=== PATIENT | male | born 1955 | race Caucasian/White ===

== ENCOUNTER 2016-09-24 17:15 | Emergency (ER) | payer BC ==
[2016-09-24] MEDS ORDERED: DIPH/PERTUSS(ACELL)/TETANUS VAC/PF 0.5 ML SYR (>=10YO) IM ONE (17:53)
[2016-09-24] MEDS ORDERED: LIDOCAINE 1% INJ-PF (10 MG/ML) 30 ML SDV INJ ONE (18:37)
--- NOTE | 2016-09-24 18:37 | ER Document Report ---
ED Hand/Wrist Injury - General Chief Complaint: Hand Injury Stated Complaint: RIGHT HAND INJURY Notes: Patient is a 61-year-old male presents emergency Department complaining of left hand pain. Patient states that he is a somnolent when he had 2 pieces of what slide and crushed his hand with an open wound. He admits to mild pain at the site but has full sensation and range of motion of his hand. States he is not up-to-date on his tetanus. Has medical problems except for high blood pressure. TRAVEL OUTSIDE OF THE [place] IN LAST 30 DAYS: No - HPI Injury to: Small finger - left - Related Data Allergies/Adverse Reactions: prednisone [Prednisone] Adverse Reaction (Intermediate, Verified 10/25/15 15:20) jitters Past Medical History - Social History Smoking Status: Former Smoker Family History: Reviewed & Not Pertinent - Past Medical History Cardiac Medical History: Reports: Hx Hypercholesterolemia - meds x 1 year, Hx Hypertension - meds x 6 years Denies: Hx Atrial Fibrillation, Hx Congestive Heart Failure, Hx Coronary Artery Disease, Hx Heart Attack, Hx Peripheral Vascular Disease, Hx Pulmonary Embolism, Hx Heart Murmur Pulmonary Medical History: Reports: Hx Bronchitis - multiple episodes (usually in the fall), Hx COPD, Hx Pneumonia - x 1 episode, denies hospitalization Denies: Hx Asthma, Hx Respiratory Failure, Hx Sleep Apnea, Hx Tuberculosis Neurological Medical History: Denies: Hx Cerebrovascular Accident, Hx Seizures Malignancy Medical History: Denies Hx Lung Cancer GI Medical History: Reports: Hx Gastroesophageal Reflux Disease - Tolentino's esophagitis, Dx'ed approx 3 years. Denies: Hx Crohn's Disease, Hx Hepatitis, Hx Hiatal Hernia, Hx Irritable Bowel, Hx Liver Failure, Hx Ulcer Musculoskeltal Medical History: Reports Hx Arthritis, Denies Hx Fibromyalgia, Denies Hx Muscular Dystrophy Psychiatric Medical History: Reports: Hx Depression - meds x 15 years Denies: Hx Bipolar Disorder, Hx Post Traumatic Stress Disorder, Hx Schizophrenia Traumatic Medical History: Denies: Hx Fractures Infectious Medical History: Denies: Hx Hepatitis Past Surgical History: Reports: Hx Appendectomy. Denies: Hx Bowel Surgery, Hx Cholecystectomy, Hx Colostomy, Hx Coronary Artery Bypass Graft, Hx Gastric Bypass Surgery, Hx Herniorrhaphy, Hx Open Heart Surgery, Hx Pacemaker, Hx Tonsillectomy - Immunizations Hx Diphtheria, Pertussis, Tetanus Vaccination: No Review of Systems - Review of Systems Musculoskeletal: See HPI Skin: See HPI -: Yes All other systems reviewed and negative Physical Exam - Vital signs Vitals: Temp Pulse Resp BP Pulse Ox 98.0 F 72 18 125/67 95 09/24/16 17:52 09/24/16 17:52 09/24/16 17:52 09/24/16 17:52 09/24/16 17:52 - General General appearance: Appears well, Alert In distress: None - Cardiovascular Pulses: Normal: Radial Normal capillary refill: Yes - Extremities Shoulder: Normal Arm: Normal Elbow: Normal Forearm: Normal Wrist: Normal Hand: Nontender, Laceration. No: Deformity, Dislocation, Ecchymosis, Instability, Nail injury, No evidence of human bite, No evidence of FB, Swelling , Tendon deficit - Skin Skin Temperature: Warm Skin Moisture: Dry Skin Color: Normal Skin Turgor: Elastic Skin irregularity: Laceration Location of irregularity: Extremities Character of irregularity: Linear Course - Re-evaluation Re-evalutation: 09/24/16 20:49 Patient is a 61-year-old male presents emergency Department with left hand laceration from crush injury. No evidence of fracture on x-ray. Patient's hand is neurovascularly intact no evidence of tendon involvement. Closed with nylon suture after copious irrigation with Betadine and saline. Patient's tetanus status updated discharged home on by mouth Keflex. - Vital Signs Vital signs: Temp Pulse Resp BP Pulse Ox 98.0 F 72 18 125/67 95 09/24/16 17:52 09/24/16 17:52 09/24/16 17:52 09/24/16 17:52 09/24/16 17:52 - Diagnostic Test Radiology reviewed: Image reviewed, Reports reviewed Procedures - Laceration/Wound Repair Left Hand 4th digit Wound length (cm): 5 Wound's Depth, Shape: Into muscle, Flap Laceration pre-procedure: Sterile PPE donned, Betadine prep applied, Sterile drapes applied Anesthetic type: 1% Lidocaine Volume Anesthetic (mLs): 2 Wound explored: Clean, No foreign body removed Irrigated w/ Saline (mLs): 500 Wound Debrided: Minimal Wound Repaired With: Sutures Suture Size/Type: 4:0, Nylon Number of Sutures: 7 Layer Closure?: No Post-procedure NV exam normal: Yes Complications: No Discharge - Discharge Clinical Impression: Laceration Condition: Good Disposition: HOME, SELF-CARE Instructions: Antibiotic Ointment Protection ([facility]), Laceration Care ([facility]), Prophylactic Antibiotic ([facility]), Tetanus Immunization Given ([facility]), Oral Narcotic Medication ([facility]), Soap Cleansing ([facility]) Additional Instructions: Please make an appointment to see Dr. Woods in 10-14 days to get your stitches removed. Prescriptions: Tramadol HCl 50 mg PO Q6HP PRN #15 tablet PRN Reason: Cephalexin Monohydrate [Keflex 500 mg Capsule] 500 mg PO BID 10 Days Forms: Return to Work Referrals: RICH MONTALVO MD [NO LOCAL MD] - Follow up as needed (in two weeks)
[2016-09-24] MEDS ORDERED: CEPHALEXIN 500 MG CAPSULE PO ONE (18:38)
[2016-09-24] MEDS ORDERED: ACETAMINOPHEN 325 MG TABLET PO ONE (18:56)
[2016-09-24 20:56] VITALS: BP 150/88
== END 2016-09-24 20:55 | disposition home or self-care (01) ==
LOC: ER 17:15
PROC: 0HQGXZZ Repair Left Hand Skin, External Approach (ICD-10-PCS; principal; 2016-09-24)
DX: S67.22XA Crushing injury of left hand, initial encounter (principal); S66.922A Laceration of unspecified muscle, fascia and tendon at wrist and hand level, left hand, initial encounter; S61.412A Laceration without foreign body of left hand, initial encounter; X58.XXXA Exposure to other specified factors, initial encounter; Y92.69 Other specified industrial and construction area as the place of occurrence of the external cause; I10 Essential (primary) hypertension; J44.9 Chronic obstructive pulmonary disease, unspecified; Z23 Encounter for immunization
CPT/HCPCS: 12002; 99283; 90471; 73140; 90715; J3490

== ENCOUNTER 2017-03-17 14:51 | Emergency (ER) | payer BC ==
[2017-03-17 14:55] VITALS: BP 136/95
[2017-03-17] MEDS ORDERED: HYDROCODONE/ACETAMINOPHEN 5-325 MG TABLET PO ONE (15:32)
[2017-03-17] MEDS ORDERED: METHYLPREDNISOLONE INJ 125 MG/2 ML SDV IM ONE (15:32)
[2017-03-17] MEDS ORDERED: CYCLOBENZAPRINE HCL 10 MG TABLET PO ONE (15:32)
--- NOTE | 2017-03-17 15:38 | ER Document Report ---
ED Extremity Problem, Lower - General Chief Complaint: Leg Pain Stated Complaint: LEG PAIN Time Seen by Provider: 03/17/17 15:05 Mode of Arrival: Ambulatory Information source: Patient Notes: Pt is a 61 year old male who presents with two days of left leg pain from his hip down to his foot, down the back of the leg only. He denies injury, numbness or tingling or low back pain. He denies any recent surgery, swelling, redness or bruising, recent travel or history of blood clots. He is not on blood thinners. He also admits to productive cough x 1 week and fever/chills last night. He has COPD. He has an inhaler at home he uses for shortness of breath that helps. TRAVEL OUTSIDE OF THE [place] IN LAST 30 DAYS: No - Related Data Allergies/Adverse Reactions: prednisone [Prednisone] Adverse Reaction (Intermediate, Verified 03/17/17 14:54) jitters Home Medications: Current Home Medications Esomeprazole Magnesium [Nexium] 1 cap PO DAILY 03/17/17 [History] Past Medical History - General Information source: Patient - Social History Smoking Status: Former Smoker Chew tobacco use (# tins/day): No Frequency of alcohol use: None Drug Abuse: None Family History: Reviewed & Not Pertinent - Past Medical History Cardiac Medical History: Reports: Hx Hypercholesterolemia - meds x 1 year, Hx Hypertension - meds x 6 years Denies: Hx Atrial Fibrillation, Hx Congestive Heart Failure, Hx Coronary Artery Disease, Hx Heart Attack, Hx Peripheral Vascular Disease, Hx Pulmonary Embolism, Hx Heart Murmur Pulmonary Medical History: Reports: Hx Bronchitis - multiple episodes (usually in the fall), Hx COPD, Hx Pneumonia - x 1 episode, denies hospitalization Denies: Hx Asthma, Hx Respiratory Failure, Hx Sleep Apnea, Hx Tuberculosis Neurological Medical History: Denies: Hx Cerebrovascular Accident, Hx Seizures Renal/ Medical History: Denies: Hx Peritoneal Dialysis Malignancy Medical History: Denies Hx Lung Cancer GI Medical History: Reports: Hx Gastroesophageal Reflux Disease - Tolentino's esophagitis, Dx'ed approx 3 years. Denies: Hx Crohn's Disease, Hx Hepatitis, Hx Hiatal Hernia, Hx Irritable Bowel, Hx Liver Failure, Hx Ulcer Musculoskeltal Medical History: Reports Hx Arthritis, Denies Hx Fibromyalgia, Denies Hx Muscular Dystrophy Psychiatric Medical History: Reports: Hx Depression - meds x 15 years Denies: Hx Bipolar Disorder, Hx Post Traumatic Stress Disorder, Hx Schizophrenia Traumatic Medical History: Denies: Hx Fractures Infectious Medical History: Denies: Hx Hepatitis Past Surgical History: Reports: Hx Appendectomy. Denies: Hx Bowel Surgery, Hx Cholecystectomy, Hx Colostomy, Hx Coronary Artery Bypass Graft, Hx Gastric Bypass Surgery, Hx Herniorrhaphy, Hx Open Heart Surgery, Hx Pacemaker, Hx Tonsillectomy - Immunizations Hx Diphtheria, Pertussis, Tetanus Vaccination: No Review of Systems - Review of Systems Constitutional: See HPI EENT: No symptoms reported Cardiovascular: No symptoms reported Respiratory: See HPI Gastrointestinal: No symptoms reported Genitourinary: No symptoms reported Male Genitourinary: No symptoms reported Musculoskeletal: See HPI Skin: No symptoms reported Hematologic/Lymphatic: No symptoms reported Neurological/Psychological: No symptoms reported Physical Exam - Vital signs Vitals: Temp Pulse Resp BP Pulse Ox 98.7 F 95 18 136/95 H 97 03/17/17 14:55 03/17/17 14:55 03/17/17 14:55 03/17/17 14:55 03/17/17 14:55 - Notes Notes: PHYSICAL EXAMINATION: GENERAL: Well-appearing and in no acute distress. HEAD: Atraumatic, normocephalic. EYES: Pupils equal round and reactive to light, extraocular movements intact, sclera anicteric, conjunctiva are normal. ENT: ear canals without erythema or foreign body, TMs pearly doty with good bony landmarks, nares patent, oropharynx clear without exudates. Moist mucous membranes. NECK: Normal range of motion, supple without lymphadenopathy LUNGS: cough, otherwise CTAB and equal. No wheezes rales or rhonchi. HEART: Regular rate and rhythm without murmurs ABDOMEN: Soft, no tenderness. No guarding, no rebound BACK: left SI joint tenderness, no vertebral tenderness, normal ROM GI/: no CVA tenderness EXTREMITIES: limited range of motion of left leg at hip due to pain, tender to left posterior thigh, no tenderness to calf, Brittany's sign negative for pain, no pitting edema. No cyanosis. NEUROLOGICAL: Cranial nerves grossly intact. Normal sensory/motor exams. PSYCH: Normal mood, normal affect. SKIN: Warm, Dry, normal turgor, no rashes or lesions noted Course - Vital Signs Vital signs: Temp Pulse Resp BP Pulse Ox 98.7 F 95 18 136/95 H 97 03/17/17 14:55 03/17/17 14:55 03/17/17 14:55 03/17/17 14:55 03/17/17 14:55 Discharge - Discharge Clinical Impression: COPD (chronic obstructive pulmonary disease) Qualifiers: COPD type: unspecified COPD Qualified Code(s): J44.9 - Chronic obstructive pulmonary disease, unspecified Sciatica Qualifiers: Laterality: left Qualified Code(s): M54.32 - Sciatica, left side Condition: Stable Disposition: HOME, SELF-CARE Instructions: Chronic Obstructive Lung Disease ([facility]), Sciatica ([facility]) Additional Instructions: Return immediately for any new or worsening symptoms. Follow up with primary care provider, call tomorrow to make followup appointment. Prescriptions: Azithromycin [Zithromax 250 mg Tablet] 250 mg PO ASDIR PRN #6 tablet PRN Reason: Cyclobenzaprine HCl [Flexeril 10 mg Tablet] 10 mg PO TIDP PRN #15 tab PRN Reason: Hydrocodone/Acetaminophen [Bucklin 5-325 mg Tablet] 1 tab PO Q4 PRN #10 tablet PRN Reason:
== END 2017-03-17 15:50 | disposition home or self-care (01) ==
LOC: ER 14:51
DX: J44.9 Chronic obstructive pulmonary disease, unspecified (principal); M54.32 Sciatica, left side; M79.605 Pain in left leg; E78.00 Pure hypercholesterolemia, unspecified; I10 Essential (primary) hypertension
CPT/HCPCS: 99283; 96372; J2930

== ENCOUNTER 2017-08-12 06:41 | Observation (INO) | payer BC ==
[2017-08-12] MEDS ORDERED: FENTANYL CITRATE INJ/PF 100 MCG/2 ML AMPUL IV ONE ×2 (07:53→09:24)
--- NOTE | 2017-08-12 07:59 | ER Document Report ---
ED GI/ - General Chief Complaint: Epigastric Pain Stated Complaint: STOMACH PAIN,NAUSEA Time Seen by Provider: 08/12/17 07:44 Mode of Arrival: Ambulatory Information source: Patient Notes: Patient is a 62-year-old male who presents to the ER today for abdominal pain in the upper abdomen that started last night. Patient states he was unable to sleep all night because of the pain. Patient has noticed no pattern with food. He states it has been constant. He admits to nausea and one episode of vomiting. He denies any diarrhea. He denies any fevers or chills. He still has his gallbladder. TRAVEL OUTSIDE OF THE [place] IN LAST 30 DAYS: No - Related Data Allergies/Adverse Reactions: prednisone [Prednisone] Adverse Reaction (Intermediate, Verified 08/12/17 07:59) jitters Past Medical History - General Information source: Patient - Social History Smoking Status: Unknown if Ever Smoked Family History: Reviewed & Not Pertinent - Past Medical History Cardiac Medical History: Reports: Hx Hypercholesterolemia - meds x 1 year, Hx Hypertension - meds x 6 years Denies: Hx Atrial Fibrillation, Hx Congestive Heart Failure, Hx Coronary Artery Disease, Hx Heart Attack, Hx Peripheral Vascular Disease, Hx Pulmonary Embolism, Hx Heart Murmur Pulmonary Medical History: Reports: Hx Bronchitis - multiple episodes (usually in the fall), Hx COPD, Hx Pneumonia - x 1 episode, denies hospitalization Denies: Hx Asthma, Hx Respiratory Failure, Hx Sleep Apnea, Hx Tuberculosis Neurological Medical History: Denies: Hx Cerebrovascular Accident, Hx Seizures Renal/ Medical History: Denies: Hx Peritoneal Dialysis Malignancy Medical History: Denies Hx Lung Cancer GI Medical History: Reports: Hx Gastroesophageal Reflux Disease - Tolentino's esophagitis, Dx'ed approx 3 years. Denies: Hx Crohn's Disease, Hx Hepatitis, Hx Hiatal Hernia, Hx Irritable Bowel, Hx Liver Failure, Hx Pancreatitis, Hx Ulcer Musculoskeltal Medical History: Reports Hx Arthritis, Denies Hx Fibromyalgia, Denies Hx Muscular Dystrophy Psychiatric Medical History: Reports: Hx Depression - meds x 15 years Denies: Hx Bipolar Disorder, Hx Post Traumatic Stress Disorder, Hx Schizophrenia Traumatic Medical History: Denies: Hx Fractures Infectious Medical History: Denies: Hx Hepatitis Past Surgical History: Reports: Hx Appendectomy. Denies: Hx Bowel Surgery, Hx Cholecystectomy, Hx Colostomy, Hx Coronary Artery Bypass Graft, Hx Gastric Bypass Surgery, Hx Herniorrhaphy, Hx Open Heart Surgery, Hx Pacemaker, Hx Tonsillectomy - Immunizations Hx Diphtheria, Pertussis, Tetanus Vaccination: No Review of Systems - Review of Systems Constitutional: No symptoms reported EENT: No symptoms reported Cardiovascular: No symptoms reported Respiratory: No symptoms reported Gastrointestinal: See HPI Genitourinary: No symptoms reported Male Genitourinary: No symptoms reported Musculoskeletal: No symptoms reported Skin: No symptoms reported Hematologic/Lymphatic: No symptoms reported Neurological/Psychological: No symptoms reported Physical Exam - Vital signs Vitals: Temp Pulse Resp BP Pulse Ox 97.5 F 68 18 150/81 H 95 08/12/17 06:57 08/12/17 06:57 08/12/17 06:57 08/12/17 06:57 08/12/17 06:57 - Notes Notes: PHYSICAL EXAMINATION: GENERAL: Mildly ill-appearing, uncomfortable appearing, but in no acute distress. HEAD: Atraumatic, normocephalic. EYES: Pupils equal round and reactive to light, extraocular movements intact, sclera anicteric, conjunctiva are normal. NECK: Normal range of motion, supple without lymphadenopathy LUNGS: CTAB and equal. No wheezes rales or rhonchi. HEART: Regular rate and rhythm without murmurs ABDOMEN: Soft, right upper quadrant, diffuse tenderness. No guarding, no rebound BACK: no vertebral tenderness, normal ROM GI/: no CVA tenderness EXTREMITIES: Normal range of motion, no pitting edema. No cyanosis. NEUROLOGICAL: Cranial nerves grossly intact. Normal sensory/motor exams. PSYCH: Normal mood, normal affect. SKIN: Warm, Dry, normal turgor, no rashes or lesions noted Course - Re-evaluation Re-evalutation: 08/12/17 15:05 Patient's white blood cell count is 11.1, normal liver enzymes and bilirubin, normal lipase, CT was performed because patient's pain was not exactly localized to only the right upper quadrant which is also why cardiac enzymes were drawn and negative, chest x-ray was performed and negative. CAT scan reports cholecystic fluid, radiologist called advising ultrasound. Right upper quadrant ultrasound reports cholecystitis with cholelithiasis. Dr. Ivey, surgeon on-call accepts patient for surgery at this time. Patient was given Unasyn, IV fluids, pain medication, nausea medication and made n.p.o. He has not eaten since 6 PM last night. - Vital Signs Vital signs: Temp Pulse Resp BP Pulse Ox 98.2 F 68 17 154/80 H 95 08/12/17 12:11 08/12/17 06:57 08/12/17 13:01 08/12/17 13:01 08/12/17 13:01 - Laboratory Result Diagrams: 08/12/17 07:54 08/12/17 07:54 Laboratory results interpreted by me: 08/12/17 08/12/17 08/12/17 07:54 07:54 09:00 WBC 11.1 H Seg Neutrophils % 81.2 H Lymphocytes % 11.9 L Absolute Neutrophils 9.0 H Glucose 150 H Calcium 10.3 H Urine Ascorbic Acid 40 H Discharge - Discharge Clinical Impression: Cholecystitis with cholelithiasis Qualifiers: Cholelithiasis location: gallbladder Cholecystitis acuity: acute Biliary obstruction: without biliary obstruction Qualified Code(s): K80.00 - Calculus of gallbladder with acute cholecystitis without obstruction Condition: Stable Disposition: ADMITTED INPATIENT Admitting Provider: Surgicalist Unit Admitted: OR
[2017-08-12 08:06] LABS: ABSOLUTE BASOPHILS # (AUTO) 0.1 10^3/uL (0.0-0.2); ABSOLUTE EOSINOPHILS # (AUTO) 0.1 10^3/uL (0.0-0.6); ABSOLUTE LYMPHOCYTES (AUTO) 1.3 10^3/uL (0.5-4.7); ABSOLUTE MONOCYTES (AUTO) 0.6 10^3/uL (0.1-1.4); BASOPHILS % (AUTO) 0.7 % (0-2); EOSINOPHILS % (AUTO) 0.6 % (0-6); HEMATOCRIT 46.3 % (37.9-51.0); HEMOGLOBIN 15.7 g/dL (13.5-17.0); LYMPHOCYTES % (AUTO) 11.9 % (13-45); MEAN CORPUSCULAR HEMOGLOBIN 30.2 pg (27.0-33.4); MEAN CORPUSCULAR VOLUME 89 fl (80-97); MONOCYTES % (AUTO) 5.6 % (3-13); PLATELET COUNT 327 10^3/uL (150-450); RED CELL DISTRIBUTION WIDTH 12.8 % (11.5-14.0); SEGMENTED NEUTROPHILS % (AUTO) 81.2 % (42-78); TOTAL CELLS COUNTED % (AUTO) 100 %; WHITE BLOOD COUNT 11.1 10^3/uL (4.0-10.5)
[2017-08-12 08:26] LABS: ALANINE AMINOTRANSFERASE 53 U/L (21-72); ALBUMIN 4.8 g/dL (3.5-5.0); ALKALINE PHOSPHATASE 69 U/L (38-126); ANION GAP 15 (5-19); ASPARTATE AMINO TRANSFERASE 25 U/L (17-59); BILIRUBIN,DIRECT 0.4 mg/dL (0.0-0.4); BILIRUBIN,TOTAL 0.4 mg/dL (0.2-1.3); BLOOD UREA NITROGEN 19 mg/dL (7-20); CALCIUM 10.3 mg/dL (8.4-10.2); CARBON DIOXIDE 25 mmol/L (22-30); CHLORIDE 101 mmol/L (98-107); CREATINE KINASE 67 U/L (55-170); GLUCOSE 150 mg/dL (75-110); LIPASE 51.2 U/L (23-300); POTASSIUM 4.8 mmol/L (3.6-5.0); SODIUM 140.7 mmol/L (137-145); TOTAL PROTEIN 7.7 g/dL (6.3-8.2)
[2017-08-12 08:38] LABS: CREATINE KINASE MB 1.09 ng/mL (<4.55)
[2017-08-12 08:40] LABS: TROPONIN I < 0.012 ng/mL
--- NOTE | 2017-08-12 09:11 | RADIOLOGY REPORT (SQ) ---
EXAM DESCRIPTION: CHEST SINGLE VIEW COMPLETED DATE/TIME: 08/12/2017 8:57 am REASON FOR STUDY: cp COMPARISON: 11/29/2015 EXAM PARAMETERS: NUMBER OF VIEWS: One view. TECHNIQUE: Single frontal radiographic view of the chest acquired. RADIATION DOSE: NA LIMITATIONS: None. FINDINGS: LUNGS AND PLEURA: Vague suprahilar opacity/ mass on the right not seen on the previous liz dy. Left lung is clear. MEDIASTINUM AND HILAR STRUCTURES: No masses. Contour normal. HEART AND VASCULAR STRUCTURES: Heart normal in size. Normal vasculature. BONES: No acute findings. HARDWARE: None in the chest. OTHER: No other significant finding. IMPRESSION: Vague suprahilar opacity on the right. Infiltrate versus mass. TECHNICAL DOCUMENTATION: JOB ID: [id number] [employer]- All Rights Reserved
[2017-08-12 09:23] LABS: APPEARANCE,URINE CLEAR; BILIRUBIN,URINE NEGATIVE (NEGATIVE); COLOR,URINE STRAW; GLUCOSE, URINE NEGATIVE (NEGATIVE); KETONES,URINE NEGATIVE (NEGATIVE); LEUKOCYTE ESTERASE,URINE NEGATIVE (NEGATIVE); NITRITE,URINE NEGATIVE (NEGATIVE); PROTEIN,URINE NEGATIVE (NEGATIVE); URINE SPECIFIC GRAVITY 1.015; UROBILINOGEN,URINE NEGATIVE mg/dL (<2.0)
[2017-08-12] MEDS ORDERED: METOCLOPRAMIDE HCL ORAL SOLN 10 MG/10 ML UDCUP PO ONE (09:35)
[2017-08-12] MEDS ORDERED: LIDOCAINE 2% VISCOUS SOLN 20 ML UDCUP PO ONE (09:35)
[2017-08-12] MEDS ORDERED: MAG HYDROX/AL HYDROX/SIMETH SUSP 30 ML UDCUP PO ONE (09:35)
[2017-08-12] MEDS ORDERED: ONDANSETRON HCL INJ/PF 4 MG/2 ML SDV IV ONE (09:43)
--- NOTE | 2017-08-12 11:17 | RADIOLOGY REPORT (SQ) ---
EXAM DESCRIPTION: CT ABD/PELVIS WITH IV ORAL COMPLETED DATE/TIME: 08/12/2017 10:41 am REASON FOR STUDY: cp/abd pain worst epigastric, nausea COMPARISON: CT abdomen pelvis 11/05/2008, 12/16/2015 TECHNIQUE: CT scan of the abdomen and pelvis performed using helical scanning technique with dynamic intravenous contrast injection. Patient drank oral contrast. Images reviewed with lung, soft tissue , and bone windows. Reconstructed coronal and sagittal MPR images reviewed. Delayed images for evalua tion of the urinary system also acquired. All images stored on PACS. All CT scanners at this facility use dose modulation, iterative reconstruction, and/or weight based d osing when appropriate to reduce radiation dose to as low as reasonably achievable (ALARA). [facility]: Dose Right [facility]: CareDose [facility]: Dose Right [facility]: Teradose 4D [facility]: Pcsso CONTRAST TYPE AND DOSE: contrast/concentration: Isovue 370.00 mg/ml; Total Contrast Delivered: 100.0 ml; Total Saline Delivered: 70.0 ml RENAL FUNCTION: Creatinine 0.99 RADIATION DOSE: CT Rad equipment meets quality standard of care and radiation dose reduction techniq ues were employed. CTDIvol: 18.3 - 20.7 mGy. DLP: 2283 mGy-cm.. LIMITATIONS: None. FINDINGS: LOWER CHEST: Small hiatal hernia. Bibasilar atelectasis. LIVER: Normal size. Diffuse fatty infiltration with focal sparing at the gallbladder fossa. [address] posterior right lobe liver unchanged since 2008 SPLEEN: Normal size. No focal lesions. PANCREAS: No masses. No significant calcifications. No adjacent inflammation or peripancreatic fluid collections. Pancreatic duct not dilated. GALLBLADDER: No identified stones by CT criteria. Trace pericholecystic fluid on coronal image 37, q uestion acute cholecystitis. ADRENAL GLANDS: No significant masses or asymmetry. RIGHT KIDNEY AND URETER: No solid masses. No significant calcifications. No hydronephrosis or hyd roureter. LEFT KIDNEY AND URETER: No solid masses. No significant calcifications. No hydronephrosis or hydr oureter. AORTA AND VESSELS: No aneurysm. No dissection. Renal arteries, SMA, celiac without stenosis. RETROPERITONEUM: No retroperitoneal adenopathy, hemorrhage or masses. BOWEL AND PERITONEAL CAVITY: No masses or inflammatory changes. No free fluid or peritoneal masses. Oral contrast in stomach and nondistended small bowel loops. APPENDIX: Surgically absent PELVIS: Enlarged prostate. No free fluid. Normal bladder. ABDOMINAL WALL: No masses. No hernias. BONES: Bilateral spondylolysis at L5 . OTHER: No other significant finding. IMPRESSION: Fatty liver Trace pericholecystic fluid, question acute cholecystitis Colonic diverticuli without CT signs of acute diverticulitis Enlarged prostate COMMENT: Report called to Licha Eubanks in the ER, 1100 hours 08/12/2017 TECHNICAL DOCUMENTATION: JOB ID: [id number] Quality ID # [id number]: Final reports with documentation of one or more dose reduction techniques (e.g., Au tomated exposure control, adjustment of the mA and/or kV according to patient size, use of iterative reconstruction technique) 2010 [employer]- All Rights Reserved
--- NOTE | 2017-08-12 12:10 | RADIOLOGY REPORT (SQ) ---
EXAM DESCRIPTION: U/S ABDOMEN LIMITED W/O DOP COMPLETED DATE/TIME: 08/12/2017 11:51 am REASON FOR STUDY: abd pain, n /v COMPARISON: CT scan same date TECHNIQUE: Dynamic and static grayscale images acquired of the abdomen and recorded on PACS. Additio nal selected color Doppler and spectral images recorded. LIMITATIONS: None. FINDINGS: PANCREAS: Not visualized LIVER: Fatty liver. No focal masses. LIVER VASCULATURE: Normal directional flow of the main portal vein and hepatic veins. GALLBLADDER: Multiple stones. Gallbladder wall thickening 3.4 mm. Pericholecystic fluid. ULTRASOUND-DETECTED FRANCO'S SIGN: Positive. INTRAHEPATIC DUCTS AND COMMON DUCT: Common duct not visualized. INFERIOR VENA CAVA: Normal flow. AORTA: Not visualized. RIGHT KIDNEY: Normal size. Normal echogenicity. No solid or suspicious masses. No hydronephrosis. No calcifications. PERITONEAL AND RIGHT PLEURAL SPACE: No ascites or effusions. OTHER: No other significant findings. IMPRESSION: Cholelithiasis and cholecystitis. TECHNICAL DOCUMENTATION: JOB ID: [id number] [email or web address]- All Rights Reserved
[2017-08-12] MEDS ORDERED: AMPICILLIN SOD/SULBACTAM 3 GM VIAL IV ONE (12:27)
[2017-08-12] MEDS ORDERED: NORMAL SALINE 1000 ML 1,000 ML IV ONE (12:27)
--- NOTE | 2017-08-12 13:32 | EKG REPORT ---
SEVERITY:- BORDERLINE ECG - SINUS RHYTHM NONSPECIFIC ST-T CHANGES ANTERIOR LEADS : Confirmed by: Stoney Obando MD 12-Aug-2017 13:31:41
[2017-08-12] MEDS ORDERED: INFLUENZA ADLT QUAD (36MOS+) 2017-18 VAC 0.5 ML SYR IM PRN (14:39)
[2017-08-12] MEDS ORDERED: BUPIVACAINE HCL 0.25 % INJ/PF (2.5 MG/1 ML) 30 ML VIAL ONE (15:06)
[2017-08-12] MEDS ORDERED: EPHEDRINE SULFATE INJ 50 MG/1 ML AMPULE ONE (15:11)
[2017-08-12] MEDS ORDERED: MIDAZOLAM 2 MG/2 ML INJ ONE (15:11)
[2017-08-12] MEDS ORDERED: PROPOFOL INJ 200 MG/20 ML VIAL IV ONE (15:11)
[2017-08-12] MEDS ORDERED: FENTANYL CITRATE INJ/PF 100 MCG/2 ML AMPUL ONE (15:11)
[2017-08-12] MEDS ORDERED: HYDROMORPHONE HCL INJ/PF 2 MG/ML AMPULE ONE (15:11)
[2017-08-12] MEDS ORDERED: ACETAMINOPHEN 100 ML IV ONE (15:11)
--- NOTE | 2017-08-12 15:28 | PDOC H&P ---
History of Present Illness Admission Date/PCP: 08/12/17 13:04 WALKER CARABALLO MD History of Present Illness: CHAD RETANA is a 62 year old male Who presents emergency department with a 24-hour history of abdominal pain, inanition, no nausea or vomiting no previous episodes, no history of trauma. Last bowel movement yesterday, normal. Last ate last p.m. at 6:00. Patient presents emergency department complaining of chest and abdominal pain. EKG and chest x-ray were unremarkable. CT scan of the abdomen and pelvis with oral and IV contrast showed findings consistent with cholecystitis with pericholecystic fluid, and ultrasonography showed gallstones. Surgery was consulted and he was advised admission. Past Medical History Cardiac Medical History: Reports: Hyperlipidema - meds x 1 year, Hypertension - meds x 6 years Denies: Atrial Fibrillation, Congestive Heart Failure, Coronary Artery Disease, Myocardial Infarction, Peripheral Vascular Disease, Pulmonary Embolism , Heart Murmur Pulmonary Medical History: Reports: Bronchitis - multiple episodes (usually in the fall), Chronic Obstructive Pulmonary Disease (COPD), Pneumonia - x 1 episode , denies hospitalization Denies: Asthma, Respiratory Failure, Sleep Apnea, Tuberculosis Neurological Medical History: Denies: Seizures Malignancy Medical History: Denies: Lung Cancer GI Medical History: Reports: Gastroesophageal Reflux Disease - Tolentino's esophagitis, Dx'ed approx 3 years Denies: Crohn's Disease, Hepatitis, Hiatal Hernia Musculoskeltal Medical History: Reports: Arthritis Denies: Fibromyalgia Psychiatric Medical History: Reports: Depression - meds x 15 years Denies: Bipolar Disorder, Post Traumatic Stress Disorder Hematology: Denies: Anemia, Sickle Cell Disease Past Surgical History Past Surgical History: Reports: Appendectomy, Orthopedic Surgery - RIGHT KNEE Denies: Cholecystectomy, Colostomy, Coronary Artery Bypass Graft, Gastric Bypass Surgery, Herniorrhaphy, Pacemaker, Tonsillectomy Social History Smoking Status: Former Smoker Cigarettes Packs Per Day: 3 Number of Years Smokin Frequency of Alcohol Use: None Hx Recreational Drug Use: No Drugs: None Hx Prescription Drug Abuse: No Family History Family History: Reviewed & Not Pertinent Parental Family History Reviewed: Yes Children Family History Reviewed: Yes Sibling(s) Family History Reviewed.: Yes Medication/Allergy Home Medications: Albuterol Sulfate [Proair HFA Inhalation Aerosol 8.5 gm MDI] 2 puff IH Q4HP PRN 08/12/17 Alprazolam [Xanax 0.5 mg Tablet] 0.5 mg PO QHS 08/12/17 Budesonide/Formoterol Fumarate [Symbicort HFA 160-4.5 mcg Inhaler 6 gm] 2 puff IH Q12 08/12/17 Citalopram Hydrobromide [Celexa 40 mg Tablet] 40 mg PO QHS 08/12/17 Fosinopril Sodium [Monopril] 10 mg PO BID 08/12/17 Ipratropium/Albuterol Sulfate [Duoneb 3 ml Ampul] 1 vial NEB Q6 08/12/17 Ropinirole HCl [Requip] 0.5 mg PO QHS 08/12/17 Tiotropium [place] [Spiriva Respimat] 2 puff IH DAILY 08/12/17 Allergies/Adverse Reactions: prednisone [Prednisone] Adverse Reaction (Intermediate, Verified 08/12/17 07:59) jitters Review of Systems Constitutional: PRESENT: as per HPI Eyes: ABSENT: visual disturbances Ears: ABSENT: hearing changes Cardiovascular: ABSENT: chest pain, dyspnea on exertion, edema, orthropnea, palpitations Gastrointestinal: PRESENT: as per HPI Musculoskeletal: ABSENT: joint swelling Integumentary: ABSENT: rash, wounds Neurological: ABSENT: abnormal gait, abnormal speech, confusion, dizziness, focal weakness, syncope Physical Exam Vital Signs: Temp Pulse Resp BP Pulse Ox 98.2 F 68 17 147/79 H 95 08/12/17 12:11 08/12/17 06:57 08/12/17 15:01 08/12/17 15:01 08/12/17 15:04 Intake & Output 08/11/17 08/12/17 08/13/17 06:59 06:59 06:59 Output Total 200 Balance -200 General appearance: PRESENT: mild distress Head exam: PRESENT: normocephalic Eye exam: PRESENT: EOMI Mouth exam: PRESENT: moist Neck exam: PRESENT: full ROM Respiratory exam: PRESENT: other - Occasional wheeze Cardiovascular exam: PRESENT: RRR Pulses: PRESENT: normal carotid pulses, normal radial pulses, normal femoral pulses GI/Abdominal exam: PRESENT: other - Tender right upper quadrant with guarding, hyperactive bowel sounds Rectal exam: PRESENT: deferred Extremities exam: PRESENT: full ROM Musculoskeletal exam: PRESENT: full ROM Neurological exam: PRESENT: alert, altered, awake Psychiatric exam: PRESENT: appropriate affect Skin exam: PRESENT: dry Results Impressions: Abdomen/Pelvis CT 08/12/17 00:00 IMPRESSION: Fatty liver Trace pericholecystic fluid, question acute cholecystitis Colonic diverticuli without CT signs of acute diverticulitis Enlarged prostate Chest X-Ray 08/12/17 07:52 IMPRESSION: Vague suprahilar opacity on the right. Infiltrate versus mass. Abdomen Ultrasound 08/12/17 11:12 IMPRESSION: Cholelithiasis and cholecystitis. Assessment & Plan - Diagnosis (1) Cholecystitis with cholelithiasis Qualifiers: Cholelithiasis location: gallbladder Cholecystitis acuity: acute Biliary obstruction: without biliary obstruction Qualified Code(s): K80.00 - Calculus of gallbladder with acute cholecystitis without obstruction Is this a current diagnosis for this admission?: Yes Plan: Patient is admitted to the surgical service for management of acute cholecystitis with cholelithiasis. The plan is to perform laparoscopic possible open cholecystectomy, general anesthesia, 1 hour, possible drain. Risks benefits and alternatives to procedure explained to the patient. These include bleeding, infection, need for a drain, bile duct injury and bile leak. He has expressed her understanding and agree to proceed. (2) Former cigarette smoker Is this a current diagnosis for this admission?: Yes (3) Arthritis Is this a current diagnosis for this admission?: Yes - Time Time Spent: 50 to 70 Minutes Medications reviewed and adjusted accordingly: Yes Anticipated discharge: Home - Inpatient Certification Based on my medical assessment, after consideration of the patient's comorbidities, presenting symptoms, or acuity I expect that the services needed warrant INPATIENT care.: Yes I certify that my determination is in accordance with my understanding of Medicare's requirements for reasonable and necessary INPATIENT services [42 CFR 412.3e].: Yes Medical Necessity: Need For IV Fluids, Need for Pain Control, Need for IV Antibiotics, Need for Surgery
[2017-08-12] MEDS ORDERED: NEOSTIGMINE METHYLSULFATE 10 MG/10 ML VIAL ONE (15:38)
[2017-08-12] MEDS ORDERED: METOCLOPRAMIDE HCL INJ/PF 10 MG/2 ML SDV ONE (15:38)
[2017-08-12] MEDS ORDERED: DEXAMETHASONE SOD PHOSPHATE INJ 4 MG/1 ML VIAL ONE (15:38)
[2017-08-12] MEDS ORDERED: ONDANSETRON HCL INJ/PF 4 MG/2 ML SDV ONE (15:38)
[2017-08-12] MEDS ORDERED: LIDOCAINE 2% INJ-PF (20 MG/ML) 2 ML AMPUL ONE (15:38)
[2017-08-12] MEDS ORDERED: GLYCOPYRROLATE INJ 0.4 MG/2 ML VIAL ONE (15:38)
[2017-08-12] MEDS ORDERED: KETOROLAC TROMETHAMINE 60 MG/2 ML SDV ONE (15:38)
[2017-08-12] MEDS ORDERED: FENTANYL CITRATE INJ/PF 100 MCG/2 ML AMPUL IV PRN ×3 (17:45)
[2017-08-12] MEDS ORDERED: PROMETHAZINE HCL INJ 25 MG/1 ML VIAL IV PRN ×2 (17:45)
[2017-08-12] MEDS ORDERED: ONDANSETRON HCL INJ/PF 4 MG/2 ML SDV IV PRN ×3 (17:45→19:01)
[2017-08-12] MEDS ORDERED: MORPHINE SULFATE 10 MG/ML INJ IV PRN (17:45)
[2017-08-12] MEDS ORDERED: DIPHENHYDRAMINE HCL 50 MG/ML VIAL IV PRN (17:45)
[2017-08-12] MEDS ORDERED: MEPERIDINE HCL/PF INJ 25 MG/1 ML DISP.SYRIN IV PRN (17:45)
[2017-08-12] MEDS ORDERED: OXYCODONE-ACETAMINOPHEN 5-325 MG TABLET PO PRN ×2 (17:45)
[2017-08-12] MEDS ORDERED: KETOROLAC TROMETHAMINE INJ/PF 30 MG/1 ML SDV IV PRN (19:01)
[2017-08-12] MEDS ORDERED: KETOROLAC TROMETHAMINE 10 MG TABLET PO PRN (19:01)
--- NOTE | 2017-08-12 19:01 | Operative Report ---
Operative Report DATE OF SURGERY: 08/12/17 PREOPERATIVE DIAGNOSIS: Acute cholecystitis with cholelithiasis POSTOPERATIVE DIAGNOSIS: Gangrenous cholecystitis with cholelithiasis OPERATION: Laparoscopic cholecystectomy SURGEON: RICK BUNDY ANESTHESIA: GA TISSUE REMOVED OR ALTERED: 1 gallbladder with contents COMPLICATIONS: None ESTIMATED BLOOD LOSS: Scant INTRAOPERATIVE FINDINGS: See below PROCEDURE: The patient was seen in the preop holding area then taken to the operating room where general anesthesia was induced. The abdomen was exposed, prepped and draped in a sterile fashion. Instrumentation set up for laparoscopic cholecystectomy Surgical plan surgical timeout were conducted. Markings were made on the skin for planned for port laparoscopic cholecystectomy. Skin was anesthetized at all 4 sites with quarter percent Marcaine. A supraumbilical vertical incision made with a knife, Veress needle inserted the peritoneal cavity, pneumoperitoneum was established. Veress needle removed, 5 mm ports inserted, and a 5 mm viewing scope was inserted. Findings were significant for acute cholecystitis, gangrenous in areas. 3 additional 5 mm ports were placed uneventfully. There was no evidence of visceral or vascular injury The gallbladder was aspirated of approximately 100 cc of bile. Graspers were placed on the fundus and infundibulum, the gastroduodenal tissues swept inferiorly, closing the minutes, thickened neck of the gallbladder. We opened up the peritoneal reflection in this area, and began dissecting in a circular fashion the knee and affixed to the infundibulum. After proceeding in this fashion for approximately 20 minutes gaining some but not optimal exposure to the critical anatomy, we decided to perform a top down approach. Graspers were repositioned, the gallbladder was taken down from the fundus down to the mid body down to its neck and infundibular region. Performed using combination of hook and electrocautery dissection under excellent visualization with excellent help. The gallbladder was necrotic and gangrenous in areas. Several entries were made into the gallbladder without significant stone spillage. Eventually we had the peel around the infundibulum stripped away, and the neck of the gallbladder was suspending the gallbladder solely from the cystic duct. A dominant cystic artery was never identified, but the node of Calot was seen, and divided so as to expose the neck of the gallbladder. The cystic artery may have been within the substance of that tissue. Nonetheless, at this point in the operation, we have the gallbladder suspended solely from the cystic duct. It was milked of any possible stones, clipped twice proximally once distally and divided with scissors. The gallbladder was placed in Endobag and brought to the patient to the supraumbilical port site with minimal stretching of the fascial defect. We returned the peritoneal cavity checked for bleeding of bile leak and there was none. Clips were felt to be in satisfactory position. The operative field was irrigated, and all ports removed direct visualization and pneumoperitoneum evacuated. Wounds closed with 0, 3-0 Vicryl benzoin and Steri-Strips. Patient tolerated the procedure well, extubated, taken to recovery room in stable condition.
[2017-08-12] MEDS ORDERED: AMPICILLIN SOD/SULBACTAM 3 GM VIAL ONE (22:22)
[2017-08-12] MEDS: AMPICILLIN SODIUM/SULBACTAM NA 3 GM in NORMAL SALINE 100 ML IV SCH (22:49)
[2017-08-13] MEDS: AMPICILLIN SODIUM/SULBACTAM NA 3 GM in NORMAL SALINE 100 ML IV SCH ×2 (06:11→13:38)
[2017-08-13 16:31] VITALS: BP 150/81
--- NOTE | 2017-08-13 18:14 | PDOC PROGRESS REPORT ---
Subjective Progress Note for:: 08/13/17 Subjective:: no c/o, patient tolerating po well Reason For Visit: ACUTE CHOLECYSTITIS Physical Exam Vital Signs: Temp Pulse Resp BP Pulse Ox 98.0 F 68 20 121/62 97 08/13/17 16:26 08/13/17 16:26 08/13/17 16:26 08/13/17 16:26 08/13/17 16:26 Intake & Output 08/12/17 08/13/17 08/14/17 06:59 06:59 06:59 Intake Total 2430 600 Output Total 210 Balance 2220 600 Weight 116 kg General appearance: PRESENT: no acute distress Respiratory exam: PRESENT: clear to auscultation khushboo Cardiovascular exam: PRESENT: RRR GI/Abdominal exam: PRESENT: soft, other - all incisions are clean, dry, and intact Results Impressions: Abdomen/Pelvis CT 08/12/17 00:00 IMPRESSION: Fatty liver Trace pericholecystic fluid, question acute cholecystitis Colonic diverticuli without CT signs of acute diverticulitis Enlarged prostate Chest X-Ray 08/12/17 07:52 IMPRESSION: Vague suprahilar opacity on the right. Infiltrate versus mass. Abdomen Ultrasound 08/12/17 11:12 IMPRESSION: Cholelithiasis and cholecystitis. Assessment & Plan - Plan Summary Plan Summary: A/ POD #1 after laparoscopic cholecystecotmy for gangrenous cholecystitis Patient has VSS, AF WBC 11 PE unremarkable Plan: d/c home today follow up with Dr. Ivey in 1 week or sooner as needed Cipro/Flagyl po x 7 days Tylenol for pain Resume diet and activities as tolerated can shower, bath in 2 weeks
--- NOTE | 2017-08-13 19:43 | DISCHARGE SUMMARY E ---
Discharge Summary NAME: CHAD RETANA : 1955 AGE: 62Y ADMITTED: 08/12/2017 DISCHARGED: 08/13/2017 FINAL DIAGNOSIS: 1. A gangrenous cholecystitis. 2. Former smoker. 3. Possible lesion right upper lung. PROCEDURE: Laparoscopic cholecystectomy on 08/12. COMPLICATIONS: None. HOSPITAL COURSE: This is a former smoker, 62-year-old male who presented to the hospital with right upper quadrant pain and found to have acute cholecystitis, gangrenous type. The patient was taken to surgery on the same day 08/12, underwent an uneventful laparoscopic cholecystectomy. The patient was kept overnight for observation. His vital signs remained stable. He is afebrile. His white blood cell count was 11.1 on admission, not checked postoperatively. His physical exam postoperative was unremarkable; abdomen soft, nondistended, nontender. His diet as tolerated. The patient was discharged to home on 08/13. DISCHARGE INSTRUCTIONS: The patient was instructed to follow up with Dr. Ivey on 08/20, or sooner if he had any problems. He was instructed to resume a regular diet, resume his home medications, use Tylenol p.r.n. by mouth for pain. He was given Ceclor 500 mg p.o. b.i.d. for 7 days and Flagyl 500 mg p.o. t.i.d. for 7 days. He was instructed to resume his medications, diet, and activities. He can shower immediately and bathe in 2 weeks. DICTATING PHYSICIAN: ALICIA THOMPSON M.D. [id number] PHY#: [id number] ID: [id number] JOB#: [id number] ACCT: [id number] cc:Yuniel PEÑA M.D. EKika Kika [facility], [facility]
== END 2017-08-13 19:03 | disposition home or self-care (01) ==
LOC: ER 06:41 → INTOOBSV 13:04 → EH 13:04 → 2N 20:17
PROVIDERS: ATTEND Surgery
PROC: 0FT44ZZ Resection of Gallbladder, Percutaneous Endoscopic Approach (ICD-10-PCS; principal; 2017-08-12 16:00)
DX: K80.00 Calculus of gallbladder with acute cholecystitis without obstruction (principal); Z87.891 Personal history of nicotine dependence; R91.8 Other nonspecific abnormal finding of lung field; E78.5 Hyperlipidemia, unspecified; K22.70 Barrett's esophagus without dysplasia; K21.0 Gastro-esophageal reflux disease with esophagitis; J44.9 Chronic obstructive pulmonary disease, unspecified; I10 Essential (primary) hypertension; M19.90 Unspecified osteoarthritis, unspecified site; Z90.49 Acquired absence of other specified parts of digestive tract
CPT/HCPCS: 93005; 96376; 99285; 96374; 96375; 36415; 87040; 82553; 82550; 83690; 85025; 80053; 81001; 84484; 88304 ×2; 71045; 76705; 74177; 93010; 47562; G0378 ×2; J2250; J1100; J1885; J3010; J0295 ×2; J3490 ×2; J2765; J1170; J2405; J7030; J2704; J0131; 790

== ENCOUNTER → 2017-08-19 | Outpatient (CLI) | payer BC ==
--- NOTE | 2017-08-19 17:03 | RADIOLOGY REPORT (SQ) ---
EXAM DESCRIPTION: CT CHEST WITHOUT COMPLETED DATE/TIME: 08/19/2017 11:57 am REASON FOR STUDY: LESION OF RIGHT LUNG (R91.1) R91.1 SOLITARY PULMONARY NODULE COMPARISON: CT chest 12/16/2015 CT abdomen pelvis 08/12/2017 TECHNIQUE: CT scan performed of the chest without intravenous contrast. Images reviewed with lung, soft tissue and bone windows. Reconstructed coronal and sagittal MPR images reviewed. All images st ored on PACS. All CT scanners at this facility use dose modulation, iterative reconstruction, and/or weight based d osing when appropriate to reduce radiation dose to as low as reasonably achievable (ALARA). [facility]: Dose Right [facility]: CareDose [facility]: Dose Right [facility]: Teradose 4D [facility]: FansUnite RADIATION DOSE: CT Rad equipment meets quality standard of care and radiation dose reduction techniq ues were employed. CTDIvol: 14.6 mGy. DLP: 573 mGy-cm. mGy. LIMITATIONS: No technical limitations. FINDINGS: LUNGS AND PLEURA: In the medial aspect right upper lobe, a 3.3 x 1.7 cm mass is present wo rrisome for malignancy. Remainder of the lungs are otherwise well inflated and grossly clear. No pleural effusion. No pneumothorax. HILAR AND MEDIASTINAL STRUCTURES: Few small subcentimeter lymph nodes are seen at the right hilum, ri ght paratracheal and precarinal regions. HEART AND VASCULAR STRUCTURES: Aberrant left subclavian artery, an anatomic variant. UPPER ABDOMEN: Post cholecystectomy. 2 cm cyst posterior right lobe liver subdiaphragmatic surface THYROID AND OTHER SOFT TISSUES: 7 mm nodule right lower pole thyroid. BONES: No significant finding. HARDWARE: None in the chest. OTHER: No other significant findings. IMPRESSION: Mass in the medial right upper lobe worrisome for malignancy. TECHNICAL DOCUMENTATION: JOB ID: [id number] Quality ID # [id number]: Final reports with documentation of one or more dose reduction techniques (e.g., Au tomated exposure control, adjustment of the mA and/or kV according to patient size, use of iterative reconstruction technique) 2010 [employer]- All Rights Reserved Reading location - IP/workstation name: [facility]
== END ==
LOC: RAD 11:02
PROVIDERS: ATTEND Internal Medicine Pulmonary Disease
DX: R91.1 Solitary pulmonary nodule (principal)
CPT/HCPCS: 71250

== ENCOUNTER → 2017-08-20 | Outpatient (CLI) | payer BC ==
--- NOTE | 2017-08-21 10:09 | RADIOLOGY REPORT (SQ) ---
EXAM DESCRIPTION: PET CT SKULL/THIGH COMPLETED DATE/TIME: 08/20/2017 8:22 pm REASON FOR STUDY: OTHER NONSPECIFIC ABNORMAL FINDING OF LUNG FIELD R91.8 OTHER NONSPECIFIC ABNORMAL FINDING OF LUNG FIELD COMPARISON: CT chest 08/19/2017, 12/16/2015 CT abdomen pelvis 08/12/2017, 11/05/2008 RADIONUCLIDE AND DOSE: 10.6 mCi F18 FDG The route of agent administration: Intravenous FASTING BLOOD SUGAR: 83 mg/dl CONTRAST TYPE AND DOSE: No CT contrast given. TECHNIQUE: Blood glucose level was verified. Above dose of FDG was injected intravenously. 2-D seg mented attenuation correction images were obtained from the base of the skull to the midthighs. Nonc ontrast CT images were obtained for attenuation correction and fusion with emission images. CT image s were performed without oral or intravenous contrast and are not sensitive for parenchymal lesions. A series of overlapping emission PET images were obtained. [facility] by the radiologist. Images stored on PACS. LIMITATIONS: None. FINDINGS: HEAD AND NECK: No areas of abnormal metabolic activity in the soft tissues of the head and neck. CHEST: In the medial aspect right upper lobe, a lung mass is present 3.3 x 1.7 cm in size on axial im age 84 with SUV 5.5. There are less than 1 cm short axis non metabolic prevascular, right paratracheal, precarinal, AP win mindi, and right hilar lymph nodes. ABDOMEN AND PELVIS: No areas of abnormal metabolic activity in the abdomen or pelvis. Expected physi ologic activity is present in the genitourinary system and bowel. PROXIMAL LOWER EXTREMITIES: No areas of abnormal metabolic activity in the soft tissues of the lower extremities. BONES: No abnormal metabolic activity in the visualized skeleton. ADDITIONAL CT FINDINGS: Aberrant right subclavian artery. Hiatal hernia. Post cholecystectomy and a ppendectomy. Small cyst posterior right lobe liver. 7 mm cyst right lower pole thyroid. Bilateral L5 spondylolysis OTHER: Liver background activity 2.6 SUV. Blood pool background activity 1.9 SUV IMPRESSION: Malignant appearing mass medial right upper lobe. No PET-CT evidence of metastatic disease TECHNICAL DOCUMENTATION: JOB ID: [id number] [employer]- All Rights Reserved Reading location - IP/workstation name: [facility]
== END ==
LOC: RAD 17:54
PROVIDERS: ATTEND Physician Assistant
DX: R91.1 Solitary pulmonary nodule (principal)
CPT/HCPCS: 78815; A9552

== ENCOUNTER 2017-09-09 09:48 | Inpatient (IN) | payer BC ==
[2017-09-09] MEDS ORDERED: NORMAL SALINE 1000 ML 1,000 ML IV ONE (10:20)
--- NOTE | 2017-09-09 10:22 | ER Document Report ---
ED Medical Screen (RME) - General Chief Complaint: Fever Stated Complaint: FEVER Time Seen by Provider: 09/09/17 10:20 Notes: pt had bronch three days ago for ? lesion on lung. now has fever, nvd. Dr. Gomez's office said to call when you see pt. TRAVEL OUTSIDE OF THE [place] IN LAST 30 DAYS: No - Related Data Allergies/Adverse Reactions: prednisone [Prednisone] Adverse Reaction (Intermediate, Verified 09/09/17 09:49) jitters Past Medical History - Past Medical History Cardiac Medical History: Reports: Hx Hypercholesterolemia - meds x 1 year, Hx Hypertension - meds x 6 years Denies: Hx Atrial Fibrillation, Hx Congestive Heart Failure, Hx Coronary Artery Disease, Hx Heart Attack, Hx Peripheral Vascular Disease, Hx Pulmonary Embolism, Hx Heart Murmur Pulmonary Medical History: Reports: Hx Bronchitis - multiple episodes (usually in the fall), Hx COPD, Hx Pneumonia - x 1 episode, denies hospitalization Denies: Hx Asthma, Hx Respiratory Failure, Hx Sleep Apnea, Hx Tuberculosis Neurological Medical History: Denies: Hx Cerebrovascular Accident, Hx Seizures Renal/ Medical History: Denies: Hx Peritoneal Dialysis Malignancy Medical History: Denies Hx Lung Cancer GI Medical History: Reports: Hx Gastroesophageal Reflux Disease - Tolentino's esophagitis, Dx'ed approx 3 years. Denies: Hx Crohn's Disease, Hx Hepatitis, Hx Hiatal Hernia, Hx Irritable Bowel, Hx Liver Failure, Hx Pancreatitis, Hx Ulcer Musculoskeltal Medical History: Reports Hx Arthritis, Denies Hx Fibromyalgia, Denies Hx Muscular Dystrophy Psychiatric Medical History: Reports: Hx Depression - meds x 15 years Denies: Hx Bipolar Disorder, Hx Post Traumatic Stress Disorder, Hx Schizophrenia Traumatic Medical History: Denies: Hx Fractures Infectious Medical History: Denies: Hx Hepatitis Past Surgical History: Reports: Hx Appendectomy, Hx Orthopedic Surgery - RIGHT KNEE. Denies: Hx Bowel Surgery, Hx Cholecystectomy, Hx Colostomy, Hx Coronary Artery Bypass Graft, Hx Gastric Bypass Surgery, Hx Herniorrhaphy, Hx Open Heart Surgery, Hx Pacemaker, Hx Tonsillectomy - Immunizations Hx Diphtheria, Pertussis, Tetanus Vaccination: No History of Influenza Vaccine for 03/2017 - 08/2017 Season: No Physical Exam - Vital signs Vitals: Temp Pulse Resp BP Pulse Ox 98.9 F 116 H 16 110/82 94 09/09/17 09:57 09/09/17 09:57 09/09/17 09:57 09/09/17 09:57 09/09/17 09:57 Course - Vital Signs Vital signs: Temp Pulse Resp BP Pulse Ox 98.9 F 116 H 16 110/82 94 09/09/17 09:57 09/09/17 09:57 09/09/17 09:57 09/09/17 09:57 09/09/17 09:57
--- NOTE | 2017-09-09 10:44 | ER Document Report ---
ED General - General Chief Complaint: Fever Stated Complaint: FEVER Time Seen by Provider: 09/09/17 10:20 Mode of Arrival: Ambulatory Information source: Patient, Relative, DrKika Oglesby, [facility] Records Notes: 62-year-old male presents with complaints of fever nausea vomiting diarrhea. Patient notes he had a gallbladder issue last month gallbladder was taken now but at that time they noted spots on his lungs, patient was evaluated and there is concerns for malignancy, patient over the past week has been on Levaquin for upper respiratory infection diagnosed by urgent care, went to [facility] where they did a bronchoscopy on Saturday and stated that there was a mass and they took some cells as well as an infection but did not start the patient on any medications since he was already on Levaquin TRAVEL OUTSIDE OF THE [place] IN LAST 30 DAYS: No - HPI Onset: Other Onset/Duration: Persistent Quality of pain: No pain Severity: Mild Pain Level: Denies Associated symptoms: Chills, Diarrhea, Fever, Nausea, Vomiting Exacerbated by: Denies Relieved by: Denies Similar symptoms previously: Yes Recently seen / treated by doctor: Yes - Related Data Allergies/Adverse Reactions: prednisone [Prednisone] Adverse Reaction (Intermediate, Verified 09/09/17 09:49) jitters Past Medical History - Social History Smoking Status: Former Smoker Cigarette use (# per day): No Chew tobacco use (# tins/day): No Smoking Education Provided: No Family History: Reviewed & Not Pertinent Patient has suicidal ideation: No Patient has homicidal ideation: No - Past Medical History Cardiac Medical History: Reports: Hx Hypercholesterolemia - meds x 1 year, Hx Hypertension - meds x 6 years Denies: Hx Atrial Fibrillation, Hx Congestive Heart Failure, Hx Coronary Artery Disease, Hx Heart Attack, Hx Peripheral Vascular Disease, Hx Pulmonary Embolism, Hx Heart Murmur Pulmonary Medical History: Reports: Hx Bronchitis - multiple episodes (usually in the fall), Hx COPD, Hx Pneumonia - x 1 episode, denies hospitalization Denies: Hx Asthma, Hx Respiratory Failure, Hx Sleep Apnea, Hx Tuberculosis Neurological Medical History: Denies: Hx Cerebrovascular Accident, Hx Seizures Renal/ Medical History: Denies: Hx Peritoneal Dialysis Malignancy Medical History: Denies Hx Lung Cancer GI Medical History: Reports: Hx Gastroesophageal Reflux Disease - Tolentino's esophagitis, Dx'ed approx 3 years. Denies: Hx Crohn's Disease, Hx Hepatitis, Hx Hiatal Hernia, Hx Irritable Bowel, Hx Liver Failure, Hx Pancreatitis, Hx Ulcer Musculoskeltal Medical History: Reports Hx Arthritis, Denies Hx Fibromyalgia, Denies Hx Muscular Dystrophy Psychiatric Medical History: Reports: Hx Depression - meds x 15 years Denies: Hx Bipolar Disorder, Hx Post Traumatic Stress Disorder, Hx Schizophrenia Traumatic Medical History: Denies: Hx Fractures Infectious Medical History: Denies: Hx Hepatitis Past Surgical History: Reports: Hx Appendectomy, Hx Orthopedic Surgery - RIGHT KNEE. Denies: Hx Bowel Surgery, Hx Cholecystectomy, Hx Colostomy, Hx Coronary Artery Bypass Graft, Hx Gastric Bypass Surgery, Hx Herniorrhaphy, Hx Open Heart Surgery, Hx Pacemaker, Hx Tonsillectomy - Immunizations Hx Diphtheria, Pertussis, Tetanus Vaccination: No Review of Systems - Review of Systems Notes: REVIEW OF SYSTEMS: CONSTITUTIONAL : Fevers chills. EENT: Denies eye, ear, throat, or mouth pain or symptoms. Denies nasal or sinus congestion or discharge. Denies throat, tongue, or mouth swelling or difficulty swallowing. CARDIOVASCULAR: Denies chest pain. Denies palpitations or racing or irregular heart beat. Denies ankle edema. RESPIRATORY: Admits to cough GASTROINTESTINAL: Admits nausea vomiting diarrhea decreased appetite GENITOURINARY: Denies difficulty urinating, painful urination, burning, frequency, blood in urine, or discharge. MUSCULOSKELETAL: Denies back or neck pain or stiffness. Denies joint pain or swelling. SKIN: Denies rash, lesions or sores. HEMATOLOGIC : Denies easy bruising or bleeding. LYMPHATIC: Denies swollen, enlarged glands. NEUROLOGICAL: Denies confusion or altered mental status. Denies passing out or loss of consciousness. Denies dizziness or lightheadedness. Denies headache. Denies weakness or paralysis or loss of use of either side. Denies problems with gait or speech. Denies sensory loss, numbness, or tingling. Denies seizures. PSYCHIATRIC: Denies anxiety or stress. Denies depression, suicidal ideation, or homicidal ideation. ALL OTHER SYSTEMS REVIEWED AND NEGATIVE. Dictation was performed using [employer] recognition software PHYSICAL EXAMINATION: GENERAL: Well-appearing, well-nourished and in no acute distress. HEAD: Atraumatic, normocephalic. EYES: Pupils equal round and reactive to light, extraocular movements intact, sclera anicteric, conjunctiva are normal. ENT: Nares patent, oropharynx clear without exudates. Moist mucous membranes. NECK: Normal range of motion, supple without lymphadenopathy LUNGS: Breath sounds clear to auscultation bilaterally and equal. No wheezes rales or rhonchi. Satting 92% on room air HEART: Tachycardic ABDOMEN: Soft, nontender, nondistended abdomen. No guarding, no rebound. No masses appreciated. Musculoskeletal: Normal range of motion, no pitting or edema. No cyanosis. NEUROLOGICAL: Cranial nerves grossly intact. Normal speech, normal gait. Normal sensory, motor exams PSYCH: Normal mood, normal affect. SKIN: Warm, Dry, normal turgor, no rashes or lesions noted. Physical Exam - Vital signs Vitals: Temp Pulse Resp BP Pulse Ox 98.9 F 116 H 16 110/82 94 09/09/17 09:57 09/09/17 09:57 09/09/17 09:57 09/09/17 09:57 09/09/17 09:57 Course - Re-evaluation Re-evalutation: 09/09/17 11:07 Patient overall looks well but states he does not feel well, he is noted to be tachycardic probably secondary to dehydration IV fluids nausea control have been ordered I will perform a CTa of the chest given the tachycardia as well - Vital Signs Vital signs: Temp Pulse Resp BP Pulse Ox 98.9 F 116 H 16 110/82 94 09/09/17 09:57 09/09/17 09:57 09/09/17 09:57 09/09/17 09:57 09/09/17 09:57 - Laboratory Result Diagrams: 09/09/17 10:55 09/09/17 10:55 Laboratory results interpreted by me: 09/09/17 09/09/17 10:55 10:55 WBC 29.3 H Plt Count 664 H Seg Neuts % (Manual) 81 H Lymphocytes % (Manual) 6 L Abs Neuts (Manual) 24.9 H Abs Monocytes (Manual) 2.3 H Sodium 132.9 L Chloride 94 L Glucose 129 H Direct Bilirubin 0.5 H AST 120 H ALT 151 H Alkaline Phosphatase 169 H Albumin 3.3 L Critical Care Note - Critical Care Note Total time excluding time spent on procedures (mins): 35 Comments: 35 minutes of critical care time spent in direct contact evaluating and reevaluating the patient, treating symptoms, reviewing labs and studies and speaking with family and consultants excluding any procedures Discharge - Discharge Clinical Impression: Pneumonia Qualifiers: Pneumonia type: due to unspecified organism Laterality: right Lung location: upper lobe of lung Qualified Code(s): J18.1 - Lobar pneumonia, unspecified organism Sepsis Qualifiers: Sepsis type: sepsis due to unspecified organism Qualified Code(s): A41.9 - Sepsis, unspecified organism Condition: Fair Disposition: ADMITTED INPATIENT Admitting Provider: Hospitalist Unit Admitted: [facility]
[2017-09-09] MEDS ORDERED: ONDANSETRON HCL INJ/PF 4 MG/2 ML SDV IV ONE (11:04)
[2017-09-09 11:11] LABS: VENOUS BLOOD BASE EXCESS 0.7 mmol/L; VENOUS BLOOD HCO3 25.7 mmol/L (20-32); VENOUS BLOOD PCO2 42.6 mmHg (35-63); VENOUS BLOOD PH 7.4 (7.30-7.42)
[2017-09-09 11:15] LABS: HEMATOCRIT 40.7 % (37.9-51.0); HEMOGLOBIN 13.8 g/dL (13.5-17.0); MEAN CORPUSCULAR HEMOGLOBIN 29.7 pg (27.0-33.4); MEAN CORPUSCULAR HGB CONC 33.9 g/dL (32.0-36.0); MEAN CORPUSCULAR VOLUME 87 fl (80-97); PLATELET COUNT 664 10^3/uL (150-450); RED BLOOD COUNT 4.66 10^6/uL (4.35-5.55); RED CELL DISTRIBUTION WIDTH 13.2 % (11.5-14.0); WHITE BLOOD COUNT 29.3 10^3/uL (4.0-10.5)
[2017-09-09 11:30] LABS: ALANINE AMINOTRANSFERASE 151 U/L (21-72); ALBUMIN 3.3 g/dL (3.5-5.0); ALKALINE PHOSPHATASE 169 U/L (38-126); ANION GAP 13 (5-19); ASPARTATE AMINO TRANSFERASE 120 U/L (17-59); BILIRUBIN,DIRECT 0.5 mg/dL (0.0-0.4); BILIRUBIN,TOTAL 0.7 mg/dL (0.2-1.3); BLOOD UREA NITROGEN 12 mg/dL (7-20); CALCIUM 9.4 mg/dL (8.4-10.2); CARBON DIOXIDE 26 mmol/L (22-30); CHLORIDE 94 mmol/L (98-107); GLUCOSE 129 mg/dL (75-110); POTASSIUM 4.6 mmol/L (3.6-5.0); SODIUM 132.9 mmol/L (137-145); TOTAL PROTEIN 6.6 g/dL (6.3-8.2)
[2017-09-09 11:36] LABS: ABSOLUTE LYMPHOCYTES# (MANUAL) 2.1 10^3/uL (0.5-4.7); ABSOLUTE MONOCYTES # (MANUAL) 2.3 10^3/uL (0.1-1.4); ABSOLUTE NEUTROPHILS# (MANUAL) 24.9 10^3/uL (1.7-8.2); BAND NEUTROPHILS % (MANUAL) 4 % (3-5); BASOPHILS % (MANUAL) 0 % (0-2); EOSINOPHILS % (MANUAL) 0 % (0-6); LYMPHOCYTES % (MANUAL) 6 % (13-45); MONOCYTES % (MANUAL) 8 % (3-13); SEGMENTED NEUTROPHILS % (MAN) 81 % (42-78); TOTAL CELLS COUNTED 100
[2017-09-09 11:37] LABS: PLATELET COMMENT INCREASED; RBC MORPHOLOGY COMMENT NORMO-CYTIC/CHROMIC; TOXIC GRANULATION 1+; TOXIC VACUOLATION PRESENT
[2017-09-09] MEDS ORDERED: CEFTRIAXONE 1 GM/D5W RTU 1 GM/50 ML RTUPB IV ONE (11:45)
[2017-09-09] MEDS ORDERED: CEFTRIAXONE SODIUM 1,000 MG in NORMAL SALINE 100 ML IV ONE (12:30)
--- NOTE | 2017-09-09 12:46 | RADIOLOGY REPORT (SQ) ---
EXAM DESCRIPTION: CTA CHEST COMPLETED DATE/TIME: 09/09/2017 12:05 pm REASON FOR STUDY: malignant mass left upper lobe, tachy COMPARISON: 08/19/2017 TECHNIQUE: CT scan of the chest performed using helical scanning technique with dynamic intravenous contrast injection. Images reviewed with lung, soft tissue and bone windows. Reconstructed coronal and sagittal MPR images reviewed. Additional 3 dimensional post-processing performed to develop Maximal Intensity Projection images (DE P). All images stored on PACS. All CT scanners at this facility use dose modulation, iterative reconstruction, and/or weight based d osing when appropriate to reduce radiation dose to as low as reasonably achievable (ALARA). [facility]: Dose Right [facility]: CareDose [facility]: Dose Right [facility]: Teradose 4D [facility]: Birdback CONTRAST TYPE AND DOSE: contrast/concentration: Isovue 370.00 mg/ml; Total Contrast Delivered: 82.0 ml; Total Saline Delivered: 110.0 ml Contrast bolus optimized for the pulmonary arteries. Not diagnostic for the aorta. RENAL FUNCTION: Creatinine -0.94 RADIATION DOSE: CT Rad equipment meets quality standard of care and radiation dose reduction techniq ues were employed. CTDIvol: 19.8 - 22.3 mGy. DLP: 893 mGy-cm. . LIMITATIONS: None. FINDINGS: LUNGS AND PLEURA: A large 12.9 cm x 6.7 cm ill-defined mass in the right upper lobe with associated small cystic areas extends into the right suprahilar region. Extensive surrounding pneumo nitis in the right upper lobe. Calcified granuloma in the right lower lobe. Small right pleural eff usion. The left lung is clear. Mild hyperinflation of the lungs and flattening of the diaphragms, findings suggest COPD. No pneumothorax. The central airways are clear. AORTA AND GREAT VESSELS: Aberrant, right subclavian artery, normal anatomic variant. No aneurysm. C ontrast bolus not optimized for the aorta. HEART: No pericardial effusion. No significant coronary artery calcifications. PULMONARY ARTERIES: No emboli visualized in the main pulmonary arteries or the segmental branches. HILAR AND MEDIASTINAL STRUCTURES: Mildly prominent mediastinal lymph nodes with some of the largest measuring 1.8 cm in short axis diameter. Mildly prominent right hilar lymph nodes with some of the l argest measuring approximately 1.9 cm in short axis diameter. No identified masses or abnormal nodes . HARDWARE: None in the chest. UPPER ABDOMEN: Prior cholecystectomy. A hypoattenuated 2.2 cm lesion in the periphery of the right hepatic lobe with CT numbers in the water range to suggest a cyst, stable finding since the prior exa mination dating back to 12/16/2015. . Mild atherosclerotic changes involving the visualized upper ab dominal aorta. No significant findings. Limited exam. THYROID AND OTHER SOFT TISSUES: The thyroid gland is heterogenous in appearance with small nodules p resent. Right cardiophrenic nonenlarged lymph nodes. BONES: The osseous structures are stable in appearance. 3D MIPS: Confirm above findings. OTHER: No other significant finding. IMPRESSION: 1 No evidence for acute pulmonary emboli. 2 A large ill-defined mass in the right upper lobe with extension into the right suprahilar region as detailed above. 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 Extensive surrounding pneumonitis in the right upper lobe. 3. Stable hypoattenuated right hepatic lobe lesion. 4 Additional stable findings as above. COMMENT: Quality ID # [id number]: Final reports with documentation of one or more dose reduction techniques (e.g., Automated exposure control, adjustment of the mA and/or kV according to patient size, use of iterative reconstruction technique) TECHNICAL DOCUMENTATION: JOB ID: [id number] [place]- All Rights Reserved Reading location - IP/workstation name: [email or web address]
[2017-09-09] MEDS ORDERED: CEFTRIAXONE INJ 1000 MG VIAL IV ONE (13:30)
[2017-09-09] MEDS ORDERED: GUAIFENESIN/CODEINE PHOS 100-10 MG/ 5 ML UDC PO PRN (13:53)
[2017-09-09] MEDS ORDERED: LORAZEPAM 0.5 MG TABLET PO PRN (13:53)
[2017-09-09] MEDS ORDERED: MAGNESIUM HYDROXIDE SUSP 30 ML UDCUP PO PRN (13:58)
[2017-09-09] MEDS ORDERED: MAG HYDROX/AL HYDROX/SIMETH SUSP 30 ML UDCUP PO PRN (13:58)
[2017-09-09] MEDS ORDERED: VANCOMYCIN HCL 0 MG in DEXTROSE 5%-WATER 250 ML IV NR (14:00)
--- NOTE | 2017-09-09 14:31 | PDOC H&P ---
History of Present Illness Admission Date/PCP: 09/09/17 13:23 Patient complains of: Fever, dyspnea History of Present Illness: CHAD REYNOSO is a 62 year old male with a past medical history of hypertension , hyperlipidemia, COPD, and a right lung mass who recently underwent bronchoscopy at [facility]. Pathology results are expected tomorrow. The patient is seen in the emergency department today with a complaint of fever, T-max 102, dyspnea on exertion, nonproductive cough, right chest pleuritic pain with deep breathing and coughing, loose stools, poor appetite, and a 20 pound weight loss over the previous month. Evaluation in the emergency department reveals tachycardia with heart rate of 116, WBCs 29.3, and a normal lactate. CTA of the Chest and abdomen demonstrated no evidence of pulmonary emboli, a large ill-defined RUL mass consistent with neoplasm with extensive surrounding pneumonitis, stable hypoattenuated right hepatic lobe lesion. He is his referred to the hospitalist service for admission and management of a healthcare associated pneumonia. Past Medical History Cardiac Medical History: Reports: Hyperlipidema - meds x 1 year, Hypertension - meds x 6 years Denies: Atrial Fibrillation, Congestive Heart Failure, Coronary Artery Disease, Myocardial Infarction, Peripheral Vascular Disease, Pulmonary Embolism , Heart Murmur Pulmonary Medical History: Reports: Bronchitis - multiple episodes (usually in the fall), Chronic Obstructive Pulmonary Disease (COPD), Pneumonia - x 1 episode , denies hospitalization Denies: Asthma, Respiratory Failure, Sleep Apnea, Tuberculosis EENT Medical History: Reports: None Neurological Medical History: Reports: None Denies: Seizures Endocrine Medical History: Reports: None Renal/ Medical History: Reports: None Malignancy Medical History: Reports: Lung Cancer - Rt lung mass suggestive of malignancy; mid work-up GI Medical History: Reports: Gastroesophageal Reflux Disease - Tolentino's esophagitis, Dx'ed approx 3 years Denies: Crohn's Disease, Hepatitis, Hiatal Hernia Musculoskeltal Medical History: Reports: Arthritis Denies: Fibromyalgia Psychiatric Medical History: Reports: Depression - meds x 15 years, General Anxiety Disorder Denies: Bipolar Disorder, Post Traumatic Stress Disorder Traumatic Medical History: Reports: None Hematology: Denies: Anemia, Sickle Cell Disease Infectious Medical History: Reports: None Past Surgical History Past Surgical History: Reports: Appendectomy, Orthopedic Surgery - RIGHT KNEE, Other - Bronchoscopy Denies: Cholecystectomy, Colostomy, Coronary Artery Bypass Graft, Gastric Bypass Surgery, Herniorrhaphy, Pacemaker, Tonsillectomy Social History Information Source: Patient, Parent Lives with: Family Smoking Status: Former Smoker Cigarettes Packs Per Day: 4 Number of Years Smokin Last Time Smoked: 2013 Frequency of Alcohol Use: None Hx Recreational Drug Use: No Drugs: None Hx Prescription Drug Abuse: No - Advance Directive Resuscitation Status: Full Code Surrogate healthcare decision maker:: The patient's , Skylar Reynoso, Family History Family History: Reviewed & Not Pertinent, Malignancy Parental Family History Reviewed: Yes Children Family History Reviewed: Yes Sibling(s) Family History Reviewed.: Yes Medication/Allergy Home Medications: Albuterol Sulfate [Proair HFA Inhalation Aerosol 8.5 gm MDI] 2 puff IH Q4HP PRN 08/12/17 Alprazolam [Xanax 0.5 mg Tablet] 0.5 mg PO QHS 08/12/17 Budesonide/Formoterol Fumarate [Symbicort HFA 160-4.5 mcg Inhaler 6 gm] 2 puff IH Q12 08/12/17 Citalopram Hydrobromide [Celexa 40 mg Tablet] 40 mg PO QHS 08/12/17 Fosinopril Sodium [Monopril] 10 mg PO BID 08/12/17 Ipratropium/Albuterol Sulfate [Duoneb 3 ml Ampul] 1 vial NEB Q6 08/12/17 Ropinirole HCl [Requip] 0.5 mg PO QHS 08/12/17 Tiotropium [place] [Spiriva Respimat] 2 puff IH DAILY 08/12/17 Ciprofloxacin HCl [Cipro 500 mg Tablet] 500 mg PO BID #14 tablet 08/13/17 Metronidazole [Flagyl 500 mg Tablet] 500 mg PO TID #21 tablet 08/13/17 Allergies/Adverse Reactions: prednisone [Prednisone] Adverse Reaction (Intermediate, Verified 09/09/17 09:49) manuela Review of Systems Constitutional: PRESENT: fatigue, weakness, weight loss - 20 pounds/1 month. ABSENT: chills, fever(s), headache(s), weight gain Eyes: ABSENT: visual disturbances Ears: ABSENT: hearing changes Cardiovascular: PRESENT: dyspnea on exertion. ABSENT: chest pain, edema, orthropnea, palpitations Respiratory: PRESENT: cough. ABSENT: hemoptysis Gastrointestinal: PRESENT: diarrhea. ABSENT: abdominal pain, constipation, hematemesis, hematochezia, nausea, vomiting Genitourinary: ABSENT: dysuria, hematuria Musculoskeletal: ABSENT: joint swelling Integumentary: ABSENT: rash, wounds Neurological: ABSENT: abnormal gait, abnormal speech, confusion, dizziness, focal weakness, syncope Psychiatric: ABSENT: anxiety, depression, homidical ideation, suicidal ideation Endocrine: ABSENT: cold intolerance, heat intolerance, polydipsia, polyuria Hematologic/Lymphatic: ABSENT: easy bleeding, easy bruising Physical Exam Vital Signs: Temp Pulse Resp BP Pulse Ox 98.9 F 116 H 16 110/82 94 09/09/17 09:57 09/09/17 09:57 09/09/17 09:57 09/09/17 09:57 09/09/17 09:57 General appearance: PRESENT: no acute distress, cooperative - Pleasant, anxious appearing, well-developed, well-nourished, other - Overweight Head exam: PRESENT: atraumatic, normocephalic Eye exam: PRESENT: conjunctiva pink, EOMI, PERRLA. ABSENT: scleral icterus Ear exam: PRESENT: normal external ear exam Mouth exam: PRESENT: moist, tongue midline Neck exam: ABSENT: carotid bruit, JVD, lymphadenopathy, thyromegaly Respiratory exam: PRESENT: clear to auscultation [place]o, symmetrical, unlabored. ABSENT: rales, rhonchi, wheezes Cardiovascular exam: PRESENT: RRR, +S1, +S2, tachycardia - 110. ABSENT: diastolic murmur, rubs, systolic murmur Pulses: PRESENT: normal dorsalis pedis pul Vascular exam: PRESENT: normal capillary refill GI/Abdominal exam: PRESENT: normal bowel sounds, soft. ABSENT: distended, guarding, mass, organolmegaly, rebound, tenderness Rectal exam: PRESENT: deferred Extremities exam: PRESENT: full ROM. ABSENT: calf tenderness, clubbing, pedal edema Neurological exam: PRESENT: alert, awake, oriented to person, oriented to place , oriented to time, oriented to situation, CN II-XII grossly intact. ABSENT: motor sensory deficit Psychiatric exam: PRESENT: appropriate affect, normal mood. ABSENT: homicidal ideation, suicidal ideation Skin exam: PRESENT: dry, intact, warm. ABSENT: cyanosis, rash Results Impressions: Chest/Abdomen CTA 09/09/17 10:43 IMPRESSION: 1 No evidence for acute pulmonary emboli. 2 A large ill-defined mass in the right upper lobe with extension into the right suprahilar region as detailed above. 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 Extensive surrounding pneumonitis in the right upper lobe. 3. Stable hypoattenuated right hepatic lobe lesion. 4 Additional stable findings as above. Assessment & Plan - Diagnosis (1) Pneumonia Qualifiers: Pneumonia type: due to unspecified organism Laterality: right Lung location: upper lobe of lung Qualified Code(s): J18.1 - Lobar pneumonia, unspecified organism Is this a current diagnosis for this admission?: Yes Plan: The patient is admitted with a postobstructive versus healthcare associated pneumonia. The patient was in the hospital approximately a month ago for a cholecystectomy. At that time he was noted to have a right lung mass and underwent bronchoscopy on Saturday. Approximately 1 week prior to the bronchoscopy, the patient developed worsening shortness of breath with fever and was placed on Levaquin for presumed pneumonia. Blood cultures are pending. Sputum culture to be collected. The patient is admitted to [facility] on continuous cardiac telemetry. He is placed on supplemental oxygen as needed to maintain oxygen saturations greater than 92% He is provided as needed DuoNeb's. He is empirically placed on vancomycin and Zosyn for coverage of aspiration and healthcare associated pneumonias. Will narrow antibiotics as blood cultures result. Robitussin with codeine for cough with pleuritic pain Dr. Gomez has been consulted; appreciate his evaluation recommendations. The patient is established as an outpatient with Dr. Gomez. (2) Sepsis Qualifiers: Sepsis type: sepsis due to unspecified organism Qualified Code(s): A41.9 - Sepsis, unspecified organism Is this a current diagnosis for this admission?: Yes Plan: Present on admission most likely due to pneumonia as evidenced by fever reportedly as high as 102 at home this morning, tachycardia at 112, and leukocytosis of 29.3. Blood cultures are pending Urine and sputum cultures to be collected. He received a NS bolus in the ED, will continue maintenance IVF. The patient was empirically placed on Zosyn and vancomycin for coverage of aspiration and care associated pneumonias. (3) Mass of right lung Is this a current diagnosis for this admission?: Yes Plan: Underwent bronchoscopy and biopsy at provided by Dr. Carmona on 09/06/17. I called the [facility] who reviewed the patient's chart; pathology results are not available yet. Will consult Oncology, Dr. Fajardo, for suspected malignancy. Of note, the patient has 160 year pack hx and strong family hx of multiple cancers. (4) Elevated transaminase level Is this a current diagnosis for this admission?: Yes Plan: PT denies known hx of elevated LFTs; may be r/t acute illness. Will monitor. (5) Hypertension Is this a current diagnosis for this admission?: Yes Plan: Will continue home medication; Monopril 10 mg daily. (6) Depression with anxiety Is this a current diagnosis for this admission?: Yes Plan: Will continue home dose Celexa. Ativan 0.5 mg every 6 hours as needed. (7) Thrombocytosis Is this a current diagnosis for this admission?: Yes Plan: May be reactionary secondary to acute illness and recent bronchoscopy w/ biopsy. Will monitor. DVT prophylaxis with Heparin. (8) COPD (chronic obstructive pulmonary disease) Qualifiers: COPD type: unspecified COPD Qualified Code(s): J44.9 - Chronic obstructive pulmonary disease, unspecified Is this a current diagnosis for this admission?: Yes Plan: COPD without exacerbation. Will continue Spiriva and Symbicort. As needed neb treatments. (9) Restless leg syndrome Is this a current diagnosis for this admission?: Yes Plan: Continue home dose Requip. - Time Time Spent: 50 to 70 Minutes Medications reviewed and adjusted accordingly: Yes Anticipated discharge: Home - Inpatient Certification Based on my medical assessment, after consideration of the patient's comorbidities, presenting symptoms, or acuity I expect that the services needed warrant INPATIENT care.: Yes I certify that my determination is in accordance with my understanding of Medicare's requirements for reasonable and necessary INPATIENT services [42 CFR 412.3e].: Yes Medical Necessity: Failure to Improve With Outpatient Therapy, Need For IV Fluids, Need for IV Antibiotics
[2017-09-09] MEDS: HEPARIN SOD (PORCINE) 5,000 UNIT/ML 1 ML SYRINGE SUBCUT SCH ×2 (15:37→22:11)
[2017-09-09] MEDS ORDERED: VANCOMYCIN HCL 1,500 MG in DEXTROSE 5%-WATER 250 ML IV ONE (16:00)
[2017-09-09 16:15] LABS: APPEARANCE,URINE CLEAR; BILIRUBIN,URINE NEGATIVE (NEGATIVE); COLOR,URINE YELLOW; GLUCOSE, URINE NEGATIVE (NEGATIVE); KETONES,URINE NEGATIVE (NEGATIVE); LEUKOCYTE ESTERASE,URINE NEGATIVE (NEGATIVE); NITRITE,URINE NEGATIVE (NEGATIVE); PROTEIN,URINE NEGATIVE (NEGATIVE); URINE SPECIFIC GRAVITY 1.042
--- NOTE | 2017-09-09 16:52 | Progress Note ---
Provider Note Provider Note: Advanced care planning I met with the patient, Mr. Jerry Reynoso, and his Skylar Reynoso to discuss advanced care planning. Reviewed the medical orders for scope of treatment (MOST) form. The patient desires to be made a DO NOT RESUSCITATE. He would prefer limited interventions including the use of medical treatments, IV fluids, cardiac monitoring, but is a DO NOT INTUBATE. He does not wish to be intubated or placed on mechanical ventilation. In addition to the above he would desire comfort measures if his prognosis was poor. He does approve short-term intubation and mechanical ventilation if required for procedures, but not as a management of acute or chronic illnesses. He does desire antibiotic therapy for a determined or limited period of time. He would like IV fluids for a defined trial period. He does not wish to have a feeding tube or artificial nutrition provided. The patient has appointed his , Skylar Reynoso, as his surrogate decision maker. Her contact number is [phone]. Additional time: 30 minutes
[2017-09-09] MEDS ORDERED: FOSINOPRIL SODIUM 10 MG PO SCH (18:00)
[2017-09-09] MEDS: PIPERACILLIN SODIUM/TAZOBACTAM 3.375 GM in NORMAL SALINE 100 ML IV SCH ×2 (18:45→23:48)
[2017-09-09] MEDS ORDERED: (PENDING PHARMACY ID) (Ropinirole Hcl [Requip] 0.5 MG) PO SCH (22:00)
[2017-09-09] MEDS ORDERED: (PENDING PHARMACY ID) (Citalopram Hydrobromide [Celexa 40 Mg Tablet] 40 MG) PO SCH (22:00)
[2017-09-09] MEDS: CITALOPRAM HYDROBROMIDE 20 MG TABLET PO SCH (22:11)
[2017-09-09] MEDS: FAMOTIDINE 20 MG TABLET PO SCH (22:11)
[2017-09-09] MEDS: VANCOMYCIN HCL 1,000 MG in DEXTROSE 5%-WATER 250 ML IV SCH (22:11)
[2017-09-09] MEDS: ROPINIROLE HCL 1 MG TABLET PO SCH (22:12)
[2017-09-09] MEDS: BUDESONIDE/FORMOTEROL 160-4.5 MCG 60 PUFF/6 GM MDI IH SCH (22:22)
--- NOTE | 2017-09-09 23:43 | EKG REPORT ---
SEVERITY:- OTHERWISE NORMAL ECG - SINUS TACHYCARDIA : Confirmed by: Irma Burnett 09-Sep-2017 23:42:19
[2017-09-10] MEDS: ONDANSETRON HCL INJ/PF 4 MG/2 ML SDV IV PRN (00:38)
[2017-09-10] MEDS: PIPERACILLIN SODIUM/TAZOBACTAM 3.375 GM in NORMAL SALINE 100 ML IV SCH ×4 (05:01→23:52)
[2017-09-10] MEDS: HEPARIN SOD (PORCINE) 5,000 UNIT/ML 1 ML SYRINGE SUBCUT SCH ×3 (05:01→21:34)
[2017-09-10 05:28] LABS: HEMATOCRIT 35.6 % (37.9-51.0); HEMOGLOBIN 11.8 g/dL (13.5-17.0); MEAN CORPUSCULAR HGB CONC 33.2 g/dL (32.0-36.0); MEAN CORPUSCULAR VOLUME 87 fl (80-97); RED BLOOD COUNT 4.08 10^6/uL (4.35-5.55); RED CELL DISTRIBUTION WIDTH 13.1 % (11.5-14.0); WHITE BLOOD COUNT 26.3 10^3/uL (4.0-10.5)
[2017-09-10 05:53] LABS: ALANINE AMINOTRANSFERASE 146 U/L (21-72); ALBUMIN 3.2 g/dL (3.5-5.0); ALKALINE PHOSPHATASE 160 U/L (38-126); ANION GAP 10 (5-19); ASPARTATE AMINO TRANSFERASE 133 U/L (17-59); BILIRUBIN,DIRECT 0.3 mg/dL (0.0-0.4); BILIRUBIN,TOTAL 0.6 mg/dL (0.2-1.3); BLOOD UREA NITROGEN 10 mg/dL (7-20); CALCIUM 8.7 mg/dL (8.4-10.2); CARBON DIOXIDE 27 mmol/L (22-30); CHLORIDE 96 mmol/L (98-107); GLUCOSE 135 mg/dL (75-110); POTASSIUM 3.7 mmol/L (3.6-5.0); SODIUM 132.5 mmol/L (137-145); TOTAL PROTEIN 6.3 g/dL (6.3-8.2)
[2017-09-10 06:03] LABS: ABSOLUTE LYMPHOCYTES# (MANUAL) 1.6 10^3/uL (0.5-4.7); ABSOLUTE MONOCYTES # (MANUAL) 1.6 10^3/uL (0.1-1.4); ABSOLUTE NEUTROPHILS# (MANUAL) 23.1 10^3/uL (1.7-8.2); BAND NEUTROPHILS % (MANUAL) 2 % (3-5); BASOPHILS % (MANUAL) 0 % (0-2); EOSINOPHILS % (MANUAL) 0 % (0-6); LYMPHOCYTES % (MANUAL) 6 % (13-45); MONOCYTES % (MANUAL) 6 % (3-13); SEGMENTED NEUTROPHILS % (MAN) 86 % (42-78); TOTAL CELLS COUNTED 100
[2017-09-10 06:05] LABS: HYPOCHROMASIA SLIGHT; PLATELET CLUMPS PRESENT; PLATELET COMMENT INCREASED
[2017-09-10 06:06] LABS: TOXIC GRANULATION 1+
[2017-09-10 06:08] LABS: PLATELET COUNT 564 10^3/uL (150-450)
[2017-09-10] MEDS: VANCOMYCIN HCL 1,000 MG in DEXTROSE 5%-WATER 250 ML IV SCH ×3 (06:53→21:34)
--- NOTE | 2017-09-10 08:36 | PDOC CONSULTATION ---
Consultation Consult Date: 09/10/17 Consult reason:: Hematology Oncology consultation was requested for patient with lung mass. History of Present Illness Admission Date/PCP: 09/09/17 13:23 History of Present Illness: CHAD RETANA is a 62 year old male with a past medical history of hypertension , hyperlipidemia, COPD, and a right lung mass who recently underwent bronchoscopy at [facility]. Pathology results are expected tomorrow. The patient was seen in the emergency department with a complaint of fever, T-max 102, dyspnea on exertion, nonproductive cough, right chest pleuritic pain with deep breathing and coughing, loose stools, poor appetite, and a 20 pound weight loss over the previous month. Evaluation in the emergency department revealed tachycardia with heart rate of 116, WBCs 29.3, and a normal lactate. CTA of the Chest and abdomen demonstrated no evidence of pulmonary emboli, a large ill-defined RUL mass consistent with neoplasm with extensive surrounding pneumonitis, stable hypoattenuated right hepatic lobe lesion. He states that this began a few weeks ago when he was admitted to [facility] for removal of his gall bladder. During that admission, an abnormality was found in his lung. He was seen by Sandra at Dr. Gomez's office and PET scan and biopsy were arranged. Biopsy was performed this past Saturday, and results are expected today or tomorrow. Today, he states that he is feeling better. He is finally hungry and able to eat a little. He still had some nausea over night and continues to have pleuritic chest pain which has improved as well as the cough. Past Medical History Cardiac Medical History: Reports: Hyperlipidema - meds x 1 year, Hypertension - meds x 6 years Denies: Atrial Fibrillation, Congestive Heart Failure, Coronary Artery Disease, Myocardial Infarction, Peripheral Vascular Disease, Pulmonary Embolism , Heart Murmur Pulmonary Medical History: Reports: Bronchitis - multiple episodes (usually in the fall), Chronic Obstructive Pulmonary Disease (COPD), Pneumonia - x 1 episode , denies hospitalization Denies: Asthma, Respiratory Failure, Sleep Apnea, Tuberculosis EENT Medical History: Reports: None Neurological Medical History: Reports: None Denies: Seizures Endocrine Medical History: Reports: None Renal/ Medical History: Reports: None GI Medical History: Reports: Gastroesophageal Reflux Disease - Tolentino's esophagitis, Dx'ed approx 3 years Denies: Crohn's Disease, Hepatitis, Hiatal Hernia Musculoskeltal Medical History: Reports: Arthritis Denies: Fibromyalgia Psychiatric Medical History: Reports: Depression - meds x 15 years, General Anxiety Disorder Denies: Bipolar Disorder, Post Traumatic Stress Disorder Traumatic Medical History: Reports: None Hematology: Denies: Anemia, Sickle Cell Disease Infectious Medical History: Reports: None Past Surgical History Past Surgical History: Reports: Appendectomy, Cholecystectomy, Orthopedic Surgery - RIGHT KNEE, Other - Bronchoscopy Denies: Colostomy, Coronary Artery Bypass Graft, Gastric Bypass Surgery, Herniorrhaphy, Pacemaker, Tonsillectomy Social History Information Source: Patient 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 Lives with: Spouse/Significant other Smoking Status: Former Smoker Cigarettes Packs Per Day: 4 - Still vaping Number of Years Smokin Last Time Smoked: 2013 Frequency of Alcohol Use: None Hx Recreational Drug Use: No Drugs: None Hx Prescription Drug Abuse: No Past Social History Note: 1 Child. - Advance Directive Resuscitation Status: Do Not Resuscitate Family History Parental Family History Reviewed: Yes - Father with Lung Cancer. Mother with brain cancer. Children Family History Reviewed: No Sibling(s) Family History Reviewed.: Yes - Brother with Colon cancer. Medication/Allergy Home Medications: Alprazolam [Xanax 0.5 mg Tablet] 0.5 mg PO QHS 08/12/17 Budesonide/Formoterol Fumarate [Symbicort HFA 160-4.5 mcg Inhaler 6 gm] 2 puff IH Q12 08/12/17 Citalopram Hydrobromide [Celexa 40 mg Tablet] 40 mg PO QHS 08/12/17 Fosinopril Sodium [Monopril] 10 mg PO BID 08/12/17 Ipratropium/Albuterol Sulfate [Duoneb 3 ml Ampul] 1 vial NEB TID 08/12/17 Ropinirole HCl [Requip] 0.5 mg PO QHS 08/12/17 Tiotropium [place] [Spiriva Respimat] 2 puff IH DAILY 08/12/17 Simvastatin [Simvastatin] 40 mg PO QPM 09/09/17 Allergies/Adverse Reactions: prednisone [Prednisone] Adverse Reaction (Intermediate, Verified 09/09/17 09:49) jitters Review of Systems Constitutional: PRESENT: fever(s), weight loss Eyes: ABSENT: visual disturbances Ears: ABSENT: hearing changes Nose, Mouth, and Throat: ABSENT: sore throat Cardiovascular: PRESENT: chest pain, dyspnea on exertion Respiratory: PRESENT: cough Gastrointestinal: PRESENT: diarrhea, nausea. ABSENT: constipation Genitourinary: ABSENT: dysuria Musculoskeletal: ABSENT: muscle weakness Integumentary: ABSENT: rash Neurological: ABSENT: frequent falls, lack of coordination, memory loss Psychiatric: ABSENT: anxiety, depression Hematologic/Lymphatic: ABSENT: lymphadenopathy Physical Exam Vital Signs: Temp Pulse Resp BP Pulse Ox 99.5 F 101 H 18 113/60 92 09/10/17 03:55 09/10/17 07:00 09/10/17 03:55 09/10/17 03:55 09/10/17 03:55 Intake & Output 09/09/17 09/10/17 09/11/17 06:59 06:59 06:59 Intake Total 1502 Output Total 1700 Balance -198 Weight 104 kg General appearance: PRESENT: no acute distress, well-nourished Exam: 62 year old male. is at bedside. Head exam: PRESENT: atraumatic, normocephalic Eye exam: PRESENT: EOMI, PERRLA Ear exam: PRESENT: normal external ear exam Mouth exam: PRESENT: moist, tongue midline Neck exam: ABSENT: lymphadenopathy, tenderness Respiratory exam: PRESENT: clear to auscultation khushboo, unlabored Cardiovascular exam: PRESENT: RRR. ABSENT: systolic murmur Pulses: PRESENT: normal dorsalis pedis pul GI/Abdominal exam: PRESENT: soft. ABSENT: organolmegaly, tenderness Extremities exam: ABSENT: pedal edema Musculoskeletal exam: PRESENT: normal inspection Neurological exam: PRESENT: alert, awake, oriented to person, oriented to place , oriented to time, oriented to situation Psychiatric exam: PRESENT: appropriate affect Focused psych exam: ABSENT: delusional, pressured speech Skin exam: PRESENT: normal color Results Laboratory Results: 09/10/17 04:29 09/10/17 04:29 09/09/17 09/09/17 09/10/17 14:48 15:55 04:29 WBC 26.3 H RBC 4.08 L Hgb 11.8 L Hct 35.6 L MCV 87 MCH 29.0 MCHC 33.2 RDW 13.1 Plt Count 564 H Seg Neutrophils % Not Reportable Lymphocytes % Not Reportable Monocytes % Not Reportable Eosinophils % Not Reportable Basophils % Not Reportable Absolute Neutrophils Not Reportable Absolute Lymphocytes Not Reportable Absolute Monocytes Not Reportable Absolute Eosinophils Not Reportable Absolute Basophils Not Reportable Sodium Potassium Chloride Carbon Dioxide Anion Gap BUN Creatinine Est GFR ( Amer) Est GFR (Non-Af Amer) Glucose Lactic Acid 1.9 Calcium Total Bilirubin AST ALT Alkaline Phosphatase Total Protein Albumin Urine Color YELLOW Urine Appearance CLEAR Urine pH 5.0 Ur Specific [place] 1.042 Urine Protein NEGATIVE Urine Glucose (UA) NEGATIVE Urine Ketones NEGATIVE Urine Blood SMALL H Urine Nitrite NEGATIVE Ur Leukocyte Esterase NEGATIVE Urine WBC (Auto) 1 Urine RBC (Auto) 2 09/10/17 04:29 WBC RBC Hgb Hct MCV MCH MCHC RDW Plt Count Seg Neutrophils % Lymphocytes % Monocytes % Eosinophils % Basophils % Absolute Neutrophils Absolute Lymphocytes Absolute Monocytes Absolute Eosinophils Absolute Basophils Sodium 132.5 L Potassium 3.7 Chloride 96 L Carbon Dioxide 27 Anion Gap 10 BUN 10 Creatinine 0.80 Est GFR ( Amer) > 60 Est GFR (Non-Af Amer) > 60 Glucose 135 H Lactic Acid Calcium 8.7 Total Bilirubin 0.6 AST 133 H ALT 146 H Alkaline Phosphatase 160 H Total Protein 6.3 Albumin 3.2 L Urine Color Urine Appearance Urine pH Ur Specific [place] Urine Protein Urine Glucose (UA) Urine Ketones Urine Blood Urine Nitrite Ur Leukocyte Esterase Urine WBC (Auto) Urine RBC (Auto) Impressions: Chest/Abdomen CTA 09/09/17 10:43 IMPRESSION: 1 No evidence for acute pulmonary emboli. 2 A large ill-defined mass in the right upper lobe with extension into the right suprahilar region as detailed above. 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 Extensive surrounding pneumonitis in the right upper lobe. 3. Stable hypoattenuated right hepatic lobe lesion. 4 Additional stable findings as above. Assessment & Plan - Diagnosis (1) Mass of right lung Is this a current diagnosis for this admission?: Yes Plan: Await Pathology report. Hopefully this will give us definitive answers and plan will be formulated based on this. (2) Pneumonia Qualifiers: Pneumonia type: due to unspecified organism Laterality: right Lung location: upper lobe of lung Qualified Code(s): J18.1 - Lobar pneumonia, unspecified organism Is this a current diagnosis for this admission?: Yes Plan: Agree with antibiotics. Symptoms appear to be resolving with current treatment. (3) Thrombocytosis Is this a current diagnosis for this admission?: Yes Plan: Leukocytosis and thrombocytosis are most likely reactive due to infection and possibly cancer. Will continue to monitor. - Plan Summary Plan Summary: Thank you for this consultation. I will be happy to follow him here and after discharge through the office. Please call with any questions or concerns.
--- NOTE | 2017-09-10 09:06 | PDOC PROGRESS REPORT ---
Subjective Progress Note for:: 09/10/17 Subjective:: Pt states that he is feeling better. Pt states that he did vomit overnight. Pt states that he is able to eat this morning. Pt states that he is not nauseated. Pt states that he did cough up a lot of phlegm overnight but none this morning. Reason For Visit: PNEUMONIA Physical Exam Vital Signs: Temp Pulse Resp BP Pulse Ox 99.5 F 101 H 18 113/60 92 09/10/17 03:55 09/10/17 07:00 09/10/17 03:55 09/10/17 03:55 09/10/17 03:55 Intake & Output 09/09/17 09/10/17 09/11/17 06:59 06:59 06:59 Intake Total 1502 Output Total 1700 Balance -198 Weight 104 kg General appearance: PRESENT: no acute distress, well-developed, well-nourished, other - Sitting on side of bed. Head exam: PRESENT: atraumatic, normocephalic Eye exam: PRESENT: conjunctiva pink, EOMI. ABSENT: scleral icterus Ear exam: PRESENT: normal external ear exam Mouth exam: PRESENT: moist, tongue midline Neck exam: ABSENT: carotid bruit, JVD, lymphadenopathy, thyromegaly Respiratory exam: PRESENT: clear to auscultation khushboo. ABSENT: rales, rhonchi, wheezes Cardiovascular exam: PRESENT: RRR. ABSENT: diastolic murmur, rubs, systolic murmur Pulses: PRESENT: normal dorsalis pedis pul Vascular exam: PRESENT: normal capillary refill GI/Abdominal exam: PRESENT: normal bowel sounds, soft. ABSENT: distended, guarding, mass, organolmegaly, rebound, tenderness Rectal exam: PRESENT: deferred Extremities exam: PRESENT: full ROM. ABSENT: calf tenderness, clubbing, pedal edema Neurological exam: PRESENT: alert, awake, oriented to person, oriented to place , oriented to time, oriented to situation, CN II-XII grossly intact. ABSENT: motor sensory deficit Psychiatric exam: PRESENT: appropriate affect, normal mood. ABSENT: homicidal ideation, suicidal ideation Skin exam: PRESENT: dry, intact, warm. ABSENT: cyanosis, rash Results Laboratory Results: 09/10/17 04:29 09/10/17 04:29 09/09/17 09/09/17 09/10/17 14:48 15:55 04:29 WBC 26.3 H RBC 4.08 L Hgb 11.8 L Hct 35.6 L MCV 87 MCH 29.0 MCHC 33.2 RDW 13.1 Plt Count 564 H Seg Neutrophils % Not Reportable Lymphocytes % Not Reportable Monocytes % Not Reportable Eosinophils % Not Reportable Basophils % Not Reportable Absolute Neutrophils Not Reportable Absolute Lymphocytes Not Reportable Absolute Monocytes Not Reportable Absolute Eosinophils Not Reportable Absolute Basophils Not Reportable Sodium Potassium Chloride Carbon Dioxide Anion Gap BUN Creatinine Est GFR ( Amer) Est GFR (Non-Af Amer) Glucose Lactic Acid 1.9 Calcium Total Bilirubin AST ALT Alkaline Phosphatase Total Protein Albumin Urine Color YELLOW Urine Appearance CLEAR Urine pH 5.0 Ur Specific [place] 1.042 Urine Protein NEGATIVE Urine Glucose (UA) NEGATIVE Urine Ketones NEGATIVE Urine Blood SMALL H Urine Nitrite NEGATIVE Ur Leukocyte Esterase NEGATIVE Urine WBC (Auto) 1 Urine RBC (Auto) 2 09/10/17 04:29 WBC RBC Hgb Hct MCV MCH MCHC RDW Plt Count Seg Neutrophils % Lymphocytes % Monocytes % Eosinophils % Basophils % Absolute Neutrophils Absolute Lymphocytes Absolute Monocytes Absolute Eosinophils Absolute Basophils Sodium 132.5 L Potassium 3.7 Chloride 96 L Carbon Dioxide 27 Anion Gap 10 BUN 10 Creatinine 0.80 Est GFR ( Amer) > 60 Est GFR (Non-Af Amer) > 60 Glucose 135 H Lactic Acid Calcium 8.7 Total Bilirubin 0.6 AST 133 H ALT 146 H Alkaline Phosphatase 160 H Total Protein 6.3 Albumin 3.2 L Urine Color Urine Appearance Urine pH Ur Specific [place] Urine Protein Urine Glucose (UA) Urine Ketones Urine Blood Urine Nitrite Ur Leukocyte Esterase Urine WBC (Auto) Urine RBC (Auto) Impressions: Chest/Abdomen CTA 09/09/17 10:43 IMPRESSION: 1 No evidence for acute pulmonary emboli. 2 A large ill-defined mass in the right upper lobe with extension into the right suprahilar region as detailed above. 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 Extensive surrounding pneumonitis in the right upper lobe. 3. Stable hypoattenuated right hepatic lobe lesion. 4 Additional stable findings as above. Assessment & Plan - Diagnosis (1) Pneumonia Qualifiers: Pneumonia type: due to unspecified organism Laterality: right Lung location: upper lobe of lung Qualified Code(s): J18.1 - Lobar pneumonia, unspecified organism Is this a current diagnosis for this admission?: Yes Plan: Nosocomial Acquired Pneumonia: Will continue current antibiotics. Pt current afebrile. Will continue to monitor. (2) Elevated transaminase level Is this a current diagnosis for this admission?: Yes Plan: Will continue to [place]. (3) Mass of right lung Is this a current diagnosis for this admission?: Yes Plan: Pt had biopsy performed at [facility]. Awaiting results for biopsy. (4) Sepsis Qualifiers: Sepsis type: sepsis due to unspecified organism Qualified Code(s): A41.9 - Sepsis, unspecified organism Is this a current diagnosis for this admission?: Yes Plan: (Secondary to Fever, WBC, Heart rate, RR, and radiological finding) Secondary to Noscomial Pneumonia: Will continue current antibiotics. (5) COPD (chronic obstructive pulmonary disease) Qualifiers: COPD type: unspecified COPD Qualified Code(s): J44.9 - Chronic obstructive pulmonary disease, unspecified Is this a current diagnosis for this admission?: Yes Plan: No acute exacerbation. Will continue to monitor. (6) Thrombocytosis Is this a current diagnosis for this admission?: Yes Plan: Will continue to monitor. (7) Hyponatremia Is this a current diagnosis for this admission?: Yes Plan: Most likely due to Lung Mass/SIADH: Will monitor. (8) DVT prophylaxis Is this a current diagnosis for this admission?: Yes Plan: Heparin 5000 units SQ Q8
[2017-09-10] MEDS: FAMOTIDINE 20 MG TABLET PO SCH ×2 (09:07→21:31)
[2017-09-10] MEDS: TIOTROPIUM BROMIDE DPI 5 CAP/KIT (18 MCG/CAP) IH SCH (09:07)
[2017-09-10] MEDS: BUDESONIDE/FORMOTEROL 160-4.5 MCG 60 PUFF/6 GM MDI IH SCH ×2 (09:08→21:33)
[2017-09-10] MEDS: ENALAPRIL MALEATE 5 MG TABLET PO SCH (09:08)
[2017-09-10] MEDS: NORMAL SALINE 1000 ML 1,000 ML IV PRN (12:30)
[2017-09-10] MEDS: ACETAMINOPHEN 325 MG TABLET PO PRN (19:52)
[2017-09-10] MEDS: ROPINIROLE HCL 1 MG TABLET PO SCH (21:31)
[2017-09-10] MEDS: CITALOPRAM HYDROBROMIDE 20 MG TABLET PO SCH (21:32)
[2017-09-11] MEDS: OXYCODONE HCL IR 5 MG TABLET PO PRN (05:12)
[2017-09-11] MEDS: HEPARIN SOD (PORCINE) 5,000 UNIT/ML 1 ML SYRINGE SUBCUT SCH ×3 (05:13→21:36)
[2017-09-11] MEDS: PIPERACILLIN SODIUM/TAZOBACTAM 3.375 GM in NORMAL SALINE 100 ML IV SCH ×4 (05:13→23:40)
[2017-09-11] MEDS: VANCOMYCIN HCL 1,000 MG in DEXTROSE 5%-WATER 250 ML IV SCH (05:49)
[2017-09-11 06:08] LABS: HEMATOCRIT 35.4 % (37.9-51.0); MEAN CORPUSCULAR HEMOGLOBIN 29.4 pg (27.0-33.4); MEAN CORPUSCULAR HGB CONC 33.8 g/dL (32.0-36.0); MEAN CORPUSCULAR VOLUME 87 fl (80-97); PLATELET COUNT 506 10^3/uL (150-450); RED BLOOD COUNT 4.06 10^6/uL (4.35-5.55); RED CELL DISTRIBUTION WIDTH 13.2 % (11.5-14.0); WHITE BLOOD COUNT 22.7 10^3/uL (4.0-10.5)
[2017-09-11 06:18] LABS: ALANINE AMINOTRANSFERASE 178 U/L (21-72); ALBUMIN 2.6 g/dL (3.5-5.0); ALKALINE PHOSPHATASE 165 U/L (38-126); ANION GAP 9 (5-19); ASPARTATE AMINO TRANSFERASE 117 U/L (17-59); BILIRUBIN,DIRECT 0.4 mg/dL (0.0-0.4); BILIRUBIN,TOTAL 0.4 mg/dL (0.2-1.3); BLOOD UREA NITROGEN 10 mg/dL (7-20); CALCIUM 8.4 mg/dL (8.4-10.2); CARBON DIOXIDE 26 mmol/L (22-30); CHLORIDE 100 mmol/L (98-107); GLUCOSE 119 mg/dL (75-110); POTASSIUM 3.8 mmol/L (3.6-5.0); SODIUM 134.8 mmol/L (137-145); TOTAL PROTEIN 5.5 g/dL (6.3-8.2)
[2017-09-11 06:20] LABS: VANCOMYCIN,TROUGH 7.3 ug/mL (5.0-20.0)
[2017-09-11 06:45] LABS: ABSOLUTE LYMPHOCYTES# (MANUAL) 1.4 10^3/uL (0.5-4.7); ABSOLUTE MONOCYTES # (MANUAL) 3.2 10^3/uL (0.1-1.4); ABSOLUTE NEUTROPHILS# (MANUAL) 18.2 10^3/uL (1.7-8.2); BAND NEUTROPHILS % (MANUAL) 3 % (3-5); BASOPHILS % (MANUAL) 0 % (0-2); EOSINOPHILS % (MANUAL) 0 % (0-6); LYMPHOCYTES % (MANUAL) 6 % (13-45); MONOCYTES % (MANUAL) 14 % (3-13); SEGMENTED NEUTROPHILS % (MAN) 77 % (42-78); TOTAL CELLS COUNTED 100
[2017-09-11 06:54] LABS: PLATELET CLUMPS PRESENT; PLATELET COMMENT ADEQUATE; POLYCHROMASIA SLIGHT; TOXIC GRANULATION 1+; TOXIC VACUOLATION PRESENT
[2017-09-11] MEDS ORDERED: VANCOMYCIN HCL 500 MG in DEXTROSE 5%-WATER 100 ML IV ONE (08:00)
--- NOTE | 2017-09-11 08:19 | PDOC PROGRESS REPORT ---
Subjective Progress Note for:: 09/11/17 Subjective:: Patient states that he continues to have RLL anterior chest pain, worse with breathing. Dyspnea and cough not quite as bad. No new complaints over night. Reason For Visit: PNEUMONIA Physical Exam Vital Signs: Temp Pulse Resp BP Pulse Ox 99.5 F 83 18 108/57 L 95 09/11/17 07:29 09/11/17 07:29 09/11/17 07:29 09/11/17 07:29 09/11/17 07:29 Intake & Output 09/10/17 09/11/17 09/12/17 06:59 06:59 06:59 Intake Total 1502 2265 Output Total 1700 2025 Balance -198 240 Weight 104 kg 109.1 kg General appearance: PRESENT: no acute distress, well-nourished Head exam: PRESENT: normocephalic Respiratory exam: PRESENT: clear to auscultation khushboo, unlabored Cardiovascular exam: PRESENT: RRR GI/Abdominal exam: PRESENT: soft. ABSENT: tenderness Extremities exam: ABSENT: pedal edema Neurological exam: PRESENT: alert, awake, oriented to person, oriented to place , oriented to time, oriented to situation Psychiatric exam: PRESENT: appropriate affect Skin exam: PRESENT: normal color Results Laboratory Results: 09/11/17 05:44 09/11/17 05:44 09/11/17 09/11/17 05:44 05:44 WBC 22.7 H RBC 4.06 L Hgb 12.0 L Hct 35.4 L MCV 87 MCH 29.4 MCHC 33.8 RDW 13.2 Plt Count 506 H Seg Neutrophils % Not Reportable Lymphocytes % Not Reportable Monocytes % Not Reportable Eosinophils % Not Reportable Basophils % Not Reportable Absolute Neutrophils Not Reportable Absolute Lymphocytes Not Reportable Absolute Monocytes Not Reportable Absolute Eosinophils Not Reportable Absolute Basophils Not Reportable Sodium 134.8 L Potassium 3.8 Chloride 100 Carbon Dioxide 26 Anion Gap 9 BUN 10 Creatinine 0.77 Est GFR ( Amer) > 60 Est GFR (Non-Af Amer) > 60 Glucose 119 H Calcium 8.4 Total Bilirubin 0.4 AST 117 H ALT 178 H Alkaline Phosphatase 165 H Total Protein 5.5 L Albumin 2.6 L Impressions: Chest/Abdomen CTA 09/09/17 10:43 IMPRESSION: 1 No evidence for acute pulmonary emboli. 2 A large ill-defined mass in the right upper lobe with extension into the right suprahilar region as detailed above. 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 Extensive surrounding pneumonitis in the right upper lobe. 3. Stable hypoattenuated right hepatic lobe lesion. 4 Additional stable findings as above. Assessment & Plan - Diagnosis (1) Mass of right lung Is this a current diagnosis for this admission?: Yes Plan: Bronchoscopy results showed [place] cytology negative for malignant cells. Still awaiting core biopsy results. Most recent CT shows that the mass grew almost 10 cm in 1 month. This is quite unusual for purely neoplastic process. There is also much inflammatory process. Agree with continuing antibiotics. (2) Pneumonia Qualifiers: Pneumonia type: due to unspecified organism Laterality: right Lung location: upper lobe of lung Qualified Code(s): J18.1 - Lobar pneumonia, unspecified organism Is this a current diagnosis for this admission?: Yes (3) Thrombocytosis Is this a current diagnosis for this admission?: Yes Plan: Reactive and improving. (4) Elevated transaminase level Is this a current diagnosis for this admission?: Yes Plan: Unsure what is causing this. PET and CT confirm no evidence of malignant process in Liver. This could also be results of an infectious process. Consider testing for fungal infection. - Plan Summary Plan Summary: Await further pathology results today. I will continue to follow.
[2017-09-11] MEDS: FAMOTIDINE 20 MG TABLET PO SCH ×2 (09:06→21:24)
[2017-09-11] MEDS: ENALAPRIL MALEATE 5 MG TABLET PO SCH (09:06)
[2017-09-11] MEDS: TIOTROPIUM BROMIDE DPI 5 CAP/KIT (18 MCG/CAP) IH SCH (09:09)
[2017-09-11] MEDS: BUDESONIDE/FORMOTEROL 160-4.5 MCG 60 PUFF/6 GM MDI IH SCH ×2 (09:09→21:25)
--- NOTE | 2017-09-11 10:17 | PDOC PROGRESS REPORT ---
Subjective Progress Note for:: 09/11/17 Subjective:: Pt states that he wants everything fixed including his cancer prior to being discharged. Pt states that he can not use CPAP due to it making it hard for him to sleep. Reason For Visit: PNEUMONIA Physical Exam Vital Signs: Temp Pulse Resp BP Pulse Ox 99.5 F 83 18 108/57 L 95 09/11/17 07:29 09/11/17 07:29 09/11/17 07:29 09/11/17 07:29 09/11/17 07:29 Intake & Output 09/10/17 09/11/17 09/12/17 06:59 06:59 06:59 Intake Total 1502 2265 Output Total 1700 2025 Balance -198 240 Weight 104 kg 109.1 kg General appearance: PRESENT: no acute distress, well-developed, well-nourished Head exam: PRESENT: atraumatic, normocephalic Eye exam: PRESENT: conjunctiva pink, EOMI. ABSENT: scleral icterus Ear exam: PRESENT: normal external ear exam Mouth exam: PRESENT: moist, tongue midline Neck exam: ABSENT: carotid bruit, JVD, lymphadenopathy, thyromegaly Respiratory exam: PRESENT: decreased breath sounds, prolonged expiratory phas, wheezes Cardiovascular exam: PRESENT: RRR. ABSENT: diastolic murmur, rubs, systolic murmur Pulses: PRESENT: normal dorsalis pedis pul Vascular exam: PRESENT: normal capillary refill GI/Abdominal exam: PRESENT: normal bowel sounds, soft. ABSENT: distended, guarding, mass, organolmegaly, rebound, tenderness Rectal exam: PRESENT: deferred Extremities exam: PRESENT: full ROM. ABSENT: calf tenderness, clubbing, pedal edema Musculoskeletal exam: PRESENT: full ROM Neurological exam: PRESENT: alert, awake, oriented to person, oriented to place , oriented to time, oriented to situation, CN II-XII grossly intact. ABSENT: motor sensory deficit Psychiatric exam: PRESENT: appropriate affect, normal mood. ABSENT: homicidal ideation, suicidal ideation Skin exam: PRESENT: dry, intact, warm. ABSENT: cyanosis, rash Results Laboratory Results: 09/11/17 05:44 09/11/17 05:44 09/11/17 09/11/17 05:44 05:44 WBC 22.7 H RBC 4.06 L Hgb 12.0 L Hct 35.4 L MCV 87 MCH 29.4 MCHC 33.8 RDW 13.2 Plt Count 506 H Seg Neutrophils % Not Reportable Lymphocytes % Not Reportable Monocytes % Not Reportable Eosinophils % Not Reportable Basophils % Not Reportable Absolute Neutrophils Not Reportable Absolute Lymphocytes Not Reportable Absolute Monocytes Not Reportable Absolute Eosinophils Not Reportable Absolute Basophils Not Reportable Sodium 134.8 L Potassium 3.8 Chloride 100 Carbon Dioxide 26 Anion Gap 9 BUN 10 Creatinine 0.77 Est GFR ( Amer) > 60 Est GFR (Non-Af Amer) > 60 Glucose 119 H Calcium 8.4 Total Bilirubin 0.4 AST 117 H ALT 178 H Alkaline Phosphatase 165 H Total Protein 5.5 L Albumin 2.6 L Impressions: Chest/Abdomen CTA 09/09/17 10:43 IMPRESSION: 1 No evidence for acute pulmonary emboli. 2 A large ill-defined mass in the right upper lobe with extension into the right suprahilar region as detailed above. 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 Extensive surrounding pneumonitis in the right upper lobe. 3. Stable hypoattenuated right hepatic lobe lesion. 4 Additional stable findings as above. Assessment & Plan - Diagnosis (1) Pneumonia Qualifiers: Pneumonia type: due to unspecified organism Laterality: right Lung location: upper lobe of lung Qualified Code(s): J18.1 - Lobar pneumonia, unspecified organism Is this a current diagnosis for this admission?: Yes Plan: Nosocomial Acquired Pneumonia: Will continue current antibiotics. Pt current afebrile. Will continue to monitor. (2) Elevated transaminase level Is this a current diagnosis for this admission?: Yes Plan: Will continue to [facility]. (3) Mass of right lung Is this a current diagnosis for this admission?: Yes Plan: Pt had biopsy performed at [facility]. Awaiting results for biopsy. Appreciate Pulmonary's assistance. (4) Sepsis Qualifiers: Sepsis type: sepsis due to unspecified organism Qualified Code(s): A41.9 - Sepsis, unspecified organism Is this a current diagnosis for this admission?: Yes Plan: (Secondary to Fever, WBC, Heart rate, RR, and radiological finding) Secondary to Noscomial Pneumonia: Will continue current antibiotics. (5) COPD (chronic obstructive pulmonary disease) Qualifiers: COPD type: unspecified COPD Qualified Code(s): J44.9 - Chronic obstructive pulmonary disease, unspecified Is this a current diagnosis for this admission?: Yes Plan: No acute exacerbation. Will continue to monitor. (6) Thrombocytosis Is this a current diagnosis for this admission?: Yes Plan: Will continue to monitor. (7) Hyponatremia Is this a current diagnosis for this admission?: Yes Plan: Most likely due to Lung Mass/SIADH: Will monitor. (8) DVT prophylaxis Is this a current diagnosis for this admission?: Yes Plan: Heparin 5000 units SQ Q8 - Time Time Spent with patient: 15-24 minutes
[2017-09-11] MEDS ORDERED: BENZONATATE 100 MG CAPSULE PO PRN (12:05)
[2017-09-11] MEDS: VANCOMYCIN HCL 1,500 MG in DEXTROSE 5%-WATER 250 ML IV SCH ×2 (13:14→21:25)
[2017-09-11] MEDS: NORMAL SALINE 1000 ML 1,000 ML IV PRN (17:21)
[2017-09-11] MEDS: ACETAMINOPHEN 325 MG TABLET PO PRN (17:58)
[2017-09-11] MEDS: ONDANSETRON HCL INJ/PF 4 MG/2 ML SDV IV PRN (18:17)
[2017-09-11] MEDS: IPRATROPIUM/ALBUTEROL 0.5-2.5 MG/3 ML AMPUL NEB PRN (19:51)
[2017-09-11] MEDS: ROPINIROLE HCL 1 MG TABLET PO SCH (21:24)
[2017-09-11] MEDS: CITALOPRAM HYDROBROMIDE 20 MG TABLET PO SCH (21:24)
[2017-09-11] MEDS: ALPRAZOLAM 0.5 MG TABLET PO SCH (21:25)
[2017-09-12] MEDS: PIPERACILLIN SODIUM/TAZOBACTAM 3.375 GM in NORMAL SALINE 100 ML IV SCH ×4 (05:45→23:11)
[2017-09-12] MEDS: HEPARIN SOD (PORCINE) 5,000 UNIT/ML 1 ML SYRINGE SUBCUT SCH ×3 (05:46→21:55)
[2017-09-12 06:38] LABS: HEMATOCRIT 35.1 % (37.9-51.0); HEMOGLOBIN 11.5 g/dL (13.5-17.0); MEAN CORPUSCULAR HEMOGLOBIN 28.7 pg (27.0-33.4); MEAN CORPUSCULAR HGB CONC 32.7 g/dL (32.0-36.0); MEAN CORPUSCULAR VOLUME 88 fl (80-97); PLATELET COUNT 607 10^3/uL (150-450); RED BLOOD COUNT 4.01 10^6/uL (4.35-5.55); RED CELL DISTRIBUTION WIDTH 13.7 % (11.5-14.0); WHITE BLOOD COUNT 21.6 10^3/uL (4.0-10.5)
[2017-09-12] MEDS: VANCOMYCIN HCL 1,500 MG in DEXTROSE 5%-WATER 250 ML IV SCH ×3 (06:42→21:54)
[2017-09-12 06:49] LABS: ALANINE AMINOTRANSFERASE 185 U/L (21-72); ALBUMIN 2.7 g/dL (3.5-5.0); ALKALINE PHOSPHATASE 197 U/L (38-126); ANION GAP 11 (5-19); ASPARTATE AMINO TRANSFERASE 98 U/L (17-59); BILIRUBIN,DIRECT 0.2 mg/dL (0.0-0.4); BILIRUBIN,TOTAL 0.3 mg/dL (0.2-1.3); BLOOD UREA NITROGEN 9 mg/dL (7-20); CALCIUM 8.7 mg/dL (8.4-10.2); CARBON DIOXIDE 27 mmol/L (22-30); CHLORIDE 99 mmol/L (98-107); GLUCOSE 105 mg/dL (75-110); POTASSIUM 4.2 mmol/L (3.6-5.0); SODIUM 136.9 mmol/L (137-145); TOTAL PROTEIN 5.5 g/dL (6.3-8.2)
[2017-09-12 06:51] LABS: VANCOMYCIN,TROUGH 11.2 ug/mL (5.0-20.0)
[2017-09-12 07:27] LABS: ABSOLUTE LYMPHOCYTES# (MANUAL) 1.5 10^3/uL (0.5-4.7); ABSOLUTE MONOCYTES # (MANUAL) 1.3 10^3/uL (0.1-1.4); ABSOLUTE NEUTROPHILS# (MANUAL) 17.7 10^3/uL (1.7-8.2); BAND NEUTROPHILS % (MANUAL) 1 % (3-5); BASOPHILS % (MANUAL) 0 % (0-2); EOSINOPHILS % (MANUAL) 5 % (0-6); LYMPHOCYTES % (MANUAL) 7 % (13-45); MONOCYTES % (MANUAL) 6 % (3-13); SEGMENTED NEUTROPHILS % (MAN) 74 % (42-78); TOTAL CELLS COUNTED 100
[2017-09-12 07:28] LABS: METAMYELOCYTES % (MANUAL) 4 % (0); MYELOCYTES % (MANUAL) 3 % (0)
[2017-09-12 07:29] LABS: PLATELET COMMENT ADEQUATE; POLYCHROMASIA SLIGHT; TOXIC GRANULATION 1+; TOXIC VACUOLATION PRESENT
--- NOTE | 2017-09-12 07:35 | PDOC PROGRESS REPORT ---
Subjective Progress Note for:: 09/12/17 Subjective:: Patient unchanged today. Frustrated with lack of progress, but remains in good spirits. Cough and pleuritic chest pain remain. Pain is over his liver. ROS: No appetite, but trying to eat. No Const/diarrhea. Reason For Visit: PNEUMONIA Physical Exam Vital Signs: Temp Pulse Resp BP Pulse Ox 98.6 F 77 20 102/52 L 92 09/12/17 03:24 09/12/17 03:24 09/12/17 03:24 09/12/17 03:24 09/12/17 03:24 Intake & Output 09/11/17 09/12/17 09/13/17 06:59 06:59 06:59 Intake Total 2265 4322 Output Total 2025 1250 Balance 240 3072 Weight 109.1 kg 106 kg General appearance: PRESENT: no acute distress, well-nourished Head exam: PRESENT: normocephalic Respiratory exam: PRESENT: unlabored Neurological exam: PRESENT: alert, awake, oriented to person, oriented to place , oriented to time, oriented to situation Psychiatric exam: PRESENT: appropriate affect Skin exam: PRESENT: normal color Results Laboratory Results: 09/12/17 05:46 09/12/17 05:46 09/12/17 09/12/17 05:46 05:46 WBC 21.6 H RBC 4.01 L Hgb 11.5 L Hct 35.1 L MCV 88 MCH 28.7 MCHC 32.7 RDW 13.7 Plt Count 607 H Seg Neutrophils % Not Reportable Lymphocytes % Not Reportable Monocytes % Not Reportable Eosinophils % Not Reportable Basophils % Not Reportable Absolute Neutrophils Not Reportable Absolute Lymphocytes Not Reportable Absolute Monocytes Not Reportable Absolute Eosinophils Not Reportable Absolute Basophils Not Reportable Sodium 136.9 L Potassium 4.2 Chloride 99 Carbon Dioxide 27 Anion Gap 11 BUN 9 Creatinine 0.73 Est GFR ( Amer) > 60 Est GFR (Non-Af Amer) > 60 Glucose 105 Calcium 8.7 Total Bilirubin 0.3 AST 98 H ALT 185 H Alkaline Phosphatase 197 H Total Protein 5.5 L Albumin 2.7 L 09/09/17 15:55 Clean Catch Midstream Urine Culture - Final NO GROWTH 2 DAYS Impressions: Chest/Abdomen CTA 09/09/17 10:43 IMPRESSION: 1 No evidence for acute pulmonary emboli. 2 A large ill-defined mass in the right upper lobe with extension into the right suprahilar region as detailed above. 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 Extensive surrounding pneumonitis in the right upper lobe. 3. Stable hypoattenuated right hepatic lobe lesion. 4 Additional stable findings as above. Assessment & Plan - Diagnosis (1) Mass of right lung Is this a current diagnosis for this admission?: Yes Plan: Final pathology report from recent biopsy shows 6 large core biopsy specimens with 1 FNA and bronchial washings all negative for malignancy. Only inflammation and necrosis. No cultures were obtained at the time of biopsy. Again, this appears to be more of an infectious process. Consider fungal coverage. May need further surgical intervention. I have discussed this with Dr. Siegel and primary team. I will sign off for now. Please reconsult if needed. (2) Pneumonia Qualifiers: Pneumonia type: due to unspecified organism Laterality: right Lung location: upper lobe of lung Qualified Code(s): J18.1 - Lobar pneumonia, unspecified organism Is this a current diagnosis for this admission?: Yes (3) Thrombocytosis Is this a current diagnosis for this admission?: Yes Plan: Leukocytosis and thrombocytosis both appear reactive to infectious process. Stable for now. (4) Elevated transaminase level Is this a current diagnosis for this admission?: Yes Plan: Again, point to a systemic fungal infection or severe bacterial infection. Blood cultures have been negative for bacterial infection. - Plan Summary Plan Summary: Please call me with any questions or concerns.
[2017-09-12] MEDS: IPRATROPIUM/ALBUTEROL 0.5-2.5 MG/3 ML AMPUL NEB PRN (07:47)
[2017-09-12] MEDS: BUDESONIDE/FORMOTEROL 160-4.5 MCG 60 PUFF/6 GM MDI IH SCH ×2 (09:06→21:54)
[2017-09-12] MEDS: TIOTROPIUM BROMIDE DPI 5 CAP/KIT (18 MCG/CAP) IH SCH (09:07)
[2017-09-12] MEDS: ENALAPRIL MALEATE 5 MG TABLET PO SCH (09:07)
[2017-09-12] MEDS: FAMOTIDINE 20 MG TABLET PO SCH ×2 (09:08→21:53)
[2017-09-12 09:32] LABS: PATH REVIEW PATHOLOGIST REVIEWED
[2017-09-12] MEDS: ACETAMINOPHEN 325 MG TABLET PO PRN ×2 (12:30→21:56)
--- NOTE | 2017-09-12 14:06 | PDOC PROGRESS REPORT ---
Subjective Progress Note for:: 09/12/17 Subjective:: Pt states that he is doing ok. Received call from Dr. Shrestha who stated that results demonstrate inflammatory process that would be more concerning for pneumonia. Spoke with Dr. Gomez this morning who states that we need to treat patient for pneumonia and then once pneumonia has resolved send patient back for [facility] with biopsy. Reason For Visit: PNEUMONIA Physical Exam Vital Signs: Temp Pulse Resp BP Pulse Ox 99.7 F 82 16 117/62 94 09/12/17 11:50 09/12/17 11:50 09/12/17 11:50 09/12/17 11:50 09/12/17 11:50 Intake & Output 09/11/17 09/12/17 09/13/17 06:59 06:59 06:59 Intake Total 2265 4322 100 Output Total 2025 1250 Balance 240 3072 100 Weight 109.1 kg 106 kg General appearance: PRESENT: no acute distress, well-developed, well-nourished Head exam: PRESENT: atraumatic, normocephalic Eye exam: PRESENT: conjunctiva pink, EOMI. ABSENT: scleral icterus Ear exam: PRESENT: normal external ear exam Mouth exam: PRESENT: moist, tongue midline Neck exam: ABSENT: carotid bruit, JVD, lymphadenopathy, thyromegaly Respiratory exam: PRESENT: decreased breath sounds. ABSENT: rales, rhonchi, wheezes Cardiovascular exam: PRESENT: RRR. ABSENT: diastolic murmur, rubs, systolic murmur Pulses: PRESENT: normal dorsalis pedis pul Vascular exam: PRESENT: normal capillary refill GI/Abdominal exam: PRESENT: normal bowel sounds, soft. ABSENT: distended, guarding, mass, organolmegaly, rebound, tenderness Rectal exam: PRESENT: deferred Extremities exam: PRESENT: full ROM. ABSENT: calf tenderness, clubbing, pedal edema Neurological exam: PRESENT: alert, awake, oriented to person, oriented to place , oriented to time, oriented to situation, CN II-XII grossly intact. ABSENT: motor sensory deficit Psychiatric exam: PRESENT: agitated Skin exam: PRESENT: dry, intact, warm. ABSENT: cyanosis, rash Results Laboratory Results: 09/12/17 05:46 09/12/17 05:46 09/12/17 09/12/17 05:46 05:46 WBC 21.6 H RBC 4.01 L Hgb 11.5 L Hct 35.1 L MCV 88 MCH 28.7 MCHC 32.7 RDW 13.7 Plt Count 607 H Seg Neutrophils % Not Reportable Lymphocytes % Not Reportable Monocytes % Not Reportable Eosinophils % Not Reportable Basophils % Not Reportable Absolute Neutrophils Not Reportable Absolute Lymphocytes Not Reportable Absolute Monocytes Not Reportable Absolute Eosinophils Not Reportable Absolute Basophils Not Reportable Sodium 136.9 L Potassium 4.2 Chloride 99 Carbon Dioxide 27 Anion Gap 11 BUN 9 Creatinine 0.73 Est GFR ( Amer) > 60 Est GFR (Non-Af Amer) > 60 Glucose 105 Calcium 8.7 Total Bilirubin 0.3 AST 98 H ALT 185 H Alkaline Phosphatase 197 H Total Protein 5.5 L Albumin 2.7 L 09/09/17 15:55 Clean Catch Midstream Urine Culture - Final NO GROWTH 2 DAYS Impressions: Chest/Abdomen CTA 09/09/17 10:43 IMPRESSION: 1 No evidence for acute pulmonary emboli. 2 A large ill-defined mass in the right upper lobe with extension into the right suprahilar region as detailed above. 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 Extensive surrounding pneumonitis in the right upper lobe. 3. Stable hypoattenuated right hepatic lobe lesion. 4 Additional stable findings as above. Assessment & Plan - Diagnosis (1) Pneumonia Qualifiers: Pneumonia type: due to unspecified organism Laterality: right Lung location: upper lobe of lung Qualified Code(s): J18.1 - Lobar pneumonia, unspecified organism Is this a current diagnosis for this admission?: Yes Plan: Nosocomial Acquired Pneumonia: Will continue current antibiotics. Pt current afebrile. Will continue to monitor. (2) Elevated transaminase level Is this a current diagnosis for this admission?: Yes Plan: Will continue to montior. (3) Mass of right lung Is this a current diagnosis for this admission?: Yes Plan: Biopsy did not demonstrate cells consistent with malignancy. Pulmonary has recommended treating patient for pneumonia once pneumonia has resolved patient will need to follow up with vitamin for repeat [facility] with biopsy. Continue current antibiotics. Pharmacy contacted hospitalist department with request for ID consult. Will place ID consult. (4) Sepsis Qualifiers: Sepsis type: sepsis due to unspecified organism Qualified Code(s): A41.9 - Sepsis, unspecified organism Is this a current diagnosis for this admission?: Yes Plan: (Secondary to Fever, WBC, Heart rate, RR, and radiological finding) Secondary to Noscomial Pneumonia: Will continue current antibiotics. (5) COPD (chronic obstructive pulmonary disease) Qualifiers: COPD type: unspecified COPD Qualified Code(s): J44.9 - Chronic obstructive pulmonary disease, unspecified Is this a current diagnosis for this admission?: Yes Plan: No acute exacerbation. Will continue to monitor. (6) Thrombocytosis Is this a current diagnosis for this admission?: Yes Plan: Will continue to monitor. (7) Hyponatremia Is this a current diagnosis for this admission?: Yes Plan: Most likely due to Lung Mass/SIADH: Will monitor. (8) DVT prophylaxis Is this a current diagnosis for this admission?: Yes Plan: Heparin 5000 units SQ Q8 - Time Time Spent with patient: 15-24 minutes
[2017-09-12] MEDS: NORMAL SALINE 1000 ML 1,000 ML IV PRN (17:23)
[2017-09-12] MEDS: ROPINIROLE HCL 1 MG TABLET PO SCH (21:53)
[2017-09-12] MEDS: CITALOPRAM HYDROBROMIDE 20 MG TABLET PO SCH (21:54)
[2017-09-12] MEDS: ALPRAZOLAM 0.5 MG TABLET PO SCH (21:54)
[2017-09-13 04:56] LABS: HEMATOCRIT 34.9 % (37.9-51.0); HEMOGLOBIN 11.5 g/dL (13.5-17.0); MEAN CORPUSCULAR HEMOGLOBIN 28.8 pg (27.0-33.4); MEAN CORPUSCULAR HGB CONC 33.1 g/dL (32.0-36.0); MEAN CORPUSCULAR VOLUME 87 fl (80-97); PLATELET COUNT 692 10^3/uL (150-450); RED BLOOD COUNT 4.01 10^6/uL (4.35-5.55); RED CELL DISTRIBUTION WIDTH 13.5 % (11.5-14.0); WHITE BLOOD COUNT 18.2 10^3/uL (4.0-10.5)
[2017-09-13 05:05] LABS: ALANINE AMINOTRANSFERASE 138 U/L (21-72); ALBUMIN 2.9 g/dL (3.5-5.0); ALKALINE PHOSPHATASE 172 U/L (38-126); ANION GAP 6 (5-19); ASPARTATE AMINO TRANSFERASE 57 U/L (17-59); BILIRUBIN,DIRECT 0.1 mg/dL (0.0-0.4); BILIRUBIN,TOTAL 0.1 mg/dL (0.2-1.3); BLOOD UREA NITROGEN 10 mg/dL (7-20); CALCIUM 8.8 mg/dL (8.4-10.2); CARBON DIOXIDE 32 mmol/L (22-30); CHLORIDE 102 mmol/L (98-107); GLUCOSE 115 mg/dL (75-110); POTASSIUM 3.7 mmol/L (3.6-5.0); TOTAL PROTEIN 6.2 g/dL (6.3-8.2)
[2017-09-13 05:25] LABS: ABSOLUTE LYMPHOCYTES# (MANUAL) 2.7 10^3/uL (0.5-4.7); ABSOLUTE MONOCYTES # (MANUAL) 1.5 10^3/uL (0.1-1.4); ABSOLUTE NEUTROPHILS# (MANUAL) 13.7 10^3/uL (1.7-8.2); BAND NEUTROPHILS % (MANUAL) 3 % (3-5); BASOPHILS % (MANUAL) 0 % (0-2); EOSINOPHILS % (MANUAL) 2 % (0-6); LYMPHOCYTES % (MANUAL) 15 % (13-45); MONOCYTES % (MANUAL) 8 % (3-13); MYELOCYTES % (MANUAL) 2 % (0); PROMYELOCYTES % (MANUAL) 1 % (0); SEGMENTED NEUTROPHILS % (MAN) 69 % (42-78); TOTAL CELLS COUNTED 100
[2017-09-13 05:28] LABS: HYPOCHROMASIA SLIGHT; PLATELET COMMENT INCREASED; TOXIC GRANULATION 1+
[2017-09-13] MEDS: HEPARIN SOD (PORCINE) 5,000 UNIT/ML 1 ML SYRINGE SUBCUT SCH ×3 (06:37→22:21)
[2017-09-13] MEDS: PIPERACILLIN SODIUM/TAZOBACTAM 3.375 GM in NORMAL SALINE 100 ML IV SCH ×3 (06:37→18:04)
[2017-09-13] MEDS: VANCOMYCIN HCL 1,500 MG in DEXTROSE 5%-WATER 250 ML IV SCH ×3 (06:37→22:22)
[2017-09-13] MEDS: TIOTROPIUM BROMIDE DPI 5 CAP/KIT (18 MCG/CAP) IH SCH (09:57)
[2017-09-13] MEDS: FAMOTIDINE 20 MG TABLET PO SCH ×2 (09:57→22:21)
[2017-09-13] MEDS: BUDESONIDE/FORMOTEROL 160-4.5 MCG 60 PUFF/6 GM MDI IH SCH ×2 (09:58→22:21)
[2017-09-13] MEDS: ENALAPRIL MALEATE 5 MG TABLET PO SCH (09:58)
[2017-09-13] MEDS: OXYCODONE HCL IR 5 MG TABLET PO PRN (10:06)
--- NOTE | 2017-09-13 10:28 | PDOC PROGRESS REPORT ---
Subjective Progress Note for:: 09/13/17 Subjective:: Patient reports that he is feeling better today. Patient denies productive cough. Nurse states that patient has had an uneventful night. Reason For Visit: PNEUMONIA Physical Exam Vital Signs: Temp Pulse Resp BP Pulse Ox 99.6 F 72 16 105/58 L 96 09/13/17 07:59 09/13/17 09:30 09/13/17 09:30 09/13/17 07:59 09/13/17 09:30 Intake & Output 09/12/17 09/13/17 09/14/17 06:59 06:59 06:59 Intake Total 4322 3500 Output Total 1250 1950 Balance 3072 1550 Weight 106 kg 108.3 kg General appearance: PRESENT: no acute distress, well-developed, well-nourished Head exam: PRESENT: atraumatic, normocephalic Eye exam: PRESENT: conjunctiva pink, EOMI. ABSENT: scleral icterus Ear exam: PRESENT: normal external ear exam Mouth exam: PRESENT: moist, tongue midline Neck exam: ABSENT: carotid bruit, JVD, lymphadenopathy, thyromegaly Respiratory exam: PRESENT: clear to auscultation [place]. ABSENT: rales, rhonchi, wheezes Cardiovascular exam: PRESENT: RRR. ABSENT: diastolic murmur, rubs, systolic murmur Pulses: PRESENT: normal dorsalis pedis pul Vascular exam: PRESENT: normal capillary refill GI/Abdominal exam: PRESENT: normal bowel sounds, soft. ABSENT: distended, guarding, mass, organolmegaly, rebound, tenderness Rectal exam: PRESENT: deferred Extremities exam: PRESENT: full ROM. ABSENT: calf tenderness, clubbing, pedal edema Neurological exam: PRESENT: alert, awake, oriented to person, oriented to place , oriented to time, oriented to situation, CN II-XII grossly intact. ABSENT: motor sensory deficit Psychiatric exam: PRESENT: appropriate affect, normal mood. ABSENT: homicidal ideation, suicidal ideation Skin exam: PRESENT: dry, intact, warm. ABSENT: cyanosis, rash Results Laboratory Results: 09/13/17 04:13 09/13/17 04:13 09/13/17 09/13/17 04:13 04:13 WBC 18.2 H RBC 4.01 L Hgb 11.5 L Hct 34.9 L MCV 87 MCH 28.8 MCHC 33.1 RDW 13.5 Plt Count 692 H Seg Neutrophils % Not Reportable Lymphocytes % Not Reportable Monocytes % Not Reportable Eosinophils % Not Reportable Basophils % Not Reportable Absolute Neutrophils Not Reportable Absolute Lymphocytes Not Reportable Absolute Monocytes Not Reportable Absolute Eosinophils Not Reportable Absolute Basophils Not Reportable Sodium 140.0 Potassium 3.7 Chloride 102 Carbon Dioxide 32 H Anion Gap 6 BUN 10 Creatinine 0.94 Est GFR ( Amer) > 60 Est GFR (Non-Af Amer) > 60 Glucose 115 H Calcium 8.8 Total Bilirubin 0.1 L AST 57 ALT 138 H Alkaline Phosphatase 172 H Total Protein 6.2 L Albumin 2.9 L Impressions: Chest/Abdomen CTA 09/09/17 10:43 IMPRESSION: 1 No evidence for acute pulmonary emboli. 2 A large ill-defined mass in the right upper lobe with extension into the right suprahilar region as detailed above. 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 Extensive surrounding pneumonitis in the right upper lobe. 3. Stable hypoattenuated right hepatic lobe lesion. 4 Additional stable findings as above. Assessment & Plan - Diagnosis (1) Pneumonia Qualifiers: Pneumonia type: due to unspecified organism Laterality: right Lung location: upper lobe of lung Qualified Code(s): J18.1 - Lobar pneumonia, unspecified organism Is this a current diagnosis for this admission?: Yes Plan: Nosocomial Acquired Pneumonia: Will continue current antibiotics. Pt current afebrile. Will continue to monitor. (2) Elevated transaminase level Is this a current diagnosis for this admission?: Yes Plan: Will continue to montior. (3) Mass of right lung Is this a current diagnosis for this admission?: Yes Plan: Biopsy did not demonstrate cells consistent with malignancy. Pulmonary has recommended treating patient for pneumonia once pneumonia has resolved patient will need to follow up with vitamin for repeat [facility] with biopsy. Continue current antibiotics. Awaiting ID consult recommendations. (4) Sepsis Qualifiers: Sepsis type: sepsis due to unspecified organism Qualified Code(s): A41.9 - Sepsis, unspecified organism Is this a current diagnosis for this admission?: Yes Plan: (Secondary to Fever, WBC, Heart rate, RR, and radiological finding) Secondary to Noscomial Pneumonia: Will continue current antibiotics. (5) COPD (chronic obstructive pulmonary disease) Qualifiers: COPD type: unspecified COPD Qualified Code(s): J44.9 - Chronic obstructive pulmonary disease, unspecified Is this a current diagnosis for this admission?: Yes Plan: No acute exacerbation. Will continue to monitor. (6) Thrombocytosis Is this a current diagnosis for this admission?: Yes Plan: Will continue to monitor. (7) Hyponatremia Is this a current diagnosis for this admission?: Yes Plan: Most likely due to Lung Mass/SIADH: Resolved. (8) DVT prophylaxis Is this a current diagnosis for this admission?: Yes Plan: Heparin 5000 units SQ Q8 - Time Time Spent with patient: 15-24 minutes
--- NOTE | 2017-09-13 14:19 | Progress Note ---
Provider Note Provider Note: ID Consult Note Contacted by Dr Siegel about this patient. Mr. Reynoso is a 62 yo man with PMH including COPD from smoking. He was found to have a RUL lesion in mid-July, incidentally, on a CXR performed as pre-op evaluation prior to gallbladder surgery. He had a CT scan that showed 3.3 x 1.7 RUL lesion and was referred to [facility] for bronchoscopy. Endobronchial biopsy and FNA of the lesion showed acute and chronic inflammation; no malignant cells were identified. He returned to [place] on 09/09/17 with c/o fever, nonproductive cough , SOB, and one month duration of weight loss of [address] scan showed marked progression of the parenchymal lesion with now a dense consolidation, air, and surrounding ground glass opacities. He has been treated empirically with vancomycin and Zosyn for heatlhcare associated pneumonia since admission. Impression/Recommendations Acute/subacute pneumonia of unknown etiology. Recommend inducing sputum and sending bacterial, AFB, and fungal stain and culture. Also recommend PPD or Quantiferon and sending urine Histoplasma antigen. If the patient is not able to produce sputum and fails to improve on broad spectrum antibiotic therapy (vancomycin and Zosyn), he will need a bronchoscopy to establish a microbiological diagnosis. Do not recommend starting empiric antifungal therapy. Elie Nelson, pager [phone]
[2017-09-13] MEDS: NORMAL SALINE 1000 ML 1,000 ML IV PRN (16:28)
[2017-09-13] MEDS ORDERED: SODIUM CHLORIDE 3% FOR INHALATION 15 ML AMPUL NEB PRN (17:10)
[2017-09-13] MEDS ORDERED: TUBERCULIN,PURIF.PROT.DERIV. 5 TU/0.1 ML TEST 1 ML VIAL ID ONE (17:14)
[2017-09-13] MEDS: IBUPROFEN 800 MG in DEXTROSE 5%-WATER 250 ML IV SCH (17:22)
[2017-09-13] MEDS ORDERED: IBUPROFEN 800 MG in NORMAL SALINE 250 ML IV SCH (18:00)
[2017-09-13] MEDS ORDERED: TUBERCULIN,PURIF.PROT.DERIV. 5 TU/0.1 ML TEST 1 ML VIAL ID PRN (19:00)
[2017-09-13] MEDS: ALPRAZOLAM 0.5 MG TABLET PO SCH (22:18)
[2017-09-13] MEDS: ROPINIROLE HCL 1 MG TABLET PO SCH (22:18)
[2017-09-13] MEDS: CITALOPRAM HYDROBROMIDE 20 MG TABLET PO SCH (22:20)
[2017-09-14] MEDS: IBUPROFEN 800 MG in DEXTROSE 5%-WATER 250 ML IV SCH ×2 (00:17→06:01)
[2017-09-14] MEDS: PIPERACILLIN SODIUM/TAZOBACTAM 3.375 GM in NORMAL SALINE 100 ML IV SCH ×5 (00:20→23:46)
[2017-09-14] MEDS: HEPARIN SOD (PORCINE) 5,000 UNIT/ML 1 ML SYRINGE SUBCUT SCH ×3 (05:17→21:15)
[2017-09-14] MEDS: VANCOMYCIN HCL 1,500 MG in DEXTROSE 5%-WATER 250 ML IV SCH ×3 (05:17→21:08)
[2017-09-14 05:50] LABS: HEMATOCRIT 36.1 % (37.9-51.0); HEMOGLOBIN 11.9 g/dL (13.5-17.0); MEAN CORPUSCULAR HEMOGLOBIN 28.9 pg (27.0-33.4); MEAN CORPUSCULAR HGB CONC 32.8 g/dL (32.0-36.0); MEAN CORPUSCULAR VOLUME 88 fl (80-97); PLATELET COUNT 527 10^3/uL (150-450); RED BLOOD COUNT 4.09 10^6/uL (4.35-5.55); RED CELL DISTRIBUTION WIDTH 13.5 % (11.5-14.0); WHITE BLOOD COUNT 13.9 10^3/uL (4.0-10.5)
[2017-09-14 05:51] LABS: ALANINE AMINOTRANSFERASE 105 U/L (21-72); ALBUMIN 2.7 g/dL (3.5-5.0); ALKALINE PHOSPHATASE 154 U/L (38-126); ANION GAP 9 (5-19); ASPARTATE AMINO TRANSFERASE 42 U/L (17-59); BILIRUBIN,DIRECT 0.3 mg/dL (0.0-0.4); BILIRUBIN,TOTAL 0.3 mg/dL (0.2-1.3); BLOOD UREA NITROGEN 9 mg/dL (7-20); CALCIUM 8.7 mg/dL (8.4-10.2); CARBON DIOXIDE 27 mmol/L (22-30); CHLORIDE 105 mmol/L (98-107); GLUCOSE 90 mg/dL (75-110); POTASSIUM 4.3 mmol/L (3.6-5.0); SODIUM 141.1 mmol/L (137-145); TOTAL PROTEIN 5.8 g/dL (6.3-8.2)
[2017-09-14 07:16] LABS: BASOPHILS % (MANUAL) 0 % (0-2)
[2017-09-14 07:18] LABS: ABSOLUTE LYMPHOCYTES# (MANUAL) 2.4 10^3/uL (0.5-4.7); ABSOLUTE NEUTROPHILS# (MANUAL) 10.3 10^3/uL (1.7-8.2); BAND NEUTROPHILS % (MANUAL) 1 % (3-5); EOSINOPHILS % (MANUAL) 2 % (0-6); LYMPHOCYTES % (MANUAL) 17 % (13-45); MONOCYTES % (MANUAL) 7 % (3-13); MYELOCYTES % (MANUAL) 3 % (0); SEGMENTED NEUTROPHILS % (MAN) 70 % (42-78); TOTAL CELLS COUNTED 100
[2017-09-14 07:19] LABS: TOXIC GRANULATION 1+
[2017-09-14 07:21] LABS: PLATELET COMMENT ADEQUATE; POLYCHROMASIA SLIGHT
[2017-09-14] MEDS: ENALAPRIL MALEATE 5 MG TABLET PO SCH (09:34)
[2017-09-14] MEDS: FAMOTIDINE 20 MG TABLET PO SCH ×2 (09:34→21:16)
[2017-09-14] MEDS: TIOTROPIUM BROMIDE DPI 5 CAP/KIT (18 MCG/CAP) IH SCH (09:35)
[2017-09-14] MEDS: BUDESONIDE/FORMOTEROL 160-4.5 MCG 60 PUFF/6 GM MDI IH SCH ×2 (09:35→21:07)
[2017-09-14] MEDS ORDERED: IBUPROFEN 800 MG TABLET PO PRN (10:12)
--- NOTE | 2017-09-14 14:39 | PDOC PROGRESS REPORT ---
Subjective Progress Note for:: 09/14/17 Subjective:: Pt states that he is doing about the same. Pt states that he would like to go home soon. Pt's is sitting at bedside. Reason For Visit: PNEUMONIA Physical Exam Vital Signs: Temp Pulse Resp BP Pulse Ox 97.9 F 65 16 119/64 94 09/14/17 11:18 09/14/17 11:18 09/14/17 11:18 09/14/17 11:18 09/14/17 11:18 Intake & Output 09/13/17 09/14/17 09/15/17 06:59 06:59 06:59 Intake Total 3500 5085 200 Output Total 1950 3300 600 Balance 1550 1785 -400 Weight 108.3 kg 108.4 kg General appearance: PRESENT: no acute distress, well-developed, well-nourished Head exam: PRESENT: atraumatic, normocephalic Eye exam: PRESENT: conjunctiva pink, EOMI. ABSENT: scleral icterus Ear exam: PRESENT: normal external ear exam Mouth exam: PRESENT: moist, tongue midline Neck exam: ABSENT: carotid bruit, JVD, lymphadenopathy, thyromegaly Respiratory exam: PRESENT: decreased breath sounds, other - fair air movement, No wheezing Cardiovascular exam: PRESENT: RRR. ABSENT: diastolic murmur, rubs, systolic murmur Pulses: PRESENT: normal dorsalis pedis pul Vascular exam: PRESENT: normal capillary refill GI/Abdominal exam: PRESENT: normal bowel sounds, soft. ABSENT: distended, guarding, mass, organolmegaly, rebound, tenderness Rectal exam: PRESENT: deferred Extremities exam: PRESENT: full ROM. ABSENT: calf tenderness, clubbing, pedal edema Musculoskeletal exam: PRESENT: full ROM Neurological exam: PRESENT: alert, awake, oriented to person, oriented to place , oriented to time, oriented to situation, CN II-XII grossly intact. ABSENT: motor sensory deficit Psychiatric exam: PRESENT: appropriate affect, normal mood. ABSENT: homicidal ideation, suicidal ideation Skin exam: PRESENT: dry, intact, warm. ABSENT: cyanosis, rash Results Laboratory Results: 09/14/17 04:29 09/14/17 04:29 09/14/17 09/14/17 09/14/17 04:29 04:29 07:50 WBC 13.9 H RBC 4.09 L Hgb 11.9 L Hct 36.1 L MCV 88 MCH 28.9 MCHC 32.8 RDW 13.5 Plt Count 527 H Seg Neutrophils % Not Reportable Lymphocytes % Not Reportable Monocytes % Not Reportable Eosinophils % Not Reportable Basophils % Not Reportable Absolute Neutrophils Not Reportable Absolute Lymphocytes Not Reportable Absolute Monocytes Not Reportable Absolute Eosinophils Not Reportable Absolute Basophils Not Reportable Sodium 141.1 Potassium 4.3 Chloride 105 Carbon Dioxide 27 Anion Gap 9 BUN 9 Creatinine 0.72 Est GFR ( Amer) > 60 Est GFR (Non-Af Amer) > 60 Glucose 90 Calcium 8.7 Magnesium 2.5 H Total Bilirubin 0.3 AST 42 ALT 105 H Alkaline Phosphatase 154 H Total Protein 5.8 L Albumin 2.7 L Stool for White Cells NO WBCs SEEN Impressions: Chest/Abdomen CTA 09/09/17 10:43 IMPRESSION: 1 No evidence for acute pulmonary emboli. 2 A large ill-defined mass in the right upper lobe with extension into the right suprahilar region as detailed above. 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 Extensive surrounding pneumonitis in the right upper lobe. 3. Stable hypoattenuated right hepatic lobe lesion. 4 Additional stable findings as above. Assessment & Plan - Diagnosis (1) Pneumonia Qualifiers: Pneumonia type: due to unspecified organism Laterality: right Lung location: upper lobe of lung Qualified Code(s): J18.1 - Lobar pneumonia, unspecified organism Is this a current diagnosis for this admission?: Yes Plan: Nosocomial Acquired Pneumonia: Will continue current antibiotics. Pt current afebrile. Will continue to monitor. (2) Elevated transaminase level Is this a current diagnosis for this admission?: Yes Plan: Will continue to montior. Liver enzymes trending downward. (3) Mass of right lung Is this a current diagnosis for this admission?: Yes Plan: Biopsy did not demonstrate cells consistent with malignancy. Pulmonary has recommended treating patient for pneumonia once pneumonia has resolved patient will need to follow up with [facility] for repeat [facility] with biopsy. Continue current antibiotics. PPD placed and trying to obtain sputum cultures for bacterial and fungal. (4) Sepsis Qualifiers: Sepsis type: sepsis due to unspecified organism Qualified Code(s): A41.9 - Sepsis, unspecified organism Is this a current diagnosis for this admission?: Yes Plan: (Secondary to Fever, WBC, Heart rate, RR, and radiological finding) Secondary to Noscomial Pneumonia: Will continue current antibiotics. (5) COPD (chronic obstructive pulmonary disease) Qualifiers: COPD type: unspecified COPD Qualified Code(s): J44.9 - Chronic obstructive pulmonary disease, unspecified Is this a current diagnosis for this admission?: Yes Plan: No acute exacerbation. Will continue to monitor. (6) Thrombocytosis Is this a current diagnosis for this admission?: Yes Plan: Will continue to monitor. (7) Hyponatremia Is this a current diagnosis for this admission?: Yes Plan: Most likely due to Lung Mass/SIADH: Resolved. (8) DVT prophylaxis Is this a current diagnosis for this admission?: Yes Plan: Heparin 5000 units SQ Q8 - Time Time Spent with patient: 15-24 minutes
--- NOTE | 2017-09-14 15:17 | EKG REPORT ---
SEVERITY:- NORMAL ECG - SINUS RHYTHM : Confirmed by: Irma Burnett 14-Sep-2017 15:16:30
[2017-09-14] MEDS: CITALOPRAM HYDROBROMIDE 20 MG TABLET PO SCH (21:16)
[2017-09-14] MEDS: ALPRAZOLAM 0.5 MG TABLET PO SCH (21:16)
[2017-09-14] MEDS: ROPINIROLE HCL 1 MG TABLET PO SCH (21:16)
[2017-09-15 03:18] LABS: HEMATOCRIT 35.9 % (37.9-51.0); HEMOGLOBIN 11.9 g/dL (13.5-17.0); MEAN CORPUSCULAR HGB CONC 33.2 g/dL (32.0-36.0); RED CELL DISTRIBUTION WIDTH 13.6 % (11.5-14.0)
[2017-09-15 03:25] LABS: MEAN CORPUSCULAR VOLUME 87 fl (80-97); PLATELET COUNT 776 10^3/uL (150-450); RED BLOOD COUNT 4.11 10^6/uL (4.35-5.55); WHITE BLOOD COUNT 19.1 10^3/uL (4.0-10.5)
[2017-09-15 03:35] LABS: ALANINE AMINOTRANSFERASE 90 U/L (21-72); ALBUMIN 2.8 g/dL (3.5-5.0); ALKALINE PHOSPHATASE 151 U/L (38-126); ANION GAP 8 (5-19); ASPARTATE AMINO TRANSFERASE 32 U/L (17-59); BILIRUBIN,DIRECT 0.2 mg/dL (0.0-0.4); BILIRUBIN,TOTAL 0.2 mg/dL (0.2-1.3); BLOOD UREA NITROGEN 8 mg/dL (7-20); CALCIUM 8.7 mg/dL (8.4-10.2); CARBON DIOXIDE 28 mmol/L (22-30); CHLORIDE 106 mmol/L (98-107); GLUCOSE 100 mg/dL (75-110); POTASSIUM 4.4 mmol/L (3.6-5.0); SODIUM 142.2 mmol/L (137-145); TOTAL PROTEIN 5.9 g/dL (6.3-8.2)
[2017-09-15 03:39] LABS: ABSOLUTE LYMPHOCYTES# (MANUAL) 1.7 10^3/uL (0.5-4.7); ABSOLUTE MONOCYTES # (MANUAL) 1.5 10^3/uL (0.1-1.4); ABSOLUTE NEUTROPHILS# (MANUAL) 15.3 10^3/uL (1.7-8.2); BAND NEUTROPHILS % (MANUAL) 1 % (3-5); BASOPHILS % (MANUAL) 0 % (0-2); EOSINOPHILS % (MANUAL) 3 % (0-6); LYMPHOCYTES % (MANUAL) 9 % (13-45); MONOCYTES % (MANUAL) 8 % (3-13); SEGMENTED NEUTROPHILS % (MAN) 79 % (42-78); TOTAL CELLS COUNTED 100
[2017-09-15 03:41] LABS: PLATELET COMMENT INCREASED; PLATELET LARGE PRESENT; POLYCHROMASIA SLIGHT
[2017-09-15] MEDS: PIPERACILLIN SODIUM/TAZOBACTAM 3.375 GM in NORMAL SALINE 100 ML IV SCH ×3 (05:28→17:41)
[2017-09-15] MEDS: HEPARIN SOD (PORCINE) 5,000 UNIT/ML 1 ML SYRINGE SUBCUT SCH ×3 (05:28→23:54)
[2017-09-15] MEDS: VANCOMYCIN HCL 1,500 MG in DEXTROSE 5%-WATER 250 ML IV SCH ×2 (06:47→14:04)
[2017-09-15] MEDS: ENALAPRIL MALEATE 5 MG TABLET PO SCH (10:25)
[2017-09-15] MEDS: BUDESONIDE/FORMOTEROL 160-4.5 MCG 60 PUFF/6 GM MDI IH SCH (10:25)
[2017-09-15] MEDS: FAMOTIDINE 20 MG TABLET PO SCH ×2 (10:25→23:52)
[2017-09-15] MEDS: TIOTROPIUM BROMIDE DPI 5 CAP/KIT (18 MCG/CAP) IH SCH (10:26)
--- NOTE | 2017-09-15 12:06 | PDOC PROGRESS REPORT ---
Subjective Progress Note for:: 09/15/17 Subjective:: He states eh is doing well. No significant change from previous day. He is ready to go home. He is aware of the current plan to finish 7 days of IV abx and then 10-14 days of outpatient oral abx. He will follow with pulmonology and have a referral to [facility] for further f/u and biopsies. Overall he is progressing well. Shortness of breath and chest pain are improving Reason For Visit: PNEUMONIA Physical Exam Vital Signs: Temp Pulse Resp BP Pulse Ox 98.4 F 69 16 125/72 96 09/15/17 07:32 09/15/17 08:00 09/15/17 08:00 09/15/17 07:32 09/15/17 08:00 Intake & Output 09/14/17 09/15/17 09/16/17 06:59 06:59 06:59 Intake Total 5085 1955 Output Total 3300 2325 Balance 1785 -370 Weight 108.4 kg 107.7 kg General appearance: PRESENT: no acute distress, cooperative Head exam: PRESENT: atraumatic, normocephalic Mouth exam: PRESENT: moist, tongue midline Neck exam: ABSENT: carotid bruit, JVD, lymphadenopathy, thyromegaly Respiratory exam: PRESENT: clear to auscultation [place]. ABSENT: rales, rhonchi, wheezes Cardiovascular exam: PRESENT: RRR. ABSENT: diastolic murmur, rubs, systolic murmur Pulses: PRESENT: normal dorsalis pedis pul Vascular exam: PRESENT: normal capillary refill GI/Abdominal exam: PRESENT: normal bowel sounds, soft. ABSENT: distended, guarding, mass, organolmegaly, rebound, tenderness Extremities exam: PRESENT: full ROM. ABSENT: calf tenderness, clubbing, pedal edema Neurological exam: PRESENT: alert, awake, oriented to person, oriented to place , oriented to time, oriented to situation. ABSENT: motor sensory deficit Skin exam: PRESENT: dry, intact, warm. ABSENT: cyanosis, rash Results Laboratory Results: 09/15/17 03:03 09/15/17 03:03 09/15/17 09/15/17 03:03 03:03 WBC 19.1 H RBC 4.11 L Hgb 11.9 L Hct 35.9 L MCV 87 MCH 29.0 MCHC 33.2 RDW 13.6 Plt Count 776 H Seg Neutrophils % Not Reportable Lymphocytes % Not Reportable Monocytes % Not Reportable Eosinophils % Not Reportable Basophils % Not Reportable Absolute Neutrophils Not Reportable Absolute Lymphocytes Not Reportable Absolute Monocytes Not Reportable Absolute Eosinophils Not Reportable Absolute Basophils Not Reportable Sodium 142.2 Potassium 4.4 Chloride 106 Carbon Dioxide 28 Anion Gap 8 BUN 8 Creatinine 0.79 Est GFR ( Amer) > 60 Est GFR (Non-Af Amer) > 60 Glucose 100 Calcium 8.7 Total Bilirubin 0.2 AST 32 ALT 90 H Alkaline Phosphatase 151 H Total Protein 5.9 L Albumin 2.8 L 09/14/17 09/14/17 09/15/17 15:15 20:50 03:03 Troponin I < 0.012 < 0.012 < 0.012 Impressions: Chest/Abdomen CTA 09/09/17 10:43 IMPRESSION: 1 No evidence for acute pulmonary emboli. 2 A large ill-defined mass in the right upper lobe with extension into the right suprahilar region as detailed above. 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 Extensive surrounding pneumonitis in the right upper lobe. 3. Stable hypoattenuated right hepatic lobe lesion. 4 Additional stable findings as above. Assessment & Plan - Diagnosis (1) COPD (chronic obstructive pulmonary disease) Qualifiers: COPD type: unspecified COPD Qualified Code(s): J44.9 - Chronic obstructive pulmonary disease, unspecified Is this a current diagnosis for this admission?: Yes Plan: continue medications and close monitoring as current episode fo pneumonia will exacerbate COPD (2) Hypertension Is this a current diagnosis for this admission?: Yes Plan: stable on current medications (3) Mass of right lung Is this a current diagnosis for this admission?: Yes Plan: will require further evaluation by pulmonology. Last biopsy inconclusive for malignancy but sill possibility of fungal or bacterial remains (4) Pneumonia Qualifiers: Pneumonia type: due to unspecified organism Laterality: right Lung location: upper lobe of lung Qualified Code(s): J18.1 - Lobar pneumonia, unspecified organism Is this a current diagnosis for this admission?: Yes Plan: day 6 of 7 of IV abx, will need Augmentin for 10-14 days outpatient. will be followed by pulmonology outpatient (5) Sepsis Qualifiers: Sepsis type: sepsis due to unspecified organism Qualified Code(s): A41.9 - Sepsis, unspecified organism Is this a current diagnosis for this admission?: Yes Plan: secondary to pneumonia and lung mass, resolved. Continue abx treatment for pneumonia (6) Thrombocytosis Is this a current diagnosis for this admission?: Yes Plan: being followed closely, had been improving with slight increase overnight. will repeat CBC in the morning. patient has been afebrile and continues to improve - Time Time Spent with patient: 15-24 minutes Medications reviewed and adjusted accordingly: Yes Anticipated discharge: Home Within: within 24 hours - Inpatient Certification Based on my medical assessment, after consideration of the patient's comorbidities, presenting symptoms, or acuity I expect that the services needed warrant INPATIENT care.: Yes I certify that my determination is in accordance with my understanding of Medicare's requirements for reasonable and necessary INPATIENT services [42 CFR 412.3e].: Yes Medical Necessity: Need for IV Antibiotics
--- NOTE | 2017-09-15 19:29 | PDOC CONSULTATION ---
Consultation Consult Date: 09/09/17 Attending physician:: MIRLANDE BULL Consult reason:: lung mass post obstructive pna History of Present Illness Admission Date/PCP: 09/09/17 13:23 History of Present Illness: CHAD RETANA is a 62 year old male with a past medical history of hypertension , hyperlipidemia, COPD, and a right lung mass who recently underwent bronchoscopy at [facility]. Pathology results are expected tomorrow. The patient was seen in the emergency department with a complaint of fever, T-max 102, dyspnea on exertion, nonproductive cough, right chest pleuritic pain with deep breathing and coughing, loose stools, poor appetite, and a 20 pound weight loss over the previous month. Evaluation in the emergency department revealed tachycardia with heart rate of 116, WBCs 29.3, and a normal lactate. CTA of the Chest and abdomen demonstrated no evidence of pulmonary emboli, a large ill-defined RUL mass consistent with neoplasm with extensive surrounding pneumonitis, stable hypoattenuated right hepatic lobe lesion. He states that this began a few weeks ago when he was admitted to [facility] for removal of his gall bladder. During that admission, an abnormality was found in his lung.. Today, he states that he is feeling better. He is finally hungry and able to eat a little. He still had some nausea over night and continues to have pleuritic chest pain which has improved as well as the cough. Past Medical History Cardiac Medical History: Reports: Hyperlipidema - meds x 1 year, Hypertension - meds x 6 years Denies: Atrial Fibrillation, Congestive Heart Failure, Coronary Artery Disease, Myocardial Infarction, Peripheral Vascular Disease, Pulmonary Embolism , Heart Murmur Pulmonary Medical History: Reports: Bronchitis - multiple episodes (usually in the fall), Chronic Obstructive Pulmonary Disease (COPD), Pneumonia - x 1 episode , denies hospitalization Denies: Asthma, Respiratory Failure, Sleep Apnea, Tuberculosis EENT Medical History: Reports: None Neurological Medical History: Reports: None Denies: Seizures Endocrine Medical History: Reports: None Renal/ Medical History: Reports: None Malignancy Medical History: Reports: Lung Cancer - Rt lung mass suggestive of malignancy; mid work-up GI Medical History: Reports: Gastroesophageal Reflux Disease - Tolentino's esophagitis, Dx'ed approx 3 years Denies: Crohn's Disease, Hepatitis, Hiatal Hernia Musculoskeltal Medical History: Reports: Arthritis Denies: Fibromyalgia Psychiatric Medical History: Reports: Depression - meds x 15 years, General Anxiety Disorder Denies: Bipolar Disorder, Post Traumatic Stress Disorder Traumatic Medical History: Reports: None Hematology: Denies: Anemia, Sickle Cell Disease Infectious Medical History: Reports: None Past Surgical History Past Surgical History: Reports: Appendectomy, Orthopedic Surgery - RIGHT KNEE, Other - Bronchoscopy Denies: Cholecystectomy, Colostomy, Coronary Artery Bypass Graft, Gastric Bypass Surgery, Herniorrhaphy, Pacemaker, Tonsillectomy Social History Information Source: Dr. Oglesby, [facility] Records Lives with: Family Smoking Status: Former Smoker Cigarettes Packs Per Day: 4 Number of Years Smokin Last Time Smoked: 2013 Frequency of Alcohol Use: None Hx Recreational Drug Use: No Drugs: None Hx Prescription Drug Abuse: No - Advance Directive Resuscitation Status: Do Not Resuscitate Family History Family History: Malignancy Parental Family History Reviewed: Yes Children Family History Reviewed: Yes Sibling(s) Family History Reviewed.: Yes Medication/Allergy Home Medications: Albuterol Sulfate [Proair HFA] 2 puff IH Q4 09/10/17 Alprazolam [Xanax 0.5 mg Tablet] 0.5 mg PO QHS 09/10/17 Budesonide/Formoterol Fumarate [Symbicort 160-4.5 Mcg Inhaler] 2 puff IH Q12 Citalopram Hydrobromide [Celexa 40 mg Tablet] 40 mg PO QHS 09/10/17 Fosinopril Sodium [Monopril] 10 mg PO BID 09/10/17 Ipratropium/Albuterol Sulfate [Duoneb 3 ml Ampul] 1 vial NEB Q6 09/10/17 Ropinirole HCl [Requip] 0.5 mg PO QHS 09/10/17 Simvastatin [Zocor 40 mg Tablet] 40 mg PO QPM 09/10/17 Tiotropium [place] [Spiriva Respimat] 2 puff IH DAILY 09/10/17 Allergies/Adverse Reactions: prednisone [Prednisone] Adverse Reaction (Intermediate, Verified 09/09/17 09:49) jitters Physical Exam Vital Signs: Temp Pulse Resp BP Pulse Ox 100.7 F H 95 22 H 130/62 H 96 09/09/17 20:10 09/09/17 20:10 09/09/17 20:10 09/09/17 20:10 09/09/17 20:10 Intake & Output 09/08/17 09/09/17 09/10/17 06:59 06:59 06:59 Intake Total 400 Balance 400 Weight 104.7 kg General appearance: PRESENT: no acute distress, cooperative, disheveled, obese Head exam: PRESENT: atraumatic, normocephalic Eye exam: PRESENT: conjunctiva pale, EOMI Mouth exam: PRESENT: dry mucosa, neck supple, tongue midline Neck exam: ABSENT: carotid bruit, JVD, lymphadenopathy, thyromegaly, tracheal deviation, tracheostomy Respiratory exam: PRESENT: decreased breath sounds, prolonged expiratory phas, rales, rhonchi, symmetrical, unlabored, wheezes. ABSENT: retraction, stridor, tachypnea Cardiovascular exam: PRESENT: RRR, +S1, +S2 Pulses: PRESENT: normal radial pulses GI/Abdominal exam: PRESENT: diminished bowel sounds, soft Extremities exam: ABSENT: clubbing, joint swelling Musculoskeletal exam: ABSENT: deformity, dislocation Neurological exam: PRESENT: awake Psychiatric exam: PRESENT: normal mood Skin exam: PRESENT: dry, warm Results Laboratory Results: 09/09/17 09/09/17 14:48 15:55 Lactic Acid 1.9 Urine Color YELLOW Urine Appearance CLEAR Urine pH 5.0 Ur Specific [place] 1.042 Urine Protein NEGATIVE Urine Glucose (UA) NEGATIVE Urine Ketones NEGATIVE Urine Blood SMALL H Urine Nitrite NEGATIVE Ur Leukocyte Esterase NEGATIVE Urine WBC (Auto) 1 Urine RBC (Auto) 2 Impressions: Chest/Abdomen CTA 09/09/17 10:43 IMPRESSION: 1 No evidence for acute pulmonary emboli. 2 A large ill-defined mass in the right upper lobe with extension into the right suprahilar region as detailed above. 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 Extensive surrounding pneumonitis in the right upper lobe. 3. Stable hypoattenuated right hepatic lobe lesion. 4 Additional stable findings as above. Assessment & Plan - Diagnosis (1) COPD (chronic obstructive pulmonary disease) Qualifiers: COPD type: unspecified COPD Qualified Code(s): J44.9 - Chronic obstructive pulmonary disease, unspecified Is this a current diagnosis for this admission?: Yes Plan: laba/lama/iccs (2) Mass of right lung Is this a current diagnosis for this admission?: Yes Plan: tissue for dx (3) Pneumonia Qualifiers: Pneumonia type: due to unspecified organism Laterality: right Lung location: upper lobe of lung Qualified Code(s): J18.1 - Lobar pneumonia, unspecified organism Is this a current diagnosis for this admission?: Yes Plan: post obstructive
--- NOTE | 2017-09-15 19:30 | PDOC PROGRESS REPORT ---
Subjective Progress Note for:: 09/10/17 Subjective:: i'm sick Reason For Visit: PNEUMONIA Physical Exam Vital Signs: Temp Pulse Resp BP Pulse Ox 99.7 F 77 18 102/46 L 92 09/10/17 08:00 09/10/17 08:00 09/10/17 08:00 09/10/17 08:00 09/10/17 08:00 Intake & Output 09/09/17 09/10/17 09/11/17 06:59 06:59 06:59 Intake Total 1502 Output Total 1700 Balance -198 Weight 104 kg General appearance: PRESENT: no acute distress, cooperative, disheveled, obese Head exam: PRESENT: atraumatic, normocephalic Eye exam: PRESENT: conjunctiva pale, EOMI. ABSENT: nystagmus, periorbital swelling, scleral icterus Mouth exam: PRESENT: moist, neck supple, tongue midline Neck exam: ABSENT: carotid bruit, JVD, lymphadenopathy, thyromegaly, tracheal deviation, tracheostomy Respiratory exam: PRESENT: decreased breath sounds, prolonged expiratory phas, rhonchi, unlabored, wheezes. ABSENT: rales, retraction, tachypnea Cardiovascular exam: PRESENT: RRR, +S1, +S2 Pulses: PRESENT: normal radial pulses GI/Abdominal exam: PRESENT: diminished bowel sounds, soft Extremities exam: ABSENT: clubbing, joint swelling Musculoskeletal exam: ABSENT: ambulatory, deformity, dislocation Neurological exam: PRESENT: alert, awake Psychiatric exam: PRESENT: normal mood Skin exam: PRESENT: dry, warm Results Laboratory Results: 09/10/17 04:29 09/10/17 04:29 09/09/17 09/09/17 09/10/17 14:48 15:55 04:29 WBC 26.3 H RBC 4.08 L Hgb 11.8 L Hct 35.6 L MCV 87 MCH 29.0 MCHC 33.2 RDW 13.1 Plt Count 564 H Seg Neutrophils % Not Reportable Lymphocytes % Not Reportable Monocytes % Not Reportable Eosinophils % Not Reportable Basophils % Not Reportable Absolute Neutrophils Not Reportable Absolute Lymphocytes Not Reportable Absolute Monocytes Not Reportable Absolute Eosinophils Not Reportable Absolute Basophils Not Reportable Sodium Potassium Chloride Carbon Dioxide Anion Gap BUN Creatinine Est GFR ( Amer) Est GFR (Non-Af Amer) Glucose Lactic Acid 1.9 Calcium Total Bilirubin AST ALT Alkaline Phosphatase Total Protein Albumin Urine Color YELLOW Urine Appearance CLEAR Urine pH 5.0 Ur Specific [place] 1.042 Urine Protein NEGATIVE Urine Glucose (UA) NEGATIVE Urine Ketones NEGATIVE Urine Blood SMALL H Urine Nitrite NEGATIVE Ur Leukocyte Esterase NEGATIVE Urine WBC (Auto) 1 Urine RBC (Auto) 2 09/10/17 04:29 WBC RBC Hgb Hct MCV MCH MCHC RDW Plt Count Seg Neutrophils % Lymphocytes % Monocytes % Eosinophils % Basophils % Absolute Neutrophils Absolute Lymphocytes Absolute Monocytes Absolute Eosinophils Absolute Basophils Sodium 132.5 L Potassium 3.7 Chloride 96 L Carbon Dioxide 27 Anion Gap 10 BUN 10 Creatinine 0.80 Est GFR ( Amer) > 60 Est GFR (Non-Af Amer) > 60 Glucose 135 H Lactic Acid Calcium 8.7 Total Bilirubin 0.6 AST 133 H ALT 146 H Alkaline Phosphatase 160 H Total Protein 6.3 Albumin 3.2 L Urine Color Urine Appearance Urine pH Ur Specific [place] Urine Protein Urine Glucose (UA) Urine Ketones Urine Blood Urine Nitrite Ur Leukocyte Esterase Urine WBC (Auto) Urine RBC (Auto) Impressions: Chest/Abdomen CTA 09/09/17 10:43 IMPRESSION: 1 No evidence for acute pulmonary emboli. 2 A large ill-defined mass in the right upper lobe with extension into the right suprahilar region as detailed above. 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 Extensive surrounding pneumonitis in the right upper lobe. 3. Stable hypoattenuated right hepatic lobe lesion. 4 Additional stable findings as above. Assessment & Plan - Diagnosis (1) COPD (chronic obstructive pulmonary disease) Qualifiers: COPD type: unspecified COPD Qualified Code(s): J44.9 - Chronic obstructive pulmonary disease, unspecified Is this a current diagnosis for this admission?: Yes Plan: laba/lama/iccs (2) Hypertension Is this a current diagnosis for this admission?: Yes (3) Mass of right lung Is this a current diagnosis for this admission?: Yes Plan: tissue for dx (4) Pneumonia Qualifiers: Pneumonia type: due to unspecified organism Laterality: right Lung location: upper lobe of lung Qualified Code(s): J18.1 - Lobar pneumonia, unspecified organism Is this a current diagnosis for this admission?: Yes Plan: post obstructive
--- NOTE | 2017-09-15 19:33 | PDOC PROGRESS REPORT ---
Subjective Progress Note for:: 09/12/17 Subjective:: i'm sick Reason For Visit: PNEUMONIA Physical Exam Vital Signs: Temp Pulse Resp BP Pulse Ox 98.0 F 87 16 121/77 95 09/12/17 08:00 09/12/17 08:00 09/12/17 08:00 09/12/17 08:00 09/12/17 08:00 Intake & Output 09/11/17 09/12/17 09/13/17 06:59 06:59 06:59 Intake Total 2265 4322 Output Total 2025 1250 Balance 240 3072 Weight 109.1 kg 106 kg General appearance: PRESENT: no acute distress, cooperative, disheveled Head exam: PRESENT: atraumatic, normocephalic Eye exam: PRESENT: conjunctiva pale, EOMI Mouth exam: PRESENT: dry mucosa, neck supple, tongue midline Neck exam: ABSENT: carotid bruit, JVD, lymphadenopathy, thyromegaly, tracheal deviation, tracheostomy Respiratory exam: PRESENT: decreased breath sounds, prolonged expiratory phas, rhonchi, symmetrical, unlabored. ABSENT: retraction, stridor, tachypnea Cardiovascular exam: PRESENT: RRR, +S1, +S2 Pulses: PRESENT: normal radial pulses GI/Abdominal exam: PRESENT: diminished bowel sounds, soft Extremities exam: ABSENT: clubbing, joint swelling Musculoskeletal exam: ABSENT: deformity, dislocation Neurological exam: PRESENT: awake Skin exam: PRESENT: dry, warm Results Laboratory Results: 09/12/17 05:46 09/12/17 05:46 09/12/17 09/12/17 05:46 05:46 WBC 21.6 H RBC 4.01 L Hgb 11.5 L Hct 35.1 L MCV 88 MCH 28.7 MCHC 32.7 RDW 13.7 Plt Count 607 H Seg Neutrophils % Not Reportable Lymphocytes % Not Reportable Monocytes % Not Reportable Eosinophils % Not Reportable Basophils % Not Reportable Absolute Neutrophils Not Reportable Absolute Lymphocytes Not Reportable Absolute Monocytes Not Reportable Absolute Eosinophils Not Reportable Absolute Basophils Not Reportable Sodium 136.9 L Potassium 4.2 Chloride 99 Carbon Dioxide 27 Anion Gap 11 BUN 9 Creatinine 0.73 Est GFR ( Amer) > 60 Est GFR (Non-Af Amer) > 60 Glucose 105 Calcium 8.7 Total Bilirubin 0.3 AST 98 H ALT 185 H Alkaline Phosphatase 197 H Total Protein 5.5 L Albumin 2.7 L 09/09/17 15:55 Clean Catch Midstream Urine Culture - Final NO GROWTH 2 DAYS Impressions: Chest/Abdomen CTA 09/09/17 10:43 IMPRESSION: 1 No evidence for acute pulmonary emboli. 2 A large ill-defined mass in the right upper lobe with extension into the right suprahilar region as detailed above. 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 Extensive surrounding pneumonitis in the right upper lobe. 3. Stable hypoattenuated right hepatic lobe lesion. 4 Additional stable findings as above. Assessment & Plan - Diagnosis (1) COPD (chronic obstructive pulmonary disease) Qualifiers: COPD type: unspecified COPD Qualified Code(s): J44.9 - Chronic obstructive pulmonary disease, unspecified Is this a current diagnosis for this admission?: Yes Plan: laba/lama/iccs (2) Hypertension Is this a current diagnosis for this admission?: Yes (3) Mass of right lung Is this a current diagnosis for this admission?: Yes Plan: tissue for dx (4) Pneumonia Qualifiers: Pneumonia type: due to unspecified organism Laterality: right Lung location: upper lobe of lung Qualified Code(s): J18.1 - Lobar pneumonia, unspecified organism Is this a current diagnosis for this admission?: Yes Plan: post obstructive
[2017-09-15] MEDS: ROPINIROLE HCL 1 MG TABLET PO SCH (23:51)
[2017-09-15] MEDS: ALPRAZOLAM 0.5 MG TABLET PO SCH (23:53)
[2017-09-16] MEDS: BUDESONIDE/FORMOTEROL 160-4.5 MCG 60 PUFF/6 GM MDI IH SCH ×2 (00:01→10:34)
[2017-09-16] MEDS: CITALOPRAM HYDROBROMIDE 20 MG TABLET PO SCH (00:02)
[2017-09-16] MEDS: PIPERACILLIN SODIUM/TAZOBACTAM 3.375 GM in NORMAL SALINE 100 ML IV SCH ×3 (07:49)
[2017-09-16] MEDS: VANCOMYCIN HCL 1,500 MG in DEXTROSE 5%-WATER 250 ML IV SCH ×3 (08:46)
[2017-09-16] MEDS: HEPARIN SOD (PORCINE) 5,000 UNIT/ML 1 ML SYRINGE SUBCUT SCH (08:50)
--- NOTE | 2017-09-16 10:27 | PDOC DISCHARGE SUMMARY ---
General - Admit/Disc Date/PCP Admission Date/Primary Care Provider: 09/09/17 13:23 Discharge Date: 09/16/17 - Discharge Diagnosis (1) Pneumonia Is this a current diagnosis for this admission?: Yes Summary: Post obstructive pneumonia secondary to lung mass: Patient was placed on vancomycin and Zosyn for 7 days and then transitioned over to Augmentin. Patient was noted to have leukocytosis which did not improve with antibiotic treatment. Patient was febrile on the first day of admission but was not febrile through the rest of hospital stay. ID was consulted for second opinion and they recommended screening patient for fungal infection and also requested for PPD to be placed. Patient had PPD that was negative. Patient did not produce any sputum therefore sputum cultures were not able to be obtained. The patient is bronched again recommend sending bacterial and fungal culture along with pathology. Pt is being discharged on Augmentin for [address] Gomez who recommended that patient follow-up with him and then he would refer him back to [facility] (2) Elevated transaminase level Is this a current diagnosis for this admission?: Yes Summary: Patient on CT of abdomen had evidence of a right hepatic lobe lesion. This will need further evaluation by oncology as outpatient. (3) Mass of right lung Is this a current diagnosis for this admission?: Yes Summary: Patient currently being treated for postobstructive pneumonia. Patient will need to have repeat biopsy done to evaluate right lung mass. (4) Sepsis Is this a current diagnosis for this admission?: Yes Summary: Ruled out (5) COPD (chronic obstructive pulmonary disease) Is this a current diagnosis for this admission?: Yes Summary: No evidence of Acute Exacerbation. (6) Thrombocytosis Is this a current diagnosis for this admission?: Yes Summary: Will continue to monitor. (7) Hyponatremia Is this a current diagnosis for this admission?: Yes Summary: Resolved. - Additional Information Resuscitation Status: Do Not Resuscitate Discharge Diet: Cardiac Discharge Activity: Activity As Tolerated Prescriptions: Amox Tr/Potassium Clavulanate [Augmentin 875-125 mg Tablet] 1 tab PO BID #20 tablet Benzonatate [Tessalon Perles 100 mg Capsule] 100 mg PO TIDP PRN #30 capsule PRN Reason: Hydrocodone/Acetaminophen [Hydrocodon-Acetaminophen 5-325] 1 each PO Q8H #9 tablet Metronidazole [Flagyl 500 mg Tablet] 500 mg PO TID #21 tablet Home Medications: Albuterol Sulfate [Proair HFA] 2 puff IH Q4 09/10/17 Alprazolam [Xanax 0.5 mg Tablet] 0.5 mg PO QHS 09/10/17 Budesonide/Formoterol Fumarate [Symbicort 160-4.5 Mcg Inhaler] 2 puff IH Q12 Citalopram Hydrobromide [Celexa 40 mg Tablet] 40 mg PO QHS 09/10/17 Fosinopril Sodium [Monopril] 10 mg PO BID 09/10/17 Ipratropium/Albuterol Sulfate [Duoneb 3 ml Ampul] 1 vial NEB Q6 09/10/17 Ropinirole HCl [Requip] 0.5 mg PO QHS 09/10/17 Simvastatin [Zocor 40 mg Tablet] 40 mg PO QPM 09/10/17 Tiotropium Mora [Spiriva Respimat] 2 puff IH DAILY 09/10/17 Amox Tr/Potassium Clavulanate [Augmentin 875-125 mg Tablet] 1 tab PO BID #20 tablet 09/16/17 Benzonatate [Tessalon Perles 100 mg Capsule] 100 mg PO TIDP PRN #30 capsule Hydrocodone/Acetaminophen [Hydrocodon-Acetaminophen 5-325] 1 each PO Q8H #9 tablet 09/16/17 Metronidazole [Flagyl 500 mg Tablet] 500 mg PO TID #21 tablet 09/16/17 History of Present Illness Patient complains of: Fever, dyspnea History of Present Illness: CHAD RETANA is a 62 year old male presented to the hospital with complaint of shortness of breath and fever. Patient had underwent bronc at [facility] for right lung mass biopsy. Hospital Course Hospital Course: Patient is 62-year-old gentleman with known right lung mass who underwent biopsy at [facility] presented to our facility with complaint of fever and shortness of breath. Patient was noted to have a temperature of 101.1. Patient was admitted to our hospital and placed on IV antibiotics vancomycin and Zosyn and completed 7 days of treatment. Patient then was discharged home on Augmentin for another 10 days. Spoke with pulmonary who recommended that patient have follow-up with him so that he can refer him back to [facility] for repeat biopsy. Patient's biopsy results demonstrated necrotic tissue with infection. No malignant cells were identified. Patient was also noted to have elevated liver enzymes with CT demonstrated a right hepatic lesion. This will need further evaluation by oncology. Patient was seen by oncology who stated that she was signing off the case due to biopsy demonstrating necrotic tissue and infection. Explained to family that this does not rule out that he does not have cancer and will need to have repeat biopsy once infection has cleared. Pt was noted to have thrombocytosis which was most likely reactive per Oncology. Physical Exam Vital Signs: Temp Pulse Resp BP Pulse Ox 99.4 F 63 16 117/73 97 09/15/17 15:04 09/16/17 07:00 09/15/17 15:04 09/15/17 15:04 09/15/17 15:04 Intake & Output 09/15/17 09/16/17 09/17/17 06:59 06:59 06:59 Intake Total 1954 1999 Output Total 5 2019 Balance -370 -20 Weight 107.7 kg 107 kg General appearance: PRESENT: no acute distress, well-developed, well-nourished Head exam: PRESENT: atraumatic, normocephalic Eye exam: PRESENT: conjunctiva pink, EOMI. ABSENT: scleral icterus Ear exam: PRESENT: normal external ear exam Mouth exam: PRESENT: moist, tongue midline Neck exam: ABSENT: carotid bruit, JVD, lymphadenopathy, thyromegaly Respiratory exam: PRESENT: clear to auscultation khushboo. ABSENT: rales, rhonchi, wheezes Cardiovascular exam: PRESENT: RRR. ABSENT: diastolic murmur, rubs, systolic murmur Pulses: PRESENT: normal dorsalis pedis pul Vascular exam: PRESENT: normal capillary refill GI/Abdominal exam: PRESENT: normal bowel sounds, soft. ABSENT: distended, guarding, mass, organolmegaly, rebound, tenderness Rectal exam: PRESENT: deferred Extremities exam: PRESENT: full ROM. ABSENT: calf tenderness, clubbing, pedal edema Musculoskeletal exam: PRESENT: full ROM Neurological exam: PRESENT: alert, awake, oriented to person, oriented to place , oriented to time, oriented to situation, CN II-XII grossly intact. ABSENT: motor sensory deficit Psychiatric exam: PRESENT: appropriate affect, normal mood. ABSENT: homicidal ideation, suicidal ideation Skin exam: PRESENT: dry, intact, warm. ABSENT: cyanosis, rash Results Laboratory Results: 09/15/17 03:03 09/15/17 03:03 09/14/17 09/14/17 09/15/17 15:15 20:50 03:03 Troponin I < 0.012 < 0.012 < 0.012 Impressions: Chest/Abdomen CTA 09/09/17 10:43 IMPRESSION: 1 No evidence for acute pulmonary emboli. 2 A large ill-defined mass in the right upper lobe with extension into the right suprahilar region as detailed above. 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 Extensive surrounding pneumonitis in the right upper lobe. 3. Stable hypoattenuated right hepatic lobe lesion. 4 Additional stable findings as above. Qualifiers - * PATEINT BEING DISCHARGED WITH ANY OF THE FOLLOWING DIAGNOSIS?: No Plan Time Spent: Greater than 30 Minutes
[2017-09-16] MEDS: FAMOTIDINE 20 MG TABLET PO SCH (10:34)
[2017-09-16] MEDS: ENALAPRIL MALEATE 5 MG TABLET PO SCH (10:34)
[2017-09-16] MEDS: TIOTROPIUM BROMIDE DPI 5 CAP/KIT (18 MCG/CAP) IH SCH (10:38)
[2017-09-16 12:07] VITALS: BP 115/89
[2017-09-16] MEDS ORDERED: PIPERACILLIN SODIUM/TAZOBACTAM 3.375 GM in NORMAL SALINE 100 ML IV SCH (18:00)
--- NOTE | 2017-09-21 21:22 | PDOC PROGRESS REPORT ---
Subjective Progress Note for:: 09/13/17 Subjective:: i'm sick Reason For Visit: PNEUMONIA Physical Exam Vital Signs: Temp Pulse Resp BP Pulse Ox 98.0 F 65 16 115/89 H 94 09/16/17 11:44 09/16/17 11:44 09/16/17 11:44 09/16/17 11:44 09/16/17 11:44 General appearance: PRESENT: no acute distress, disheveled, obese Head exam: PRESENT: atraumatic, normocephalic Eye exam: PRESENT: conjunctiva pale, EOMI. ABSENT: nystagmus, periorbital swelling, scleral icterus Mouth exam: PRESENT: dry mucosa, neck supple Neck exam: ABSENT: carotid bruit, JVD, lymphadenopathy, thyromegaly, tracheal deviation, tracheostomy Respiratory exam: PRESENT: decreased breath sounds, prolonged expiratory phas, rhonchi, symmetrical, unlabored. ABSENT: stridor, tachypnea Cardiovascular exam: PRESENT: RRR, +S1 Pulses: PRESENT: normal radial pulses GI/Abdominal exam: PRESENT: diminished bowel sounds, soft Extremities exam: ABSENT: calf tenderness, clubbing, joint swelling Musculoskeletal exam: ABSENT: deformity, dislocation Neurological exam: PRESENT: awake Skin exam: PRESENT: dry, vesicles Results Laboratory Results: 09/15/17 03:03 09/15/17 03:03 09/14/17 09/14/17 09/15/17 15:15 20:50 03:03 Troponin I < 0.012 < 0.012 < 0.012 Impressions: Chest/Abdomen CTA 09/09/17 10:43 IMPRESSION: 1 No evidence for acute pulmonary emboli. 2 A large ill-defined mass in the right upper lobe with extension into the right suprahilar region as detailed above. 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 Extensive surrounding pneumonitis in the right upper lobe. 3. Stable hypoattenuated right hepatic lobe lesion. 4 Additional stable findings as above. Assessment & Plan - Diagnosis (1) COPD (chronic obstructive pulmonary disease) Qualifiers: COPD type: unspecified COPD Qualified Code(s): J44.9 - Chronic obstructive pulmonary disease, unspecified Is this a current diagnosis for this admission?: Yes Plan: at/near baseline (2) Hypertension Is this a current diagnosis for this admission?: Yes (3) Mass of right lung Is this a current diagnosis for this admission?: Yes Plan: tissue for dx (4) Pneumonia Qualifiers: Pneumonia type: due to unspecified organism Laterality: right Lung location: upper lobe of lung Qualified Code(s): J18.1 - Lobar pneumonia, unspecified organism Is this a current diagnosis for this admission?: Yes Plan: post obstructive sustained abx 10-14d
== END 2017-09-16 12:35 | disposition home or self-care (01) | DRG 194 ==
LOC: ER 09:48 → EH 13:23 → 3N 17:12
PROVIDERS: ADMIT Family Medicine; ATTEND Family Medicine
DX: J18.1 Lobar pneumonia, unspecified organism (principal); J44.0 Chronic obstructive pulmonary disease with (acute) lower respiratory infection; E87.1 Hypo-osmolality and hyponatremia; J98.4 Other disorders of lung; E87.5 Hyperkalemia; J44.9 Chronic obstructive pulmonary disease, unspecified; D47.3 Essential (hemorrhagic) thrombocythemia; R91.8 Other nonspecific abnormal finding of lung field; Z66 Do not resuscitate; F41.1 Generalized anxiety disorder; R74.0 Nonspecific elevation of levels of transaminase and lactic acid dehydrogenase [LDH]; G25.81 Restless legs syndrome; F32.9 Major depressive disorder, single episode, unspecified; Z88.8 Allergy status to other drugs, medicaments and biological substances; Z79.899 Other long term (current) drug therapy
CPT/HCPCS: 36415; 71275; 80053; 80202; 81001; 82803; 83605; 83735; 84484; 85025; 87040; 87045; 87086; 87205; 87493; 89055; 93005; 93010; 94640; 94660; 94799; 96361; 96365; 96375; 99291; J0696; J1644; J1741; J2405; J2543; J3370; J3490; J7030; J7060; J7620

== ENCOUNTER → 2017-10-02 | Outpatient (CLI) | payer BC ==
--- NOTE | 2017-10-02 10:27 | RADIOLOGY REPORT (SQ) ---
EXAM DESCRIPTION: CHEST PA/LATERAL COMPLETED DATE/TIME: 10/02/2017 10:15 am REASON FOR STUDY: LOBAR PNEUMONIA, UNSPECIFIED ORGANISM COMPARISON: CT chest dated 09/09/2017, chest x-ray dated 08/12/2017 EXAM PARAMETERS: NUMBER OF VIEWS: two views TECHNIQUE: Digital Frontal and Lateral radiographic views of the chest acquired. RADIATION DOSE: NA LIMITATIONS: none FINDINGS: LUNGS AND PLEURA: Wedge-shaped opacity in the right upper lobe is noted. Findings are con sistent with postobstructive atelectasis or pneumonia. Compared to prior CT this is improved. This is a new finding when compared to prior chest x-ray. MEDIASTINUM AND HILAR STRUCTURES: No masses or contour abnormalities. HEART AND VASCULAR STRUCTURES: Heart normal size. No evidence for failure. BONES: No acute findings. HARDWARE: None in the chest. OTHER: No other significant finding. IMPRESSION: Right upper lobe opacity most likely representing postobstructive atelectasis or pneumon ia. TECHNICAL DOCUMENTATION: JOB ID: [id number] [employer]- All Rights Reserved Reading location - IP/workstation name: [email or web address]
== END ==
LOC: OD 09:42
PROVIDERS: ATTEND Internal Medicine Pulmonary Disease
DX: J18.1 Lobar pneumonia, unspecified organism (principal)
CPT/HCPCS: 71046

== ENCOUNTER → 2018-03-21 | Outpatient (CLI) | payer BC ==
--- NOTE | 2018-03-21 09:47 | RADIOLOGY REPORT (SQ) ---
EXAM DESCRIPTION: CT CHEST WITH COMPLETED DATE/TIME: 03/21/2018 9:15 am REASON FOR STUDY: MALIGNANT NEOPLASM OF UPPER LOBE, RIGHT BRONCHUS OR LUNG C34.11 MALIGNANT NEOPLAS M OF UPPER LOBE, RIGHT BRONCHUS OR L COMPARISON: CT chest dated 09/09/2017 TECHNIQUE: CT scan of the chest performed using helical scanning technique with dynamic intravenous contrast injection. Images reviewed with lung, soft tissue and bone windows. Reconstructed coronal and sagittal MPR and MIP images reviewed. All images stored on PACS. All CT scanners at this facility use dose modulation, iterative reconstruction, and/or weight based d osing when appropriate to reduce radiation dose to as low as reasonably achievable (ALARA). [facility]: Dose Right [facility]: CareDose [facility]: Dose Right [facility]: Teradose 4D [facility]: [employer] CONTRAST TYPE AND DOSE: 100 mL Isovue 370- low osmolar. RENAL FUNCTION: BUN 21, creatinine 1.2 RADIATION DOSE: . LIMITATIONS: None. FINDINGS: LUNGS AND PLEURA: There are now postsurgical changes on the right with clips in the right hilum. There is volume loss. There is scarring in the right apex. Minimal atelectasis or scarring along the left major fissure. No suspicious pulmonary nodules. HILAR AND MEDIASTINAL STRUCTURES: There is scarring in the right hilum. No obvious residual mass or adenopathy. HEART AND VASCULAR STRUCTURES: No aneurysm or dissection. No central pulmonary emboli. No pericardi al effusion. HARDWARE: None in the chest. UPPER ABDOMEN: No significant findings. Limited exam. THYROID AND OTHER SOFT TISSUES: No masses. No adenopathy. BONES: No significant finding. OTHER: No other significant finding. IMPRESSION: Postsurgical changes on the right. Scattered areas of scar and/or atelectasis. No evid ence of recurrent or residual disease. TECHNICAL DOCUMENTATION: JOB ID: [id number] Quality ID # [id number]: Final reports with documentation of one or more dose reduction techniques (e.g., Au tomated exposure control, adjustment of the mA and/or kV according to patient size, use of iterative reconstruction technique) 2010 [id number]- All Rights Reserved Reading location - IP/workstation name: [email or web address]
--- NOTE | 2018-03-21 09:51 | RADIOLOGY REPORT (SQ) ---
EXAM DESCRIPTION: CT ABD/PELVIS WITH IV ONLY COMPLETED DATE/TIME: 03/21/2018 9:15 am REASON FOR STUDY: MALIGNANT NEOPLASM OF UPPER LOBE, RIGHT BRONCHUS OR LUNG C34.11 MALIGNANT NEOPLAS M OF UPPER LOBE, RIGHT BRONCHUS OR L COMPARISON: 08/12/2017 TECHNIQUE: CT scan of the abdomen and pelvis performed using helical scanning technique with dynamic intravenous contrast injection. No oral contrast. Images reviewed with lung, soft tissue, and bone windows. Reconstructed coronal and sagittal MPR images reviewed. Delayed images for evaluation of the urinary system also acquired. All images stored on PACS. All CT scanners at this facility use dose modulation, iterative reconstruction, and/or weight based d osing when appropriate to reduce radiation dose to as low as reasonably achievable (ALARA). [facility]: Dose Right [facility]: CareDose [facility]: Dose Right [facility]: Teradose 4D [facility]: [employer] CONTRAST TYPE AND DOSE: contrast/concentration: Isovue 370.00 mg/ml; Total Contrast Delivered: 100.0 ml; Total Saline Delivered: 72.0 ml RENAL FUNCTION: BUN 21, creatinine 1.2 RADIATION DOSE: CT Rad equipment meets quality standard of care and radiation dose reduction techniq ues were employed. CTDIvol: 11.8 - 14.0 mGy. DLP: 2315 mGy-cm.. LIMITATIONS: None. FINDINGS: LOWER CHEST: No significant findings. No nodules or infiltrates. LIVER: There is fatty infiltration of the liver. There is a small stable cyst in the right lobe of l iver posteriorly. SPLEEN: Normal size. No focal lesions. PANCREAS: No masses. No significant calcifications. No adjacent inflammation or peripancreatic fluid collections. Pancreatic duct not dilated. GALLBLADDER: Surgically absent. ADRENAL GLANDS: No significant masses or asymmetry. RIGHT KIDNEY AND URETER: No solid masses. No significant calcifications. No hydronephrosis or hyd roureter. LEFT KIDNEY AND URETER: No solid masses. No significant calcifications. No hydronephrosis or hydr oureter. AORTA AND VESSELS: No aneurysm. No dissection. Renal arteries, SMA, celiac without stenosis. RETROPERITONEUM: No retroperitoneal adenopathy, hemorrhage or masses. BOWEL AND PERITONEAL CAVITY: No masses or inflammatory changes. No free fluid or peritoneal masses. Scattered diverticuli. No acute diverticulitis. APPENDIX: Not visualized. PELVIS: The prostate is enlarged. ABDOMINAL WALL: No masses. No hernias. BONES: No significant or acute findings. OTHER: No other significant finding. IMPRESSION: Fatty infiltration of the liver. No evidence of metastatic disease. TECHNICAL DOCUMENTATION: JOB ID: [id number] Quality ID # [id number]: Final reports with documentation of one or more dose reduction techniques (e.g., Au tomated exposure control, adjustment of the mA and/or kV according to patient size, use of iterative reconstruction technique) 2010 [employer]- All Rights Reserved Reading location - IP/workstation name: [email or web address]
== END ==
LOC: RAD 08:22
PROVIDERS: ATTEND Internal Medicine
DX: C34.11 Malignant neoplasm of upper lobe, right bronchus or lung (principal)
CPT/HCPCS: 71260; 74177

== ENCOUNTER → 2018-05-20 | Outpatient (CLI) | payer BC ==
[2018-05-20 17:37] LABS: HEMATOCRIT 40.2 % (37.9-51.0); HEMOGLOBIN 14.2 g/dL (13.5-17.0); MEAN CORPUSCULAR HEMOGLOBIN 33.5 pg (27.0-33.4); MEAN CORPUSCULAR HGB CONC 35.4 g/dL (32.0-36.0); MEAN CORPUSCULAR VOLUME 95 fl (80-97); PLATELET COUNT 282 10^3/uL (150-450); RED BLOOD COUNT 4.25 10^6/uL (4.35-5.55); RED CELL DISTRIBUTION WIDTH 13.6 % (11.5-14.0); WHITE BLOOD COUNT 7.8 10^3/uL (4.0-10.5)
[2018-05-20 17:48] LABS: APPEARANCE,URINE CLEAR; BILIRUBIN,URINE NEGATIVE (NEGATIVE); COLOR,URINE YELLOW; GLUCOSE, URINE NEGATIVE (NEGATIVE); KETONES,URINE NEGATIVE (NEGATIVE); LEUKOCYTE ESTERASE,URINE NEGATIVE (NEGATIVE); NITRITE,URINE NEGATIVE (NEGATIVE); PROTEIN,URINE NEGATIVE (NEGATIVE); URINE SPECIFIC GRAVITY 1.018; UROBILINOGEN,URINE NEGATIVE mg/dL (<2.0)
[2018-05-20 18:01] LABS: ANION GAP 14 (5-19); BLOOD UREA NITROGEN 23 mg/dL (7-20); CALCIUM 9.4 mg/dL (8.4-10.2); CARBON DIOXIDE 25 mmol/L (22-30); CHLORIDE 100 mmol/L (98-107); GLUCOSE 110 mg/dL (75-110); POTASSIUM 4.1 mmol/L (3.6-5.0); SODIUM 139.4 mmol/L (137-145)
== END ==
LOC: OD 16:41
PROVIDERS: ATTEND Internal Medicine Nephrology
DX: N18.3 Chronic kidney disease, stage 3 (moderate) (principal); C34.90 Malignant neoplasm of unspecified part of unspecified bronchus or lung
CPT/HCPCS: 36415; 80048; 81001; 83735; 85027

== ENCOUNTER → 2018-07-10 | Outpatient (CLI) | payer BC ==
[2018-07-10 12:36] LABS: ABSOLUTE EOSINOPHILS # (AUTO) 0.2 10^3/uL (0.0-0.6); ABSOLUTE LYMPHOCYTES (AUTO) 0.8 10^3/uL (0.5-4.7); ABSOLUTE NEUT (AUTO) 9.6 10^3/uL (1.7-8.2); BASOPHILS % (AUTO) 0.3 % (0-2); EOSINOPHILS % (AUTO) 1.4 % (0-6); HEMATOCRIT 46.4 % (37.9-51.0); HEMOGLOBIN 16.1 g/dL (13.5-17.0); MEAN CORPUSCULAR HEMOGLOBIN 31.6 pg (27.0-33.4); MEAN CORPUSCULAR HGB CONC 34.6 g/dL (32.0-36.0); MEAN CORPUSCULAR VOLUME 91 fl (80-97); MONOCYTES % (AUTO) 8.3 % (3-13); PLATELET COUNT 321 10^3/uL (150-450); RED BLOOD COUNT 5.09 10^6/uL (4.35-5.55); RED CELL DISTRIBUTION WIDTH 13.1 % (11.5-14.0); TOTAL CELLS COUNTED % (AUTO) 100 %; WHITE BLOOD COUNT 11.6 10^3/uL (4.0-10.5)
== END ==
LOC: OD 11:41
PROVIDERS: ATTEND Radiology Radiation Oncology
DX: C34.11 Malignant neoplasm of upper lobe, right bronchus or lung (principal); C77.1 Secondary and unspecified malignant neoplasm of intrathoracic lymph nodes
CPT/HCPCS: 36415; 85025

== ENCOUNTER → 2018-09-15 | Outpatient (CLI) | payer BC ==
--- NOTE | 2018-09-15 12:47 | RADIOLOGY REPORT (SQ) ---
EXAM DESCRIPTION: CT CHEST WITHOUT COMPLETED DATE/TIME: 09/15/2018 8:41 am REASON FOR STUDY: MALIGNANT NEOPLASM OF UPPER LOBE, RIGHT BRONCHUS OR LUNG C34.11 MALIGNANT NEOPLAS M OF UPPER LOBE, RIGHT BRONCHUS OR L COMPARISON: 03/13/2018 TECHNIQUE: CT scan performed of the chest without intravenous contrast. Images reviewed with lung, soft tissue and bone windows. Reconstructed coronal and sagittal MPR images reviewed. All images st ored on PACS. All CT scanners at this facility use dose modulation, iterative reconstruction, and/or weight based d osing when appropriate to reduce radiation dose to as low as reasonably achievable (ALARA). [facility]: Dose Right [facility]: CareDose [facility]: Dose Right [facility]: Teradose 4D [facility]: [employer] RADIATION DOSE: CT Rad equipment meets quality standard of care and radiation dose reduction techniq ues were employed. CTDIvol: 17.4 mGy. DLP: 667 mGy-cm. mGy. LIMITATIONS: No technical limitations. FINDINGS: LUNGS AND PLEURA: Decreased volume on the right. Scarring in the right upper lobe. There is extensive opacification along the mediastinum on the right extending from the right hilum. There is linear opacification in the right lower lobe. There is an 18 mm nodule in the left upper lobe th at was not present previously. HILAR AND MEDIASTINAL STRUCTURES: There is a pretracheal node that measures 15 mm in short axis. Thi s has increased in size. HEART AND VASCULAR STRUCTURES: No aneurysm. No pericardial effusion. UPPER ABDOMEN: No significant findings. Limited exam. THYROID AND OTHER SOFT TISSUES: No masses. No adenopathy. BONES: No significant finding. HARDWARE: None in the chest. OTHER: No other significant findings. IMPRESSION: There is increased opacification along the mediastinum extending from the right hilum in there is linear opacification in the right upper lobe. These findings represent a change from the p rior study. There is also an 18 mm left upper lobe nodule the was not present previously. There is pretracheal adenopathy that represents a new finding. TECHNICAL DOCUMENTATION: JOB ID: [id number] Quality ID # 436: Final reports with documentation of one or more dose reduction techniques (e.g., Au tomated exposure control, adjustment of the mA and/or kV according to patient size, use of iterative reconstruction technique) 2010 [employer]- All Rights Reserved Reading location - IP/workstation name: [email or web address]
== END ==
LOC: RAD 08:13
PROVIDERS: ATTEND Internal Medicine
DX: C34.11 Malignant neoplasm of upper lobe, right bronchus or lung (principal)
CPT/HCPCS: 71250

== ENCOUNTER → 2018-09-28 | Outpatient (CLI) | payer BC ==
--- NOTE | 2018-09-29 09:44 | RADIOLOGY REPORT (SQ) ---
EXAM DESCRIPTION: PET CT SKULL/THIGH COMPLETED DATE/TIME: 09/28/2018 9:55 pm REASON FOR STUDY: C34.11 MALIGNANT NEOPLASM OF UPPER LOBE, RIGHT BRONCHUS OR LUNG C34.11 MALIGNANT NEOPLASM OF UPPER LOBE, RIGHT BRONCHUS OR L COMPARISON: 08/20/2017 RADIONUCLIDE AND DOSE: 10 mCi F18 FDG The route of agent administration: Intravenous FASTING BLOOD SUGAR: 108 mg/dl CONTRAST TYPE AND DOSE: No CT contrast given. TECHNIQUE: Blood glucose level was verified. Above dose of FDG was injected intravenously. 2-D seg mented attenuation correction images were obtained from the base of the skull to the midthighs. Nonc ontrast CT images were obtained for attenuation correction and fusion with emission images. CT image s were performed without oral or intravenous contrast and are not sensitive for parenchymal lesions. A series of overlapping emission PET images were obtained. Images reviewed and manipulated at [facility] work station by the radiologist. Images stored on PACS. LIMITATIONS: None. FINDINGS: HEAD AND NECK: Uptake within the oropharynx and vallecula, mildly asymmetric on the left w ithout CT correlate. Findings likely physiologic. No additional areas of abnormal uptake within the head or neck. CHEST: Postsurgical changes within the right hemithorax with no significant change compared to prior recent CT. There is a ground-glass nodule within the posterior right lower lobe measuring up to 1.6 cm with mild FDG uptake (max SUV 3.1). The previously described 18 mm left upper lobe nodule demonst rates increased FDG uptake (max SUV 5.9). Previous described pretracheal lymph node measuring 15 mm in short axis demonstrate mild FDG uptake (max SUV 3.0). There is diffuse mild asymmetric uptake thr oughout the right hemithorax. ABDOMEN AND PELVIS: No areas of abnormal metabolic activity in the abdomen or pelvis. Expected physi ologic activity is present in the genitourinary system and bowel. PROXIMAL LOWER EXTREMITIES: No areas of abnormal metabolic activity in the soft tissues of the lower extremities. BONES: No abnormal metabolic activity in the visualized skeleton. ADDITIONAL CT FINDINGS: Posttreatment changes within the right thorax. 15 mm area of ground-glass no dular opacity within the right lower lobe as above. 17 mm left upper lobe nodule. Small pericardial effusion. Prior cholecystectomy. Aortoiliac atherosclerosis. Scattered colonic diverticula. No e vidence of acute intra-abdominal/pelvic process. Prostatomegaly. Stable 4 sclerotic lesions within the ileum and proximal left femur. OTHER: No other significant findings. IMPRESSION: 1. Hypermetabolic 18 mm left upper lobe pulmonary nodule suspicious for neoplasm (max S UV 5.9). 2. Posttreatment changes within the right hemithorax with with a 15 mm right lower lobe ground-glass nodule demonstrating mild FDG uptake (max SUV 3.0). Findings possibly infectious/ inflammatory alth ough underlying lesion is not excluded. 3. Pretracheal node measuring 15 mm with mild FDG uptake (max SUV 3.0) also moderately suspicious fo r metastatic disease although reactive node is another consideration. 4. No additional evidence of distant metastatic disease. TECHNICAL DOCUMENTATION: JOB ID: [id number] [employer]- All Rights Reserved Reading location - IP/workstation name: [email or web address]
== END ==
LOC: RAD 20:17
PROVIDERS: ATTEND Internal Medicine
DX: C34.11 Malignant neoplasm of upper lobe, right bronchus or lung (principal)
CPT/HCPCS: 78815; A9552

== ENCOUNTER 2018-11-05 10:58 | Day surgery (SDC) | payer BC ==
[~2018-11-05 10:58] MED LIST: ACETAMINOPHEN 325 MG TABLET PO PRN; CEFAZOLIN 1 GM/D5W RTU 1 GM/50 ML RTUPB IV PRN; RINGERS SOLUTION,LACTATED 1,000 ML IV PRN
[2018-11-05] MEDS ORDERED: CEFAZOLIN 1 GM/D5W RTU 1 GM/50 ML RTUPB IV ONE (11:01)
[2018-11-05] MEDS ORDERED: MIDAZOLAM 2 MG/2 ML INJ ONE (11:24)
[2018-11-05] MEDS ORDERED: LIDOCAINE 1%/EPINEPHRINE INJ 20 ML VIAL ONE (11:24)
[2018-11-05] MEDS ORDERED: PROPOFOL INJ 200 MG/20 ML VIAL IV ONE (11:24)
[2018-11-05] MEDS ORDERED: FENTANYL CITRATE INJ/PF 100 MCG/2 ML AMPUL ONE (11:24)
[2018-11-05 12:04] LABS: HEMATOCRIT 40.7 % (37.9-51.0); HEMOGLOBIN 13.8 g/dL (13.5-17.0); MEAN CORPUSCULAR HEMOGLOBIN 29.9 pg (27.0-33.4); MEAN CORPUSCULAR HGB CONC 33.8 g/dL (32.0-36.0); MEAN CORPUSCULAR VOLUME 89 fl (80-97); PLATELET COUNT 455 10^3/uL (150-450); RED CELL DISTRIBUTION WIDTH 13.5 % (11.5-14.0); WHITE BLOOD COUNT 13.2 10^3/uL (4.0-10.5)
[2018-11-05] MEDS ORDERED: ONDANSETRON HCL INJ/PF 4 MG/2 ML SDV ONE (12:11)
[2018-11-05] MEDS ORDERED: DEXAMETHASONE SOD PHOSPHATE INJ 4 MG/1 ML VIAL ONE (12:11)
[2018-11-05] MEDS ORDERED: MORPHINE SULFATE 10 MG/ML INJ IV PRN (12:52)
[2018-11-05] MEDS ORDERED: FENTANYL CITRATE INJ/PF 100 MCG/2 ML AMPUL IV PRN ×3 (12:52)
[2018-11-05] MEDS ORDERED: DIPHENHYDRAMINE HCL 50 MG/ML VIAL IV PRN (12:52)
[2018-11-05] MEDS ORDERED: OXYCODONE-ACETAMINOPHEN 5-325 MG TABLET PO PRN ×2 (12:52→13:27)
[2018-11-05] MEDS ORDERED: MEPERIDINE HCL/PF INJ 25 MG/1 ML DISP.SYRIN IV PRN (12:52)
--- NOTE | 2018-11-05 13:12 | RADIOLOGY REPORT (SQ) ---
EXAM DESCRIPTION: CHEST SINGLE VIEW COMPLETED DATE/TIME: 11/05/2018 12:15 pm REASON FOR STUDY: PREOP COMPARISON: 09/15/2018 CT chest. PET-CT 09/28/2018. NUMBER OF VIEWS: One view. TECHNIQUE: Single frontal radiographic view of the chest acquired. LIMITATIONS: None. FINDINGS: LUNGS AND PLEURA: Elevated right hemidiaphragm. Distortion and fullness in the right hilu m. Right subsegmental atelectasis and peripheral pleural thickening likely. Known mass in the left upper lobe with regional surgical clips. MEDIASTINUM AND HILAR STRUCTURES: No masses. Contour normal. HEART AND VASCULAR STRUCTURES: Heart normal in size. Normal vasculature. BONES: No acute findings. HARDWARE: None in the chest. OTHER: No other significant finding. IMPRESSION: Known findings worrisome for malignancy as above. No acute superimposed infiltrates. TECHNICAL DOCUMENTATION: JOB ID: [id number] [employer]- All Rights Reserved Reading location - IP/workstation name: [email or web address]
--- NOTE | 2018-11-05 13:26 | Operative Report ---
Operative Report DATE OF SURGERY: 11/05/18 PREOPERATIVE DIAGNOSIS: Squamous cell carcinoma of the lung POSTOPERATIVE DIAGNOSIS: Same OPERATION: 1. Ultrasound directed insertion of right internal jugular vein single-lumen letter with port tucked into the right subclavian position. 2. Interpretation of intraoperative fluoroscopy. 3. Real-time fluoroscopic assistance SURGEON: RICK BUNDY ANESTHESIA: LMAC TISSUE REMOVED OR ALTERED: none COMPLICATIONS: none ESTIMATED BLOOD LOSS: 15 cc INTRAOPERATIVE FINDINGS: see below PROCEDURE: Patient was seen in the preop holding her with a right neck was marked, and the patient was taken to the main operating room where LMAC anesthesia was induced. The right neck, chest wall were prepped and draped in sterile fashion with the arms tucked. Surgical plan and surgical timeout were conducted. Using ultrasonography real-time as a guide, neck was anesthetized 1% plain lidocaine. A 1.5 cm incision was made in the right lateral neck, and using the 16-gauge needle, a 0.030 guidewire was threaded into the right internal jugular vein, and deep central venous system. A suitable site for port placement was chosen in the right subclavian position. The skin was anesthetized 1% plain lidocaine, 3 and half centimeter incision was made with a knife, subcutaneous pocket developed large enough to accommodate a single-chamber port. The catheter was then trimmed the appropriate length, tunneled between the 2 incisions, attached to the port with a plastic ring. Under fluoroscopic guidance, real-time, dilator introducer sheath were threaded over the guidewire, guidewire and dilator removed, and catheter free and was threaded into the strip away sheath. The sheath was removed leaving the catheter in good position with the tip in the right atrium. There is no kinking of the catheter at the level of the neck. The catheter was aspirated flushed with heparinized saline, and wounds closed with 3-0 Vicryl benzoin and Steri- Strips. Patient tolerated the procedure well, taken to recovery room in stable condition.
--- NOTE | 2018-11-05 13:27 | Discharge Summary ---
Discharge Summary (SDC) - Discharge Final Diagnosis: Port placement for lung cancer Date of Surgery: 11/05/18 Discharge Date: 11/05/18 Condition: Good Treatment or Instructions: PLAN: 1) You may shower in 48 hours. Do not scrub area. Allow warm water and soap to wash over. Pat dry. Leave steri strips intact until they fall off on their own. Some people find it more comfortable to cover the area with gauze and tape. PAIN MANAGEMENT: 1) You may take Toradol 10mg one pill by mouth every six hours as needed for pain. FOLLOW UP: 1) Follow up at [facility] in 7-10 days for evaluation. Call clinic sooner with questions/concerns or if area is red, swollen, warm, foul-drainage, or fever. Prescriptions: Ketorolac Tromethamine [Toradol 10 mg Tablet] 10 mg PO Q6HP PRN #20 tablet PRN Reason: Referrals: FACUNDO MORALES, PARKING SUPERVISOR [Primary Care Provider] - Discharge Activity: Balance Activity w/Rest, No Lifting/Push/Pulling, Walk Frequently Report the Following to Your Physician Immediately: Shortness of Breath, Increase in Pain, Fever over 101 Degrees, Unusual Bleeding, Redness, Swelling, Warmth, Drainage-Foul Smelling
--- NOTE | 2018-11-05 13:57 | RADIOLOGY REPORT (SQ) ---
EXAM DESCRIPTION: FLUORO/CV PLACEMENT COMPLETED DATE/TIME: 11/05/2018 1:43 pm REASON FOR STUDY: PORTACATH RIGHT SIDE ASST W/ FLUORO IN OR C34.11 MALIGNANT NEOPLASM OF UPPER LOBE , RIGHT BRONCHUS OR L COMPARISON: None. FLUOROSCOPY TIME: 0.1 seconds 3 images saved to PACS. TECHNIQUE: Intra-operative images acquired during surgical procedure to evaluate progress. NUMBER OF IMAGES: 3 LIMITATIONS: None. FINDINGS: Limited fluoroscopic intraoperative images to evaluate progress demonstrate evidence of ri ght internal jugular port placement with catheter tip at SVC. Please see operative report for detail ed description. IMPRESSION: IMAGE(S) OBTAINED DURING PROCEDURE. COMMENT: Quality ID [id number]: Final reports for procedures using fluoroscopy that document radiation exp osure indices, or exposure time and number of fluorographic images (if radiation exposure indices are not available) Please consult full operative report of the attending physician for description of the procedure. TECHNICAL DOCUMENTATION: JOB ID: [id number] [employer]- All Rights Reserved Reading location - IP/workstation name: [email or web address]
[2018-11-05 15:09] VITALS: BP 142/81
== END 2018-11-05 15:00 | disposition home or self-care (01) ==
LOC: OROUT 10:58
PROVIDERS: ATTEND Surgery
DX: C34.11 Malignant neoplasm of upper lobe, right bronchus or lung (principal); I10 Essential (primary) hypertension; J44.9 Chronic obstructive pulmonary disease, unspecified; I47.1 Supraventricular tachycardia
CPT/HCPCS: 36415; 85027; 71045; 77001; 36561; C1752; C1788; J2250; J0690; J3010; J3490; J2405; J2704; J1642; 532; J1100

== ENCOUNTER 2018-12-04 10:00 | Inpatient (IN) | payer BC ==
[2018-12-04] MEDS ORDERED: LIDOCAINE 2% URO-JET 5 ML KIT MM ONE (10:29)
[2018-12-04] MEDS ORDERED: NORMAL SALINE 1000 ML 1,000 ML IV ONE ×3 (10:31→15:11)
[2018-12-04] MEDS ORDERED: ACETAMINOPHEN 325 MG TABLET PO ONE ×2 (10:31→17:58)
--- NOTE | 2018-12-04 10:58 | ER Document Report ---
Entered by OPAL SANTOS SCRIBE 12/04/18 1036 Acting as scribe for:TOSHIA RICHARDS MD ED General - General Mode of Arrival: Ambulatory Information source: Patient TRAVEL OUTSIDE OF THE [place] IN LAST 30 DAYS: No <TOSHIA RICHARDS - Last Filed: 12/04/18 15:30> <RIKILILLIAN Bolton - Last Filed: 12/04/18 18:07> - General Chief Complaint: Breathing Difficulty Stated Complaint: SHORTNESS OF BREATH Time Seen by Provider: 12/04/18 10:21 Primary Care Provider: FACUNDO MORALES, REGISTERED NURSING PROFESSOR [Primary Care Provider] - Follow up as needed Notes: Patient is a 63 year old male with HTN, HLD, COPD (2L of oxygen at night), BPH, lung cancer presents to the emergency department complaining of shortness of breath onset last night. Patient states he presented to Dr. Clement's office this morning to receive chemo but was instead sent to the ED. Patient also complains of urinary retention and the inability to move his bowels. Patient states he has received an enema, 2 doses of Colace and has yet to have a bowel movement. Patient states "my guts hurt". He also complains of chills. Patient last received chemotherapy yesterday. (OPAL SANTOS) Patient is a 63 year old male with HTN, HLD, COPD (2L of oxygen at night), BPH, lung cancer presents to the emergency department complaining of shortness of breath onset last night. Patient states he presented to Dr. Clement's office this morning to receive chemo but was instead sent to the ED. Patient also complains of urinary retention and the inability to move his bowels. Patient states he has received an enema, 2 doses of Colace and has yet to have a bowel movement. Patient states "my guts hurt". He also complains of chills. Patient last received chemotherapy yesterday. The patient had a PET scan 2 months ago that was suspicious for metastasis to the left upper chest and a pretracheal node. He is currently on chemotherapy. (TOSHIA RICHARDS) - Related Data Allergies/Adverse Reactions: prednisone [Prednisone] Adverse Reaction (Intermediate, Verified 12/04/18 10:02) jitters Past Medical History - General Information source: Patient - Social History Smoking Status: Former Smoker Cigarette use (# per day): No Chew tobacco use (# tins/day): No Frequency of alcohol use: None Drug Abuse: None Lives with: Family Family History: Malignancy - Past Medical History Cardiac Medical History: Reports: Hx Hypercholesterolemia - meds x 1 year, Hx Hy pertension - meds x 6 years Pulmonary Medical History: Reports: Hx Bronchitis - multiple episodes (usually in the fall), Hx COPD, Hx Pneumonia - x 1 episode, denies hospitalization Malignancy Medical History: Reports Hx Lung Cancer - Rt lung mass GI Medical History: Reports: Hx Gastroesophageal Reflux Disease - Tolentino's e sophagitis, Dx'ed approx 3 years Musculoskeletal Medical History: Reports Hx Arthritis Psychiatric Medical History: Reports: Hx Depression - meds x 15 years Past Surgical History: Reports: Hx Appendectomy, Hx Orthopedic Surgery - RIGHT KNEE, Other - Bronchoscopy - Immunizations Hx Diphtheria, Pertussis, Tetanus Vaccination: No <TOSHIA RICHARDS - Last Filed: 12/04/18 15:30> Review of Systems - Review of Systems Constitutional: See HPI, Chills EENT: No symptoms reported Cardiovascular: No symptoms reported Respiratory: See HPI, Short of breath Gastrointestinal: See HPI, Constipation, Last bowel movement Genitourinary: See HPI, Retention Male Genitourinary: No symptoms reported Musculoskeletal: No symptoms reported Skin: No symptoms reported Hematologic/Lymphatic: No symptoms reported Neurological/Psychological: No symptoms reported -: Yes All other systems reviewed and negative <TOSHIA RICHARDS - Last Filed: 12/04/18 15:30> Physical Exam <TOSHIA RICHARDS - Last Filed: 12/04/18 15:30> - Vital signs Vitals: Temp Pulse Resp BP Pulse Ox 97.5 F 141 H 20 132/72 H 93 12/04/18 10:06 12/04/18 10:06 12/04/18 10:06 12/04/18 10:06 12/04/18 10:06 - Notes Notes: GENERAL: Alert. Shivering. Interacts well. No acute distress. HEAD: Normocephalic, atraumatic. EYES: Pupils equal, round, and reactive to light. Extraocular movements intact. ENT: Oral mucosa moist, tongue midline. NECK: Full range of motion. Supple. Trachea midline. LUNGS: Clear to auscultation bilaterally, no wheezes, rales, or rhonchi. No respiratory distress. HEART: Tachycardic. No murmurs, gallops, or rubs. ABDOMEN: Soft, non-tender. Non-distended. Bowel sounds present in all 4 quadrants. No guarding, rigidity, or rebound. EXTREMITIES: Moves all 4 extremities spontaneously. No edema. NEUROLOGICAL: Alert and oriented x3. Normal speech. PSYCH: Normal affect, normal mood. SKIN: Warm, dry, normal turgor. No rashes or lesions noted. (OPAL SANTOS) GENERAL: Alert. Shivering. Interacts well. No acute distress. HEAD: Normocephalic, atraumatic. EYES: Pupils equal, round, and reactive to light. Extraocular movements intact. ENT: Oral mucosa moist, tongue midline. NECK: Full range of motion. Supple. Trachea midline. LUNGS: Clear to auscultation bilaterally, no wheezes, rales, or rhonchi. No respiratory distress. HEART: Tachycardic. No murmurs, gallops, or rubs. ABDOMEN: Soft, non-tender. Non-distended. Bowel sounds present in all 4 quadrants. No guarding, rigidity, or rebound. EXTREMITIES: Moves all 4 extremities spontaneously. No edema. NEUROLOGICAL: Alert and oriented x3. Normal speech. PSYCH: Normal affect, normal mood. SKIN: Warm, dry, normal turgor. No rashes or lesions noted. (TOSHIA RICHARDS) Course - Laboratory Result Diagrams: 12/04/18 10:38 12/04/18 10:38 - Diagnostic Test Radiology reviewed: Image reviewed, Reports reviewed - Chest x-ray shows chronically elevated right hemidiaphragm without acute changes. - EKG Interpretation by Oh EKG shows normal: Sinus rhythm, [place], Intervals, QRS Complexes. abnormal: ST-T Waves - Diffuse borderline T abnormalities Rate: Tachycardia - 136 [place]/QRS: Right axis deviation - Transfer of Care Care transferred to following provider: Dr. Lewis Lyn <TOSHIA RICHARDS - Last Filed: 12/04/18 15:30> - Laboratory Result Diagrams: 12/04/18 10:38 12/04/18 10:38 <LILLIAN LYN - Last Filed: 12/04/18 18:07> - Re-evaluation Re-evalutation: 12/04/18 11:03 The nurse reports that the patient is too short of breath to be able to lay down to have a Fairchild placed. His pulse ox is 100% on nasal cannula. His lungs did sound clear on auscultation. He does have a history of anxiety, and does appear to be breathing fast. I suspect his constipation is due to the narcotics he has been on, and that is because the inability to empty the bladder. All of these things are contributing to his tachypnea and feeling like he cannot lay down. We will give him a small dose of Ativan to see if that will help facilitate getting the Fairchild catheter placed. 12/04/18 12:25 Fairchild catheter was placed, patient had over 1600mls of urine out put. His temperature was 102.6. 12/04/18 13:35 The later reported that the patient ran out of his Flomax earlier in the week, so when he was not having much urine output, she gave him 40mg Lasix and that seemed to help. He is not on Lasix. I suspect it was overflow incontinence that she was witnessing at that point. 12/04/18 14:13 Family is requesting that I give the patient something to help him lay down. The spouse states that he "cannot lay down" at home either. They do agree that this inability to lay down may be anxiety related. I have told the patient family, that constipation could cause his abdominal pain, but it should not cause a tachycardia, shortness of breath, or fever. He does have a chest x-ray that was unremarkable that also does not explain his shortness of breath, tachycardia or fever. He does have lung cancer with metastases, so he is at risk of pulmonary embolus. We will do a CTA chest and CT of the abdomen pelvis with IV contrast to try to clarify what is really going on today. (TOSHIA RICHARDS) - Vital Signs Vital signs: Temp Pulse Resp BP Pulse Ox 103.0 F H 141 H 22 H 143/81 H 100 12/04/18 17:47 12/04/18 10:06 12/04/18 17:47 12/04/18 17:47 12/04/18 17:47 - Laboratory Laboratory results interpreted by me: 12/04/18 12/04/18 12/04/18 10:38 10:38 10:38 WBC 14.6 H RBC 3.98 L Hgb 11.8 L Hct 34.7 L Plt Count 552 H Seg Neuts % (Manual) 88 H Band Neutrophils % 7 H Lymphocytes % (Manual) 3 L Monocytes % (Manual) 1 L Metamyelocytes % 1 H Abs Neuts (Manual) 14.0 H Abs Lymphs (Manual) 0.4 L VBG pH Glucose 120 H Lactic Acid 4.2 H Magnesium 2.4 H Creatine Kinase 51 L Urine Ketones Urine Ascorbic Acid 12/04/18 12/04/18 10:38 11:52 WBC RBC Hgb Hct Plt Count Seg Neuts % (Manual) Band Neutrophils % Lymphocytes % (Manual) Monocytes % (Manual) Metamyelocytes % Abs Neuts (Manual) Abs Lymphs (Manual) VBG pH 7.44 H Glucose Lactic Acid Magnesium Creatine Kinase Urine Ketones TRACE H Urine Ascorbic Acid 40 H - Transfer of Care Notes: 12/04/18 14:38 Patient has lung cancer with metastases in the chest, he is receiving chemotherapy. He is tachycardic, febrile, hypotensive. He is complaining of severe lower abdominal pain which he attributes to constipation. He did have acute urine retention with greater than 1600 mL's of urine when the Fairchild catheter was placed. He does complain of being short of breath and his O2 sat dropped from 100% to 88% with minimal exertion while on nasal O2. He has received IV fluids and IV antibiotics. He is presently pending CTA chest and CT abdomen pelvis with IV contrast to try to sort out what may be causing his various symptoms and findings. (TOSHIA RICHARDS) Critical Care Note - Critical Care Note Total time excluding time spent on procedures (mins): 45 <TOSHIA RICHARDS - Last Filed: 12/04/18 15:30> Discharge <TOSHIA RICHARDS - Last Filed: 12/04/18 15:30> - Discharge Admitting Provider: Bryan (Hospitalist) Unit Admitted: ICU <LILLIAN LYN - Last Filed: 12/04/18 18:07> - Discharge Clinical Impression: Acute urinary retention, Septic shock Fever Qualifiers: Fever type: unspecified Qualified Code(s): R50.9 - Fever, unspecified Hypotension Qualifiers: Hypotension type: unspecified hypotension type Qualified Code(s): I95.9 - Hypotension, unspecified Lung cancer Qualifiers: Laterality: right Lung location: upper lobe of lung Qualified Code(s): C34.11 - Malignant neoplasm of upper lobe, right bronchus or lung Condition: Critical Disposition: ADMITTED INPATIENT Referrals: FACUNDO MORALES, REGISTERED NURSING PROFESSOR [Primary Care Provider] - Follow up as needed Scribe Attestation: 12/04/18 11:46 I personally performed the services described in the documentation, reviewed and edited the documentation which was dictated to the scribe in my presence, and it accurately records my words and actions. (TOSHIA RICHARDS) I personally performed the services described in the documentation, reviewed and edited the documentation which was dictated to the scribe in my presence, and it accurately records my words and actions.
[2018-12-04] MEDS ORDERED: LORAZEPAM INJ 2 MG/1 ML VIAL IV ONE ×2 (11:00→16:34)
[2018-12-04 11:01] LABS: HEMATOCRIT 34.7 % (37.9-51.0); HEMOGLOBIN 11.8 g/dL (13.5-17.0); MEAN CORPUSCULAR HEMOGLOBIN 29.5 pg (27.0-33.4); MEAN CORPUSCULAR HGB CONC 33.9 g/dL (32.0-36.0); MEAN CORPUSCULAR VOLUME 87 fl (80-97); PLATELET COUNT 552 10^3/uL (150-450); RED BLOOD COUNT 3.98 10^6/uL (4.35-5.55); RED CELL DISTRIBUTION WIDTH 13.9 % (11.5-14.0); WHITE BLOOD COUNT 14.6 10^3/uL (4.0-10.5)
[2018-12-04 11:02] LABS: VENOUS BLOOD BASE EXCESS 4.5 mmol/L; VENOUS BLOOD HCO3 29.3 mmol/L (20-32); VENOUS BLOOD PCO2 44.4 mmHg (35-63); VENOUS BLOOD PH 7.44 (7.30-7.42)
[2018-12-04 11:25] LABS: ABSOLUTE LYMPHOCYTES# (MANUAL) 0.4 10^3/uL (0.5-4.7); ABSOLUTE MONOCYTES # (MANUAL) 0.1 10^3/uL (0.1-1.4); BAND NEUTROPHILS % (MANUAL) 7 % (3-5); BASOPHILS % (MANUAL) 0 % (0-2); EOSINOPHILS % (MANUAL) 0 % (0-6); LYMPHOCYTES % (MANUAL) 3 % (13-45); METAMYELOCYTES % (MANUAL) 1 % (0); MONOCYTES % (MANUAL) 1 % (3-13); SEGMENTED NEUTROPHILS % (MAN) 88 % (42-78); TOTAL CELLS COUNTED 100
[2018-12-04 11:28] LABS: PLATELET COMMENT INCREASED; POLYCHROMASIA SLIGHT; TOXIC GRANULATION 1+
[2018-12-04 11:31] LABS: ALANINE AMINOTRANSFERASE 31 U/L (21-72); ALKALINE PHOSPHATASE 101 U/L (38-126); ANION GAP 15 (5-19); ASPARTATE AMINO TRANSFERASE 23 U/L (17-59); BILIRUBIN,DIRECT 0.3 mg/dL (0.0-0.4); BILIRUBIN,TOTAL 0.5 mg/dL (0.2-1.3); BLOOD UREA NITROGEN 19 mg/dL (7-20); CALCIUM 9.7 mg/dL (8.4-10.2); CARBON DIOXIDE 29 mmol/L (22-30); CHLORIDE 98 mmol/L (98-107); CREATINE KINASE 51 U/L (55-170); GLUCOSE 120 mg/dL (75-110); POTASSIUM 4.2 mmol/L (3.6-5.0); TOTAL PROTEIN 7.2 g/dL (6.3-8.2)
[2018-12-04] MEDS ORDERED: LEVOFLOXACIN 750 MG/D5W RTU 750 MG/150 ML RTUPB IV ONE (11:45)
[2018-12-04 12:20] LABS: APPEARANCE,URINE CLEAR; BILIRUBIN,URINE NEGATIVE (NEGATIVE); COLOR,URINE YELLOW; GLUCOSE, URINE NEGATIVE (NEGATIVE); KETONES,URINE TRACE mg/dL (NEGATIVE); LEUKOCYTE ESTERASE,URINE NEGATIVE (NEGATIVE); NITRITE,URINE NEGATIVE (NEGATIVE); PROTEIN,URINE NEGATIVE (NEGATIVE); URINE SPECIFIC GRAVITY 1.013; UROBILINOGEN,URINE NEGATIVE mg/dL (<2.0)
--- NOTE | 2018-12-04 12:50 | EKG REPORT ---
SEVERITY:- BORDERLINE ECG - SINUS TACHYCARDIA RIGHT AXIS DEVIATION BORDERLINE T ABNORMALITIES, DIFFUSE LEADS : Confirmed by: Stoney Obando MD 04-Dec-2018 12:48:51
--- NOTE | 2018-12-04 14:08 | RADIOLOGY REPORT (SQ) ---
EXAM DESCRIPTION: ACUTE ABDOMEN SERIES COMPLETED DATE/TIME: 12/04/2018 1:38 pm REASON FOR STUDY: Lung cancer, fever, constipation COMPARISON: None. NUMBER OF VIEWS: Three views. TECHNIQUE: Frontal chest, supine abdomen and upright/decubitus abdomen radiographic images acquired. LIMITATIONS: None. FINDINGS: CHEST: Elevated right hemidiaphragm versus subpulmonic effusion. Right hilar mass. FREE AIR: None. No abnormal gas collections. BOWEL GAS PATTERN: Nonobstructive pattern. No dilated loops or air fluid levels. CALCIFICATIONS: No suspicious calcifications. HARDWARE: Injection port on the right chest. SOFT TISSUES: No gross mass or suggestion of organomegaly. BONES: No acute fracture. No worrisome bone lesions. OTHER: No other significant finding. IMPRESSION: Nonspecific abdomen. Possible subpulmonic effusion. TECHNICAL DOCUMENTATION: JOB ID: [id number] [employer]- All Rights Reserved Reading location - IP/workstation name: [email or web address]
--- NOTE | 2018-12-04 17:39 | RADIOLOGY REPORT (SQ) ---
EXAM DESCRIPTION: CTA CHEST COMPLETED DATE/TIME: 12/04/2018 5:07 pm REASON FOR STUDY: Short of breath, tachycardia, fever, abdominal shanice COMPARISON: 09/15/2018 TECHNIQUE: CT scan of the chest performed using helical scanning technique with dynamic intravenous contrast injection. Images reviewed with lung, soft tissue and bone windows. Reconstructed coronal and sagittal MPR images reviewed. Additional 3 dimensional post-processing performed to develop Maximal Intensity Projection images (MA P). All images stored on PACS. All CT scanners at this facility use dose modulation, iterative reconstruction, and/or weight based d osing when appropriate to reduce radiation dose to as low as reasonably achievable (ALARA). [facility]: Dose Right [facility]: CareDose [facility]: Dose Right [facility]: Teradose 4D [facility]: Thinkglue CONTRAST TYPE AND DOSE: contrast/concentration: Isovue 350.00 mg/ml; Total Contrast Delivered: 86.0 ml; Total Saline Delivered: 80.0 ml Contrast bolus optimized for the pulmonary arteries. Not diagnostic for the aorta. RENAL FUNCTION: BUN 19 creatinine 1.2 RADIATION DOSE: CT Rad equipment meets quality standard of care and radiation dose reduction techniq ues were employed. CTDIvol: 25.8 - 52.9 mGy. DLP: 4288 mGy-cm. . LIMITATIONS: None. FINDINGS: LUNGS AND PLEURA: Pleural/parenchymal scarring in the right upper lobe opacification in th e medial right lung adjacent to the mediastinum. Elevation of the right hemidiaphragm. Scarring in the left upper lobe with surgical clips. AORTA AND GREAT VESSELS: No aneurysm. No dissection. HEART: Small pericardial effusion. No significant coronary artery calcifications. PULMONARY ARTERIES: No emboli visualized in the main pulmonary arteries or the segmental branches. HILAR AND MEDIASTINAL STRUCTURES: There is a large pretracheal node. HARDWARE: Surgical clips in association with scarring in the left upper lobe. This relates to a prev ious nodule. UPPER ABDOMEN: See separate report of the CT of the abdomen. THYROID AND OTHER SOFT TISSUES: No masses. No adenopathy. BONES: No acute or significant finding. 3D MIPS: Confirm above findings. OTHER: No other significant finding. IMPRESSION: There is no evidence of pulmonary embolus. Paramediastinal opacification on the right s uggesting prior radiation. Surgical clips are seen in the left upper lobe suggesting resection of th e nodule that was present previously. There is a 4 cm somewhat low-density pretracheal lymph node. Small pericardial effusion. COMMENT: Quality ID # [id number]: Final reports with documentation of one or more dose reduction techniques (e.g., Automated exposure control, adjustment of the mA and/or kV according to patient size, use of iterative reconstruction technique) TECHNICAL DOCUMENTATION: JOB ID: [id number] [employer]- All Rights Reserved Reading location - IP/workstation name: [email or web address]
--- NOTE | 2018-12-04 17:51 | RADIOLOGY REPORT (SQ) ---
EXAM DESCRIPTION: CT ABD/PELVIS WITH IV ONLY COMPLETED DATE/TIME: 12/04/2018 5:07 pm REASON FOR STUDY: Fever, abdominal pain COMPARISON: 03/21/2018 TECHNIQUE: CT scan of the abdomen and pelvis performed using helical scanning technique with dynamic intravenous contrast injection. No oral contrast. Images reviewed with lung, soft tissue, and bone windows. Delayed images for evaluation of the urinary system also acquired. All images stored on PAC S. All CT scanners at this facility use dose modulation, iterative reconstruction, and/or weight based d osing when appropriate to reduce radiation dose to as low as reasonably achievable (ALARA). [facility]: Dose Right [facility]: CareDose [facility]: Dose Right [facility]: Teradose 4D [facility]: Aspen Evian CONTRAST TYPE AND DOSE: 86 mL Omnipaque 350- low osmolar. RENAL FUNCTION: BUN 19 creatinine 1.2 RADIATION DOSE: . LIMITATIONS: None. FINDINGS: LOWER CHEST: See separate report of the CT of the chest. LIVER: There is a 2 cm cyst in the right lobe. No masses. SPLEEN: Normal size. No focal lesions. PANCREAS: No masses. No significant calcifications. No adjacent inflammation or peripancreatic fluid collections. Pancreatic duct not dilated. GALLBLADDER: Surgically absent. ADRENAL GLANDS: No significant masses or asymmetry. RIGHT KIDNEY AND URETER: No solid masses. No significant calcifications. No hydronephrosis or hyd roureter. LEFT KIDNEY AND URETER: No solid masses. No significant calcifications. No hydronephrosis or hydr oureter. AORTA AND VESSELS: No aneurysm. No dissection. Renal arteries, SMA, celiac without stenosis. RETROPERITONEUM: No retroperitoneal adenopathy, hemorrhage or masses. BOWEL AND PERITONEAL CAVITY: There is some fluid in the colon. Sigmoid diverticula are present with no associated inflammation. APPENDIX: Normal. PELVIS: Prostate gland is prominent. There is a Fairchild catheter. The position of the catheter balloo n suggests prior TURP. ABDOMINAL WALL: No masses. No hernias. BONES: No significant or acute findings. OTHER: No other significant finding. IMPRESSION: There is some fluid in the colon. Correlate for enteritis. Diverticulosis coli with no acute inflammation. Small right hepatic cyst. TECHNICAL DOCUMENTATION: JOB ID: [id number] 02/10/2018 Quality ID # [id number]: Final reports with documentation of one or more dose reduction techniques (e.g., Au tomated exposure control, adjustment of the mA and/or kV according to patient size, use of iterative reconstruction technique) 2010 [employer]- All Rights Reserved Reading location - IP/workstation name: [email or web address]
[2018-12-04] MEDS ORDERED: CEFTRIAXONE INJ 1000 MG VIAL IV ONE (18:02)
--- NOTE | 2018-12-04 18:09 | ER Document Report ---
Doctor's Note Notes: 12/04/18 18:07 Patient seen and evaluated. His fever has returned and it has been about 6 hours since his previous dose of Tylenol. Patient given Tylenol for fever. He was ordered a second liter of fluids as well as Rocephin for more broad-spectrum coverage. Patient has an elevated lactate at 4.2. He has a elevated W BC count 14. At this point patient's blood pressure has improved however he is in sepsis from unknown origin. Patient CT scans of the chest, abdomen and pelvis showed no acute source of infection. Patient is not having any headache, neurologic deficit or meningismus to suggest meningitis. I did discuss patient's care with Dr. Adams who will see him in the emergency room and admit the patient for further care. Patient's family is present and patient is in agreement with this plan. There is no longer there, Critical Care Note - Critical Care Note Total time excluding time spent on procedures (mins): 35 Comments: Critical care time 35 exclusive from separate billable procedures for a patient requiring complex medical decision making, and high potential for clinical deterioration. Time spent obtaining history from patient or surrogate, discussions with consultants, development of treatment plan with patient or surrogate, evaluation of patient's response to treatment, examination of patient, ordering and performing treatments and interventions, ordering and review of laboratory studies, re-evaluation of patient's condition, ordering and review of radiographic studies and review of old charts
[2018-12-04] MEDS ORDERED: LEVALBUTEROL HCL NEB 0.63 MG/3 ML AMPUL NEB PRN (18:33)
[2018-12-04] MEDS ORDERED: ACETAMINOPHEN 325 MG TABLET PO PRN (18:33)
[2018-12-04] MEDS ORDERED: ONDANSETRON HCL INJ/PF 4 MG/2 ML SDV IV PRN (18:33)
[2018-12-04] MEDS ORDERED: PIPERACILLIN/TAZOBACTAM 3.375 GM VIAL IV SCH (18:45)
--- NOTE | 2018-12-04 18:54 | PDOC H&P ---
History of Present Illness Admission Date/PCP: 12/04/18 18:11 FACUNDOYASMIN MORALES NP Patient complains of: Shortness of breath and fever of 1 day duration History of Present Illness: CHAD RETANA is a 63 year old male with history of lung cancer on chemotherapy status post right upper lobe lobectomy, BPH, hypertension, COPD on 2 L oxygen at night received chemotherapy yesterday from this morning is having the fevers and chills increasing shortness of breath he went to Dr. Clement's office he was sent over here for further management. The work-up was done in the ER and CT of the chest negative for acute abnormality CT abdomen pelvis was negative for abno rmalities no source of infection was found patient denies any neck pains denies any headaches denies any visual problems on my examination no neck stiffness noticed but the patient has difficulty getting into the bed unable to lay flat unable to do further examination to look for meningeal signs and symptoms. Patient is already telling me he does not want any needle in the back. Wants to be a full code. Per the family patient was [facility] at the end of last month on 3 different antibiotics and antibiotics are continued by Dr. Clement as an outpatient last dose was taken 2 days ago. Family is unable to tell the antibiotics patient is on. Past Medical History Cardiac Medical History: Reports: Hyperlipidema - meds x 1 year, Hypertension - meds x 6 years Denies: Atrial Fibrillation, Congestive Heart Failure, Coronary Artery Disease, Myocardial Infarction, Peripheral Vascular Disease, Pulmonary Embolism, Heart Murmur Pulmonary Medical History: Reports: Bronchitis - multiple episodes (usually in the fall), Chronic Obstructive Pulmonary Disease (COPD), Pneumonia - x 1 episode, denies hospitalization Denies: Asthma, Respiratory Failure, Sleep Apnea, Tuberculosis Neurological Medical History: Denies: Seizures Malignancy Medical History: Reports: Lung Cancer - Rt lung mass GI Medical History: Reports: Gastroesophageal Reflux Disease - Tolentino's esophagitis, Dx'ed approx 3 years Denies: Crohn's Disease, Hepatitis, Hiatal Hernia Musculoskeltal Medical History: Reports: Arthritis Denies: Fibromyalgia Psychiatric Medical History: Reports: Depression - meds x 15 years Denies: Bipolar Disorder, Post Traumatic Stress Disorder Hematology: Denies: Anemia, Sickle Cell Disease Past Surgical History Past Surgical History: Reports: Appendectomy, Cholecystectomy, Orthopedic Surgery - RIGHT KNEE, Other - Bronchoscopy Denies: Colostomy, Coronary Artery Bypass Graft, Gastric Bypass Surgery, Herniorrhaphy, Pacemaker, Tonsillectomy Social History Lives with: Family Smoking Status: Former Smoker Frequency of Alcohol Use: None Hx Recreational Drug Use: No Drugs: None Hx Prescription Drug Abuse: No - Advance Directive Resuscitation Status: Full Code Surrogate healthcare decision maker:: Family History Family History: Malignancy Parental Family History Reviewed: Yes - Hypert[facility] and [facility] Family History Reviewed: Yes Sibling(s) Family History Reviewed.: Yes Medication/Allergy Allergies/Adverse Reactions: prednisone [Prednisone] Adverse Reaction (Intermediate, Verified 12/04/18 10:02) [email or web address] Review of Systems Constitutional: PRESENT: chills, fever(s). ABSENT: headache(s), weight gain, weight loss Eyes: ABSENT: visual disturbances Ears: ABSENT: hearing changes Nose, Mouth, and Throat: ABSENT: sore throat Cardiovascular: PRESENT: dyspnea on exertion, palpitations Respiratory: PRESENT: cough, dyspnea Gastrointestinal: PRESENT: abdominal pain, nausea Genitourinary: PRESENT: difficulty urinating Musculoskeletal: PRESENT: muscle weakness Neurological: ABSENT: abnormal gait, abnormal speech, confusion, dizziness, focal weakness, syncope Psychiatric: PRESENT: anxiety Physical Exam Vital Signs: Temp Pulse Resp BP Pulse Ox 103.5 F H 141 H 32 H 135/78 H 99 12/04/18 18:34 12/04/18 10:06 12/04/18 18:34 12/04/18 18:34 12/04/18 18:34 Intake & Output 12/03/18 12/04/18 12/05/18 06:59 06:59 06:59 Intake Total 3150 Balance 3150 Weight 111.13 kg General appearance: PRESENT: obese, severe distress Head exam: PRESENT: atraumatic Eye exam: PRESENT: PERRLA Mouth exam: PRESENT: moist, tongue midline Teeth exam: PRESENT: poor dentation Neck exam: ABSENT: carotid bruit, JVD, lymphadenopathy, thyromegaly Respiratory exam: PRESENT: decreased breath sounds, wheezes Cardiovascular exam: PRESENT: tachycardia GI/Abdominal exam: PRESENT: normal bowel sounds, soft. ABSENT: distended, guarding, mass, organolmegaly, rebound, tenderness Rectal exam: PRESENT: deferred Gentrourinary exam: PRESENT: indwelling catheter Neurological exam: PRESENT: alert, CN II-XII grossly intact Psychiatric exam: PRESENT: agitated, anxious Results Laboratory Results: 12/04/18 10:38 12/04/18 10:38 12/04/18 12/04/18 12/04/18 10:38 10:38 10:38 WBC 14.6 H RBC 3.98 L Hgb 11.8 L Hct 34.7 L MCV 87 MCH 29.5 MCHC 33.9 RDW 13.9 Plt Count 552 H Seg Neutrophils % Not Reportable Lymphocytes % Not Reportable Monocytes % Not Reportable Eosinophils % Not Reportable Basophils % Not Reportable Absolute Neutrophils Not Reportable Absolute Lymphocytes Not Reportable Absolute Monocytes Not Reportable Absolute Eosinophils Not Reportable Absolute Basophils Not Reportable VBG pH VBG pCO2 VBG HCO3 VBG Base Excess Sodium 142.0 Potassium 4.2 Chloride 98 Carbon Dioxide 29 Anion Gap 15 BUN 19 Creatinine 1.20 Est GFR ( Amer) > 60 Est GFR (Non-Af Amer) > 60 Glucose 120 H Lactic Acid 4.2 H Calcium 9.7 Magnesium 2.4 H Total Bilirubin 0.5 AST 23 ALT 31 Alkaline Phosphatase 101 Total Protein 7.2 Albumin 4.0 Urine Color Urine Appearance Urine pH Ur Specific Carlin Urine Protein Urine Glucose (UA) Urine Ketones Urine Blood Urine Nitrite Ur Leukocyte Esterase Urine WBC (Auto) Urine RBC (Auto) 12/04/18 12/04/18 10:38 11:52 WBC RBC Hgb Hct MCV MCH MCHC RDW Plt Count Seg Neutrophils % Lymphocytes % Monocytes % Eosinophils % Basophils % Absolute Neutrophils Absolute Lymphocytes Absolute Monocytes Absolute Eosinophils Absolute Basophils VBG pH 7.44 H VBG pCO2 44.4 VBG HCO3 29.3 VBG Base Excess 4.5 Sodium Potassium Chloride Carbon Dioxide Anion Gap BUN Creatinine Est GFR ( Amer) Est GFR (Non-Af Amer) Glucose Lactic Acid Calcium Magnesium Total Bilirubin AST ALT Alkaline Phosphatase Total Protein Albumin Urine Color YELLOW Urine Appearance CLEAR Urine pH 5.0 Ur Specific Carlin 1.013 Urine Protein NEGATIVE Urine Glucose (UA) NEGATIVE Urine Ketones TRACE H Urine Blood NEGATIVE Urine Nitrite NEGATIVE Ur Leukocyte Esterase NEGATIVE Urine WBC (Auto) 1 Urine RBC (Auto) 2 12/04/18 12/04/18 05:05 10:38 Creatine Kinase 51 L Troponin I < 0.012 Impressions: Acute Abdomen Series 12/04/18 12:25 IMPRESSION: Nonspecific abdomen. Possible subpulmonic effusion. Chest/Abdomen CTA 12/04/18 14:12 IMPRESSION: There is no evidence of pulmonary embolus. Paramediastinal opacification on the right suggesting prior radiation. Surgical clips are seen in the left upper lobe suggesting resection of the nodule that was present previously. There is a 4 cm somewhat low-density pretracheal lymph node. Small pericardial effusion. Abdomen/Pelvis CT 12/04/18 15:10 IMPRESSION: There is some fluid in the colon. Correlate for enteritis. Diverticulosis coli with no acute inflammation. Small right hepatic cyst. Assessment and Plan - Diagnosis (1) Sepsis Qualifiers: Sepsis type: sepsis due to unspecified organism Qualified Code(s): A41.9 - Sepsis, unspecified organism Is this a current diagnosis for this admission?: Yes Plan: 12/[id number]-g[age]-old male with multiple medical problems including lung cancer on chemotherapy received chemotherapy yesterday came in with high fevers chills associated with shortness of breath and cough. All the investigations unable to locate the source of infection. To put the patient in IMCU to place him on BiPAP. Blood cultures urine cultures are requested started on IV Zosyn and vancomycin in the emergency room patient received levo floxacillin and IV Rocephin. GI prophylaxis DVT prophylaxis are initiated. Consultation with Dr. Clement was requested. BiPAP was requested. ABG and EKGs are requested. Overall prognosis poor condition is critical. Patient refused LP in the ER. (2) Lung cancer Qualifiers: Laterality: right Lung location: upper lobe of lung Qualified Code(s): C34.11 - Malignant neoplasm of upper lobe, right bronchus or lung Is this a current diagnosis for this admission?: Yes Plan: 12/04/2018-patient has history of lung cancer with right upper lobe lobectomy and chemotherapy is following with Dr. Clement further management as per Dr. Ortiz. (3) COPD (chronic obstructive pulmonary disease) Qualifiers: COPD type: unspecified COPD Qualified Code(s): J44.9 - Chronic obstructive pulmonary disease, unspecified Is this a current diagnosis for this admission?: No Plan: 12/10/2018-patient has history of COPD on 2 L oxygen at home. Here in the emergency room is extremely short of breath tachypneic tachycardic plan to put him on BiPAP. ABG was done in the emergency room pH is 7.44 PCO2 44.4 bicarb is 29. To start on IV Solu-Medrol 40 mg every 8 hours, scheduled and as needed nebulizations are initiated. (4) Hypertension Is this a current diagnosis for this admission?: No Plan: 12/04/2018-patient and family given the history of hypertension blood pressure is 132/72. Stable. Plan is to resume the home medications once list is available. (5) Obesity (BMI 30.0-34.9) Is this a current diagnosis for this admission?: No Plan: 12/04/2018-patient's BMI is more than 30. He has history of lung cancer receiving chemotherapy. Dietary consult is going to be requested. (6) Enteritis Is this a current diagnosis for this admission?: Yes Plan: 12/04/2018-CT scan of the abdomen and pelvis was done the radiologist recommendation is consider enteritis blood cultures are pending started on IV Zosyn and vancomycin. May be it is the source of sepsis. We are going to continue to closely monitor the enteritis. - Time Time Spent with patient: 35 or more minutes Smoking Cessation Education: over 10 minutes Medications reviewed and adjusted accordingly: Yes Anticipated discharge: SNF
[2018-12-04 19:37] LABS: ARTERIAL BLOOD BASE EXCESS 1.7 mmol/L; ARTERIAL BLOOD H2CO3 0.99 mmol/L (1.05-1.35); ARTERIAL BLOOD HCO3 24.7 mmol/L (20-24); ARTERIAL BLOOD O2 SATURATION 98.4 % (94-98); ARTERIAL BLOOD PCO2 32.9 mmHg (35-45); ARTERIAL BLOOD PH 7.49 (7.35-7.45); ARTERIAL BLOOD PO2 109.9 mmHg (80-100); ARTERIAL BLOOD TOTAL CO2 25.7 mmol/L (23-27)
[2018-12-04 19:41] LABS: ARTERIAL BLOOD FIO2 30%
[2018-12-04] MEDS ORDERED: IBUPROFEN 800 MG TABLET PO PRN (20:26)
[2018-12-04 21:14] LABS: CREATINE KINASE MB 0.53 ng/mL (<4.55)
[2018-12-04 21:23] LABS: TROPONIN I < 0.012 ng/mL
[2018-12-04] MEDS: PIPERACILLIN SODIUM/TAZOBACTAM 3.375 GM in NORMAL SALINE 100 ML IV SCH (21:52)
[2018-12-04] MEDS: NORMAL SALINE 1000 ML 1,000 ML IV PRN (21:52)
[2018-12-04] MEDS: ENOXAPARIN SODIUM INJ 40 MG/0.4 ML DISP.SYRIN SUBCUT SCH (21:54)
[2018-12-04] MEDS: FAMOTIDINE 20 MG TABLET PO SCH (22:00)
[2018-12-04] MEDS: VANCOMYCIN HCL 1,500 MG in DEXTROSE 5%-WATER 250 ML IV SCH (22:22)
[2018-12-05] MEDS: PIPERACILLIN SODIUM/TAZOBACTAM 3.375 GM in NORMAL SALINE 100 ML IV SCH (02:26)
[2018-12-05 02:27] LABS: HEMATOCRIT 30.8 % (37.9-51.0); HEMOGLOBIN 10.4 g/dL (13.5-17.0); MEAN CORPUSCULAR HEMOGLOBIN 29.6 pg (27.0-33.4); MEAN CORPUSCULAR HGB CONC 33.7 g/dL (32.0-36.0); MEAN CORPUSCULAR VOLUME 88 fl (80-97); PLATELET COUNT 292 10^3/uL (150-450); RED BLOOD COUNT 3.51 10^6/uL (4.35-5.55); RED CELL DISTRIBUTION WIDTH 14.6 % (11.5-14.0); WHITE BLOOD COUNT 15.6 10^3/uL (4.0-10.5)
[2018-12-05 02:45] LABS: BAND NEUTROPHILS % (MANUAL) 8 % (3-5); BASOPHILS % (MANUAL) 0 % (0-2); EOSINOPHILS % (MANUAL) 0 % (0-6); LYMPHOCYTES % (MANUAL) 0 % (13-45); MONOCYTES % (MANUAL) 0 % (3-13); SEGMENTED NEUTROPHILS % (MAN) 92 % (42-78); TOTAL CELLS COUNTED 100
[2018-12-05 02:46] LABS: HYPOCHROMASIA 1+
[2018-12-05 02:47] LABS: PLATELET COMMENT ADEQUATE
[2018-12-05 03:06] LABS: CREATINE KINASE MB 0.58 ng/mL (<4.55)
[2018-12-05 03:08] LABS: TROPONIN I < 0.012 ng/mL
[2018-12-05 06:47] LABS: ALANINE AMINOTRANSFERASE 37 U/L (21-72); ALKALINE PHOSPHATASE 93 U/L (38-126); ANION GAP 14 (5-19); ASPARTATE AMINO TRANSFERASE 32 U/L (17-59); BILIRUBIN,DIRECT 0.5 mg/dL (0.0-0.4); BILIRUBIN,TOTAL 0.7 mg/dL (0.2-1.3); BLOOD UREA NITROGEN 22 mg/dL (7-20); CALCIUM 8.1 mg/dL (8.4-10.2); CARBON DIOXIDE 23 mmol/L (22-30); CHLORIDE 100 mmol/L (98-107); CHOLESTEROL 132.34 mg/dL (0-200); CREATINE KINASE 190 U/L (55-170); GLUCOSE 160 mg/dL (75-110); POTASSIUM 3.7 mmol/L (3.6-5.0); SODIUM 136.8 mmol/L (137-145); TOTAL PROTEIN 5.3 g/dL (6.3-8.2); TRIGLYCERIDES 181 mg/dL (<150)
[2018-12-05 06:54] LABS: CREATINE KINASE MB 0.71 ng/mL (<4.55); NT PRO BNP 883 pg/mL (5-900)
[2018-12-05 06:58] LABS: DIRECT LDL 78 mg/dL (<100)
[2018-12-05 07:00] LABS: VLDL CHOLESTEROL 36.2 mg/dL (10-31)
[2018-12-05 07:01] LABS: TROPONIN I < 0.012 ng/mL
[2018-12-05] MEDS ORDERED: ALBUTEROL SULFATE HFA (90 MCG/PUFF) 200 PUFF/8.5 GM MDI IH PRN (07:36)
--- NOTE | 2018-12-05 07:38 | EKG REPORT ---
SEVERITY:- BORDERLINE ECG - SINUS TACHYCARDIA RIGHT AXIS DEVIATION BORDERLINE T ABNORMALITIES, DIFFUSE LEADS : Confirmed by: Sotney Obando MD 05-Dec-2018 07:37:35
--- NOTE | 2018-12-05 09:03 | PDOC CONSULTATION ---
Consultation Consult Date: 12/05/18 Attending physician:: CORRINE WEISS Provider Consulted: PAULA DOMINGO Consult reason:: Patient with stage IV lung cancer here with cough, shortness of breath, weakness, abdominal pain History of Present Illness Admission Date/PCP: 12/04/18 18:51 FACUNDO MORALES NP Patient complains of: Weakness, shortness of breath, abdominal pain History of Present Illness: CHAD RETANA is a 63 year old male with known history of now stage IV non- small cell lung cancer, he originally was diagnosed last year when he was found to have right upper lobe mass and ultimately underwent surgery which indicated a stage II non-small cell lung cancer, thereafter he underwent 4 cycles of cisplatin/Gemzar, it was difficult for him to get through the therapy. After therapy he underwent radiation therapy. Thereafter his lung status worsened considerably, and he had to go through cardiopulmonary rehab and ultimately required home O2. He was getting a little bit better but on his first restaging CT of the chest done about 3 months ago, he had a new left upper lobe mass that was 3 cm, ultimately he went for bronc and biopsy of the left upper lobe mass as well as mediastinal adenopathy. Unfortunately, pathology indicated both squamous cell carcinoma as well as small cell lung cancer, indicating a mixed lung cancer. Therefore we initiated him on chemo immunotherapy and he received cycle #1, came in for cycle #2 on Saturday and received day 1 of cycle #2 on Saturday. Came in for day 2 of treatment yesterday, was feeling short of breath, coughing, abdominal pain. Diaphoretic and hypotensive. Tachycardic. He was admitted, upon admission he was having shaking chills and Reiger, tachycardia and hypotension, and ultimately his blood cultures have indicated gram-positive cocci in clusters. He is on broad-spectrum antibiotics with Zosyn and vancomycin and I have discussed with primary team to change from Zosyn to cefepime to minimize myelosuppression. But, clinically is much better today. He had both CTA of the chest as well as CT of the abdomen pelvis. CT of the chest indicated that the primary recurrence site of the left upper lobe has decreased in size, midsternal adenopathy is stable in size. CT of the abdomen pelvis does not show any new disease but does show some element of colitis. However, patient was severely constipated so I think that is what 1 of the issues was. Past Medical History Cardiac Medical History: Reports: Hyperlipidema - meds x 1 year, Hypertension - meds x 6 years Denies: Atrial Fibrillation, Congestive Heart Failure, Coronary Artery Disease, Myocardial Infarction, Peripheral Vascular Disease, Pulmonary Embolism, Heart Murmur Pulmonary Medical History: Reports: Bronchitis - multiple episodes (usually in the fall), Chronic Obstructive Pulmonary Disease (COPD), Pneumonia - x 1 episode, denies hospitalization Denies: Asthma, Respiratory Failure, Sleep Apnea, Tuberculosis Neurological Medical History: Denies: Seizures Malignancy Medical History: Reports: Lung Cancer - Rt lung mass GI Medical History: Reports: Gastroesophageal Reflux Disease - Tolentino's esophagitis, Dx'ed approx 3 years Denies: Crohn's Disease, Hepatitis, Hiatal Hernia Musculoskeltal Medical History: Reports: Arthritis Denies: Fibromyalgia Psychiatric Medical History: Reports: Depression - meds x 15 years Denies: Bipolar Disorder, Post Traumatic Stress Disorder Hematology: Denies: Anemia, Sickle Cell Disease Past Surgical History Past Surgical History: Reports: Appendectomy, Cholecystectomy, Orthopedic Surgery - RIGHT KNEE, Other - Bronchoscopy Denies: Colostomy, Coronary Artery Bypass Graft, Gastric Bypass Surgery, Herniorrhaphy, Pacemaker, Tonsillectomy Social History Lives with: Family Smoking Status: Former Smoker Number of Years Smokin Last Time Smoked: 2013 Frequency of Alcohol Use: None Hx Recreational Drug Use: No Drugs: None Hx Prescription Drug Abuse: No - Advance Directive Resuscitation Status: Full Code Family History Family History: Malignancy Parental Family History Reviewed: Yes Children Family History Reviewed: Yes Sibling(s) Family History Reviewed.: Yes Medication/Allergy Home Medications: Albuterol Sulfate [Proair Hfa Inhalation Aerosol 8.5 gm Mdi] 2 puff IH Q6HP PRN 12/04/18 Budesonide/Formoterol Fumarate [Symbicort Hfa 160-4.5 Mcg Inhaler 6 gm] 2 puff IH Q12 12/04/18 Citalopram Hydrobromide [Celexa 40 mg Tablet] 40 mg PO DAILY 12/04/18 Clonazepam [Klonopin 1 mg Tablet] 1 mg PO QHS 12/04/18 Diltiazem HCl [Cardizem] 120 mg PO DAILY 12/04/18 Hydrocodone/Acetaminophen [[place] 5-325 mg Tablet] 1 tab PO Q8 12/04/18 Levalbuterol HCl [Xopenex Neb 0.63 mg/3 ml Ampul] 0.63 mg NEB RTQ8HP PRN 12/04/18 Ropinirole HCl [Requip] 0.5 mg PO DAILY 12/04/18 Tamsulosin HCl [Flomax 0.4 mg Cap.sr] 0.4 mg PO DAILY 12/04/18 Tiotropium [place] [Spiriva Respimat] 2 puff IH DAILY 12/04/18 Allergies/Adverse Reactions: prednisone [Prednisone] Adverse Reaction (Intermediate, Verified 12/04/18 10:02) manuela Review of Systems Constitutional: ABSENT: chills, fever(s), headache(s), weight gain, weight loss Eyes: ABSENT: visual disturbances Ears: ABSENT: hearing changes Cardiovascular: ABSENT: chest pain, dyspnea on exertion, edema, orthropnea, palpitations Respiratory: ABSENT: cough, hemoptysis Gastrointestinal: ABSENT: abdominal pain, constipation, diarrhea, hematemesis, hematochezia, nausea, vomiting Genitourinary: ABSENT: dysuria, hematuria Musculoskeletal: ABSENT: joint swelling Integumentary: ABSENT: rash, wounds Neurological: ABSENT: abnormal gait, abnormal speech, confusion, dizziness, focal weakness, syncope Psychiatric: ABSENT: anxiety, depression, homidical ideation, suicidal ideation Endocrine: ABSENT: cold intolerance, heat intolerance, polydipsia, polyuria Hematologic/Lymphatic: ABSENT: easy bleeding, easy bruising Physical Exam Vital Signs: Temp Pulse Resp BP Pulse Ox 97.5 F 96 28 H 129/87 H 100 12/05/18 03:27 12/05/18 07:46 12/05/18 07:46 12/05/18 07:46 12/05/18 07:46 Intake & Output 12/04/18 12/05/18 12/06/18 06:59 06:59 06:59 Intake Total 3789 Output Total 500 Balance 3289 Weight 111.13 kg General appearance: PRESENT: no acute distress, well-developed, well-nourished Head exam: PRESENT: atraumatic, normocephalic Eye exam: PRESENT: conjunctiva pink, EOMI, PERRLA. ABSENT: scleral icterus Ear exam: PRESENT: normal external ear exam Mouth exam: PRESENT: moist, tongue midline Neck exam: ABSENT: carotid bruit, JVD, lymphadenopathy, thyromegaly Respiratory exam: PRESENT: clear to auscultation khushboo. ABSENT: rales, rhonchi, wheezes Cardiovascular exam: PRESENT: RRR. ABSENT: diastolic murmur, rubs, systolic murmur Pulses: PRESENT: normal dorsalis pedis pul Vascular exam: PRESENT: normal capillary refill GI/Abdominal exam: PRESENT: normal bowel sounds, soft. ABSENT: distended, guarding, mass, organolmegaly, rebound, tenderness Rectal exam: PRESENT: deferred Extremities exam: PRESENT: full ROM. ABSENT: calf tenderness, clubbing, pedal edema Neurological exam: PRESENT: alert, awake, oriented to person, oriented to place, oriented to time, oriented to situation, CN II-XII grossly intact. ABSENT: motor sensory deficit Psychiatric exam: PRESENT: appropriate affect, normal mood. ABSENT: homicidal ideation, suicidal ideation Skin exam: PRESENT: dry, intact, warm. ABSENT: cyanosis, rash Results Laboratory Results: 12/05/18 02:07 12/05/18 06:03 12/04/18 12/04/18 12/04/18 10:38 10:38 10:38 WBC 14.6 H RBC 3.98 L Hgb 11.8 L Hct 34.7 L MCV 87 MCH 29.5 MCHC 33.9 RDW 13.9 Plt Count 552 H Seg Neutrophils % Not Reportable Lymphocytes % Not Reportable Monocytes % Not Reportable Eosinophils % Not Reportable Basophils % Not Reportable Absolute Neutrophils Not Reportable Absolute Lymphocytes Not Reportable Absolute Monocytes Not Reportable Absolute Eosinophils Not Reportable Absolute Basophils Not Reportable Carbonic Acid HCO3/H2CO3 Ratio ABG pH ABG pCO2 ABG pO2 ABG HCO3 ABG O2 Saturation ABG Base Excess VBG pH VBG pCO2 VBG HCO3 VBG Base Excess FiO2 Sodium 142.0 Potassium 4.2 Chloride 98 Carbon Dioxide 29 Anion Gap 15 BUN 19 Creatinine 1.20 Est GFR ( Amer) > 60 Est GFR (Non-Af Amer) > 60 Glucose 120 H Lactic Acid 4.2 H Calcium 9.7 Magnesium 2.4 H Total Bilirubin 0.5 AST 23 ALT 31 Alkaline Phosphatase 101 Total Protein 7.2 Albumin 4.0 Triglycerides Cholesterol LDL Cholesterol Direct VLDL Cholesterol HDL Cholesterol TSH Urine Color Urine Appearance Urine pH Ur Specific [place] Urine Protein Urine Glucose (UA) Urine Ketones Urine Blood Urine Nitrite Ur Leukocyte Esterase Urine WBC (Auto) Urine RBC (Auto) 12/04/18 12/04/18 12/04/18 10:38 11:52 18:15 WBC RBC Hgb Hct MCV MCH MCHC RDW Plt Count Seg Neutrophils % Lymphocytes % Monocytes % Eosinophils % Basophils % Absolute Neutrophils Absolute Lymphocytes Absolute Monocytes Absolute Eosinophils Absolute Basophils Carbonic Acid 0.99 L HCO3/H2CO3 Ratio 24:1 ABG pH 7.49 H ABG pCO2 32.9 L ABG pO2 109.9 H ABG HCO3 24.7 H ABG O2 Saturation 98.4 H ABG Base Excess 1.7 VBG pH 7.44 H VBG pCO2 44.4 VBG HCO3 29.3 VBG Base Excess 4.5 FiO2 30% Sodium Potassium Chloride Carbon Dioxide Anion Gap BUN Creatinine Est GFR ( Amer) Est GFR (Non-Af Amer) Glucose Lactic Acid Calcium Magnesium Total Bilirubin AST ALT Alkaline Phosphatase Total Protein Albumin Triglycerides Cholesterol LDL Cholesterol Direct VLDL Cholesterol HDL Cholesterol TSH Urine Color YELLOW Urine Appearance CLEAR Urine pH 5.0 Ur Specific [place] 1.013 Urine Protein NEGATIVE Urine Glucose (UA) NEGATIVE Urine Ketones TRACE H Urine Blood NEGATIVE Urine Nitrite NEGATIVE Ur Leukocyte Esterase NEGATIVE Urine WBC (Auto) 1 Urine RBC (Auto) 2 12/04/18 12/05/18 12/05/18 20:16 02:07 02:07 WBC 15.6 H RBC 3.51 L Hgb 10.4 L Hct 30.8 L MCV 88 MCH 29.6 MCHC 33.7 RDW 14.6 H Plt Count 292 Seg Neutrophils % Not Reportable Lymphocytes % Not Reportable Monocytes % Not Reportable Eosinophils % Not Reportable Basophils % Not Reportable Absolute Neutrophils Not Reportable Absolute Lymphocytes Not Reportable Absolute Monocytes Not Reportable Absolute Eosinophils Not Reportable Absolute Basophils Not Reportable Carbonic Acid HCO3/H2CO3 Ratio ABG pH ABG pCO2 ABG pO2 ABG HCO3 ABG O2 Saturation ABG Base Excess VBG pH VBG pCO2 VBG HCO3 VBG Base Excess FiO2 Sodium Potassium Chloride Carbon Dioxide Anion Gap BUN Creatinine Est GFR ( Amer) Est GFR (Non-Af Amer) Glucose Lactic Acid 3.8 H Calcium Magnesium Total Bilirubin AST ALT Alkaline Phosphatase Total Protein Albumin Triglycerides Cholesterol LDL Cholesterol Direct VLDL Cholesterol HDL Cholesterol TSH 0.90 Urine Color Urine Appearance Urine pH Ur Specific [place] Urine Protein Urine Glucose (UA) Urine Ketones Urine Blood Urine Nitrite Ur Leukocyte Esterase Urine WBC (Auto) Urine RBC (Auto) 12/05/18 06:03 WBC RBC Hgb Hct MCV MCH MCHC RDW Plt Count Seg Neutrophils % Lymphocytes % Monocytes % Eosinophils % Basophils % Absolute Neutrophils Absolute Lymphocytes Absolute Monocytes Absolute Eosinophils Absolute Basophils Carbonic Acid HCO3/H2CO3 Ratio ABG pH ABG pCO2 ABG pO2 ABG HCO3 ABG O2 Saturation ABG Base Excess VBG pH VBG pCO2 VBG HCO3 VBG Base Excess FiO2 Sodium 136.8 L Potassium 3.7 Chloride 100 Carbon Dioxide 23 Anion Gap 14 BUN 22 H Creatinine 1.24 Est GFR ( Amer) > 60 Est GFR (Non-Af Amer) 59 L Glucose 160 H Lactic Acid Calcium 8.1 L Magnesium 2.5 H Total Bilirubin 0.7 AST 32 ALT 37 Alkaline Phosphatase 93 Total Protein 5.3 L Albumin 3.0 L Triglycerides 181 H Cholesterol 132.34 LDL Cholesterol Direct 78 VLDL Cholesterol 36.2 H HDL Cholesterol 17 L TSH Urine Color Urine Appearance Urine pH Ur Specific [place] Urine Protein Urine Glucose (UA) Urine Ketones Urine Blood Urine Nitrite Ur Leukocyte Esterase Urine WBC (Auto) Urine RBC (Auto) 12/04/18 12/04/18 12/04/18 05:05 10:38 20:16 Creatine Kinase 51 L 123 CK-MB (CK-2) Troponin I < 0.012 NT-Pro-B Natriuret Pep 12/04/18 12/05/18 12/05/18 20:16 02:07 02:07 Creatine Kinase 201 H CK-MB (CK-2) 0.53 0.58 Troponin I < 0.012 < 0.012 NT-Pro-B Natriuret Pep 12/05/18 12/05/18 06:03 06:03 Creatine Kinase 190 H CK-MB (CK-2) 0.71 Troponin I < 0.012 NT-Pro-B Natriuret Pep 883 Impressions: Acute Abdomen Series 12/04/18 12:25 IMPRESSION: Nonspecific abdomen. Possible subpulmonic effusion. Chest/Abdomen CTA 12/04/18 14:12 IMPRESSION: There is no evidence of pulmonary embolus. Paramediastinal opacification on the right suggesting prior radiation. Surgical clips are seen in the left upper lobe suggesting resection of the nodule that was present previously. There is a 4 cm somewhat low-density pretracheal lymph node. Small pericardial effusion. Abdomen/Pelvis CT 12/04/18 15:10 IMPRESSION: There is some fluid in the colon. Correlate for enteritis. Diverticulosis coli with no acute inflammation. Small right hepatic cyst. Status: Image reviewed by me - I also went over the images with the patient Assessment & Plan - Diagnosis (1) Lung cancer Qualifiers: Laterality: right Lung location: upper lobe of lung Qualified Code(s): C34.11 - Malignant neoplasm of upper lobe, right bronchus or lung Is this a current diagnosis for this admission?: Yes Plan: I believe he is actually responding to treatment, we would ultimately like to complete cycle #2 once he is discharged. (2) Septic shock Is this a current diagnosis for this admission?: Yes Plan: Continue with broad-spectrum antibiotics were changed from Zosyn to cefepime, await culture results. (3) Acute urinary retention Is this a current diagnosis for this admission?: Yes Plan: Probably multifactorial, patient was on Flomax for many years as an outpatient but ran out of it for about 2 to 3 days prior to chemotherapy on Saturday, also he was having severe constipation. This was probably the reason for the urinary retention. (4) Constipation Qualifiers: Constipation type: drug induced constipation Qualified Code(s): K59.03 - Drug induced constipation Is this a current diagnosis for this admission?: Yes Plan: Probably drug-induced from the chemotherapy, patient a large BM this morning and feels much better. - Time Time Spent: Greater than 70 Minutes - Inpatient Certification Based on my medical assessment, after consideration of the patient's comorbidities, presenting symptoms, or acuity I expect that the services needed warrant INPATIENT care.: Yes I certify that my determination is in accordance with my understanding of Medicare's requirements for reasonable and necessary INPATIENT services [42 CFR 412.3e].: Yes Medical Necessity: Need For Continuous Telemetry Monitoring, Need for IV Antibiotics, Risk of Complication if Not Cared For in Hospital
[2018-12-05] MEDS: DILTIAZEM HCL 120 MG CAP.SR.24H PO SCH (09:28)
[2018-12-05] MEDS: CITALOPRAM HYDROBROMIDE 20 MG TABLET PO SCH (09:29)
[2018-12-05] MEDS: FAMOTIDINE 20 MG TABLET PO SCH ×2 (09:29→21:02)
[2018-12-05] MEDS: ENOXAPARIN SODIUM INJ 40 MG/0.4 ML DISP.SYRIN SUBCUT SCH (09:29)
[2018-12-05] MEDS: TAMSULOSIN HCL 0.4 MG CAP.SR.24H PO SCH (09:29)
[2018-12-05] MEDS: VANCOMYCIN HCL 1,500 MG in DEXTROSE 5%-WATER 250 ML IV SCH ×2 (09:30→21:45)
[2018-12-05] MEDS: LEVALBUTEROL HCL NEB 0.63 MG/3 ML AMPUL NEB PRN (09:42)
[2018-12-05] MEDS ORDERED: (PENDING PHARMACY ID) (Tiotropium Bromide [Spiriva Respimat] 2 PUFF) IH SCH (10:00)
[2018-12-05] MEDS ORDERED: CEFEPIME 2 GM/D5W RTU 2 GM/50 ML RTUPB IV SCH (10:00)
[2018-12-05] MEDS ORDERED: VANCOMYCIN HCL INJ 1000 MG VIAL IV SCH (10:00)
[2018-12-05] MEDS ORDERED: (PENDING PHARMACY ID) (Ropinirole Hcl [Requip] 0.5 MG) PO SCH (10:00)
[2018-12-05] MEDS ORDERED: (PENDING PHARMACY ID) (Diltiazem Hcl [Cardizem] 120 MG) PO SCH (10:00)
[2018-12-05] MEDS ORDERED: (PENDING PHARMACY ID) (Citalopram Hydrobromide [Celexa 40 Mg Tablet] 40 MG) PO SCH (10:00)
[2018-12-05] MEDS ORDERED: DILTIAZEM HCL INJ 25 MG/5 ML VIAL ONE (10:01)
[2018-12-05] MEDS ORDERED: DILTIAZEM HCL INJ 25 MG/5 ML VIAL IV ONE (10:15)
--- NOTE | 2018-12-05 10:24 | PDOC PROGRESS REPORT ---
Subjective Progress Note for:: 12/05/18 Subjective:: 63 year old male with history of lung cancer on chemotherapy status post right upper lobe lobectomy, BPH, hypertension, COPD on 2 L oxygen at night received chemotherapy yesterday from this morning is having the fevers and chills increasing shortness of breath he went to Dr. Clement's office he was sent over here for further management. The work-up was done in the ER and CT of the chest negative for acute abnormality CT abdomen pelvis was negative for abnormalities no source of infection was found patient denies any neck pains denies any headaches denies any visual problems on my examination no neck stiffness noticed but the patient has difficulty getting into the bed unable to lay flat unable to do further examination to look for meningeal signs and symptoms. Patient is already telling me he does not want any needle in the back. Wants to be a full code. Per the family patient was [facility] at the end of last month on 3 different antibiotics and antibiotics are continued by Dr. Clement as an outpatient last dose was taken 2 days ago. Family is unable to tell the antibiotics patient is on. 12/[id number]-pjbp-old male with the lung cancer On chemotherapy admitted with high fevers and severe shortness of breath. Temperature came down to 97.5 this morning blood cultures are positive at this moment. He had another episode of respiratory distress this morning tachypneic tachycardic heart rate went up to 140s he received his p.o. Cardizem still heart rate is around 140 and I requested the nurse to give Cardizem 10 mg IV 1 dose. These things happen after patient will be requested physical therapy at that time he is off the BiPAP. As per Dr. Clement's request IV dosing will change it to IV cefepime. Reason For Visit: SEPSIS Physical Exam Vital Signs: Temp Pulse Resp BP Pulse Ox 97.5 F 136 H 32 H 129/87 H 99 12/05/18 03:27 12/05/18 09:40 12/05/18 09:40 12/05/18 07:46 12/05/18 09:40 Intake & Output 12/04/18 12/05/18 12/06/18 06:59 06:59 06:59 Intake Total 3789 Output Total 500 Balance 3289 Weight 111.13 kg General appearance: PRESENT: obese, other - Patient is in moderate distress. Head exam: PRESENT: atraumatic Eye exam: PRESENT: PERRLA Mouth exam: PRESENT: moist, tongue midline Teeth exam: PRESENT: poor dentation Neck exam: ABSENT: carotid bruit, JVD, lymphadenopathy, thyromegaly Respiratory exam: PRESENT: decreased breath sounds, wheezes Cardiovascular exam: PRESENT: tachycardia GI/Abdominal exam: PRESENT: normal bowel sounds, soft. ABSENT: distended, guarding, mass, organolmegaly, rebound, tenderness Rectal exam: PRESENT: deferred Extremities exam: PRESENT: full ROM. ABSENT: calf tenderness, clubbing, pedal edema Neurological exam: PRESENT: alert, awake, oriented to person, oriented to place, oriented to time, oriented to situation, CN II-XII grossly intact. ABSENT: motor sensory deficit Psychiatric exam: PRESENT: appropriate affect, normal mood. ABSENT: homicidal ideation, suicidal ideation Results Laboratory Results: 12/05/18 02:07 12/05/18 06:03 12/04/18 12/04/18 12/04/18 10:38 10:38 10:38 WBC 14.6 H RBC 3.98 L Hgb 11.8 L Hct 34.7 L MCV 87 MCH 29.5 MCHC 33.9 RDW 13.9 Plt Count 552 H Seg Neutrophils % Not Reportable Lymphocytes % Not Reportable Monocytes % Not Reportable Eosinophils % Not Reportable Basophils % Not Reportable Absolute Neutrophils Not Reportable Absolute Lymphocytes Not Reportable Absolute Monocytes Not Reportable Absolute Eosinophils Not Reportable Absolute Basophils Not Reportable Carbonic Acid HCO3/H2CO3 Ratio ABG pH ABG pCO2 ABG pO2 ABG HCO3 ABG O2 Saturation ABG Base Excess VBG pH VBG pCO2 VBG HCO3 VBG Base Excess FiO2 Sodium 142.0 Potassium 4.2 Chloride 98 Carbon Dioxide 29 Anion Gap 15 BUN 19 Creatinine 1.20 Est GFR ( Amer) > 60 Est GFR (Non-Af Amer) > 60 Glucose 120 H Lactic Acid 4.2 H Calcium 9.7 Magnesium 2.4 H Total Bilirubin 0.5 AST 23 ALT 31 Alkaline Phosphatase 101 Total Protein 7.2 Albumin 4.0 Triglycerides Cholesterol LDL Cholesterol Direct VLDL Cholesterol HDL Cholesterol TSH Urine Color Urine Appearance Urine pH Ur Specific Shiner Urine Protein Urine Glucose (UA) Urine Ketones Urine Blood Urine Nitrite Ur Leukocyte Esterase Urine WBC (Auto) Urine RBC (Auto) 12/04/18 12/04/18 12/04/18 10:38 11:52 18:15 WBC RBC Hgb Hct MCV MCH MCHC RDW Plt Count Seg Neutrophils % Lymphocytes % Monocytes % Eosinophils % Basophils % Absolute Neutrophils Absolute Lymphocytes Absolute Monocytes Absolute Eosinophils Absolute Basophils Carbonic Acid 0.99 L HCO3/H2CO3 Ratio 24:1 ABG pH 7.49 H ABG pCO2 32.9 L ABG pO2 109.9 H ABG HCO3 24.7 H ABG O2 Saturation 98.4 H ABG Base Excess 1.7 VBG pH 7.44 H VBG pCO2 44.4 VBG HCO3 29.3 VBG Base Excess 4.5 FiO2 30% Sodium Potassium Chloride Carbon Dioxide Anion Gap BUN Creatinine Est GFR ( Amer) Est GFR (Non-Af Amer) Glucose Lactic Acid Calcium Magnesium Total Bilirubin AST ALT Alkaline Phosphatase Total Protein Albumin Triglycerides Cholesterol LDL Cholesterol Direct VLDL Cholesterol HDL Cholesterol TSH Urine Color YELLOW Urine Appearance CLEAR Urine pH 5.0 Ur Specific [place]iner 1.013 Urine Protein NEGATIVE Urine Glucose (UA) NEGATIVE Urine Ketones TRACE H Urine Blood NEGATIVE Urine Nitrite NEGATIVE Ur Leukocyte Esterase NEGATIVE Urine WBC (Auto) 1 Urine RBC (Auto) 2 12/04/18 12/05/18 12/05/18 20:16 02:07 02:07 WBC 15.6 H RBC 3.51 L Hgb 10.4 L Hct 30.8 L MCV 88 MCH 29.6 MCHC 33.7 RDW 14.6 H Plt Count 292 Seg Neutrophils % Not Reportable Lymphocytes % Not Reportable Monocytes % Not Reportable Eosinophils % Not Reportable Basophils % Not Reportable Absolute Neutrophils Not Reportable Absolute Lymphocytes Not Reportable Absolute Monocytes Not Reportable Absolute Eosinophils Not Reportable Absolute Basophils Not Reportable Carbonic Acid HCO3/H2CO3 Ratio ABG pH ABG pCO2 ABG pO2 ABG HCO3 ABG O2 Saturation ABG Base Excess VBG pH VBG pCO2 VBG HCO3 VBG Base Excess FiO2 Sodium Potassium Chloride Carbon Dioxide Anion Gap BUN Creatinine Est GFR ( Amer) Est GFR (Non-Af Amer) Glucose Lactic Acid 3.8 H Calcium Magnesium Total Bilirubin AST ALT Alkaline Phosphatase Total Protein Albumin Triglycerides Cholesterol LDL Cholesterol Direct VLDL Cholesterol HDL Cholesterol TSH 0.90 Urine Color Urine Appearance Urine pH Ur Specific Shiner Urine Protein Urine Glucose (UA) Urine Ketones Urine Blood Urine Nitrite Ur Leukocyte Esterase Urine WBC (Auto) Urine RBC (Auto) 12/05/18 06:03 WBC RBC Hgb Hct MCV MCH MCHC RDW Plt Count Seg Neutrophils % Lymphocytes % Monocytes % Eosinophils % Basophils % Absolute Neutrophils Absolute Lymphocytes Absolute Monocytes Absolute Eosinophils Absolute Basophils Carbonic Acid HCO3/H2CO3 Ratio ABG pH ABG pCO2 ABG pO2 ABG HCO3 ABG O2 Saturation ABG Base Excess VBG pH VBG pCO2 VBG HCO3 VBG Base Excess FiO2 Sodium 136.8 L Potassium 3.7 Chloride 100 Carbon Dioxide 23 Anion Gap 14 BUN 22 H Creatinine 1.24 Est GFR ( Amer) > 60 Est GFR (Non-Af Amer) 59 L Glucose 160 H Lactic Acid Calcium 8.1 L Magnesium 2.5 H Total Bilirubin 0.7 AST 32 ALT 37 Alkaline Phosphatase 93 Total Protein 5.3 L Albumin 3.0 L Triglycerides 181 H Cholesterol 132.34 LDL Cholesterol Direct 78 VLDL Cholesterol 36.2 H HDL Cholesterol 17 L TSH Urine Color Urine Appearance Urine pH Ur Specific Shiner Urine Protein Urine Glucose (UA) Urine Ketones Urine Blood Urine Nitrite Ur Leukocyte Esterase Urine WBC (Auto) Urine RBC (Auto) 12/04/18 12/04/18 12/04/18 05:05 10:38 20:16 Creatine Kinase 51 L 123 CK-MB (CK-2) Troponin I < 0.012 NT-Pro-B Natriuret Pep 12/04/18 12/05/18 12/05/18 20:16 02:07 02:07 Creatine Kinase 201 H CK-MB (CK-2) 0.53 0.58 Troponin I < 0.012 < 0.012 NT-Pro-B Natriuret Pep 12/05/18 12/05/18 06:03 06:03 Creatine Kinase 190 H CK-MB (CK-2) 0.71 Troponin I < 0.012 NT-Pro-B Natriuret Pep 883 Impressions: Acute Abdomen Series 12/04/18 12:25 IMPRESSION: Nonspecific abdomen. Possible subpulmonic effusion. Chest/Abdomen CTA 12/04/18 14:12 IMPRESSION: There is no evidence of pulmonary embolus. Paramediastinal opacification on the right suggesting prior radiation. Surgical clips are seen in the left upper lobe suggesting resection of the nodule that was present previously. There is a 4 cm somewhat low-density pretracheal lymph node. Small pericardial effusion. Abdomen/Pelvis CT 12/04/18 15:10 IMPRESSION: There is some fluid in the colon. Correlate for enteritis. Diverticulosis coli with no acute inflammation. Small right hepatic cyst. Assessment and Plan - Diagnosis (1) Sepsis Qualifiers: Sepsis type: sepsis due to unspecified organism Qualified Code(s): A41.9 - Sepsis, unspecified organism Is this a current diagnosis for this admission?: Yes Plan: 12/04/[id number]-kdns-old male with multiple medical problems including lung cancer on chemotherapy received chemotherapy yesterday came in with high fevers chills associated with shortness of breath and cough. All the investigations unable to locate the source of infection. To put the patient in IMCU to place him on BiPAP. Blood cultures urine cultures are requested started on IV Zosyn and vancomycin in the emergency room patient received levo floxacillin and IV Rocephin. GI prophylaxis DVT prophylaxis are initiated. Consultation with Dr. Clement was requested. BiPAP was requested. ABG and EKGs are requested. Overall prognosis poor condition is critical. Patient refused LP in the ER. 12/05/[id number]-zgww-old male admitted with severe shortness of breath and high fever tachycardia tachypnea and blood cultures came back positive CT abdomen indicates possible enteritis he is receiving chemotherapy. WBC count went up to 15,900 today after noted he is on IV Solu-Medrol during this admission. As per Dr. Clement's recommendations IV Zosyn which is switched to IV cefapime. Presently on IV prime and vancomycin. Plan is to continue the present management. (2) Lung cancer Qualifiers: Laterality: right Lung location: upper lobe of lung Qualified Code(s): C34.11 - Malignant neoplasm of upper lobe, right bronchus or lung Is this a current diagnosis for this admission?: Yes Plan: 12/04/2018-patient has history of lung cancer with right upper lobe lobectomy and chemotherapy is following with Dr. Clement further management as per Dr. Ortiz. 12/05/2018-patient has history of lung cancer with right upper lobe lobectomy and presently getting chemotherapy for left lung mass with chemotherapy tumor size is shrinking. (3) COPD (chronic obstructive pulmonary disease) Qualifiers: COPD type: unspecified COPD Qualified Code(s): J44.9 - Chronic obstructive pulmonary disease, unspecified Is this a current diagnosis for this admission?: No Plan: 12/04/2018-patient has history of COPD on 2 L oxygen at home. Here in the emergency room is extremely short of breath tachypneic tachycardic plan to put him on BiPAP. ABG was done in the emergency room pH is 7.44 PCO2 44.4 bicarb is 29. To start on IV Solu-Medrol 40 mg every 8 hours, scheduled and as needed nebulizations are initiated. 12/05/2018-patient has history of COPD on 2 L of oxygen at home. With BiPAP he is a shortness of breath is much improving. He is also receiving IV Solu-Medrol 40 mg every 8 hours and scheduled and as needed nebulizations. Plan is to continue the present management. (4) Hypertension Is this a current diagnosis for this admission?: No Plan: 12/04/2018-patient and family given the history of hypertension blood pressure is 132/72. Stable. Plan is to resume the home medications once list is available. 12/05/2018-patient has history of hypertension his blood pressure today is 136/96. Stable. Home medications are resumed. (5) Obesity (BMI 30.0-34.9) Is this a current diagnosis for this admission?: No (6) Enteritis Is this a current diagnosis for this admission?: Yes - Time Time Spent with patient: 35 or more minutes Medications reviewed and adjusted accordingly: Yes Anticipated discharge: SNF
[2018-12-05] MEDS: LORAZEPAM INJ 2 MG/1 ML VIAL IV PRN (11:18)
[2018-12-05] MEDS: FLUTICASONE/VILANTEROL 200-25 MCG/DOSE IH SCH (11:23)
[2018-12-05] MEDS: TIOTROPIUM BROMIDE DPI 5 CAP/KIT (18 MCG/CAP) IH SCH (11:23)
[2018-12-05] MEDS: ROPINIROLE HCL 1 MG TABLET PO SCH (11:24)
[2018-12-05] MEDS: CEFEPIME HCL 2 GM in DEXTROSE 5%-WATER 50 ML IV SCH ×2 (11:24→21:02)
[2018-12-05] MEDS: HYDROCODONE/ACETAMINOPHEN 5-325 MG TABLET PO SCH ×2 (17:30→21:02)
[2018-12-05] MEDS: NORMAL SALINE 1000 ML 1,000 ML IV PRN (17:30)
[2018-12-05] MEDS ORDERED: CLONAZEPAM 1 MG TABLET PO SCH (22:00)
[2018-12-05] MEDS ORDERED: MORPHINE SULFATE 10 MG/ML INJ IV ONE (23:00)
--- NOTE | 2018-12-06 00:04 | Progress Note ---
Provider Note Provider Note: Critical care note: 12/05/2018 Critical care initiated: 10:08 PM Critical care issue: Acutely increased abdominal pain. The patient was noted by his nurse to have acutely increased abdominal pain beginning sometime around 8 PM. He continued to complain of severe pain and he was noted to no longer be having any diarrhea or stool output nor was he expelling any gas. He complained of severe pressure pain in the upper abdomen bilaterally. The pain was not improved with oral [place]. Pain was subsequently treated with IV morphine 4 mg x 1 and again did not improve. Patient was seen with [id number] contact from 23:23 until 23:39 during which time a history and examination were performed. Patient was found to have marked gaseous distention of his abdomen with hypoactive to absent bowel sounds and moderate to severe tenderness on palpation in the upper abdomen. The decision to consult Dr. Ferris for surgical input was made and a noncontrast CT of the abdomen and pelvis was ordered to facilitate Dr. Ferris's consultation. Critical care discontinued: 23:58 Total [id number] time: 16 minutes
[2018-12-06] MEDS ORDERED: HALOPERIDOL LACTATE INJ 5 MG/1 ML VIAL ONE (00:36)
--- NOTE | 2018-12-06 00:44 | RADIOLOGY REPORT (SQ) ---
EXAM DESCRIPTION: RadLex: CT ABDOMEN PELVIS WITHOUT IV CONTRAST CLINICAL HISTORY: 63 years Male; acute increase in abdominal pain with distention TECHNIQUE: CT of the abdomen and pelvis without contrast. All CT scans at this facility use dose modulation, iterative reconstruction, and/or weight based dosing when appropriate to reduce radiation dose to as low as reasonably achievable. COMPLETED: 12/05/2018 00:00 COMPARISON: CT 12/04/2018 FINDINGS: Abdomen: Liver: 1.6 cm hypodense lesion at the posterior margin of segment 7, likely cyst, unchanged. Gallbladder: Surgically absent Pancreas:Within normal limits Spleen:Within normal limits Right kidney: Mild hydronephrosis. Moderate hydroureter. No calculi. Left kidney: Mild hydronephrosis. Hydroureter. No calculi. Adrenal glands:Within normal limits Vascular structures:Within normal limits (although limited evaluation on noncontrast exam). Pelvis: Small bowel:No significant distention. Appendix:Within normal limits Colon:No distention or acute pericolonic edema. No free intraperitoneal fluid or air. Bones: Chronic degenerative changes of the lumbar spine are again noted. Bladder: Markedly distended, 13 x 22 x 12 cm. Fairchild catheter balloon is in the prostatic urethra. The catheter does not extend into the bladder. No pelvic mass or adenopathy. Note that evaluation of the bowel and solid organs is somewhat limited due to lack of intravenous and oral contrast. IMPRESSION: 1. Fairchild catheter balloon is inflated in the prostatic urethra. The catheter does not extend into the bladder. 2. Bladder is markedly distended, with bilateral hydronephrosis.
[2018-12-06] MEDS ORDERED: HALOPERIDOL LACTATE INJ 5 MG/1 ML VIAL IV ONE (00:45)
[2018-12-06] MEDS: LEVALBUTEROL HCL NEB 0.63 MG/3 ML AMPUL NEB PRN ×2 (00:53→08:14)
[2018-12-06] MEDS ORDERED: ENOXAPARIN SODIUM INJ 120 MG/0.8 ML DISP.SYRIN SUBCUT SCH (01:09)
[2018-12-06 01:11] LABS: ARTERIAL BLOOD H2CO3 1.15 mmol/L (1.05-1.35); ARTERIAL BLOOD HCO3 22.6 mmol/L (20-24); ARTERIAL BLOOD O2 SATURATION 99.3 % (94-98); ARTERIAL BLOOD PCO2 38.3 mmHg (35-45); ARTERIAL BLOOD PH 7.39 (7.35-7.45); ARTERIAL BLOOD PO2 192.8 mmHg (80-100); ARTERIAL BLOOD TOTAL CO2 23.8 mmol/L (23-27)
[2018-12-06 01:15] LABS: ARTERIAL BLOOD FIO2 30%
[2018-12-06] MEDS ORDERED: MEROPENEM 1 GM in NORMAL SALINE 50 ML IV SCH (02:00)
[2018-12-06] MEDS ORDERED: MEROPENEM 1 GM VIAL IV SCH ×2 (02:15→02:30)
[2018-12-06] MEDS: LORAZEPAM INJ 2 MG/1 ML VIAL IV PRN ×3 (02:19→21:23)
[2018-12-06] MEDS ORDERED: MEROPENEM 1 GM VIAL IV PRN (02:19)
[2018-12-06] MEDS: ACETAMINOPHEN 650 MG SUPP.RECT PR PRN (02:21)
[2018-12-06] MEDS ORDERED: MEROPENEM 1 GM VIAL ONE (02:25)
[2018-12-06] MEDS ORDERED: ENOXAPARIN SODIUM INJ 30 MG/0.3 ML DISP.SYRIN ONE (02:26)
[2018-12-06] MEDS ORDERED: ENOXAPARIN SODIUM INJ 80 MG/0.8 ML DISP.SYRIN SUBCUT ONE (02:26)
--- NOTE | 2018-12-06 02:51 | Progress Note ---
Provider Note Provider Note: Critical Care Note: 12/06/2018 Onset of critical care: 00:40 Critical care problem: Restlessness with tachycardia and dyspnea of sudden onset. Patient was seen in his room with a rapid response being called due to the sudden onset of severe restlessness with tachycardia and dyspnea. The patient's changes had occurred when he moved from the chair to the examination table in radiology to have his noncontrast CT scan of the abdomen and pelvis performed. His symptoms have persisted since the onset and have not responded to treatment with anxiolytics. On evaluation at bedside he continued to have severe abdominal pain with persistent gaseous distention and tenderness to palpation in the upper abdomen. Additionally his chest exam showed mildly decreased breath sounds throughout all small and a mildly prolonged expiratory phase but no rales rhonchi or wheezes were noted. Air motion was judged to be good. The CT scan of the abdomen and pelvis revealed a markedly distended urinary bladder with bilateral hydronephrosis and a malpositioned Fairchild catheter. The patient's Fairchild catheter was immediately adjusted and the urine output improved immediately although the patient's symptoms remained unchanged even after several hundred mL of urine were collected in the bag. Patient's temperature was rechecked and found to be 104.4 F. Patient was subsequently transferred to the ICU due to worsening sepsis. Evaluation the patient continued in the ICU where a CTA of the chest was going to be done however the patient was unable to tolerate getting back in the CT scanner. It was elected at that point to treat the patient with therapeutic doses of Lovenox to treat for any possible pulmonary emboli and sepsis doses of meropenem with added metronidazole for anaerobic coverage and discontinuation of cefepime. Vancomycin will be continued as currently ordered and the patient's fever was treated with Tylenol suppositories. End critical care time: 0250 Total face to face critical care time: 28 minutes
--- NOTE | 2018-12-06 03:06 | ADVANCED CARE ---
- Diagnosis (1) Sepsis Diagnosis Current: Yes (2) Lung cancer Diagnosis Current: Yes (3) Fever Diagnosis Current: Yes (4) COPD (chronic obstructive pulmonary disease) Diagnosis Current: Yes (5) Obesity (BMI 30.0-34.9) Diagnosis Current: Yes Attendance: Patient and myself Resuscitation Status: Full Code Discussion: The patient's resuscitation status was discussed with him prior to his move to the ICU. He wishes to remain a full code for a cardiac or pulmonary arrest during this hospitalization. He has designated BG Reynoso as his medical decision surrogate. He does understand the concept of a living well and has evidently considered this in the past but at this point in time he is not ready to commit to establishing a living will. Care Planning Goals: #1. Patient will remain a full code #2. Patient's medical surrogate decision-maker will be BG Reynoso Document(s) Completed: 1. Full CODE STATUS is maintained in the EMR and medical orders. 2 BG Reynoso is entered as the patient's surrogate medical decision maker. Time Spent: 16 minutes
[2018-12-06] MEDS: MEROPENEM 1 GM in NORMAL SALINE 50 ML IV SCH ×4 (03:19→17:31)
[2018-12-06] MEDS ORDERED: NORMAL SALINE 1000 ML 1,000 ML IV ONE ×2 (03:30→04:30)
--- NOTE | 2018-12-06 04:01 | PDOC CONSULTATION ---
Consultation Consult Date: 12/06/18 Provider Consulted: JEANETTE HOWE History of Present Illness Admission Date/PCP: 12/04/18 18:51 FACUNDO MORALES NP History of Present Illness: CHAD RETANA is a 63 year old male pt with known lung cancer copd, on home oxygen. recent infusion of chemo rx. Pt was admitted yesterday for rx of sepsis, constipation and urinary retention. pt was on the nursing floor and doing reasonably well , rx with iv abx surgery was called by the hospitalist on duty for acute abd pain. pt was c/o of severe lower abd pain. pt has hx of urinary retention and has a merritt in place draining small amts of urine. Past Medical History Cardiac Medical History: Reports: Hyperlipidema - meds x 1 year, Hypertension - meds x 6 years Denies: Atrial Fibrillation, Congestive Heart Failure, Coronary Artery Disease, Myocardial Infarction, Peripheral Vascular Disease, Pulmonary Embolism, Heart Murmur Pulmonary Medical History: Reports: Bronchitis - multiple episodes (usually in the fall), Chronic Obstructive Pulmonary Disease (COPD), Pneumonia - x 1 episode, denies hospitalization Denies: Asthma, Respiratory Failure, Sleep Apnea, Tuberculosis Neurological Medical History: Denies: Seizures Malignancy Medical History: Reports: Lung Cancer - Rt lung mass GI Medical History: Reports: Gastroesophageal Reflux Disease - Tolentino's esophagitis, Dx'ed approx 3 years Denies: Crohn's Disease, Hepatitis, Hiatal Hernia Musculoskeltal Medical History: Reports: Arthritis Denies: Fibromyalgia Psychiatric Medical History: Reports: Depression - meds x 15 years Denies: Bipolar Disorder, Post Traumatic Stress Disorder Hematology: Denies: Anemia, Sickle Cell Disease Past Surgical History Past Surgical History: Reports: Appendectomy, Cholecystectomy, Orthopedic Surgery - RIGHT KNEE, Other - Bronchoscopy Denies: Colostomy, Coronary Artery Bypass Graft, Gastric Bypass Surgery, Herniorrhaphy, Pacemaker, Tonsillectomy Social History Lives with: Family Smoking Status: Former Smoker Number of Years Smokin Last Time Smoked: 2013 Frequency of Alcohol Use: None Hx Recreational Drug Use: No Drugs: None Hx Prescription Drug Abuse: No - Advance Directive Resuscitation Status: Full Code Family History Family History: Malignancy Parental Family History Reviewed: No Children Family History Reviewed: NA Sibling(s) Family History Reviewed.: NA Medication/Allergy Home Medications: Albuterol Sulfate [Proair Hfa Inhalation Aerosol 8.5 gm Mdi] 2 puff IH Q6HP PRN 12/04/18 Budesonide/Formoterol Fumarate [Symbicort Hfa 160-4.5 Mcg Inhaler 6 gm] 2 puff IH Q12 12/04/18 Citalopram Hydrobromide [Celexa 40 mg Tablet] 40 mg PO DAILY 12/04/18 Clonazepam [Klonopin 1 mg Tablet] 1 mg PO QHS 12/04/18 Diltiazem HCl [Cardizem] 120 mg PO DAILY 12/04/18 Hydrocodone/Acetaminophen [Carpio 5-325 mg Tablet] 1 tab PO Q8 12/04/18 Levalbuterol HCl [Xopenex Neb 0.63 mg/3 ml Ampul] 0.63 mg NEB RTQ8HP PRN 12/04/18 Ropinirole HCl [Requip] 0.5 mg PO DAILY 12/04/18 Tamsulosin HCl [Flomax 0.4 mg Cap.sr] 0.4 mg PO DAILY 12/04/18 Tiotropium Hyampom [Spiriva Respimat] 2 puff IH DAILY 12/04/18 Allergies/Adverse Reactions: prednisone [Prednisone] Adverse Reaction (Intermediate, Verified 12/04/18 10:02) manuela Review of Systems Constitutional: PRESENT: anorexia, chills, fever(s) Eyes: ABSENT: visual disturbances Ears: ABSENT: hearing changes Nose, Mouth, and Throat: ABSENT: as per HPI, headache(s), mouth pain, sore throat, vertigo, other Respiratory: PRESENT: cough, dyspnea Gastrointestinal: PRESENT: abdominal pain, bloating, constipation Genitourinary: PRESENT: difficulty urinating Musculoskeletal: ABSENT: joint swelling Integumentary: ABSENT: rash, wounds Neurological: PRESENT: tremor(s) Psychiatric: PRESENT: anxiety Endocrine: PRESENT: as per HPI Hematologic/Lymphatic: ABSENT: easy bleeding, easy bruising Physical Exam Vital Signs: Temp Pulse Resp BP Pulse Ox 97.9 F 155 H 33 H 132/88 H 100 12/05/18 19:27 12/06/18 00:54 12/06/18 01:15 12/05/18 19:27 12/06/18 01:15 Intake & Output 12/04/18 12/05/18 12/06/18 06:59 06:59 06:59 Intake Total 3789 2005 Output Total 500 1225 Balance 3289 781 Weight 111.13 kg General appearance: PRESENT: morbidly obese, obese Head exam: PRESENT: normocephalic Eye exam: PRESENT: PERRLA Ear exam: PRESENT: normal external ear exam Mouth exam: PRESENT: dry mucosa Throat exam: ABSENT: post pharyngeal erythema, tonsillar erythema, tonsillar exudate, tonsillogmegaly, other Neck exam: PRESENT: full ROM Respiratory exam: PRESENT: decreased breath sounds, prolonged expiratory phas, retraction, tachypnea Cardiovascular exam: PRESENT: tachycardia Pulses: PRESENT: +2 pedal pulses bilateral Vascular exam: PRESENT: normal capillary refill GI/Abdominal exam: PRESENT: distended, guarding, other - firm, to palpation Rectal exam: PRESENT: deferred Gentrourinary exam: PRESENT: indwelling catheter Extremities exam: PRESENT: full ROM Musculoskeletal exam: PRESENT: full ROM Neurological exam: PRESENT: alert, awake, oriented to person Psychiatric exam: PRESENT: anxious Skin exam: PRESENT: dry Results Laboratory Results: 12/05/18 02:07 12/05/18 06:03 12/05/18 12/05/18 12/06/18 02:07 06:03 00:59 Carbonic Acid 1.15 HCO3/H2CO3 Ratio 19:1 ABG pH 7.39 ABG pCO2 38.3 ABG pO2 192.8 H ABG HCO3 22.6 ABG O2 Saturation 99.3 H ABG Base Excess -2.0 FiO2 30% Sodium 136.8 L Potassium 3.7 Chloride 100 Carbon Dioxide 23 Anion Gap 14 BUN 22 H Creatinine 1.24 Est GFR ( Amer) > 60 Est GFR (Non-Af Amer) 59 L Glucose 160 H Calcium 8.1 L Magnesium 2.5 H Total Bilirubin 0.7 AST 32 ALT 37 Alkaline Phosphatase 93 Total Protein 5.3 L Albumin 3.0 L Triglycerides 181 H Cholesterol 132.34 LDL Cholesterol Direct 78 VLDL Cholesterol 36.2 H HDL Cholesterol 17 L TSH 0.90 12/04/18 12/04/18 12/04/18 05:05 10:38 20:16 Creatine Kinase 51 L 123 CK-MB (CK-2) Troponin I < 0.012 NT-Pro-B Natriuret Pep 12/04/18 12/05/18 12/05/18 20:16 02:07 02:07 Creatine Kinase 201 H CK-MB (CK-2) 0.53 0.58 Troponin I < 0.012 < 0.012 NT-Pro-B Natriuret Pep 12/05/18 12/05/18 06:03 06:03 Creatine Kinase 190 H CK-MB (CK-2) 0.71 Troponin I < 0.012 NT-Pro-B Natriuret Pep 883 Impressions: Acute Abdomen Series 12/04/18 12:25 IMPRESSION: Nonspecific abdomen. Possible subpulmonic effusion. Chest/Abdomen CTA 12/04/18 14:12 IMPRESSION: There is no evidence of pulmonary embolus. Paramediastinal opacification on the right suggesting prior radiation. Surgical clips are seen in the left upper lobe suggesting resection of the nodule that was present previously. There is a 4 cm somewhat low-density pretracheal lymph node. Small pericardial effusion. Abdomen/Pelvis CT 12/05/18 00:00 IMPRESSION: 1. Merritt catheter balloon is inflated in the prostatic urethra. The catheter does not extend into the bladder. 2. Bladder is markedly distended, with bilateral hydronephrosis. Assessment & Plan - Diagnosis (1) Acute urinary retention Is this a current diagnosis for this admission?: Yes (2) Lung cancer Qualifiers: Laterality: right Lung location: upper lobe of lung Qualified Code(s): C34.11 - Malignant neoplasm of upper lobe, right bronchus or lung Is this a current diagnosis for this admission?: Yes (3) Obesity (BMI 30.0-34.9) Is this a current diagnosis for this admission?: No (4) Pneumonia Qualifiers: Pneumonia type: due to unspecified organism Laterality: right Lung location: upper lobe of lung Qualified Code(s): J18.1 - Lobar pneumonia, unspecified organism - Plan Summary Plan Summary: pt initially admitted sepsis after chemo rx of lung cancer initial presentation in er 2 days ago with abd pain that improved after merritt insertion and relieve of urinary retention pt then developed more abd pain eariler this pm and a repeat ct was done which was essentially normal except for a massively distended urinary bladder. pt was transferred to icu for higher level of care and for temp to 104. after return from ct scan the merritt cath replaced and approx 2 liters of urine drained with resolution of abd pain impression: 1. acute abd pain secondary to acute urinary retention I have reviewed both ct scans of his abd, and do not see any evidence for abdominal cause of sepsis. the massively distended urinary bladder can explain the abd pain, it has since resolved merritt replacemnt surgery will follow for now.
[2018-12-06] MEDS: NORMAL SALINE 1000 ML 1,000 ML IV PRN (06:39)
[2018-12-06] MEDS: HYDROCODONE/ACETAMINOPHEN 5-325 MG TABLET PO SCH ×2 (06:39→13:20)
[2018-12-06 06:43] LABS: HEMATOCRIT 28.5 % (37.9-51.0); HEMOGLOBIN 9.7 g/dL (13.5-17.0); MEAN CORPUSCULAR HEMOGLOBIN 29.7 pg (27.0-33.4); MEAN CORPUSCULAR HGB CONC 33.9 g/dL (32.0-36.0); MEAN CORPUSCULAR VOLUME 88 fl (80-97); PLATELET COUNT 167 10^3/uL (150-450); RED BLOOD COUNT 3.25 10^6/uL (4.35-5.55); RED CELL DISTRIBUTION WIDTH 14.6 % (11.5-14.0); WHITE BLOOD COUNT 17.3 10^3/uL (4.0-10.5)
[2018-12-06] MEDS: METRONIDAZOLE 500 MG/NS RTU 500 MG/100 ML RTUPB IV SCH ×3 (06:44→17:30)
[2018-12-06 07:00] LABS: BASOPHILS % (MANUAL) 0 % (0-2); EOSINOPHILS % (MANUAL) 0 % (0-6); HELMET CELLS SLIGHT; LYMPHOCYTES % (MANUAL) 0 % (13-45); MONOCYTES % (MANUAL) 0 % (3-13); POIKILOCYTOSIS SLIGHT; SEGMENTED NEUTROPHILS % (MAN) 100 % (42-78); TEAR DROP CELLS SLIGHT; TOTAL CELLS COUNTED 100; TOXIC GRANULATION 1+; TOXIC VACUOLATION PRESENT
[2018-12-06 07:01] LABS: PLATELET COMMENT ADEQUATE
[2018-12-06 07:16] LABS: ALANINE AMINOTRANSFERASE 42 U/L (21-72); ALBUMIN 2.7 g/dL (3.5-5.0); ALKALINE PHOSPHATASE 90 U/L (38-126); ANION GAP 8 (5-19); ASPARTATE AMINO TRANSFERASE 40 U/L (17-59); BILIRUBIN,DIRECT 0.4 mg/dL (0.0-0.4); BILIRUBIN,TOTAL 0.4 mg/dL (0.2-1.3); BLOOD UREA NITROGEN 29 mg/dL (7-20); CALCIUM 7.8 mg/dL (8.4-10.2); CARBON DIOXIDE 26 mmol/L (22-30); CHLORIDE 102 mmol/L (98-107); GLUCOSE 144 mg/dL (75-110); POTASSIUM 3.5 mmol/L (3.6-5.0); SODIUM 136.1 mmol/L (137-145); TOTAL PROTEIN 5.1 g/dL (6.3-8.2)
[2018-12-06] MEDS ORDERED: LEVALBUTEROL HCL NEB 0.63 MG/3 ML AMPUL NEB PRN ×2 (08:44→09:04)
--- NOTE | 2018-12-06 09:01 | PDOC PROGRESS REPORT ---
Subjective Progress Note for:: 12/06/18 Subjective:: 63 year old male with history of lung cancer on chemotherapy status post right upper lobe lobectomy, BPH, hypertension, COPD on 2 L oxygen at night received chemotherapy yesterday from this morning is having the fevers and chills increasing shortness of breath he went to Dr. Clement's office he was sent over here for further management. The work-up was done in the ER and CT of the chest negative for acute abnormality CT abdomen pelvis was negative for abnormalities no source of infection was found patient denies any neck pains denies any headaches denies any visual problems on my examination no neck stiffness noticed but the patient has difficulty getting into the bed unable to lay flat unable to do further examination to look for meningeal signs and symptoms. Patient is already telling me he does not want any needle in the back. Wants to be a full code. Per the family patient was [facility] at the end of last month on 3 different antibiotics and antibiotics are continued by Dr. Clement as an outpatient last dose was taken 2 days ago. Family is unable to tell the antibiotics patient is on. 12/05/[id number]-aowz-old male with the lung cancer On chemotherapy admitted with high fevers and severe shortness of breath. Temperature came down to 97.5 this morning blood cultures are positive at this moment. He had another episode of respiratory distress this morning tachypneic tachycardic heart rate went up to 140s he received his p.o. Cardizem still heart rate is around 140 and I requested the nurse to give Cardizem 10 mg IV 1 dose. These things happen after patient will be requested physical therapy at that time he is off the BiPAP. As per Dr. Clement's request IV dosing will change it to IV cefepime. 12/06/[id number]-gltc-old male transferred to ICU last night for respiratory distress CT chest was done which was negative PE for PE CT abdomen was done shows a distended bladder with Fairchild's catheter was placed more than 1300 cc of urine came out he was tachycardic tachypneic last night. Now he is calm comfortable breathing better denies any abdominal pains heart rate is around 110. Blood pressure is around 110/70. ABG this morning shows pH of 7.39/PCO2 36 PO2 192 bicarb is 23. Reason For Visit: SEPSIS Physical Exam Vital Signs: Temp Pulse Resp BP Pulse Ox 97.9 F 107 H 26 H 132/88 H 94 12/05/18 19:27 12/06/18 08:14 12/06/18 08:14 12/05/18 19:27 12/06/18 08:14 Intake & Output 12/05/18 12/06/18 12/07/18 06:59 06:59 06:59 Intake Total 3789 5042 Output Total 500 3225 150 Balance 3289 1817 -150 Weight 111.13 kg 115.7 kg General appearance: PRESENT: no acute distress, obese Head exam: PRESENT: atraumatic Eye exam: PRESENT: PERRLA Teeth exam: PRESENT: poor dentation Neck exam: ABSENT: carotid bruit, JVD, lymphadenopathy, thyromegaly Respiratory exam: PRESENT: decreased breath sounds, wheezes, other - Reviewed surgical scar on the rt upper back. Cardiovascular exam: PRESENT: tachycardia GI/Abdominal exam: PRESENT: normal bowel sounds, soft. ABSENT: distended, guarding, mass, organolmegaly, rebound, tenderness Rectal exam: PRESENT: deferred Gentrourinary exam: PRESENT: indwelling catheter Neurological exam: PRESENT: alert, awake, oriented to person, oriented to place, oriented to time, oriented to situation, CN II-XII grossly intact. ABSENT: motor sensory deficit Psychiatric exam: PRESENT: appropriate affect, normal mood. ABSENT: homicidal ideation, suicidal ideation Results Laboratory Results: 12/06/18 06:30 12/06/18 06:30 12/06/18 12/06/18 12/06/18 00:59 03:15 06:30 WBC 17.3 H RBC 3.25 L Hgb 9.7 L Hct 28.5 L MCV 88 MCH 29.7 MCHC 33.9 RDW 14.6 H Plt Count 167 Seg Neutrophils % Not Reportable Lymphocytes % Not Reportable Monocytes % Not Reportable Eosinophils % Not Reportable Basophils % Not Reportable Absolute Neutrophils Not Reportable Absolute Lymphocytes Not Reportable Absolute Monocytes Not Reportable Absolute Eosinophils Not Reportable Absolute Basophils Not Reportable Carbonic Acid 1.15 HCO3/H2CO3 Ratio 19:1 ABG pH 7.39 ABG pCO2 38.3 ABG pO2 192.8 H ABG HCO3 22.6 ABG O2 Saturation 99.3 H ABG Base Excess -2.0 FiO2 30% Sodium Potassium Chloride Carbon Dioxide Anion Gap BUN Creatinine Est GFR ( Amer) Est GFR (Non-Af Amer) Glucose Lactic Acid 1.9 Calcium Magnesium Total Bilirubin AST ALT Alkaline Phosphatase Total Protein Albumin 12/06/18 06:30 WBC RBC Hgb Hct MCV MCH MCHC RDW Plt Count Seg Neutrophils % Lymphocytes % Monocytes % Eosinophils % Basophils % Absolute Neutrophils Absolute Lymphocytes Absolute Monocytes Absolute Eosinophils Absolute Basophils Carbonic Acid HCO3/H2CO3 Ratio ABG pH ABG pCO2 ABG pO2 ABG HCO3 ABG O2 Saturation ABG Base Excess FiO2 Sodium 136.1 L Potassium 3.5 L Chloride 102 Carbon Dioxide 26 Anion Gap 8 BUN 29 H Creatinine 1.50 H Est GFR ( Amer) 57 L Est GFR (Non-Af Amer) 47 L Glucose 144 H Lactic Acid Calcium 7.8 L Magnesium 2.6 H Total Bilirubin 0.4 AST 40 ALT 42 Alkaline Phosphatase 90 Total Protein 5.1 L Albumin 2.7 L 12/04/18 12/04/18 12/04/18 05:05 10:38 20:16 Creatine Kinase 51 L 123 CK-MB (CK-2) Troponin I < 0.012 NT-Pro-B Natriuret Pep 12/04/18 12/05/18 12/05/18 20:16 02:07 02:07 Creatine Kinase 201 H CK-MB (CK-2) 0.53 0.58 Troponin I < 0.012 < 0.012 NT-Pro-B Natriuret Pep 12/05/18 12/05/18 06:03 06:03 Creatine Kinase 190 H CK-MB (CK-2) 0.71 Troponin I < 0.012 NT-Pro-B Natriuret Pep 883 Impressions: Acute Abdomen Series 12/04/18 12:25 IMPRESSION: Nonspecific abdomen. Possible subpulmonic effusion. Chest/Abdomen CTA 12/04/18 14:12 IMPRESSION: There is no evidence of pulmonary embolus. Paramediastinal opacification on the right suggesting prior radiation. Surgical clips are seen in the left upper lobe suggesting resection of the nodule that was present previously. There is a 4 cm somewhat low-density pretracheal lymph node. Small pericardial effusion. Abdomen/Pelvis CT 12/05/18 00:00 IMPRESSION: 1. Fairchild catheter balloon is inflated in the prostatic urethra. The catheter does not extend into the bladder. 2. Bladder is markedly distended, with bilateral hydronephrosis. Assessment and Plan - Diagnosis (1) Sepsis Qualifiers: Sepsis type: sepsis due to unspecified organism Qualified Code(s): A41.9 - Sepsis, unspecified organism Is this a current diagnosis for this admission?: Yes Plan: 12/04/[id number]-wopq-old male with multiple medical problems including lung cancer on chemotherapy received chemotherapy yesterday came in with high fevers chills associated with shortness of breath and cough. All the investigations unable to locate the source of infection. To put the patient in IMCU to place him on BiPAP. Blood cultures urine cultures are requested started on IV Zosyn and vancomycin in the emergency room patient received levo floxacillin and IV Rocephin. GI prophylaxis DVT prophylaxis are initiated. Consultation with Dr. Clement was requested. BiPAP was requested. ABG and EKGs are requested. Overall prognosis poor condition is critical. Patient refused LP in the ER. 12/05/[id number]-ewaf-old male admitted with severe shortness of breath and high fever tachycardia tachypnea and blood cultures came back positive CT abdomen indicates possible enteritis he is receiving chemotherapy. WBC count went up to 15,900 today after noted he is on IV Solu-Medrol during this admission. As per Dr. Clement's recommendations IV Zosyn which is switched to IV cefapime. Presently on IV prime and vancomycin. Plan is to continue the present manage ment. 12/06/[id number]-qhyy-old male came in with respiratory distress tachycardic and the blood cultures were positive for gram-positive cocci in chains. He is on cefepime and vancomycin and antibiotics were switched to meropenem, IV Flagyl and IV vancomycin. CT chest was done last night did not suggestive of any pneumonia or PE. (2) Lung cancer Qualifiers: Laterality: right Lung location: upper lobe of lung Qualified Code(s): C34.11 - Malignant neoplasm of upper lobe, right bronchus or lung Is this a current diagnosis for this admission?: Yes Plan: 12/04/2018-patient has history of lung cancer with right upper lobe lobectomy and chemotherapy is following with Dr. Clement further management as per Dr. Ortiz. 12/05/2018-patient has history of lung cancer with right upper lobe lobectomy and presently getting chemotherapy for left lung mass with chemotherapy tumor size is shrinking. 12/06/2018-patient has history of lung cancer has a right upper lobe lobectomy and presently receiving chemotherapy for left upper lung mass. (3) COPD (chronic obstructive pulmonary disease) Qualifiers: COPD type: unspecified COPD Qualified Code(s): J44.9 - Chronic obstructive pulmonary disease, unspecified Is this a current diagnosis for this admission?: No Plan: 12/04/2018-patient has history of COPD on 2 L oxygen at home. Here in the emergency room is extremely short of breath tachypneic tachycardic plan to put him on BiPAP. ABG was done in the emergency room pH is 7.44 PCO2 44.4 bicarb is 29. To start on IV Solu-Medrol 40 mg every 8 hours, scheduled and as needed nebulizations are initiated. 12/05/2018-patient has history of COPD on 2 L of oxygen at home. With BiPAP he is a shortness of breath is much improving. He is also receiving IV Solu-Medrol 40 mg every 8 hours and scheduled and as needed nebulizations. Plan is to continue the present management. 12/06/2018-patient has history of COPD on 2 L oxygen at home. He is requiring as needed BiPAP during the hospital stay. He is also on IV Solu-Medrol 40 mg every 8 hours. Presently on Xopenex scheduled and as needed nebulizations. He may need a BiPAP as an outpatient. (4) Hypertension Is this a current diagnosis for this admission?: No Plan: 12/04/2018-patient and family given the history of hypertension blood pressure is 132/72. Stable. Plan is to resume the home medications once list is available. 12/05/2018-patient has history of hypertension his blood pressure today is 136/96. Stable. Home medications are resumed. 12/06/2018-patient is presently receiving IV fluids normal saline 75 cc/h blood pressure is 110/78. Stable. Plan is to continue the present management. (5) Obesity (BMI 30.0-34.9) Is this a current diagnosis for this admission?: No (6) Enteritis Is this a current diagnosis for this admission?: Yes (7) Acute urinary retention Is this a current diagnosis for this admission?: Yes Plan: 12/06/2018-patient has acute urinary retention after placing Fairchild's catheter more than 1300 mL of urine came out. His abdominal pain resolved. Plan is to keep the Fairchild catheter during this hospital stay he may have to see a urologist as an outpatient CT scan suggestive of bilateral hydronephrosis. Serum creatinine is 1.5 today. (8) SUNIL (acute kidney injury) Is this a current diagnosis for this admission?: Yes Plan: 12/06/2018-patient's baseline creatinine is around 0.8 on admission it was 1.2 was not 1.5 today. Acute kidney injury may be secondary to bilateral hydronephrosis caused by acute urinary retention. Patient has a Fairchild's catheter. Plan is to continue to follow the labs and regular basis. - Time Time Spent with patient: 35 or more minutes Medications reviewed and adjusted accordingly: Yes Anticipated discharge: Home
--- NOTE | 2018-12-06 09:26 | PDOC PROGRESS REPORT ---
Subjective Progress Note for:: 12/06/18 Subjective:: Patient sitting upright in bed, chronic shortness of breath with low tidal volumes. He ate his entire breakfast. Reason For Visit: SEPSIS Physical Exam Vital Signs: Temp Pulse Resp BP Pulse Ox 97.9 F 107 H 14 132/88 H 98 12/05/18 19:27 12/06/18 08:14 12/06/18 09:12 12/05/18 19:27 12/06/18 09:12 Intake & Output 12/05/18 12/06/18 12/07/18 06:59 06:59 06:59 Intake Total 3789 5042 Output Total 500 3225 150 Balance 3289 1817 -150 Weight 111.13 kg 115.7 kg General appearance: PRESENT: other - Moderate respiratory distress GI/Abdominal exam: PRESENT: other - Abdomen rotund, edematous. No peritoneal signs. Results Laboratory Results: 12/06/18 06:30 12/06/18 06:30 12/06/18 12/06/18 12/06/18 00:59 03:15 06:30 WBC 17.3 H RBC 3.25 L Hgb 9.7 L Hct 28.5 L MCV 88 MCH 29.7 MCHC 33.9 RDW 14.6 H Plt Count 167 Seg Neutrophils % Not Reportable Lymphocytes % Not Reportable Monocytes % Not Reportable Eosinophils % Not Reportable Basophils % Not Reportable Absolute Neutrophils Not Reportable Absolute Lymphocytes Not Reportable Absolute Monocytes Not Reportable Absolute Eosinophils Not Reportable Absolute Basophils Not Reportable Carbonic Acid 1.15 HCO3/H2CO3 Ratio 19:1 ABG pH 7.39 ABG pCO2 38.3 ABG pO2 192.8 H ABG HCO3 22.6 ABG O2 Saturation 99.3 H ABG Base Excess -2.0 FiO2 30% Sodium Potassium Chloride Carbon Dioxide Anion Gap BUN Creatinine Est GFR ( Amer) Est GFR (Non-Af Amer) Glucose Lactic Acid 1.9 Calcium Magnesium Total Bilirubin AST ALT Alkaline Phosphatase Total Protein Albumin 12/06/18 06:30 WBC RBC Hgb Hct MCV MCH MCHC RDW Plt Count Seg Neutrophils % Lymphocytes % Monocytes % Eosinophils % Basophils % Absolute Neutrophils Absolute Lymphocytes Absolute Monocytes Absolute Eosinophils Absolute Basophils Carbonic Acid HCO3/H2CO3 Ratio ABG pH ABG pCO2 ABG pO2 ABG HCO3 ABG O2 Saturation ABG Base Excess FiO2 Sodium 136.1 L Potassium 3.5 L Chloride 102 Carbon Dioxide 26 Anion Gap 8 BUN 29 H Creatinine 1.50 H Est GFR ( Amer) 57 L Est GFR (Non-Af Amer) 47 L Glucose 144 H Lactic Acid Calcium 7.8 L Magnesium 2.6 H Total Bilirubin 0.4 AST 40 ALT 42 Alkaline Phosphatase 90 Total Protein 5.1 L Albumin 2.7 L 12/04/18 12/04/18 12/04/18 05:05 10:38 20:16 Creatine Kinase 51 L 123 CK-MB (CK-2) Troponin I < 0.012 NT-Pro-B Natriuret Pep 12/04/18 12/05/18 12/05/18 20:16 02:07 02:07 Creatine Kinase 201 H CK-MB (CK-2) 0.53 0.58 Troponin I < 0.012 < 0.012 NT-Pro-B Natriuret Pep 12/05/18 12/05/18 06:03 06:03 Creatine Kinase 190 H CK-MB (CK-2) 0.71 Troponin I < 0.012 NT-Pro-B Natriuret Pep 883 Impressions: Acute Abdomen Series 12/04/18 12:25 IMPRESSION: Nonspecific abdomen. Possible subpulmonic effusion. Chest/Abdomen CTA 12/04/18 14:12 IMPRESSION: There is no evidence of pulmonary embolus. Paramediastinal opacification on the right suggesting prior radiation. Surgical clips are seen in the left upper lobe suggesting resection of the nodule that was present previously. There is a 4 cm somewhat low-density pretracheal lymph node. Small pericardial effusion. Abdomen/Pelvis CT 12/05/18 00:00 IMPRESSION: 1. Fairchild catheter balloon is inflated in the prostatic urethra. The catheter does not extend into the bladder. 2. Bladder is markedly distended, with bilateral hydronephrosis. Assessment & Plan - Diagnosis (1) Acute urinary retention Is this a current diagnosis for this admission?: Yes Plan: Impression: Clinically improved abdominal condition after Fairchild cath insertion and drainage of nearly 2 L of urine; chronic shortness of breath likely multifactorial. Recommendations: 1. Sign off for now; reconsult surgery if clinically indicated.
--- NOTE | 2018-12-06 10:12 | RADIOLOGY REPORT (SQ) ---
EXAM DESCRIPTION: CHEST SINGLE VIEW COMPLETED DATE/TIME: 12/06/2018 9:30 am REASON FOR STUDY: rsp distress COMPARISON: CT angio chest 12/04/2018 PET-CT 09/28/2018 Chest films 11/05/2018, 10/02/2017 EXAM PARAMETERS: NUMBER OF VIEWS: One view. TECHNIQUE: Single frontal radiographic view of the chest acquired. RADIATION DOSE: NA LIMITATIONS: None. 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 There is patchy right perihilar airspace disease unchanged from 11/05/2018, likely post radiation change. No right pneumothorax or pleural effusion. Left lung well inflated and clear. Radiotherapy treatment markers for upper lobe nodule are again se en. No left pleural effusion or pneumothorax. MEDIASTINUM AND HILAR STRUCTURES: Surgical clips right hilum with old post radiation change. HEART AND VASCULAR STRUCTURES: Heart normal in size. Normal vasculature. BONES: No acute findings. HARDWARE: Right-sided permanent central line tip superior vena cava. Left upper lobe radiotherapy tr eatment markers for upper lobe nodule OTHER: No other significant finding. IMPRESSION: No acute changes compared to 11/05/2018. TECHNICAL DOCUMENTATION: JOB ID: [id number] [employer]- All Rights Reserved Reading location - IP/workstation name: [email or web address]
[2018-12-06] MEDS: ROPINIROLE HCL 1 MG TABLET PO SCH (11:16)
[2018-12-06] MEDS: TAMSULOSIN HCL 0.4 MG CAP.SR.24H PO SCH (11:18)
[2018-12-06] MEDS: DILTIAZEM HCL 120 MG CAP.SR.24H PO SCH (11:18)
[2018-12-06] MEDS: FAMOTIDINE 20 MG TABLET PO SCH ×2 (11:18→21:23)
[2018-12-06] MEDS: FLUTICASONE/VILANTEROL 200-25 MCG/DOSE IH SCH (11:19)
[2018-12-06] MEDS: CITALOPRAM HYDROBROMIDE 20 MG TABLET PO SCH (11:19)
[2018-12-06] MEDS: TIOTROPIUM BROMIDE DPI 5 CAP/KIT (18 MCG/CAP) IH SCH (11:19)
[2018-12-06] MEDS: VANCOMYCIN HCL 1,500 MG in DEXTROSE 5%-WATER 250 ML IV SCH (11:20)
--- NOTE | 2018-12-06 11:51 | PDOC PROGRESS REPORT ---
Subjective Progress Note for:: 12/06/18 Subjective:: Patient now in the ICU, overnight patient had respiratory distress, tachycardia, when patient came down Fairchild catheter was replaced and actually 1300 cc came out. So was felt that this episode was prompted by acute urinary retention. He certainly was having urinary retention upon coming into the hospital probably secondary to being off Flomax for several days. Today he is doing much better, he is on and off BiPAP, he is eating sitting up Reason For Visit: SEPSIS Physical Exam Vital Signs: Temp Pulse Resp BP Pulse Ox 97.2 F 107 H 28 H 115/74 98 12/06/18 11:04 12/06/18 08:14 12/06/18 11:04 12/06/18 11:04 12/06/18 11:04 Intake & Output 12/05/18 12/06/18 12/07/18 06:59 06:59 06:59 Intake Total 3789 5042 100 Output Total 500 3225 150 Balance 3289 1817 -50 Weight 111.13 kg 115.7 kg 115.7 kg General appearance: PRESENT: no acute distress, well-developed, well-nourished Head exam: PRESENT: atraumatic, normocephalic Eye exam: PRESENT: conjunctiva pink, EOMI, PERRLA. ABSENT: scleral icterus Ear exam: PRESENT: normal external ear exam Mouth exam: PRESENT: moist, tongue midline Neck exam: ABSENT: carotid bruit, JVD, lymphadenopathy, thyromegaly Respiratory exam: PRESENT: clear to auscultation khushboo. ABSENT: rales, rhonchi, wheezes Cardiovascular exam: PRESENT: RRR. ABSENT: diastolic murmur, rubs, systolic murmur Pulses: PRESENT: normal dorsalis pedis pul Vascular exam: PRESENT: normal capillary refill GI/Abdominal exam: PRESENT: normal bowel sounds, soft. ABSENT: distended, guarding, mass, organolmegaly, rebound, tenderness Rectal exam: PRESENT: deferred Extremities exam: PRESENT: full ROM. ABSENT: calf tenderness, clubbing, pedal edema Neurological exam: PRESENT: alert, awake, oriented to person, oriented to place, oriented to time, oriented to situation, CN II-XII grossly intact. ABSENT: motor sensory deficit Psychiatric exam: PRESENT: appropriate affect, normal mood. ABSENT: homicidal ideation, suicidal ideation Skin exam: PRESENT: dry, intact, warm. ABSENT: cyanosis, rash Results Laboratory Results: 12/06/18 06:30 12/06/18 06:30 12/06/18 12/06/18 12/06/18 00:59 03:15 06:30 WBC 17.3 H RBC 3.25 L Hgb 9.7 L Hct 28.5 L MCV 88 MCH 29.7 MCHC 33.9 RDW 14.6 H Plt Count 167 Seg Neutrophils % Not Reportable Lymphocytes % Not Reportable Monocytes % Not Reportable Eosinophils % Not Reportable Basophils % Not Reportable Absolute Neutrophils Not Reportable Absolute Lymphocytes Not Reportable Absolute Monocytes Not Reportable Absolute Eosinophils Not Reportable Absolute Basophils Not Reportable Carbonic Acid 1.15 HCO3/H2CO3 Ratio 19:1 ABG pH 7.39 ABG pCO2 38.3 ABG pO2 192.8 H ABG HCO3 22.6 ABG O2 Saturation 99.3 H ABG Base Excess -2.0 FiO2 30% Sodium Potassium Chloride Carbon Dioxide Anion Gap BUN Creatinine Est GFR ( Amer) Est GFR (Non-Af Amer) Glucose Lactic Acid 1.9 Calcium Magnesium Total Bilirubin AST ALT Alkaline Phosphatase Total Protein Albumin 12/06/18 06:30 WBC RBC Hgb Hct MCV MCH MCHC RDW Plt Count Seg Neutrophils % Lymphocytes % Monocytes % Eosinophils % Basophils % Absolute Neutrophils Absolute Lymphocytes Absolute Monocytes Absolute Eosinophils Absolute Basophils Carbonic Acid HCO3/H2CO3 Ratio ABG pH ABG pCO2 ABG pO2 ABG HCO3 ABG O2 Saturation ABG Base Excess FiO2 Sodium 136.1 L Potassium 3.5 L Chloride 102 Carbon Dioxide 26 Anion Gap 8 BUN 29 H Creatinine 1.50 H Est GFR ( Amer) 57 L Est GFR (Non-Af Amer) 47 L Glucose 144 H Lactic Acid Calcium 7.8 L Magnesium 2.6 H Total Bilirubin 0.4 AST 40 ALT 42 Alkaline Phosphatase 90 Total Protein 5.1 L Albumin 2.7 L 12/04/18 12/04/18 12/04/18 05:05 10:38 20:16 Creatine Kinase 51 L 123 CK-MB (CK-2) Troponin I < 0.012 NT-Pro-B Natriuret Pep 12/04/18 12/05/18 12/05/18 20:16 02:07 02:07 Creatine Kinase 201 H CK-MB (CK-2) 0.53 0.58 Troponin I < 0.012 < 0.012 NT-Pro-B Natriuret Pep 12/05/18 12/05/18 06:03 06:03 Creatine Kinase 190 H CK-MB (CK-2) 0.71 Troponin I < 0.012 NT-Pro-B Natriuret Pep 883 Impressions: Acute Abdomen Series 12/04/18 12:25 IMPRESSION: Nonspecific abdomen. Possible subpulmonic effusion. Chest/Abdomen CTA 12/04/18 14:12 IMPRESSION: There is no evidence of pulmonary embolus. Paramediastinal opacification on the right suggesting prior radiation. Surgical clips are seen in the left upper lobe suggesting resection of the nodule that was present previously. There is a 4 cm somewhat low-density pretracheal lymph node. Small pericardial effusion. Abdomen/Pelvis CT 12/05/18 00:00 IMPRESSION: 1. Fairchild catheter balloon is inflated in the prostatic urethra. The catheter does not extend into the bladder. 2. Bladder is markedly distended, with bilateral hydronephrosis. Chest X-Ray 12/06/18 00:00 IMPRESSION: No acute changes compared to 11/05/2018. Assessment & Plan - Diagnosis (1) Lung cancer Qualifiers: Laterality: right Lung location: upper lobe of lung Qualified Code(s): C34.11 - Malignant neoplasm of upper lobe, right bronchus or lung Is this a current diagnosis for this admission?: Yes Plan: Improved disease, plan to continue therapy as an outpatient (2) Septic shock Is this a current diagnosis for this admission?: Yes Plan: Continue with IV antibiotics, repeat cultures should be done, will discuss with hospitalist team (3) Acute urinary retention Is this a current diagnosis for this admission?: Yes Plan: Fairchild catheter placed, now appropriately flowing (4) Constipation Qualifiers: Constipation type: drug induced constipation Qualified Code(s): K59.03 - Drug induced constipation Is this a current diagnosis for this admission?: Yes Plan: Continue with medications (5) Respiratory distress Is this a current diagnosis for this admission?: Yes Plan: Multifactorial, secondary to COPD, some element of radiation-induced changes, previous surgery, and the cancer. Continue with BiPAP as needed, continue per hospitalist team. - Time Time Spent with patient: 35 or more minutes - Inpatient Certification Based on my medical assessment, after consideration of the patient's comorbidities, presenting symptoms, or acuity I expect that the services needed warrant INPATIENT care.: Yes I certify that my determination is in accordance with my understanding of Medicare's requirements for reasonable and necessary INPATIENT services [42 CFR 412.3e].: Yes Medical Necessity: Need for Nebulizer Therapy and Monitoring of Response, Need for IV Antibiotics, Risk of Complication if Not Cared For in Hospital
[2018-12-06 12:10] LABS: VANCOMYCIN,TROUGH 13.4 ug/mL (5.0-20.0)
[2018-12-06] MEDS: LEVALBUTEROL HCL NEB 0.63 MG/3 ML AMPUL NEB SCH ×2 (14:26→20:05)
[2018-12-06] MEDS: CLONAZEPAM 1 MG TABLET PO SCH (17:30)
[2018-12-06] MEDS: VANCOMYCIN HCL 1,000 MG in DEXTROSE 5%-WATER 250 ML IV SCH (17:30)
[2018-12-07] MEDS: MEROPENEM 1 GM in NORMAL SALINE 50 ML IV SCH ×5 (00:05→23:21)
[2018-12-07] MEDS: NORMAL SALINE 1000 ML 1,000 ML IV PRN ×2 (00:09→23:23)
[2018-12-07] MEDS: METRONIDAZOLE 500 MG/NS RTU 500 MG/100 ML RTUPB IV SCH ×5 (00:09→23:21)
[2018-12-07] MEDS: VANCOMYCIN HCL 1,000 MG in DEXTROSE 5%-WATER 250 ML IV SCH ×3 (01:56→18:49)
[2018-12-07] MEDS: LORAZEPAM INJ 2 MG/1 ML VIAL IV PRN (04:23)
[2018-12-07] MEDS ORDERED: HALOPERIDOL LACTATE INJ 5 MG/1 ML VIAL ONE (05:20)
[2018-12-07] MEDS ORDERED: HALOPERIDOL LACTATE INJ 5 MG/1 ML VIAL IV ONE (05:45)
[2018-12-07] MEDS: ACETAMINOPHEN 650 MG SUPP.RECT PR PRN (05:46)
--- NOTE | 2018-12-07 05:47 | RADIOLOGY REPORT (SQ) ---
EXAM DESCRIPTION: [facility]: XR CHEST 1 VIEW COMPLETED: 12/07/2018 [id number] CLINICAL HISTORY: 63 years Male, Resp. Distress FINDINGS: Since yesterday, there is persistent elevation of the right hemidiaphragm with a right perihilar infiltrate. Right IJ port remains in place, tip in the SVC. No pneumothorax. Mediastinum is unchanged. IMPRESSION: 1. No significant change.
[2018-12-07 05:49] LABS: ARTERIAL BLOOD BASE EXCESS 3.3 mmol/L; ARTERIAL BLOOD HCO3 26.8 mmol/L (20-24); ARTERIAL BLOOD O2 SATURATION 92.4 % (94-98); ARTERIAL BLOOD PCO2 36.6 mmHg (35-45); ARTERIAL BLOOD PH 7.48 (7.35-7.45); ARTERIAL BLOOD PO2 58.8 mmHg (80-100); ARTERIAL BLOOD TOTAL CO2 27.9 mmol/L (23-27)
[2018-12-07 05:50] LABS: ARTERIAL BLOOD FIO2 21%
[2018-12-07 05:53] LABS: HEMOGLOBIN 9.9 g/dL (13.5-17.0); MEAN CORPUSCULAR HEMOGLOBIN 30.1 pg (27.0-33.4); MEAN CORPUSCULAR HGB CONC 34.3 g/dL (32.0-36.0); MEAN CORPUSCULAR VOLUME 88 fl (80-97); PLATELET COUNT 147 10^3/uL (150-450); RED BLOOD COUNT 3.31 10^6/uL (4.35-5.55); RED CELL DISTRIBUTION WIDTH 14.5 % (11.5-14.0); WHITE BLOOD COUNT 7.8 10^3/uL (4.0-10.5)
[2018-12-07] MEDS ORDERED: LEVALBUTEROL HCL NEB 0.63 MG/3 ML AMPUL NEB PRN (05:58)
--- NOTE | 2018-12-07 06:07 | Progress Note ---
Provider Note Provider Note: Critical care note: 12/07/2018 Critical care onset time: 05:20 Critical care problem: Agitation with severe dyspnea and hypoxia Evaluation: The patient's nurse informed me that he had become extremely agitated and was difficult to control in the bed and was noted to be very dyspneic and his oxygen saturation was decreasing. Patient was treated with Haldol 5 mg IV x1 and a chest x-ray and ABGs were obtained. Over the course of the next few minutes the patient's anxiety and agitation dramatically decreased and he was able to sit upright and brief with his BiPAP in place without any effort at trying to dislodge the BiPAP mask and his breathing was noted to be significantly less labored and his O2 sat improved somewhat. ABGs showed a pH of 7.48 with PO2 of 58 and a PCO2 of 36. The patient's BiPAP oxygen FiO2 was increased to 30%. Chest x-ray showed no significant change from his previous film. Patient showed significant improvement by the time I left his ICU room. Critical care and time: 06:02 Critical care [id number] time: 16 minutes
[2018-12-07 06:08] LABS: ALANINE AMINOTRANSFERASE 54 U/L (21-72); ALKALINE PHOSPHATASE 125 U/L (38-126); ANION GAP 10 (5-19); ASPARTATE AMINO TRANSFERASE 47 U/L (17-59); BILIRUBIN,DIRECT 0.3 mg/dL (0.0-0.4); BILIRUBIN,TOTAL 0.4 mg/dL (0.2-1.3); BLOOD UREA NITROGEN 27 mg/dL (7-20); CARBON DIOXIDE 28 mmol/L (22-30); CHLORIDE 98 mmol/L (98-107); GLUCOSE 137 mg/dL (75-110); POTASSIUM 3.5 mmol/L (3.6-5.0); SODIUM 136.1 mmol/L (137-145); TOTAL PROTEIN 5.4 g/dL (6.3-8.2)
[2018-12-07] MEDS ORDERED: IPRATROPIUM BROMIDE 0.02% NEB 0.5 MG/2.5 ML AMPUL NEB ONE (06:15)
[2018-12-07] MEDS: LEVALBUTEROL HCL NEB 1.25 MG/3 ML AMPUL NEB PRN ×3 (06:15→19:38)
[2018-12-07 06:50] LABS: ABSOLUTE LYMPHOCYTES# (MANUAL) 0.3 10^3/uL (0.5-4.7); ABSOLUTE MONOCYTES # (MANUAL) 0.2 10^3/uL (0.1-1.4); BASOPHILS % (MANUAL) 0 % (0-2); EOSINOPHILS % (MANUAL) 1 % (0-6); LYMPHOCYTES % (MANUAL) 4 % (13-45); MONOCYTES % (MANUAL) 3 % (3-13); PLATELET COMMENT ADEQUATE; SEGMENTED NEUTROPHILS % (MAN) 92 % (42-78); TOTAL CELLS COUNTED 100
[2018-12-07 06:51] LABS: ANISOCYTOSIS SLIGHT; BURR CELLS 1+; OVALOCYTES SLIGHT
[2018-12-07] MEDS: BUDESONIDE NEB 0.5 MG/2 ML AMPUL NEB SCH ×2 (07:49→19:38)
[2018-12-07] MEDS: IPRATROPIUM BROMIDE 0.02% NEB 0.5 MG/2.5 ML AMPUL NEB SCH ×2 (07:49→15:37)
[2018-12-07] MEDS: LEVALBUTEROL HCL NEB 1.25 MG/3 ML AMPUL NEB SCH ×2 (07:49→15:37)
[2018-12-07] MEDS ORDERED: ACETYLCYSTEINE 20% SOLN 800 MG/4 ML VIAL.NEB NEB SCH (08:00)
[2018-12-07] MEDS ORDERED: IPRATROPIUM BROMIDE 0.02% NEB 0.5 MG/2.5 ML AMPUL NEB PRN (08:11)
[2018-12-07] MEDS ORDERED: MORPHINE SULFATE 10 MG/ML INJ IV PRN ×2 (09:22→10:00)
[2018-12-07] MEDS ORDERED: MORPHINE SULFATE 10 MG/ML INJ ONE (09:24)
[2018-12-07] MEDS ORDERED: ACETAMINOPHEN 1,000 MG/100 ML RTUPB IV ONE (10:00)
[2018-12-07] MEDS ORDERED: ENOXAPARIN SODIUM INJ 120 MG/0.8 ML DISP.SYRIN SUBCUT SCH (10:00)
[2018-12-07] MEDS: ROPINIROLE HCL 1 MG TABLET PO SCH (10:29)
[2018-12-07] MEDS: TAMSULOSIN HCL 0.4 MG CAP.SR.24H PO SCH (10:29)
[2018-12-07] MEDS: DILTIAZEM HCL 120 MG CAP.SR.24H PO SCH (10:29)
[2018-12-07] MEDS: FAMOTIDINE 20 MG TABLET PO SCH ×2 (10:30→23:20)
[2018-12-07] MEDS: CLONAZEPAM 1 MG TABLET PO SCH ×2 (10:30→18:49)
[2018-12-07] MEDS ORDERED: FLUCONAZOLE 200 MG/NS RTU 200 MG/100 ML RTUPB IV ONE (10:30)
[2018-12-07] MEDS: TIOTROPIUM BROMIDE DPI 5 CAP/KIT (18 MCG/CAP) IH SCH (10:30)
[2018-12-07] MEDS: CITALOPRAM HYDROBROMIDE 20 MG TABLET PO SCH (10:30)
[2018-12-07] MEDS: FLUTICASONE/VILANTEROL 200-25 MCG/DOSE IH SCH (10:31)
[2018-12-07] MEDS: ENOXAPARIN SODIUM INJ 40 MG/0.4 ML DISP.SYRIN SUBCUT SCH (10:32)
--- NOTE | 2018-12-07 12:23 | PDOC PROGRESS REPORT ---
Subjective Progress Note for:: 12/07/18 Subjective:: This morning patient had episode of respiratory distress, was tachypneic, tachycardic, hypoxic, also febrile with fever of 101. Ultimately this improved with Haldol and Ativan along with reinitiation of BiPAP, patient was given IV acetaminophen as p.o. did not decrease the fever. Patient seems to be better now. Reason For Visit: SEPSIS Physical Exam Vital Signs: Temp Pulse Resp BP Pulse Ox 103.1 F H 96 14 107/65 97 12/07/18 10:03 12/07/18 12:12 12/07/18 12:12 12/07/18 10:03 12/07/18 12:12 Intake & Output 12/06/18 12/07/18 12/08/18 06:59 06:59 06:59 Intake Total 5042 2300 Output Total 3225 2850 Balance 1817 -550 Weight 115.7 kg 117.5 kg General appearance: PRESENT: no acute distress, well-developed, well-nourished Head exam: PRESENT: atraumatic, normocephalic Eye exam: PRESENT: conjunctiva pink, EOMI, PERRLA. ABSENT: scleral icterus Ear exam: PRESENT: normal external ear exam Mouth exam: PRESENT: moist, tongue midline Neck exam: ABSENT: carotid bruit, JVD, lymphadenopathy, thyromegaly Respiratory exam: PRESENT: clear to auscultation khushboo. ABSENT: rales, rhonchi, wheezes Cardiovascular exam: PRESENT: RRR. ABSENT: diastolic murmur, rubs, systolic murmur Pulses: PRESENT: normal dorsalis pedis pul Vascular exam: PRESENT: normal capillary refill GI/Abdominal exam: PRESENT: normal bowel sounds, soft. ABSENT: distended, guarding, mass, organolmegaly, rebound, tenderness Rectal exam: PRESENT: deferred Extremities exam: PRESENT: full ROM. ABSENT: calf tenderness, clubbing, pedal edema Neurological exam: PRESENT: alert, awake, oriented to person, oriented to place, oriented to time, oriented to situation, CN II-XII grossly intact. ABSENT: motor sensory deficit Psychiatric exam: PRESENT: appropriate affect, normal mood. ABSENT: homicidal ideation, suicidal ideation Skin exam: PRESENT: dry, intact, warm. ABSENT: cyanosis, rash Results Laboratory Results: 12/07/18 05:45 12/07/18 05:45 12/07/18 12/07/18 12/07/18 05:30 05:45 05:45 WBC 7.8 RBC 3.31 L Hgb 9.9 L Hct 29.0 L MCV 88 MCH 30.1 MCHC 34.3 RDW 14.5 H Plt Count 147 L Seg Neutrophils % Not Reportable Lymphocytes % Not Reportable Monocytes % Not Reportable Eosinophils % Not Reportable Basophils % Not Reportable Absolute Neutrophils Not Reportable Absolute Lymphocytes Not Reportable Absolute Monocytes Not Reportable Absolute Eosinophils Not Reportable Absolute Basophils Not Reportable Carbonic Acid 1.10 HCO3/H2CO3 Ratio 24:1 ABG pH 7.48 H ABG pCO2 36.6 ABG pO2 58.8 L ABG HCO3 26.8 H ABG O2 Saturation 92.4 L ABG Base Excess 3.3 FiO2 21% Sodium 136.1 L Potassium 3.5 L Chloride 98 Carbon Dioxide 28 Anion Gap 10 BUN 27 H Creatinine 1.06 Est GFR ( Amer) > 60 Est GFR (Non-Af Amer) > 60 Glucose 137 H Calcium 8.0 L Magnesium 2.1 Total Bilirubin 0.4 AST 47 ALT 54 Alkaline Phosphatase 125 Total Protein 5.4 L Albumin 3.0 L 12/04/18 12/04/18 12/04/18 05:05 10:38 20:16 Creatine Kinase 51 L 123 CK-MB (CK-2) Troponin I < 0.012 NT-Pro-B Natriuret Pep 12/04/18 12/05/18 12/05/18 20:16 02:07 02:07 Creatine Kinase 201 H CK-MB (CK-2) 0.53 0.58 Troponin I < 0.012 < 0.012 NT-Pro-B Natriuret Pep 12/05/18 12/05/18 06:03 06:03 Creatine Kinase 190 H CK-MB (CK-2) 0.71 Troponin I < 0.012 NT-Pro-B Natriuret Pep 883 Impressions: Acute Abdomen Series 12/04/18 12:25 IMPRESSION: Nonspecific abdomen. Possible subpulmonic effusion. Chest/Abdomen CTA 12/04/18 14:12 IMPRESSION: There is no evidence of pulmonary embolus. Paramediastinal opacification on the right suggesting prior radiation. Surgical clips are seen in the left upper lobe suggesting resection of the nodule that was present previously. There is a 4 cm somewhat low-density pretracheal lymph node. Small pericardial effusion. Abdomen/Pelvis CT 12/05/18 00:00 IMPRESSION: 1. Fairchild catheter balloon is inflated in the prostatic urethra. The catheter does not extend into the bladder. 2. Bladder is markedly distended, with bilateral hydronephrosis. Chest X-Ray 12/07/18 05:13 IMPRESSION: 1. No significant change. Assessment & Plan - Diagnosis (1) Lung cancer Qualifiers: Laterality: right Lung location: upper lobe of lung Qualified Code(s): C34.11 - Malignant neoplasm of upper lobe, right bronchus or lung Is this a current diagnosis for this admission?: Yes Plan: Good response thus far plan to continue therapy as an outpatient, had long discussion about CODE STATUS with patient, at this point he wants to remain full code. (2) Septic shock Is this a current diagnosis for this admission?: Yes Plan: Continue current antibiotic regimen, await culture results. (3) Acute urinary retention Is this a current diagnosis for this admission?: Yes Plan: Continue Fairchild catheter (4) Constipation Qualifiers: Constipation type: drug induced constipation Qualified Code(s): K59.03 - Drug induced constipation Is this a current diagnosis for this admission?: Yes Plan: Patient has had bowel movements, continue to monitor (5) Respiratory distress Is this a current diagnosis for this admission?: Yes Plan: Multifactorial, continue ICU care - Time Time Spent with patient: 35 or more minutes - Inpatient Certification Based on my medical assessment, after consideration of the patient's comorbidities, presenting symptoms, or acuity I expect that the services needed warrant INPATIENT care.: Yes I certify that my determination is in accordance with my understanding of Medicare's requirements for reasonable and necessary INPATIENT services [42 CFR 412.3e].: Yes Medical Necessity: Need Close Monitoring Due to Risk of Patient Decompensation, Need For Continuous Telemetry Monitoring, Need for Nebulizer Therapy and Monitoring of Response, Need for IV Antibiotics, Risk of Complication if Not Cared For in Hospital
[2018-12-07 19:38] LABS: VANCOMYCIN,TROUGH 18.6 ug/mL (5.0-20.0)
[2018-12-07] MEDS: ACETAMINOPHEN 325 MG TABLET PO PRN (20:06)
[2018-12-07] MEDS: HALOPERIDOL LACTATE INJ 5 MG/1 ML VIAL IV PRN (20:07)
[2018-12-07] MEDS: HYDROCODONE/ACETAMINOPHEN 5-325 MG TABLET PO PRN (23:20)
[2018-12-08] MEDS: LEVALBUTEROL HCL NEB 1.25 MG/3 ML AMPUL NEB SCH ×4 (00:18→23:15)
[2018-12-08] MEDS: IPRATROPIUM BROMIDE 0.02% NEB 0.5 MG/2.5 ML AMPUL NEB SCH ×4 (00:18→23:15)
[2018-12-08] MEDS: VANCOMYCIN HCL 1,000 MG in DEXTROSE 5%-WATER 250 ML IV SCH (03:21)
[2018-12-08] MEDS: ACETAMINOPHEN 325 MG TABLET PO PRN ×3 (05:04→21:31)
[2018-12-08] MEDS: METRONIDAZOLE 500 MG/NS RTU 500 MG/100 ML RTUPB IV SCH ×3 (05:04→17:53)
[2018-12-08] MEDS: MEROPENEM 1 GM in NORMAL SALINE 50 ML IV SCH ×3 (05:11→21:33)
[2018-12-08 05:49] LABS: HEMATOCRIT 26.5 % (37.9-51.0); HEMOGLOBIN 8.9 g/dL (13.5-17.0); MEAN CORPUSCULAR HEMOGLOBIN 29.6 pg (27.0-33.4); MEAN CORPUSCULAR HGB CONC 33.7 g/dL (32.0-36.0); MEAN CORPUSCULAR VOLUME 88 fl (80-97); PLATELET COUNT 100 10^3/uL (150-450); RED BLOOD COUNT 3.02 10^6/uL (4.35-5.55); RED CELL DISTRIBUTION WIDTH 14.8 % (11.5-14.0); WHITE BLOOD COUNT 5.6 10^3/uL (4.0-10.5)
[2018-12-08 06:00] LABS: ALANINE AMINOTRANSFERASE 48 U/L (21-72); ALBUMIN 2.6 g/dL (3.5-5.0); ALKALINE PHOSPHATASE 99 U/L (38-126); ANION GAP 7 (5-19); ASPARTATE AMINO TRANSFERASE 35 U/L (17-59); BILIRUBIN,DIRECT 0.3 mg/dL (0.0-0.4); BILIRUBIN,TOTAL 0.4 mg/dL (0.2-1.3); BLOOD UREA NITROGEN 19 mg/dL (7-20); CALCIUM 7.8 mg/dL (8.4-10.2); CARBON DIOXIDE 34 mmol/L (22-30); CHLORIDE 97 mmol/L (98-107); GLUCOSE 116 mg/dL (75-110); POTASSIUM 3.3 mmol/L (3.6-5.0); SODIUM 137.6 mmol/L (137-145); TOTAL PROTEIN 5.1 g/dL (6.3-8.2)
[2018-12-08] MEDS: BUDESONIDE NEB 0.5 MG/2 ML AMPUL NEB SCH ×2 (07:25→19:48)
[2018-12-08] MEDS ORDERED: POTASSIUM CHLORIDE 10 MEQ CAPSULE.ER PO ONE ×2 (07:42→11:00)
--- NOTE | 2018-12-08 08:50 | PDOC PROGRESS REPORT ---
Subjective Progress Note for:: 12/07/18 Subjective:: 63 year old male with history of lung cancer on chemotherapy status post right upper lobe lobectomy, BPH, hypertension, COPD on 2 L oxygen at night received chemotherapy yesterday from this morning is having the fevers and chills increasing shortness of breath he went to Dr. Hodge's office he was sent over here for further management. The work-up was done in the ER and CT of the chest negative for acute abnormality CT abdomen pelvis was negative for abnormalities no source of infection was found patient denies any neck pains denies any headaches denies any visual problems on my examination no neck stiffness noticed but the patient has difficulty getting into the bed unable to lay flat unable to do further examination to look for meningeal signs and symptoms. Patient is already telling me he does not want any needle in the back. Wants to be a full code. Per the family patient was [facility] at the end of last month on 3 different antibiotics and antibiotics are continued by Dr. Hodge as an outpatient last dose was taken 2 days ago. Family is unable to tell the antibiotics patient is on. 12/05/[id number]-ldpq-old male with the lung cancer On chemotherapy admitted with high fevers and severe shortness of breath. Temperature came down to 97.5 this morning blood cultures are positive at this moment. He had another episode of respiratory distress this morning tachypneic tachycardic heart rate went up to 140s he received his p.o. Cardizem still heart rate is around 140 and I requested the nurse to give Cardizem 10 mg IV 1 dose. These things happen after patient will be requested physical therapy at that time he is off the BiPAP. As per Dr. Hodge's request IV dosing will change it to IV cefepime. 12/06/[id number]-ycst-old male transferred to ICU last night for respiratory distress CT chest was done which was negative PE for PE CT abdomen was done shows a distended bladder with Fairchild's catheter was placed more than 1300 cc of urine came out he was tachycardic tachypneic last night. Now he is calm comfortable breathing better denies any abdominal pains heart rate is around 110. Blood pressure is around 110/70. ABG this morning shows pH of 7.39/PCO2 36 PO2 192 bicarb is 23. 12/07/[id number]-mwta-old male transferred to ICU from the medical floor respiratory distress CT scan is negative for acute pathology. He went to another episodes of respiratory distress with hypoxia this morning significant drop and pulse oxes he was given Haldol and breathing treatments and Ativan he is breathing is much improved and ABG looks reasonable and on examining this morning he is still on the BiPAP not in distress heart rate is around 120. patient states he is more comfortable now. T-max is 102.6. Plan is to start him on IV Tylenol. Discussed plan with Dr. Jada chin he thinks these fevers are not due to chemotherapy recommended ID consult wants to start on antifungal medication. pt is still full code. 12/08/[id number]-jbgz-old male came in with shortness of breath and high fevers CT scan was done twice both of them came back negative for PE and negative for pneumonia CT abdomen indicates possible enteritis and because of the abdominal pain and distended bladder Fairchild's of a catheter was placed. Still having a spiking fever of 104.5 ID consult was requested yesterday presently on meropenem, IV fluconazole, IV vancomycin. We are going to repeat the blood cultures today from the port and do the echocardiogram to rule out of endocarditis. Second set of blood cultures came back negative first set of blood cultures indicate gram-positive cocci in chains. Reason For Visit: SEPSIS Physical Exam Vital Signs: Temp Pulse Resp BP Pulse Ox 100.6 F H 101 H 18 111/64 99 12/08/18 07:34 12/08/18 07:25 12/08/18 07:34 12/08/18 07:34 12/08/18 07:34 Intake & Output 12/07/18 12/08/18 12/09/18 06:59 06:59 06:59 Intake Total 2450 2400 Output Total 2850 3210 Balance -400 -810 Weight 117.5 kg 118.6 kg General appearance: PRESENT: obese, other - Not in respiratory distress but still on BiPAP. Head exam: PRESENT: atraumatic Eye exam: PRESENT: PERRLA Mouth exam: PRESENT: moist, tongue midline Teeth exam: PRESENT: poor dentation Neck exam: ABSENT: carotid bruit, JVD, lymphadenopathy, thyromegaly Respiratory exam: PRESENT: decreased breath sounds Cardiovascular exam: PRESENT: tachycardia GI/Abdominal exam: PRESENT: normal bowel sounds, soft. ABSENT: distended, guarding, mass, organolmegaly, rebound, tenderness Rectal exam: PRESENT: deferred Gentrourinary exam: PRESENT: indwelling catheter Neurological exam: PRESENT: alert, awake, oriented to person, oriented to place, oriented to time, oriented to situation, CN II-XII grossly intact. ABSENT: motor sensory deficit Psychiatric exam: PRESENT: appropriate affect, normal mood. ABSENT: homicidal ideation, suicidal ideation Results Laboratory Results: 12/08/18 05:20 12/08/18 05:20 12/08/18 12/08/18 05:20 05:20 WBC 5.6 RBC 3.02 L Hgb 8.9 L Hct 26.5 L MCV 88 MCH 29.6 MCHC 33.7 RDW 14.8 H Plt Count 100 L Sodium 137.6 Potassium 3.3 L Chloride 97 L Carbon Dioxide 34 H Anion Gap 7 BUN 19 Creatinine 1.10 Est GFR ( Amer) > 60 Est GFR (Non-Af Amer) > 60 Glucose 116 H Calcium 7.8 L Magnesium 2.1 Total Bilirubin 0.4 AST 35 ALT 48 Alkaline Phosphatase 99 Total Protein 5.1 L Albumin 2.6 L 12/04/18 18:47 Sputum Gram Stain - Final 12/04/18 18:47 Sputum Sputum Culture - Final C.albicans/C.dubliniensis Normal Morenita 12/06/18 05:55 Catheterized Urine Urine Culture - Final NO GROWTH 2 DAYS 12/04/18 12/04/18 12/04/18 05:05 10:38 20:16 Creatine Kinase 51 L 123 CK-MB (CK-2) Troponin I < 0.012 NT-Pro-B Natriuret Pep 12/04/18 12/05/18 12/05/18 20:16 02:07 02:07 Creatine Kinase 201 H CK-MB (CK-2) 0.53 0.58 Troponin I < 0.012 < 0.012 NT-Pro-B Natriuret Pep 12/05/18 12/05/18 06:03 06:03 Creatine Kinase 190 H CK-MB (CK-2) 0.71 Troponin I < 0.012 NT-Pro-B Natriuret Pep 883 Impressions: Acute Abdomen Series 12/04/18 12:25 IMPRESSION: Nonspecific abdomen. Possible subpulmonic effusion. Chest/Abdomen CTA 12/04/18 14:12 IMPRESSION: There is no evidence of pulmonary embolus. Paramediastinal opacification on the right suggesting prior radiation. Surgical clips are seen in the left upper lobe suggesting resection of the nodule that was present previously. There is a 4 cm somewhat low-density pretracheal lymph node. Small pericardial effusion. Abdomen/Pelvis CT 12/05/18 00:00 IMPRESSION: 1. Fairchild catheter balloon is inflated in the prostatic urethra. The catheter does not extend into the bladder. 2. Bladder is markedly distended, with bilateral hydronephrosis. Chest X-Ray 12/07/18 05:13 IMPRESSION: 1. No significant change. Assessment and Plan - Diagnosis (1) Sepsis Qualifiers: Sepsis type: sepsis due to unspecified organism Qualified Code(s): A41.9 - Sepsis, unspecified organism Is this a current diagnosis for this admission?: Yes Plan: 12/04/20181604-18-isnz-old male with multiple medical problems including lung cancer on chemotherapy received chemotherapy yesterday came in with high fevers chills associated with shortness of breath and cough. All the investigations unable to locate the source of infection. To put the patient in IMCU to place him on BiPAP. Blood cultures urine cultures are requested started on IV Zosyn and vancomycin in the emergency room patient received levo floxacillin and IV Rocephin. GI prophylaxis DVT prophylaxis are initiated. Consultation with Dr. Hodge was requested. BiPAP was requested. ABG and EKGs are requested. Overall prognosis poor condition is critical. Patient refused LP in the ER. 12/05/[id number]-byxs-old male admitted with severe shortness of breath and high fever tachycardia tachypnea and blood cultures came back positive CT abdomen indicates possible enteritis he is receiving chemotherapy. WBC count went up to 15,900 today after noted he is on IV Solu-Medrol during this admission. As per Dr. Hodge's recommendations IV Zosyn which is switched to IV cefapime. Presently on IV prime and vancomycin. Plan is to continue the present management. 12/06/[id number]-xyvz-old male came in with respiratory distress tachycardic and the blood cultures were positive for gram-positive cocci in chains. He is on cefepime and vancomycin and antibiotics were switched to meropenem, IV Flagyl and IV vancomycin. CT chest was done last night did not suggestive of any pneumonia or PE. 12/07/2018-patient went into respiratory distress tachycardia tachypnea this morning. He calmed down with Haldol. Currently on IV meropenem, IV vancomycin and IV Flagyl. initial blood cultures are showing gram-positive cocci in chains. Patient blood pressure this morning is 137/56. Stable. ABG this morning on 21% oxygen pH is 7.48/PCO2 36.6/PCO2 58 bicarb is 26.8. WBC count improved to 7800. Overall prognosis poor condition is critical. 12/08/2018-patient is still have the spiking fevers 104.5. Presently on IV meropenem, IV vancomycin and IV Flagyl. Started on IV Diflucan also. The consult was requested. Plan to repeat the blood cultures from the port this morning and echocardiogram requested to rule out endocarditis. Nurses requested to notify the time of the spiking fevers in association with the infusions. Blood cultures growth so far showing gram-positive cocci in chains. (2) Lung cancer Qualifiers: Laterality: right Lung location: upper lobe of lung Qualified Code(s): C34.11 - Malignant neoplasm of upper lobe, right bronchus or lung Is this a current diagnosis for this admission?: Yes Plan: 12/04/2018-patient has history of lung cancer with right upper lobe lobectomy and chemotherapy is following with Dr. Hodge further management as per Dr. Ortiz. 12/05/2018-patient has history of lung cancer with right upper lobe lobectomy and presently getting chemotherapy for left lung mass with chemotherapy tumor size is shrinking. 12/06/2018-patient has history of lung cancer has a right upper lobe lobectomy and presently receiving chemotherapy for left upper lung mass. 12/07/2018-pt is receiving chemo for lt lung mass . as per dr hodge 12/08/2018-patient is receiving chemotherapy for left lung mass. The pictures indicating strengthening of the tumor (3) COPD (chronic obstructive pulmonary disease) Qualifiers: COPD type: unspecified COPD Qualified Code(s): J44.9 - Chronic obstructive pulmonary disease, unspecified Is this a current diagnosis for this admission?: No Plan: 12/04/2018-patient has history of COPD on 2 L oxygen at home. Here in the emergency room is extremely short of breath tachypneic tachycardic plan to put him on BiPAP. ABG was done in the emergency room pH is 7.44 PCO2 44.4 bicarb is 29. To start on IV Solu-Medrol 40 mg every 8 hours, scheduled and as needed nebulizations are initiated. 12/05/2018-patient has history of COPD on 2 L of oxygen at home. With BiPAP he is a shortness of breath is much improving. He is also receiving IV Solu-Medrol 40 mg every 8 hours and scheduled and as needed nebulizations. Plan is to continue the present management. 12/06/2018-patient has history of COPD on 2 L oxygen at home. He is requiring as needed BiPAP during the hospital stay. He is also on IV Solu-Medrol 40 mg every 8 hours. Presently on Xopenex scheduled and as needed nebulizations. He may need a BiPAP as an outpatient. 12/07/2018-patient still on BiPAP today on examination chest bilateral entry was decreased mild bilateral wheezing is present. To continue Xopenex 0.63 every 6 hours on every 2 as needed, added Atrovent every 6 hours as needed and started on Pulmicort 0.5 mg twice a day. We are going to do the daily ABGs and chest x- rays. 12/08/2018-patient is still on BiPAP. He is on home oxygen 2.5 L at home. Admitted for COPD exacerbation most likely secondary to underlying sepsis. (4) Hypertension Is this a current diagnosis for this admission?: No Plan: 12/04/2018-patient and family given the history of hypertension blood pressure is 132/72. Stable. Plan is to resume the home medications once list is available. 12/05/2018-patient has history of hypertension his blood pressure today is 136/96. Stable. Home medications are resumed. 12/06/2018-patient is presently receiving IV fluids normal saline 75 cc/h blood pressure is 110/78. Stable. Plan is to continue the present management. 12/07/2018-patient blood pressure this morning is 7/56 receiving IV fluids 75 cc/h plan is to continue to closely monitor the blood pressures. 12/08/2018-patient blood pressure today is 7/64. Stable. Present and IV fluids 75 cc/h plan is to continue the present management. (5) Obesity (BMI 30.0-34.9) Is this a current diagnosis for this admission?: No (6) Enteritis Is this a current diagnosis for this admission?: Yes Plan: 12/04/2018-CT scan of the abdomen and pelvis was done the radiologist recommendation is consider enteritis blood cultures are pending started on IV Zosyn and vancomycin. May be it is the source of sepsis. We are going to continue to closely monitor the enteritis. 12/08/2018-initial CT abdomen indicates enteritis is receiving antibiotics no diarrhea. No abdominal pains for the last 48 hours. (7) Acute urinary retention Is this a current diagnosis for this admission?: Yes Plan: 12/06/2018-patient has acute urinary retention after placing Fairchild's catheter more than 1300 mL of urine came out. His abdominal pain resolved. Plan is to keep the Fairchild catheter during this hospital stay he may have to see a urologist as an outpatient CT scan suggestive of bilateral hydronephrosis. Serum creatinine is 1.5 today. 12/07/2018-acute retention of the urine with the Fairchild's catheter in place. urine Output is 2.8 L in the last 24 hours. 2018-patient still have a Fairchild's catheter for acute retention of the urine may be secondary to medication's. (8) SUNIL (acute kidney injury) Is this a current diagnosis for this admission?: Yes Plan: 12/06/2018-patient's baseline creatinine is around 0.8 on admission it was 1.2 was 1.5 today. Acute kidney injury may be secondary to bilateral hydronephrosis caused by acute urinary retention. Patient has a Fairchild's cathet er. Plan is to continue to follow the labs and regular basis. 12/07/2018-latest creatinine 1.16. Improving. SUNIL most likely secondary to poor oral intake and probably sepsis. 12/08/2018-patient creatinine today is 1.1 back to baseline. SUNIL secondary to poor oral intake resolved. - Time Time Spent with patient: 25-34 minutes Medications reviewed and adjusted accordingly: Yes Anticipated discharge: SNF
--- NOTE | 2018-12-08 09:01 | PDOC PROGRESS REPORT ---
Subjective Progress Note for:: 12/08/18 Subjective:: Patient still had fevers, less hypoxic however Reason For Visit: SEPSIS Physical Exam Vital Signs: Temp Pulse Resp BP Pulse Ox 100.6 F H 101 H 18 111/64 99 12/08/18 07:34 12/08/18 07:25 12/08/18 07:34 12/08/18 07:34 12/08/18 07:34 Intake & Output 12/07/18 12/08/18 12/09/18 06:59 06:59 06:59 Intake Total 2450 2400 Output Total 2850 3210 Balance -400 -810 Weight 117.5 kg 118.6 kg General appearance: PRESENT: no acute distress, well-developed, well-nourished Head exam: PRESENT: atraumatic, normocephalic Eye exam: PRESENT: conjunctiva pink, EOMI, PERRLA. ABSENT: scleral icterus Ear exam: PRESENT: normal external ear exam Mouth exam: PRESENT: moist, tongue midline Neck exam: ABSENT: carotid bruit, JVD, lymphadenopathy, thyromegaly Respiratory exam: PRESENT: clear to auscultation khushboo. ABSENT: rales, rhonchi, wheezes Cardiovascular exam: PRESENT: RRR. ABSENT: diastolic murmur, rubs, systolic murmur Pulses: PRESENT: normal dorsalis pedis pul Vascular exam: PRESENT: normal capillary refill GI/Abdominal exam: PRESENT: normal bowel sounds, soft. ABSENT: distended, guarding, mass, organolmegaly, rebound, tenderness Rectal exam: PRESENT: deferred Extremities exam: PRESENT: full ROM. ABSENT: calf tenderness, clubbing, pedal edema Neurological exam: PRESENT: alert, awake, oriented to person, oriented to place, oriented to time, oriented to situation, CN II-XII grossly intact. ABSENT: motor sensory deficit Psychiatric exam: PRESENT: appropriate affect, normal mood. ABSENT: homicidal ideation, suicidal ideation Skin exam: PRESENT: dry, intact, warm. ABSENT: cyanosis, rash Results Laboratory Results: 12/08/18 05:20 12/08/18 05:20 12/08/18 12/08/18 05:20 05:20 WBC 5.6 RBC 3.02 L Hgb 8.9 L Hct 26.5 L MCV 88 MCH 29.6 MCHC 33.7 RDW 14.8 H Plt Count 100 L Sodium 137.6 Potassium 3.3 L Chloride 97 L Carbon Dioxide 34 H Anion Gap 7 BUN 19 Creatinine 1.10 Est GFR ( Amer) > 60 Est GFR (Non-Af Amer) > 60 Glucose 116 H Calcium 7.8 L Magnesium 2.1 Total Bilirubin 0.4 AST 35 ALT 48 Alkaline Phosphatase 99 Total Protein 5.1 L Albumin 2.6 L 12/04/18 18:47 Sputum Gram Stain - Final 12/04/18 18:47 Sputum Sputum Culture - Final C.albicans/C.dubliniensis Normal Morenita 12/06/18 05:55 Catheterized Urine Urine Culture - Final NO GROWTH 2 DAYS 12/04/18 12/04/18 12/04/18 05:05 10:38 20:16 Creatine Kinase 51 L 123 CK-MB (CK-2) Troponin I < 0.012 NT-Pro-B Natriuret Pep 12/04/18 12/05/18 12/05/18 20:16 02:07 02:07 Creatine Kinase 201 H CK-MB (CK-2) 0.53 0.58 Troponin I < 0.012 < 0.012 NT-Pro-B Natriuret Pep 12/05/18 12/05/18 06:03 06:03 Creatine Kinase 190 H CK-MB (CK-2) 0.71 Troponin I < 0.012 NT-Pro-B Natriuret Pep 883 Impressions: Acute Abdomen Series 12/04/18 12:25 IMPRESSION: Nonspecific abdomen. Possible subpulmonic effusion. Chest/Abdomen CTA 12/04/18 14:12 IMPRESSION: There is no evidence of pulmonary embolus. Paramediastinal opacification on the right suggesting prior radiation. Surgical clips are seen in the left upper lobe suggesting resection of the nodule that was present previously. There is a 4 cm somewhat low-density pretracheal lymph node. Small pericardial effusion. Abdomen/Pelvis CT 12/05/18 00:00 IMPRESSION: 1. Fairchild catheter balloon is inflated in the prostatic urethra. The catheter does not extend into the bladder. 2. Bladder is markedly distended, with bilateral hydronephrosis. Chest X-Ray 12/07/18 05:13 IMPRESSION: 1. No significant change. Status: Image reviewed by me Assessment & Plan - Diagnosis (1) Lung cancer Qualifiers: Laterality: right Lung location: upper lobe of lung Qualified Code(s): C34.11 - Malignant neoplasm of upper lobe, right bronchus or lung Is this a current diagnosis for this admission?: Yes Plan: Proved with chemotherapy, plan to continue treatment as an outpatient (2) Septic shock Is this a current diagnosis for this admission?: Yes Plan: Still having fevers, first cultures were positive through report with GPC's, still do not have speciation, second set of cultures through port was negative. Repeating cultures today. ID consultation today (3) Acute urinary retention Is this a current diagnosis for this admission?: Yes Plan: Continue with Fairchild (4) Constipation Qualifiers: Constipation type: drug induced constipation Qualified Code(s): K59.03 - Drug induced constipation Is this a current diagnosis for this admission?: Yes Plan: Improved (5) Respiratory distress Is this a current diagnosis for this admission?: Yes Plan: Seems to be improving, asked nursing to get patient up and sit in the chair and may be even walk a little bit of possible - Time Time Spent with patient: 35 or more minutes - Inpatient Certification Based on my medical assessment, after consideration of the patient's comorbidities, presenting symptoms, or acuity I expect that the services needed warrant INPATIENT care.: Yes I certify that my determination is in accordance with my understanding of Medicare's requirements for reasonable and necessary INPATIENT services [42 CFR 412.3e].: Yes Medical Necessity: Need For Continuous Telemetry Monitoring, Need for IV Anti biotics, Risk of Complication if Not Cared For in Hospital
[2018-12-08 10:04] LABS: ARTERIAL BLOOD BASE EXCESS 9.5 mmol/L; ARTERIAL BLOOD FIO2 30%; ARTERIAL BLOOD H2CO3 1.31 mmol/L (1.05-1.35); ARTERIAL BLOOD HCO3 33.5 mmol/L (20-24); ARTERIAL BLOOD O2 SATURATION 96.8 % (94-98); ARTERIAL BLOOD PCO2 43.6 mmHg (35-45); ARTERIAL BLOOD TOTAL CO2 34.9 mmol/L (23-27)
[2018-12-08] MEDS: CLONAZEPAM 1 MG TABLET PO SCH ×2 (10:33→17:53)
[2018-12-08] MEDS: TAMSULOSIN HCL 0.4 MG CAP.SR.24H PO SCH (10:33)
[2018-12-08] MEDS: CITALOPRAM HYDROBROMIDE 20 MG TABLET PO SCH (10:33)
[2018-12-08] MEDS: ROPINIROLE HCL 1 MG TABLET PO SCH (10:33)
[2018-12-08] MEDS: FAMOTIDINE 20 MG TABLET PO SCH ×2 (10:34→21:31)
[2018-12-08] MEDS: DILTIAZEM HCL 120 MG CAP.SR.24H PO SCH (10:34)
[2018-12-08] MEDS: ENOXAPARIN SODIUM INJ 40 MG/0.4 ML DISP.SYRIN SUBCUT SCH (10:34)
[2018-12-08] MEDS: FLUTICASONE/VILANTEROL 200-25 MCG/DOSE IH SCH (10:39)
[2018-12-08] MEDS: TIOTROPIUM BROMIDE DPI 5 CAP/KIT (18 MCG/CAP) IH SCH (10:39)
[2018-12-08] MEDS: HYDROCODONE/ACETAMINOPHEN 5-325 MG TABLET PO PRN (13:08)
[2018-12-08] MEDS: GUAIFENESIN SYRP 200 MG/10 ML UDC PO PRN ×2 (13:08→21:31)
--- NOTE | 2018-12-08 19:07 | Progress Note ---
Provider Note Provider Note: ID Telephone Consultation Note Asked to review patient's chart. Pt not seen or examined. Reviewed VS, imaging reports, microbiology results, provider notes. 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 He was admitted on 12/04/18 with SOB, fever, lower abdominal pain. He was out of his outpatient Flomax and also c/o constipation that did not respond to colace and enema at home. In the ED, pt had fever up to 103 F, tachycardia, tachypnea. Exam notable for clear lungs, no murmur, FROM in all extremities. Pt had leukocytosis of 15k, some reactive thrombocytosis also. Imaging of the chest showed no acute changes c/w pneumonia or PE. CT abd/pelvis w/o contrast showed fluid in colon without acute inflammatory changes. Fairchild was placed with 1.6 L urine output. Blood cultures were drawn from the port and from a peripheral stick, and empiric broad spectrum antibiotics were started for undifferentiated sepsis picture. Elevated lactate normalized, and patient improved until he again developed increase in abdominal pain with distention and temperature up to 103-104 F again; repeat CT scan on 12/05 showed distended urinary bladder, with UOP ~2 L after replacement of malpositioned Fairchild. Constipation also resolved. Given growth of GPCs in chains from BCx on admission, repeat blood cultures and TTE were ordered. Hepatic enzymes unremarkable. Leukocytosis resolved. Plts have been decreasing from 552 on admission to 100 most recently. Pt continues to have fevers up to 101-103 F, but overall the patient has been felt to be improving clinically. Cultures: Sputum 12/04: C albicans, normal natalya. BCx 12/04: GPCs in chains from the port and the peripheral draw, pending identification. BCx 12/06: Repeat from port and peripheral draw, no growth x 48h. UCx 12/06: no growth Antimicrobial agents: Levaquin x 1 dose 12/04, Zosyn 12/04-12/05, cefepime 12/05, meropenem 12/06 to present Vancomycin 12/06 to present Flagyl 12/06 to present Fluconazole 6/16 Impression/Recommendations Bloodstream infection with Gram positive cocci in chains - morphology and Gram stain c/w enterococci or streptococci - Source? U/A showed no pyuria and UCx had no growth. It is possible he may have had some bacterial translocation from the gut given his GI complaints on presentation. If he has smoldering/indolent constitutional symptoms and/or functional decline, it might hint at a subacute endovascular infection. - continue vancomycin pending identification and susceptibilities. Would stop Flagyl and meropenem. De-escalate when susceptibilties are known. - F/u TTE. - Pt has a recently implanted port, but the most likely organisms are not ones that would necessitate port removal due to high risk of failure, and there is no evidence of persistent bacteremia at present time. Port salvage can be attempted with addition of a vancomycin antibiotic lock; if this cannot be easily done, giving vancomycin through the port is an option also. Fever - Continued fever despite meropenem and vancomycin suggests either a noninfectious etiology or an infection that would not be addressed by very broad spectrum antibiotic agents with activity against typical bacteria. If the patient clinically appears to be improving, this favors the former rather than the latter. - Continue to remain vigilant for localizing signs or symptoms. Etiologies of fever can include thrombosis, thrombophlebitis or hematoma, acute gout or pseudogout, for example. - Drug fever is always a consideration. Would stop Flagyl and meropenem since their continued use does not appear to be justified by the culture results. Attempt to minimize any non-essential medications. Talat Jacques MD [facility] Infectious Diseases pager [phone]
--- NOTE | 2018-12-08 20:19 | XCELERA REPORT ---
[address] [address] Transthoracic Echocardiogram Report Name: CHAD RETANA Age: 63 yrs Gender: Male : 1955 Patient Status: Inpatient Patient Location: ICU^605^A Study Date: 12/08/2018 02:19 PM Height: 72 in Weight: 261 lb BSA: 2.4 m2 Reason For Study: r/o endocarditis Ordering Physician: CORRINE WEISS Performed By: Ramonita Diaz Interpretation Summary Study quality fair with some suboptimal/poor images. Lack of contrat opacification limits evaluation of wall motion and to rule out intracardiac mass/ thrombus. LVEF appears normal at 55-60%. RV systolic function appears normal. The transmitral spectral Doppler flow pattern is abnormal for age The aortic valve is not well visualized but doppler data provided not suggestive of any significant stenosis. MV leaflest appear focally thickened with preserved opening. There is a trace or physiologic amount of pulmonic regurgitation Small pericardial effusion. The aortic root is mildly dilated at 4 cms. IVC normal sized with decreased respiratory variation- could be secondary to respiratory support. This study cannot rule out infective endocarditis. Considre HARVEY for bettter evaluation for vegetation if cliniclly indicated. MMode/2D Measurements & Calculations RVDd: 3.6 cm LVIDd: 5.7 cm FS: 31.5 % Ao root diam: 4.0 cm IVSd: 0.93 cm LVIDs: 3.9 cm EDV(Teich): Ao root area: LVPWd: 1.2 cm 163.2 ml ESV(Teich): 12.3 cm2 67.5 ml EF(Teich): 58.6 % LVOT diam: EDV(MOD-sp4): SV(MOD-sp4): 0.90 cm 116.3 ml 64.5 ml LVOT area: ESV(MOD-sp4): 0.64 cm2 51.8 ml EF(MOD-sp4): 55.4 % Doppler Measurements & Calculations MV E max lois: MV dec slope: Ao V2 max: LV V1 max P.2 cm/sec 107.8 cm/sec 3.4 mmHg MV A max lois: 490.6 cm/sec2 Ao max PG: LV V1 max: 94.2 cm/sec MV dec time: 0.18 sec4.7 mmHg 91.8 cm/sec MV E/A: 0.93 MARIANO(V,D): 0.55 cm2 PA V2 max: PI end-d lois: 71.9 cm/sec 109.0 cm/sec PA max P.1 mmHg Left Ventricle The left ventricular ejection fraction is normal. LV EF is 55-60%. The transmitral spectral Doppler flow pattern is abnormal for age. Right Ventricle A calcified moderator band is seen in the right ventricle. Atria Right atrium not well visualized secondary to technical limitations. The left atrial size is normal. Mitral Valve MV leaflest appear focally thickened with preserved opening. There is mild mitral leaflet calcification. Aortic Valve The aortic valve is not well visualized secondary to technical limitations. There is a peak gradient of 5.37 mm of Hg. Tricuspid Valve The tricuspid valve is not well visualized secondary to technical limitations. Tricuspid regurgitation jet envelope not well defined to measure RV systolic pressure accurately. RVSP could not be estimated. Pulmonic Valve The pulmonic valve is not well visualized. There is a trace or physiologic amount of pulmonic regurgitation. Great Vessels The aortic root is mildly dilated. IVC normal sized with decreased respiratory variation- could be secondary to respiratory support. Effusions Small pericardial effusion. : CORRINE WEISS > Delano Acosta
[2018-12-08] MEDS: VANCOMYCIN HCL 1,500 MG in DEXTROSE 5%-WATER 250 ML IV SCH (21:34)
[2018-12-08] MEDS: NORMAL SALINE 1000 ML 1,000 ML IV PRN (21:35)
[2018-12-09] MEDS: METRONIDAZOLE 500 MG/NS RTU 500 MG/100 ML RTUPB IV SCH ×4 (00:32→17:05)
[2018-12-09] MEDS: MEROPENEM 1 GM in NORMAL SALINE 50 ML IV SCH ×2 (05:20→14:24)
[2018-12-09] MEDS: GUAIFENESIN SYRP 200 MG/10 ML UDC PO PRN ×3 (05:58→15:38)
[2018-12-09] MEDS: ACETAMINOPHEN 325 MG TABLET PO PRN ×2 (05:58→17:05)
[2018-12-09 06:38] LABS: HEMATOCRIT 26.1 % (37.9-51.0); HEMOGLOBIN 8.9 g/dL (13.5-17.0); MEAN CORPUSCULAR HEMOGLOBIN 30.1 pg (27.0-33.4); MEAN CORPUSCULAR HGB CONC 34.3 g/dL (32.0-36.0); MEAN CORPUSCULAR VOLUME 88 fl (80-97); RED BLOOD COUNT 2.97 10^6/uL (4.35-5.55); RED CELL DISTRIBUTION WIDTH 14.8 % (11.5-14.0); WHITE BLOOD COUNT 4.7 10^3/uL (4.0-10.5)
[2018-12-09 07:02] LABS: ALANINE AMINOTRANSFERASE 52 U/L (21-72); ALBUMIN 2.6 g/dL (3.5-5.0); ALKALINE PHOSPHATASE 148 U/L (38-126); ANION GAP 6 (5-19); ASPARTATE AMINO TRANSFERASE 43 U/L (17-59); BILIRUBIN,DIRECT 0.4 mg/dL (0.0-0.4); BILIRUBIN,TOTAL 0.6 mg/dL (0.2-1.3); BLOOD UREA NITROGEN 16 mg/dL (7-20); CALCIUM 8.3 mg/dL (8.4-10.2); CARBON DIOXIDE 36 mmol/L (22-30); CHLORIDE 97 mmol/L (98-107); GLUCOSE 106 mg/dL (75-110); POTASSIUM 3.4 mmol/L (3.6-5.0); SODIUM 138.9 mmol/L (137-145); TOTAL PROTEIN 4.9 g/dL (6.3-8.2)
[2018-12-09 08:13] LABS: ABSOLUTE LYMPHOCYTES# (MANUAL) 0.4 10^3/uL (0.5-4.7); ABSOLUTE MONOCYTES # (MANUAL) 0.2 10^3/uL (0.1-1.4); BAND NEUTROPHILS % (MANUAL) 1 % (3-5); BASOPHILS % (MANUAL) 0 % (0-2); EOSINOPHILS % (MANUAL) 0 % (0-6); LYMPHOCYTES % (MANUAL) 8 % (13-45); MONOCYTES % (MANUAL) 4 % (3-13); SEGMENTED NEUTROPHILS % (MAN) 87 % (42-78); TOTAL CELLS COUNTED 100
[2018-12-09 08:15] LABS: TOXIC GRANULATION 2+
[2018-12-09 08:16] LABS: ANISOCYTOSIS SLIGHT; PLATELET COMMENT DECREASED; PLATELET COUNT 96 10^3/uL (150-450); PLATELET LARGE PRESENT; ROULEAUX SLIGHT
[2018-12-09] MEDS: BUDESONIDE NEB 0.5 MG/2 ML AMPUL NEB SCH ×2 (08:34→20:54)
[2018-12-09] MEDS: LEVALBUTEROL HCL NEB 1.25 MG/3 ML AMPUL NEB SCH ×2 (08:34→15:57)
[2018-12-09] MEDS: IPRATROPIUM BROMIDE 0.02% NEB 0.5 MG/2.5 ML AMPUL NEB SCH ×2 (08:34→15:57)
--- NOTE | 2018-12-09 08:34 | PDOC PROGRESS REPORT ---
Subjective Progress Note for:: 12/09/18 Subjective:: Patient feels much better today, respiratory status seems improved but still had a fever of 102 this morning. Do not see an infectious disease note so asked nursing to call pharmacy to make sure they review the case. Thus far 2 sets of repeat cultures are negative. Reason For Visit: SEPSIS Physical Exam Vital Signs: Temp Pulse Resp BP Pulse Ox 97.9 F 96 18 113/60 100 12/09/18 05:00 12/08/18 23:15 12/09/18 06:00 12/09/18 05:47 12/09/18 06:00 Intake & Output 12/08/18 12/09/18 12/10/18 06:59 06:59 06:59 Intake Total 2400 1500 400 Output Total 3210 5650 Balance -810 -4150 400 Weight 118.6 kg 115.9 kg General appearance: PRESENT: no acute distress, well-developed, well-nourished Head exam: PRESENT: atraumatic, normocephalic Eye exam: PRESENT: conjunctiva pink, EOMI, PERRLA. ABSENT: scleral icterus Ear exam: PRESENT: normal external ear exam Mouth exam: PRESENT: moist, tongue midline Neck exam: ABSENT: carotid bruit, JVD, lymphadenopathy, thyromegaly Respiratory exam: PRESENT: clear to auscultation khushboo. ABSENT: rales, rhonchi, wheezes Cardiovascular exam: PRESENT: RRR. ABSENT: diastolic murmur, rubs, systolic mu rmur Pulses: PRESENT: normal dorsalis pedis pul Vascular exam: PRESENT: normal capillary refill GI/Abdominal exam: PRESENT: normal bowel sounds, soft. ABSENT: distended, guarding, mass, organolmegaly, rebound, tenderness Rectal exam: PRESENT: deferred Extremities exam: PRESENT: full ROM. ABSENT: calf tenderness, clubbing, pedal edema Neurological exam: PRESENT: alert, awake, oriented to person, oriented to place, oriented to time, oriented to situation, CN II-XII grossly intact. ABSENT: motor sensory deficit Psychiatric exam: PRESENT: appropriate affect, normal mood. ABSENT: homicidal ideation, suicidal ideation Skin exam: PRESENT: dry, intact, warm. ABSENT: cyanosis, rash Results Laboratory Results: 12/09/18 06:06 12/09/18 06:06 12/08/18 12/09/1819 09:45 06:06 06:06 WBC 4.7 RBC 2.97 L Hgb 8.9 L Hct 26.1 L MCV 88 MCH 30.1 MCHC 34.3 RDW 14.8 H Plt Count 96 L Seg Neutrophils % Not Reportable Lymphocytes % Not Reportable Monocytes % Not Reportable Eosinophils % Not Reportable Basophils % Not Reportable Absolute Neutrophils Not Reportable Absolute Lymphocytes Not Reportable Absolute Monocytes Not Reportable Absolute Eosinophils Not Reportable Absolute Basophils Not Reportable Carbonic Acid 1.31 HCO3/H2CO3 Ratio 25:1 ABG pH 7.50 H ABG pCO2 43.6 ABG pO2 82.0 ABG HCO3 33.5 H ABG O2 Saturation 96.8 ABG Base Excess 9.5 FiO2 30% Sodium 138.9 Potassium 3.4 L Chloride 97 L Carbon Dioxide 36 H Anion Gap 6 BUN 16 Creatinine 0.97 Est GFR ( Amer) > 60 Est GFR (Non-Af Amer) > 60 Glucose 106 Calcium 8.3 L Magnesium 1.6 Total Bilirubin 0.6 AST 43 ALT 52 Alkaline Phosphatase 148 H Total Protein 4.9 L Albumin 2.6 L 12/04/18 12/04/18 12/04/18 05:05 10:38 20:16 Creatine Kinase 51 L 123 CK-MB (CK-2) Troponin I < 0.012 NT-Pro-B Natriuret Pep 12/04/18 12/05/18 12/05/18 20:16 02:07 02:07 Creatine Kinase 201 H CK-MB (CK-2) 0.53 0.58 Troponin I < 0.012 < 0.012 NT-Pro-B Natriuret Pep 12/05/18 12/05/18 06:03 06:03 Creatine Kinase 190 H CK-MB (CK-2) 0.71 Troponin I < 0.012 NT-Pro-B Natriuret Pep 883 Impressions: Acute Abdomen Series 12/04/18 12:25 IMPRESSION: Nonspecific abdomen. Possible subpulmonic effusion. Chest/Abdomen CTA 12/04/18 14:12 IMPRESSION: There is no evidence of pulmonary embolus. Paramediastinal opacification on the right suggesting prior radiation. Surgical clips are seen in the left upper lobe suggesting resection of the nodule that was present previously. There is a 4 cm somewhat low-density pretracheal lymph node. Small pericardial effusion. Abdomen/Pelvis CT 12/05/18 00:00 IMPRESSION: 1. Fairchild catheter balloon is inflated in the prostatic urethra. The catheter does not extend into the bladder. 2. Bladder is markedly distended, with bilateral hydronephrosis. Chest X-Ray 12/07/18 05:13 IMPRESSION: 1. No significant change. Assessment & Plan - Diagnosis (1) Lung cancer Qualifiers: Laterality: right Lung location: upper lobe of lung Qualified Code(s): C34.11 - Malignant neoplasm of upper lobe, right bronchus or lung Is this a current diagnosis for this admission?: Yes Plan: Continue to hold therapy, therapy has improved cancer status, so would like to continue as an outpatient (2) Septic shock Is this a current diagnosis for this admission?: Yes Plan: Await ID input, still febrile but repeat cultures x2 have been negative, echocardiogram is negative, possible source may be port. At present we need to get the speciation of the GPC, to decide better next course of action. Continue with current antibiotic regimen. (3) Acute urinary retention Is this a current diagnosis for this admission?: Yes Plan: Continue with Fairchild (4) Constipation Qualifiers: Constipation type: drug induced constipation Qualified Code(s): K59.03 - Drug induced constipation Is this a current diagnosis for this admission?: Yes Plan: Continue supportive care (5) Respiratory distress Is this a current diagnosis for this admission?: Yes Plan: Improving, asked nursing to get patient up and moving - Time Time Spent with patient: 35 or more minutes - Inpatient Certification Based on my medical assessment, after consideration of the patient's comorbidities, presenting symptoms, or acuity I expect that the services needed warrant INPATIENT care.: Yes I certify that my determination is in accordance with my understanding of Medicare's requirements for reasonable and necessary INPATIENT services [42 CFR 412.3e].: Yes Medical Necessity: Need for Nebulizer Therapy and Monitoring of Response, Need for IV Antibiotics, Risk of Complication if Not Cared For in Hospital
[2018-12-09] MEDS: ENOXAPARIN SODIUM INJ 40 MG/0.4 ML DISP.SYRIN SUBCUT SCH (09:26)
[2018-12-09] MEDS: VANCOMYCIN HCL 1,500 MG in DEXTROSE 5%-WATER 250 ML IV SCH ×2 (09:27→21:16)
[2018-12-09] MEDS: TIOTROPIUM BROMIDE DPI 5 CAP/KIT (18 MCG/CAP) IH SCH (09:27)
[2018-12-09] MEDS: FLUTICASONE/VILANTEROL 200-25 MCG/DOSE IH SCH (09:27)
[2018-12-09] MEDS: DILTIAZEM HCL 120 MG CAP.SR.24H PO SCH (09:28)
[2018-12-09] MEDS: FAMOTIDINE 20 MG TABLET PO SCH ×2 (09:28→21:15)
[2018-12-09] MEDS: ROPINIROLE HCL 1 MG TABLET PO SCH (09:28)
[2018-12-09] MEDS: TAMSULOSIN HCL 0.4 MG CAP.SR.24H PO SCH (09:28)
[2018-12-09] MEDS: CLONAZEPAM 1 MG TABLET PO SCH ×2 (09:28→17:06)
[2018-12-09] MEDS: CITALOPRAM HYDROBROMIDE 20 MG TABLET PO SCH (09:28)
[2018-12-09] MEDS: HYDROCODONE/ACETAMINOPHEN 5-325 MG TABLET PO PRN ×2 (09:31→17:05)
--- NOTE | 2018-12-09 12:48 | PDOC PROGRESS REPORT ---
Subjective Progress Note for:: 12/09/18 Subjective:: 12/09: Assumed care today. ICU course and chart reviewed. This is a 63-year-old male with history of lung cancer and chemotherapy and prior right upper lobe lobectomy, BPH, hypertension, COPD on 2 L oxygen at night who was admitted for severe sepsis. So far, septic work-up has been remarkable for gram-positive cocci from the blood, 2/2 bottles. This morning, he continues to have fever of 101.9. He says he feels slightly better today. Denies chest pain. He does say that his legs have been more swollen. He denies joint pains or prior history of gout or pse udogout. Will decrease IV fluids. Noted ID recommendations. Also discussed with oncology. Await final blood culture results. Reason For Visit: SEPSIS Physical Exam Vital Signs: Temp Pulse Resp BP Pulse Ox 99.5 F 109 H 17 119/68 98 12/09/18 10:00 12/09/18 10:00 12/09/18 10:00 12/09/18 10:00 12/09/18 10:00 Intake & Output 12/08/18 12/09/18 12/10/18 06:59 06:59 06:59 Intake Total 2400 1500 400 Output Total 3210 5650 1050 Balance -810 -4150 -650 Weight 261 lb 7.492 oz 255 lb 8.252 oz General appearance: PRESENT: no acute distress, well-developed, well-nourished Head exam: PRESENT: atraumatic, normocephalic Eye exam: PRESENT: conjunctiva pink, EOMI, PERRLA. ABSENT: scleral icterus Ear exam: PRESENT: normal external ear exam Mouth exam: PRESENT: moist, tongue midline Neck exam: ABSENT: carotid bruit, JVD, lymphadenopathy, thyromegaly Respiratory exam: PRESENT: rhonchi. ABSENT: rales, wheezes Cardiovascular exam: PRESENT: RRR. ABSENT: diastolic murmur, rubs, systolic murmur Pulses: PRESENT: normal dorsalis pedis pul GI/Abdominal exam: PRESENT: normal bowel sounds, soft. ABSENT: distended, guarding, mass, organolmegaly, rebound, tenderness Rectal exam: PRESENT: deferred Extremities exam: PRESENT: +1 edema Results Laboratory Results: 12/09/18 06:06 12/09/18 06:06 12/09/18 12/09/18 06:06 06:06 WBC 4.7 RBC 2.97 L Hgb 8.9 L Hct 26.1 L MCV 88 MCH 30.1 MCHC 34.3 RDW 14.8 H Plt Count 96 L Seg Neutrophils % Not Reportable Lymphocytes % Not Reportable Monocytes % Not Reportable Eosinophils % Not Reportable Basophils % Not Reportable Absolute Neutrophils Not Reportable Absolute Lymphocytes Not Reportable Absolute Monocytes Not Reportable Absolute Eosinophils Not Reportable Absolute Basophils Not Reportable Sodium 138.9 Potassium 3.4 L Chloride 97 L Carbon Dioxide 36 H Anion Gap 6 BUN 16 Creatinine 0.97 Est GFR ( Amer) > 60 Est GFR (Non-Af Amer) > 60 Glucose 106 Calcium 8.3 L Magnesium 1.6 Total Bilirubin 0.6 AST 43 ALT 52 Alkaline Phosphatase 148 H Total Protein 4.9 L Albumin 2.6 L 12/04/18 12/04/18 12/04/18 05:05 10:38 20:16 Creatine Kinase 51 L 123 CK-MB (CK-2) Troponin I < 0.012 NT-Pro-B Natriuret Pep 12/04/18 12/05/18 12/05/18 20:16 02:07 02:07 Creatine Kinase 201 H CK-MB (CK-2) 0.53 0.58 Troponin I < 0.012 < 0.012 NT-Pro-B Natriuret Pep 12/05/18 12/05/18 06:03 06:03 Creatine Kinase 190 H CK-MB (CK-2) 0.71 Troponin I < 0.012 NT-Pro-B Natriuret Pep 883 Impressions: Acute Abdomen Series 12/04/18 12:25 IMPRESSION: Nonspecific abdomen. Possible subpulmonic effusion. Chest/Abdomen CTA 12/04/18 14:12 IMPRESSION: There is no evidence of pulmonary embolus. Paramediastinal opacification on the right suggesting prior radiation. Surgical clips are seen in the left upper lobe suggesting resection of the nodule that was present previously. There is a 4 cm somewhat low-density pretracheal lymph node. Small pericardial effusion. Abdomen/Pelvis CT 12/05/18 00:00 IMPRESSION: 1. Fairchild catheter balloon is inflated in the prostatic urethra. The catheter does not extend into the bladder. 2. Bladder is markedly distended, with bilateral hydronephrosis. Chest X-Ray 12/07/18 05:13 IMPRESSION: 1. No significant change. Assessment and Plan - Diagnosis (1) Sepsis Qualifiers: Sepsis type: sepsis due to unspecified organism Qualified Code(s): A41.9 - Sepsis, unspecified organism Is this a current diagnosis for this admission?: Yes Plan: Severe sepsis. As mentioned, so far septic work-up is remarkable for gram-positi ve cocci in chains 2/2 bottles. Noted ID recommendations about reports elevation possible ALT. Also discussed these recommendations with oncology. Will await final blood culture report which will be possibly resulted later today or tomorrow morning. (2) SUNIL (acute kidney injury) Is this a current diagnosis for this admission?: Yes Plan: Resolved. Possibly multifactorial from initial obstructive cause from urinary retention causing bilateral hydronephrosis and possible septic ATN. Reduce IV fluids to 50 cc/hr. (3) Lung cancer Qualifiers: Laterality: right Lung location: upper lobe of lung Qualified Code(s): C34.11 - Malignant neoplasm of upper lobe, right bronchus or lung Is this a current diagnosis for this admission?: Yes Plan: Oncology following. (4) Hypokalemia Is this a current diagnosis for this admission?: Yes Plan: Replace with PO Potassium. - Time Time Spent with patient: 25-34 minutes
[2018-12-09] MEDS ORDERED: POTASSIUM CHLORIDE 10 MEQ CAPSULE.ER PO ONE (12:53)
[2018-12-09] MEDS: NORMAL SALINE 1000 ML 1,000 ML IV PRN (17:07)
[2018-12-09] MEDS: HALOPERIDOL LACTATE INJ 5 MG/1 ML VIAL IV PRN (19:41)
[2018-12-10] MEDS: LEVALBUTEROL HCL NEB 1.25 MG/3 ML AMPUL NEB SCH ×3 (00:16→16:45)
[2018-12-10] MEDS: IPRATROPIUM BROMIDE 0.02% NEB 0.5 MG/2.5 ML AMPUL NEB SCH ×3 (00:16→16:44)
[2018-12-10 04:36] LABS: APPEARANCE,URINE CLEAR; BILIRUBIN,URINE NEGATIVE (NEGATIVE); COLOR,URINE YELLOW; GLUCOSE, URINE NEGATIVE (NEGATIVE); KETONES,URINE NEGATIVE (NEGATIVE); LEUKOCYTE ESTERASE,URINE TRACE (NEGATIVE); NITRITE,URINE NEGATIVE (NEGATIVE); PROTEIN,URINE NEGATIVE (NEGATIVE); URINE SPECIFIC GRAVITY 1.009; UROBILINOGEN,URINE NEGATIVE mg/dL (<2.0)
[2018-12-10 04:41] LABS: HEMATOCRIT 25.2 % (37.9-51.0); HEMOGLOBIN 8.5 g/dL (13.5-17.0); MEAN CORPUSCULAR HEMOGLOBIN 29.6 pg (27.0-33.4); MEAN CORPUSCULAR VOLUME 87 fl (80-97); PLATELET COUNT 108 10^3/uL (150-450); RED BLOOD COUNT 2.89 10^6/uL (4.35-5.55); RED CELL DISTRIBUTION WIDTH 14.8 % (11.5-14.0); WHITE BLOOD COUNT 4.6 10^3/uL (4.0-10.5)
[2018-12-10] MEDS: BUDESONIDE NEB 0.5 MG/2 ML AMPUL NEB SCH ×2 (08:11→20:56)
--- NOTE | 2018-12-10 08:39 | PDOC PROGRESS REPORT ---
Subjective Progress Note for:: 12/10/18 Subjective:: Patient doing much better, fevers have defervesced, patient got up with physical therapy yesterday Reason For Visit: SEPSIS Physical Exam Vital Signs: Temp Pulse Resp BP Pulse Ox 100.4 F 109 H 20 115/79 96 12/10/18 06:22 12/10/18 08:11 12/10/18 08:11 12/10/18 06:22 12/10/18 08:11 Intake & Output 12/09/18 12/10/18 12/11/18 06:59 06:59 06:59 Intake Total 1500 1800 Output Total 5650 5775 Balance -9402 -4851 Weight 115.9 kg 113.4 kg General appearance: PRESENT: no acute distress, well-developed, well-nourished Head exam: PRESENT: atraumatic, normocephalic Eye exam: PRESENT: conjunctiva pink, EOMI, PERRLA. ABSENT: scleral icterus Ear exam: PRESENT: normal external ear exam Mouth exam: PRESENT: moist, tongue midline Neck exam: ABSENT: carotid bruit, JVD, lymphadenopathy, thyromegaly Respiratory exam: PRESENT: clear to auscultation khushboo. ABSENT: rales, rhonchi, wheezes Cardiovascular exam: PRESENT: RRR. ABSENT: diastolic murmur, rubs, systolic murmur Pulses: PRESENT: normal dorsalis pedis pul Vascular exam: PRESENT: normal capillary refill GI/Abdominal exam: PRESENT: normal bowel sounds, soft. ABSENT: distended, guarding, mass, organolmegaly, rebound, tenderness Rectal exam: PRESENT: deferred Extremities exam: PRESENT: full ROM. ABSENT: calf tenderness, clubbing, pedal edema Neurological exam: PRESENT: alert, awake, oriented to person, oriented to place, oriented to time, oriented to situation, CN II-XII grossly intact. ABSENT: motor sensory deficit Psychiatric exam: PRESENT: appropriate affect, normal mood. ABSENT: homicidal i deation, suicidal ideation Skin exam: PRESENT: dry, intact, warm. ABSENT: cyanosis, rash Results Laboratory Results: 12/10/18 04:22 12/09/18 06:06 12/10/18 12/10/18 04:22 04:22 WBC 4.6 RBC 2.89 L Hgb 8.5 L Hct 25.2 L MCV 87 MCH 29.6 MCHC 34.0 RDW 14.8 H Plt Count 108 L Urine Color YELLOW Urine Appearance CLEAR Urine pH 7.0 Ur Specific [employer] 1.009 Urine Protein NEGATIVE Urine Glucose (UA) NEGATIVE Urine Ketones NEGATIVE Urine Blood SMALL H Urine Nitrite NEGATIVE Ur Leukocyte Esterase TRACE H Urine WBC (Auto) 2 Urine RBC (Auto) 7 12/04/18 12/04/18 12/04/18 05:05 10:38 20:16 Creatine Kinase 51 L 123 CK-MB (CK-2) Troponin I < 0.012 NT-Pro-B Natriuret Pep 12/04/18 12/05/18 12/05/18 20:16 02:07 02:07 Creatine Kinase 201 H CK-MB (CK-2) 0.53 0.58 Troponin I < 0.012 < 0.012 NT-Pro-B Natriuret Pep 12/05/18 12/05/18 06:03 06:03 Creatine Kinase 190 H CK-MB (CK-2) 0.71 Troponin I < 0.012 NT-Pro-B Natriuret Pep 883 Impressions: Acute Abdomen Series 12/04/18 12:25 IMPRESSION: Nonspecific abdomen. Possible subpulmonic effusion. Chest/Abdomen CTA 12/04/18 14:12 IMPRESSION: There is no evidence of pulmonary embolus. Paramediastinal opacification on the right suggesting prior radiation. Surgical clips are seen in the left upper lobe suggesting resection of the nodule that was present previously. There is a 4 cm somewhat low-density pretracheal lymph node. Small pericardial effusion. Abdomen/Pelvis CT 12/05/18 00:00 IMPRESSION: 1. Fairchild catheter balloon is inflated in the prostatic urethra. The catheter does not extend into the bladder. 2. Bladder is markedly distended, with bilateral hydronephrosis. Chest X-Ray 12/07/18 05:13 IMPRESSION: 1. No significant change. Assessment & Plan - Diagnosis (1) Lung cancer Qualifiers: Laterality: right Lung location: upper lobe of lung Qualified Code(s): C34.11 - Malignant neoplasm of upper lobe, right bronchus or lung Is this a current diagnosis for this admission?: Yes Plan: Plan continue treatment as an outpatient (2) Septic shock Is this a current diagnosis for this admission?: Yes Plan: Improving, fevers have defervesced, continue with antibiotics, await full speciation (3) Acute urinary retention Is this a current diagnosis for this admission?: Yes Plan: Improved (4) Constipation Qualifiers: Constipation type: drug induced constipation Qualified Code(s): K59.03 - Drug induced constipation Is this a current diagnosis for this admission?: Yes Plan: Improved (5) Respiratory distress Is this a current diagnosis for this admission?: Yes Plan: Improving, respiratory status is better. BiPAP need is less.
[2018-12-10] MEDS: FAMOTIDINE 20 MG TABLET PO SCH ×2 (10:09→21:18)
[2018-12-10] MEDS: GUAIFENESIN SYRP 200 MG/10 ML UDC PO PRN ×3 (10:09→18:46)
[2018-12-10] MEDS: VANCOMYCIN HCL 1,500 MG in DEXTROSE 5%-WATER 250 ML IV SCH ×2 (10:09→21:18)
[2018-12-10] MEDS: DILTIAZEM HCL 120 MG CAP.SR.24H PO SCH (10:09)
[2018-12-10] MEDS: TAMSULOSIN HCL 0.4 MG CAP.SR.24H PO SCH (10:09)
[2018-12-10] MEDS: ROPINIROLE HCL 1 MG TABLET PO SCH (10:09)
[2018-12-10] MEDS: CITALOPRAM HYDROBROMIDE 20 MG TABLET PO SCH (10:09)
[2018-12-10] MEDS: ENOXAPARIN SODIUM INJ 40 MG/0.4 ML DISP.SYRIN SUBCUT SCH (10:10)
[2018-12-10] MEDS: HALOPERIDOL LACTATE INJ 5 MG/1 ML VIAL IV PRN ×2 (10:13→18:46)
[2018-12-10] MEDS: TIOTROPIUM BROMIDE DPI 5 CAP/KIT (18 MCG/CAP) IH SCH (10:13)
[2018-12-10] MEDS: FLUTICASONE/VILANTEROL 200-25 MCG/DOSE IH SCH (10:14)
[2018-12-10] MEDS ORDERED: POTASSIUM CHLORIDE 10 MEQ CAPSULE.ER PO ONE ×2 (14:01→15:00)
[2018-12-10] MEDS: ALPRAZOLAM 0.5 MG TABLET PO SCH ×2 (14:04→21:18)
[2018-12-10] MEDS: NORMAL SALINE 1000 ML 1,000 ML IV PRN (16:14)
--- NOTE | 2018-12-10 17:55 | PDOC PROGRESS REPORT ---
Subjective Progress Note for:: 12/10/18 Subjective:: 12/09: Assumed care today. ICU course and chart reviewed. This is a 63-year-old male with history of lung cancer and chemotherapy and prior right upper lobe lobectomy, BPH, hypertension, COPD on 2 L oxygen at night who was admitted for severe sepsis. So far, septic work-up has been remarkable for gram-positive cocci from the blood, 2/2 bottles. This morning, he continues to have fever of 101.9. He says he feels slightly better today. Denies chest pain. He does say that his legs have been more swollen. He denies joint pains or prior history of gout or pse udogout. Will decrease IV fluids. Noted ID recommendations. Also discussed with oncology. Await final blood culture results. 12/10: No acute event overnight. His fevers have improved and he is now low- grade. He says he feels much better today and he does appear to be more comfortable today. Awaiting final culture report of initial blood culture is growing gram-positive cocci in chains. Reason For Visit: SEPSIS Physical Exam Vital Signs: Temp Pulse Resp BP Pulse Ox 98.0 F 105 H 21 H 106/77 98 12/10/18 12:00 12/10/18 12:00 12/10/18 12:00 12/10/18 12:00 12/10/18 12:00 Intake & Output 12/09/18 12/10/18 12/11/18 06:59 06:59 06:59 Intake Total 1500 2050 955 Output Total 5650 5775 550 Balance -4150 -3725 405 Weight 255 lb 8.252 oz 250 lb 0.067 oz General appearance: PRESENT: no acute distress, well-developed, well-nourished Head exam: PRESENT: atraumatic, normocephalic Eye exam: PRESENT: conjunctiva pink, EOMI, PERRLA. ABSENT: scleral icterus Ear exam: PRESENT: normal external ear exam Mouth exam: PRESENT: moist, tongue midline Neck exam: ABSENT: carotid bruit, JVD, lymphadenopathy, thyromegaly Respiratory exam: PRESENT: clear to auscultation khushboo. ABSENT: rales, rhonchi, wheezes Cardiovascular exam: PRESENT: RRR. ABSENT: diastolic murmur, rubs, systolic murmur Pulses: PRESENT: normal dorsalis pedis pul GI/Abdominal exam: PRESENT: normal bowel sounds, soft. ABSENT: distended, guarding, mass, organolmegaly, rebound, tenderness Rectal exam: PRESENT: deferred Extremities exam: PRESENT: full ROM, +1 edema. ABSENT: calf tenderness, clubb ing Neurological exam: PRESENT: alert, awake, oriented to person, oriented to place, oriented to time, oriented to situation, CN II-XII grossly intact. ABSENT: motor sensory deficit Results Laboratory Results: 12/10/18 04:22 12/10/18 11:03 12/10/18 12/10/18 12/10/18 04:22 04:22 11:03 WBC 4.6 RBC 2.89 L Hgb 8.5 L Hct 25.2 L MCV 87 MCH 29.6 MCHC 34.0 RDW 14.8 H Plt Count 108 L Potassium Creatinine 0.96 Est GFR ( Amer) > 60 Est GFR (Non-Af Amer) > 60 Urine Color YELLOW Urine Appearance CLEAR Urine pH 7.0 Ur Specific [place] 1.009 Urine Protein NEGATIVE Urine Glucose (UA) NEGATIVE Urine Ketones NEGATIVE Urine Blood SMALL H Urine Nitrite NEGATIVE Ur Leukocyte Esterase TRACE H Urine WBC (Auto) 2 Urine RBC (Auto) 7 12/10/18 11:03 WBC RBC Hgb Hct MCV MCH MCHC RDW Plt Count Potassium 3.0 L* Creatinine Est GFR ( Amer) Est GFR (Non-Af Amer) Urine Color Urine Appearance Urine pH Ur Specific [place] Urine Protein Urine Glucose (UA) Urine Ketones Urine Blood Urine Nitrite Ur Leukocyte Esterase Urine WBC (Auto) Urine RBC (Auto) 12/04/18 10:38 Blood Blood Culture - Final Strep Mutans (Viridans Strep) 12/04/18 13:08 Blood Blood Culture - Final Strep Mutans (Viridans Strep) 12/04/18 12/04/18 12/04/18 05:05 10:38 20:16 Creatine Kinase 51 L 123 CK-MB (CK-2) Troponin I < 0.012 NT-Pro-B Natriuret Pep 12/04/18 12/05/18 12/05/18 20:16 02:07 02:07 Creatine Kinase 201 H CK-MB (CK-2) 0.53 0.58 Troponin I < 0.012 < 0.012 NT-Pro-B Natriuret Pep 12/05/18 12/05/18 06:03 06:03 Creatine Kinase 190 H CK-MB (CK-2) 0.71 Troponin I < 0.012 NT-Pro-B Natriuret Pep 883 Impressions: Acute Abdomen Series 12/04/18 12:25 IMPRESSION: Nonspecific abdomen. Possible subpulmonic effusion. Chest/Abdomen CTA 12/04/18 14:12 IMPRESSION: There is no evidence of pulmonary embolus. Paramediastinal opacification on the right suggesting prior radiation. Surgical clips are seen in the left upper lobe suggesting resection of the nodule that was present previously. There is a 4 cm somewhat low-density pretracheal lymph node. Small pericardial effusion. Abdomen/Pelvis CT 12/05/18 00:00 IMPRESSION: 1. Fairchild catheter balloon is inflated in the prostatic urethra. The catheter does not extend into the bladder. 2. Bladder is markedly distended, with bilateral hydronephrosis. Chest X-Ray 12/07/18 05:13 IMPRESSION: 1. No significant change. Assessment and Plan - Diagnosis (1) Sepsis Qualifiers: Sepsis type: sepsis due to unspecified organism Qualified Code(s): A41.9 - Sepsis, unspecified organism Is this a current diagnosis for this admission?: Yes Plan: Severe sepsis. As mentioned, so far septic work-up is remarkable for gram- positive cocci in chains 2/2 bottles. Noted ID recommendations about reports elevation possible ALT. Also discussed these recommendations with oncology. Will await final blood culture report which will be possibly resulted later today or tomorrow morning. 12/10: His fevers have improved and he is now low-grade. He says he feels much better today and he does appear to be more comfortable today. Awaiting final culture report of initial blood culture is growing gram-positive cocci in chains. We will rediscuss with ID and oncology about final plan on antibiotics and port salvage vs ALT after species identification. (2) SUNIL (acute kidney injury) Is this a current diagnosis for this admission?: Yes Plan: Resolved. Possibly multifactorial from initial obstructive cause from urinary retention causing bilateral hydronephrosis and possible septic ATN. Reduce IV fluids to 50 cc/hr. (3) Lung cancer Qualifiers: Laterality: right Lung location: upper lobe of lung Qualified Code(s): C34.11 - Malignant neoplasm of upper lobe, right bronchus or lung Is this a current diagnosis for this admission?: Yes Plan: Oncology following. (4) Hypokalemia Is this a current diagnosis for this admission?: Yes Plan: Start scheduled oral potassium. - Time Time Spent with patient: 25-34 minutes
[2018-12-10] MEDS: ACETAMINOPHEN 325 MG TABLET PO PRN (19:44)
[2018-12-10] MEDS: POTASSIUM CHLORIDE 10 MEQ CAPSULE.ER PO SCH (21:18)
[2018-12-11] MEDS: LEVALBUTEROL HCL NEB 1.25 MG/3 ML AMPUL NEB SCH ×4 (00:31→23:46)
[2018-12-11] MEDS: IPRATROPIUM BROMIDE 0.02% NEB 0.5 MG/2.5 ML AMPUL NEB SCH ×4 (00:31→23:46)
[2018-12-11] MEDS: HALOPERIDOL LACTATE INJ 5 MG/1 ML VIAL IV PRN (05:14)
[2018-12-11] MEDS: ALPRAZOLAM 0.5 MG TABLET PO SCH ×3 (05:14→21:21)
[2018-12-11 06:28] LABS: ANION GAP 7 (5-19); BLOOD UREA NITROGEN 13 mg/dL (7-20); CARBON DIOXIDE 36 mmol/L (22-30); CHLORIDE 98 mmol/L (98-107); GLUCOSE 118 mg/dL (75-110); POTASSIUM 3.8 mmol/L (3.6-5.0); SODIUM 140.6 mmol/L (137-145)
[2018-12-11] MEDS: BUDESONIDE NEB 0.5 MG/2 ML AMPUL NEB SCH ×2 (08:10→20:05)
--- NOTE | 2018-12-11 08:32 | PDOC PROGRESS REPORT ---
Subjective Subjective:: Patient doing better, still very restless Reason For Visit: SEPSIS Physical Exam Vital Signs: Temp Pulse Resp BP Pulse Ox 98.6 F 105 H 21 H 109/68 98 12/11/18 08:00 12/11/18 08:00 12/11/18 08:00 12/11/18 08:00 12/11/18 08:00 Intake & Output 12/10/18 12/11/18 12/12/18 06:59 06:59 06:59 Intake Total 2049 364 Output Total 5796 6322 250 Balance -3725 -1395 -250 Weight 113.4 kg 110.6 kg General appearance: PRESENT: no acute distress, well-developed, well-nourished Head exam: PRESENT: atraumatic, normocephalic Eye exam: PRESENT: conjunctiva pink, EOMI, PERRLA. ABSENT: scleral icterus Ear exam: PRESENT: normal external ear exam Mouth exam: PRESENT: moist, tongue midline Neck exam: ABSENT: carotid bruit, JVD, lymphadenopathy, thyromegaly Respiratory exam: PRESENT: clear to auscultation khushboo. ABSENT: rales, rhonchi, wheezes Cardiovascular exam: PRESENT: RRR. ABSENT: diastolic murmur, rubs, systolic murmur Pulses: PRESENT: normal dorsalis pedis pul Vascular exam: PRESENT: normal capillary refill GI/Abdominal exam: PRESENT: normal bowel sounds, soft. ABSENT: distended, guarding, mass, organolmegaly, rebound, tenderness Rectal exam: PRESENT: deferred Extremities exam: PRESENT: full ROM. ABSENT: calf tenderness, clubbing, pedal edema Neurological exam: PRESENT: alert, awake, oriented to person, oriented to place, oriented to time, oriented to situation, CN II-XII grossly intact. ABSENT: motor sensory deficit Psychiatric exam: PRESENT: appropriate affect, normal mood. ABSENT: homicidal ideation, suicidal ideation Skin exam: PRESENT: dry, intact, warm. ABSENT: cyanosis, rash Results Laboratory Results: 12/10/18 04:22 12/11/18 05:20 12/10/18 12/10/18 12/11/18 11:03 11:03 05:20 Sodium 140.6 Potassium 3.0 L* 3.8 Chloride 98 Carbon Dioxide 36 H Anion Gap 7 BUN 13 Creatinine 0.96 0.92 Est GFR ( Amer) > 60 > 60 Est GFR (Non-Af Amer) > 60 > 60 Glucose 118 H Calcium 9.0 12/04/18 10:38 Blood Blood Culture - Final Strep Mutans (Viridans Strep) 12/04/18 13:08 Blood Blood Culture - Final Strep Mutans (Viridans Strep) 12/04/18 12/04/18 12/04/18 05:05 10:38 20:16 Creatine Kinase 51 L 123 CK-MB (CK-2) Troponin I < 0.012 NT-Pro-B Natriuret Pep 12/04/18 12/05/18 12/05/18 20:16 02:07 02:07 Creatine Kinase 201 H CK-MB (CK-2) 0.53 0.58 Troponin I < 0.012 < 0.012 NT-Pro-B Natriuret Pep 12/05/18 12/05/18 06:03 06:03 Creatine Kinase 190 H CK-MB (CK-2) 0.71 Troponin I < 0.012 NT-Pro-B Natriuret Pep 883 Impressions: Acute Abdomen Series 12/04/18 12:25 IMPRESSION: Nonspecific abdomen. Possible subpulmonic effusion. Chest/Abdomen CTA 12/04/18 14:12 IMPRESSION: There is no evidence of pulmonary embolus. Paramediastinal opa cification on the right suggesting prior radiation. Surgical clips are seen in the left upper lobe suggesting resection of the nodule that was present previously. There is a 4 cm somewhat low-density pretracheal lymph node. Small pericardial effusion. Abdomen/Pelvis CT 12/05/18 00:00 IMPRESSION: 1. Fairchild catheter balloon is inflated in the prostatic urethra. The catheter does not extend into the bladder. 2. Bladder is markedly distended, with bilateral hydronephrosis. Chest X-Ray 12/07/18 05:13 IMPRESSION: 1. No significant change. Assessment & Plan - Diagnosis (1) Lung cancer Qualifiers: Laterality: right Lung location: upper lobe of lung Qualified Code(s): C34.11 - Malignant neoplasm of upper lobe, right bronchus or lung Is this a current diagnosis for this admission?: Yes Plan: Improved, holding therapy until patient discharged (2) Septic shock Is this a current diagnosis for this admission?: Yes Plan: Resolving, continued on IV vancomycin for bacteremia (3) Acute urinary retention Is this a current diagnosis for this admission?: Yes Plan: Asked nursing to try and pull the Fairchild today (4) Constipation Qualifiers: Constipation type: drug induced constipation Qualified Code(s): K59.03 - Drug induced constipation Is this a current diagnosis for this admission?: Yes Plan: Improved, will follow (5) Respiratory distress Is this a current diagnosis for this admission?: Yes Plan: Improved, will follow continue supportive measures (6) Anemia associated with chemotherapy Is this a current diagnosis for this admission?: Yes Plan: Chemotherapy-induced anemia, hemoglobin still 8.5, probably will need transf usion if it falls under 8. - Time Time Spent with patient: 35 or more minutes - Inpatient Certification Based on my medical assessment, after consideration of the patient's comorbidities, presenting symptoms, or acuity I expect that the services needed warrant INPATIENT care.: Yes I certify that my determination is in accordance with my understanding of Medicare's requirements for reasonable and necessary INPATIENT services [42 CFR 412.3e].: Yes Medical Necessity: Need For Continuous Telemetry Monitoring, Need for Nebulizer Therapy and Monitoring of Response, Need for IV Antibiotics
[2018-12-11] MEDS: VANCOMYCIN HCL 1,500 MG in DEXTROSE 5%-WATER 250 ML IV SCH ×2 (09:09→21:21)
[2018-12-11] MEDS: LORAZEPAM INJ 2 MG/1 ML VIAL IV PRN ×2 (09:09→18:05)
[2018-12-11] MEDS: DILTIAZEM HCL 120 MG CAP.SR.24H PO SCH (09:09)
[2018-12-11] MEDS: FLUTICASONE/VILANTEROL 200-25 MCG/DOSE IH SCH (09:10)
[2018-12-11] MEDS: ROPINIROLE HCL 1 MG TABLET PO SCH (09:10)
[2018-12-11] MEDS: CITALOPRAM HYDROBROMIDE 20 MG TABLET PO SCH (09:10)
[2018-12-11] MEDS: TAMSULOSIN HCL 0.4 MG CAP.SR.24H PO SCH (09:10)
[2018-12-11] MEDS: FAMOTIDINE 20 MG TABLET PO SCH ×2 (09:10→21:21)
[2018-12-11] MEDS: POTASSIUM CHLORIDE 10 MEQ CAPSULE.ER PO SCH ×2 (09:10→21:21)
[2018-12-11] MEDS: ENOXAPARIN SODIUM INJ 40 MG/0.4 ML DISP.SYRIN SUBCUT SCH (09:11)
[2018-12-11] MEDS: TIOTROPIUM BROMIDE DPI 5 CAP/KIT (18 MCG/CAP) IH SCH (09:11)
[2018-12-11] MEDS: NORMAL SALINE 1000 ML 1,000 ML IV PRN (16:09)
--- NOTE | 2018-12-11 16:19 | Progress Note ---
Provider Note Provider Note: ID Consult Note Asked to review patient's chart. Discussed briefly the patient's case with Dr. Posadas via telephone. Pt not seen or examined. To summarize, Mr. Reynoso is a 63 year old man who has a port placed last month for chemotherapy for recurrent lung cancer. He presented with constipation and acute urinary retention, which can produce SIRS, but he was also found to have positive blood cultures drawn several hours apart from both a peripheral stick and from his port. Streptococcus mutans grew. This organism is not typically associated with the lower GI tract and does not seem to be explainable by his presentation with lower GI tract symptoms. Strep mutans is found in the mouth, where it can contribute to dental decay, and it also can be associated with subacute bacterial endocarditis. Finding Streptococcus mutans in the blood could represent transient bacteremia with ordinary activities, such as brushing teeth, but its persistence in the bloodstream in this patient over several hours is concerning, as is the longer duration of fevers he has experienced. This raises the suspicion that he could have an endovascular focus of persistence. He does not have a murmur, but he is also a large man, and the thickness of his chest wall may impede detection of a murmur, just as it has been an impedement of TTE in evaluating his heart valves. Choice of antibiotic? - Recommend discontinuing vancomycin and switching to Rocephin 2 grams daily. - Penicillin (24 million units given over 24h as a continuous infusion through a pump) is an alternative to Rocephin and has the advantage of being more narrow spectrum (less likely to disrupt normal nat[place]a, lower C diff risk), but it is usually more expensive or less practical an option. Port removal? - Right now, there is not a clear mandate to remove his port. This is not an organism well known to portend relapse in absence of port removal (Pseudomonas, Staph aureus, Vivian), his repeat blood cultures have been negative, and he requires a port for chemotherapy administration. - If he has the same organism on repeat blood cultures after completing treatment, it would be an indication for removal at that time. Whether to pursue HARVEY - If the patient has no contraindications and is willing to have this done, HARVEY would be reasonable to pursue, considering the limited nature of his TTE and the fact that he has bacteremia with an organism recognized as a cause of quileute valve endocarditis. He has some features that suggest that this might be more complicated than a simple, transient bacteremia in that he has had some persistent fever, thrombocytopenia (might be chemotherapy related but can also occur with endocarditis), and peripheral edema on exam (could be related to generous IV fluid administration but valvular dysfunction in the setting of IE could also lead to this). Patients who have subacute bacterial endocarditis could have weeks or months of preceding constitutional symptoms or gradual clinical decline, but I do not know if that is something that can be teased out from this patient's history considering his comorbidities. Duration of therapy - In absence of endocarditis, a total duration of therapy of 14 days would be reasonable (end date 12/20). - Recommend completing 4 weeks of treatment (end date 01/03) if the patient has endocarditis or does not undergo a HARVEY. - Suggest surveillance blood cultures once a week for 3 weeks, once the patient has finished either course of treatment. If these blood cultures are positive, the port should be removed. Talat Jacques MD [facility] Infectious Diseases pager [phone]
--- NOTE | 2018-12-11 17:34 | PDOC PROGRESS REPORT ---
Subjective Progress Note for:: 12/11/18 Subjective:: 12/09: Assumed care today. ICU course and chart reviewed. This is a 63-year-old male with history of lung cancer and chemotherapy and prior right upper lobe lobectomy, BPH, hypertension, COPD on 2 L oxygen at night who was admitted for severe sepsis. So far, septic work-up has been remarkable for gram-positive cocci from the blood, 2/2 bottles. This morning, he continues to have fever of 101.9. He says he feels slightly better today. Denies chest pain. He does say that his legs have been more swollen. He denies joint pains or prior history of gout or pse udogout. Will decrease IV fluids. Noted ID recommendations. Also discussed with oncology. Await final blood culture results. 12/10: His fevers have improved and he is now low-grade. He says he feels much better today and he does appear to be more comfortable today. Awaiting final culture report of initial blood culture is growing gram-positive cocci in chains. We will rediscuss with ID and oncology about final plan on antibiotics and port salvage vs ALT after species identification. 12/11: No acute event overnight. He continues to feel better and continues to have defervescence. Temperatures been running at 99-100.0 Tmax so far. Denies acute complaints today. Will rediscuss with ID and oncology about final plan on antibiotics and port salvage vs ALT after species identification. Downgrade to IMCU. Reason For Visit: SEPSIS Physical Exam Vital Signs: Temp Pulse Resp BP Pulse Ox 100.0 F 126 H 28 H 116/85 99 12/11/18 13:00 12/11/18 12:00 12/11/18 14:00 12/11/18 12:03 12/11/18 14:00 Intake & Output 12/10/18 12/11/18 12/12/18 06:59 06:59 06:59 Intake Total 2050 2205 560 Output Total 5704 7340 800 Balance -3725 -1145 -240 Weight 250 lb 0.067 oz 243 lb 13.3 oz General appearance: PRESENT: no acute distress, well-developed, well-nourished Head exam: PRESENT: atraumatic, normocephalic Eye exam: PRESENT: conjunctiva pink, EOMI, PERRLA. ABSENT: scleral icterus Ear exam: PRESENT: normal external ear exam Mouth exam: PRESENT: moist, tongue midline Neck exam: ABSENT: carotid bruit, JVD, lymphadenopathy, thyromegaly Respiratory exam: PRESENT: clear to auscultation kh[place]boo. ABSENT: rales, rhonchi, wheezes Cardiovascular exam: PRESENT: RRR. ABSENT: diastolic murmur, rubs, systolic murmur Pulses: PRESENT: normal dorsalis pedis pul GI/Abdominal exam: PRESENT: normal bowel sounds, soft. ABSENT: distended, guarding, mass, organolmegaly, rebound, tenderness Rectal exam: PRESENT: deferred Extremities exam: PRESENT: full ROM. ABSENT: calf tenderness, clubbing, pedal edema Neurological exam: PRESENT: alert, awake, oriented to person, oriented to place, oriented to time, oriented to situation, CN II-XII grossly intact. ABSENT: motor sensory deficit Psychiatric exam: PRESENT: appropriate affect, normal mood. ABSENT: homicidal ideation, suicidal ideation Results Laboratory Results: 12/10/18 04:22 12/11/18 05:20 12/11/18 05:20 Sodium 140.6 Potassium 3.8 Chloride 98 Carbon Dioxide 36 H Anion Gap 7 BUN 13 Creatinine 0.92 Est GFR ( Amer) > 60 Est GFR (Non-Af Amer) > 60 Glucose 118 H Calcium 9.0 12/06/18 15:00 Blood Blood Culture - Final NO GROWTH IN 5 DAYS 12/06/18 14:13 Blood Blood Culture - Final NO GROWTH IN 5 DAYS 12/04/18 10:38 Blood Blood Culture - Final Strep Mutans (Viridans Strep) 12/04/18 13:08 Blood Blood Culture - Final Strep Mutans (Viridans Strep) 12/04/18 12/04/18 12/04/18 05:05 10:38 20:16 Creatine Kinase 51 L 123 CK-MB (CK-2) Troponin I < 0.012 NT-Pro-B Natriuret Pep 12/04/18 12/05/18 12/05/18 20:16 02:07 02:07 Creatine Kinase 201 H CK-MB (CK-2) 0.53 0.58 Troponin I < 0.012 < 0.012 NT-Pro-B Natriuret Pep 12/05/18 12/05/18 06:03 06:03 Creatine Kinase 190 H CK-MB (CK-2) 0.71 Troponin I < 0.012 NT-Pro-B Natriuret Pep 883 Impressions: Acute Abdomen Series 12/04/18 12:25 IMPRESSION: Nonspecific abdomen. Possible subpulmonic effusion. Chest/Abdomen CTA 12/04/18 14:12 IMPRESSION: There is no evidence of pulmonary embolus. Paramediastinal opacification on the right suggesting prior radiation. Surgical clips are seen in the left upper lobe suggesting resection of the nodule that was present previously. There is a 4 cm somewhat low-density pretracheal lymph node. Small pericardial effusion. Abdomen/Pelvis CT 12/05/18 00:00 IMPRESSION: 1. Fairchild catheter balloon is inflated in the prostatic urethra. The catheter does not extend into the bladder. 2. Bladder is markedly distended, with bilateral hydronephrosis. Chest X-Ray 12/07/18 05:13 IMPRESSION: 1. No significant change. Assessment and Plan - Diagnosis (1) Sepsis Qualifiers: Sepsis type: sepsis due to unspecified organism Qualified Code(s): A41.9 - Sepsis, unspecified organism Is this a current diagnosis for this admission?: Yes Plan: Severe sepsis. As mentioned, so far septic work-up is remarkable for gram- positive cocci in chains 2/2 bottles. Noted ID recommendations about reports elevation possible ALT. Also discussed these recommendations with oncology. Will await final blood culture report which will be possibly resulted later today or tomorrow morning. 12/10: His fevers have improved and he is now low-grade. He says he feels much better today and he does appear to be more comfortable today. Awaiting final culture report of initial blood culture is growing gram-positive cocci in chains. We will rediscuss with ID and oncology about final plan on antibiotics and port salvage vs ALT after species identification. 12/11: Blood culture came back positive for S. mutans. (2) SUNIL (acute kidney injury) Is this a current diagnosis for this admission?: Yes Plan: Resolved. Possibly multifactorial from initial obstructive cause from urinary retention causing bilateral hydronephrosis and possible septic ATN. Reduce IV fluids to 50 cc/hr. (3) Lung cancer Qualifiers: Laterality: right Lung location: upper lobe of lung Qualified Code(s): C34.11 - Malignant neoplasm of upper lobe, right bronchus or lung Is this a current diagnosis for this admission?: Yes Plan: Oncology following. He will resume chemotherapy later with Dr. Clement once discharged and deemed ready to be restarted on cancer treatments. (4) Hypokalemia Is this a current diagnosis for this admission?: Yes Plan: 12/10: Start scheduled oral potassium. 12/11: Resolved. DC scheduled potassium replacement tomorrow if potassium continues to be normal. - Time Time Spent with patient: 25-34 minutes
[2018-12-11] MEDS ORDERED: METOPROLOL TARTRATE PF/INJ 5 MG/5 ML SDV IV ONE (18:38)
[2018-12-11] MEDS ORDERED: LORAZEPAM INJ 2 MG/1 ML VIAL ONE (18:41)
[2018-12-11] MEDS ORDERED: MORPHINE SULFATE 10 MG/ML INJ ONE (18:44)
[2018-12-11] MEDS ORDERED: ADENOSINE INJ/PF 6 MG/2 ML SDV IV ONE (18:48)
[2018-12-11] MEDS ORDERED: LORAZEPAM INJ 2 MG/1 ML VIAL IV ONE (19:00)
--- NOTE | 2018-12-11 19:35 | EKG REPORT ---
SEVERITY:- ABNORMAL ECG - SUPRAVENTRICULAR TACHYCARDIA RIGHT AXIS DEVIATION REPOLARIZATION ABNORMALITY, PROB RATE RELATED : Confirmed by: Iraida Billingsley MD 11-Dec-2018 19:34:31
--- NOTE | 2018-12-11 21:25 | RADIOLOGY REPORT (SQ) ---
EXAM DESCRIPTION: CT CHEST ANGIOGRAPHY WITHOUT THEN WITH IV CONTRAST COMPLETED DATE/TME: 12/11/2018 18:54 CLINICAL HISTORY: 63 years, Male, r/o PE COMPARISON: Prior PET/CT from 09/28/2018 TECHNIQUE: Contrast enhanced CT of the chest was performed. Coronal and sagittal reformations were created. In addition, 3-D reformatted images were performed on an independent workstation. Images stored on PACS. All CT scanners at this facility use dose modulation, iterative reconstruction, and/or weight based dosing when appropriate to reduce radiation dose to as low as reasonably achievable (ALARA). [facility]: Dose Right [facility]: CareDose [facility]: Dose Right [facility]: Teradose 4D [facility]: Smart [place] LIMITATIONS: None. FINDINGS: Lung windows again show irregular consolidative and groundglass opacity about the paramediastinal right lung. This appears increased from the previous PET/CT dated 09/28/2018. There are postsurgical changes of right upper lobectomy, resulting in volume loss. There is also a small right pleural effusion. Mild upper zone predominant emphysematous changes are evident. Additional surgical clips are evident about the left upper lobe anterior segment with associated adjacent irregular consolidation. This is at the site of a pre-existing well-demarcated nodule is seen on the previous PET/CT dated 09/28/2018. Separate curvilinear bands of opacity are noted about the left lower lobe, indicating areas of atelectasis/scar. Mediastinal windows show an irregular soft tissue mass located about the pretracheal region measuring 3.9 x 3.2 cm in size, demonstrating areas of ill-defined hypodensity internally on image 38 of series 3. Previously, this pretracheal lymph node had measured 1.8 x 1.6 cm in size on 09/28/2018. A small pericardial effusion is evident. Calcifications are noted about the thoracic aorta. In addition, there is a separate mildly enlarged subcarinal lymph node measuring 2.5 x 1.2 cm in size on image 48 of series 3, increased from the prior at which time it measured 2.1 x 1.1 cm in size. The study is adequate for the evaluation of pulmonary emboli. No filling defects are identified to the proximal segmental level. Limited evaluation of the upper abdomen reveals a fluid density lesion located within the posterior right hepatic lobe, similar to the previous exams, likely indicating a simple hepatic cyst. No additional suspicious findings are evident within the imaged upper abdomen. Cholecystectomy clips are noted. Bone windows show no destructive osseous lesions. IMPRESSION: No evidence of pulmonary embolism. Postsurgical changes of right upper lobectomy as well as surgical resection of a well-circumscribed left upper lobe nodule, as above described. Interval increase in size of necrotic pretracheal lymph node with additional subcarinal lymphadenopathy, suspicious for worsening metastatic disease. Diffuse irregular consolidative and groundglass opacity throughout the paramediastinal right lung, increased from the previous PET/CT dated 09/28/2018. Evolving post radiation fibrosis is a definite possibility although a superimposed infectious process could technically have a similar appearance. Small right pleural effusion. TECHNICAL DOCUMENTATION: Quality ID # 436: Final reports with documentation of one or more dose reduction techniques (e.g., Automated exposure control, adjustment of the mA and/or kV according to patient size, use of iterative reconstruction technique) copyright 2010 [employer]- All Rights Reserved
[2018-12-12] MEDS: ALPRAZOLAM 0.5 MG TABLET PO SCH ×3 (05:18→22:43)
[2018-12-12 06:40] LABS: HEMATOCRIT 27.1 % (37.9-51.0); HEMOGLOBIN 9.2 g/dL (13.5-17.0); MEAN CORPUSCULAR HEMOGLOBIN 29.7 pg (27.0-33.4); MEAN CORPUSCULAR VOLUME 88 fl (80-97); PLATELET COUNT 138 10^3/uL (150-450); RED CELL DISTRIBUTION WIDTH 14.8 % (11.5-14.0); WHITE BLOOD COUNT 4.5 10^3/uL (4.0-10.5)
[2018-12-12 06:43] LABS: APPEARANCE,URINE CLEAR; BILIRUBIN,URINE NEGATIVE (NEGATIVE); COLOR,URINE YELLOW; GLUCOSE, URINE NEGATIVE (NEGATIVE); KETONES,URINE NEGATIVE (NEGATIVE); LEUKOCYTE ESTERASE,URINE NEGATIVE (NEGATIVE); NITRITE,URINE NEGATIVE (NEGATIVE); PROTEIN,URINE NEGATIVE (NEGATIVE); URINE SPECIFIC GRAVITY 1.012; UROBILINOGEN,URINE NEGATIVE mg/dL (<2.0)
--- NOTE | 2018-12-12 08:16 | PDOC PROGRESS REPORT ---
Subjective Progress Note for:: 12/12/18 Subjective:: After merritt removed, pt was not able to urinate soon after and got very anxious, HR went to 200s, went into SVT, received adenosine and soon after went down appropriately, merritt replaced and large output noted. Feeling anxious this am. Was on non rebreather in room but nursing notes this is more for comfort as his oxygenation is ok. Reason For Visit: SEPSIS Physical Exam Vital Signs: Temp Pulse Resp BP Pulse Ox 98.0 F 99 14 110/72 97 12/12/18 03:33 12/12/18 07:00 12/12/18 03:35 12/12/18 03:33 12/12/18 03:33 Intake & Output 12/11/18 12/12/18 12/13/18 06:59 06:59 06:59 Intake Total 2205 2300 Output Total 3350 5350 Balance -1145 -3050 Weight 110.6 kg 108.8 kg General appearance: PRESENT: no acute distress, well-developed, well-nourished Head exam: PRESENT: atraumatic, normocephalic Eye exam: PRESENT: conjunctiva pink, EOMI, PERRLA. ABSENT: scleral icterus Ear exam: PRESENT: normal external ear exam Mouth exam: PRESENT: moist, tongue midline Neck exam: ABSENT: carotid bruit, JVD, lymphadenopathy, thyromegaly Respiratory exam: PRESENT: clear to auscultation khushboo. ABSENT: rales, rhonchi, wheezes Cardiovascular exam: PRESENT: RRR. ABSENT: diastolic murmur, rubs, systolic murmur Pulses: PRESENT: normal dorsalis pedis pul Vascular exam: PRESENT: normal capillary refill GI/Abdominal exam: PRESENT: normal bowel sounds, soft. ABSENT: distended, guarding, mass, organolmegaly, rebound, tenderness Rectal exam: PRESENT: deferred Extremities exam: PRESENT: full ROM. ABSENT: calf tenderness, clubbing, pedal edema Neurological exam: PRESENT: alert, awake, oriented to person, oriented to place, oriented to time, oriented to situation, CN II-XII grossly intact. ABSENT: motor sensory deficit Psychiatric exam: PRESENT: appropriate affect, normal mood. ABSENT: homicidal ideation, suicidal ideation Skin exam: PRESENT: dry, intact, warm. ABSENT: cyanosis, rash Results Laboratory Results: 12/12/18 06:15 06/20/19 05:20 12/11/18 12/12/18 12/12/18 16:00 06:15 06:15 WBC 4.5 RBC 3.10 L Hgb 9.2 L Hct 27.1 L MCV 88 MCH 29.7 MCHC 34.0 RDW 14.8 H Plt Count 138 L Urine Color YELLOW Urine Appearance CLEAR Urine pH 5.0 Ur Specific Hector 1.012 Urine Protein NEGATIVE Urine Glucose (UA) NEGATIVE Urine Ketones NEGATIVE Urine Blood MODERATE H Urine Nitrite NEGATIVE Ur Leukocyte Esterase NEGATIVE Urine WBC (Auto) 2 Urine RBC (Auto) 24 Stool Occult Blood NEGATIVE 12/06/18 15:00 Blood Blood Culture - Final NO GROWTH IN 5 DAYS 12/06/18 14:13 Blood Blood Culture - Final NO GROWTH IN 5 DAYS 12/04/18 12/04/18 12/04/18 05:05 10:38 20:16 Creatine Kinase 51 L 123 CK-MB (CK-2) Troponin I < 0.012 NT-Pro-B Natriuret Pep 12/04/18 12/05/18 12/05/18 20:16 02:07 02:07 Creatine Kinase 201 H CK-MB (CK-2) 0.53 0.58 Troponin I < 0.012 < 0.012 NT-Pro-B Natriuret Pep 12/05/18 12/05/18 06:03 06:03 Creatine Kinase 190 H CK-MB (CK-2) 0.71 Troponin I < 0.012 NT-Pro-B Natriuret Pep 883 Impressions: Acute Abdomen Series 12/04/18 12:25 IMPRESSION: Nonspecific abdomen. Possible subpulmonic effusion. Abdomen/Pelvis CT 12/05/18 00:00 IMPRESSION: 1. Merritt catheter balloon is inflated in the prostatic urethra. The catheter does not extend into the bladder. 2. Bladder is markedly distended, with bilateral hydronephrosis. Chest X-Ray 12/07/18 05:13 IMPRESSION: 1. No significant change. Chest/Abdomen CTA 12/11/18 18:54 IMPRESSION: No evidence of pulmonary embolism. Postsurgical changes of right upper lobectomy as well as surgical resection of a well-circumscribed left upper lobe nodule, as above described. Interval increase in size of necrotic pretracheal lymph node with additional subcarinal lymphadenopathy, suspicious for worsening metastatic disease. Diffuse irregular consolidative and groundglass opacity throughout the paramediastinal right lung, increased from the previous PET/CT dated 09/28/2018. Evolving post radiation fibrosis is a definite possibility although a superimposed infectious process could technically have a similar appearance. Small right pleural effusion. TECHNICAL DOCUMENTATION: Quality ID # 436: Final reports with documentation of one or more dose reduction techniques (e.g., Automated exposure control, adjustment of the mA and/or kV according to patient size, use of iterative reconstruction technique) copyright 2011 [employer]- All Rights Reserved Assessment & Plan - Diagnosis (1) Lung cancer Qualifiers: Laterality: right Lung location: upper lobe of lung Qualified Code(s): C34.11 - Malignant neoplasm of upper lobe, right bronchus or lung Is this a current diagnosis for this admission?: Yes Plan: Improved overall w/ first 2 cycles therapy. Would like to restart as outpt. (2) Septic shock Is this a current diagnosis for this admission?: Yes Plan: Improved (3) Acute urinary retention Is this a current diagnosis for this admission?: Yes Plan: Needs merritt, would be great to get urology input but since we don't have, cont merritt and will need to keep until we get outpt urology f/u (4) Constipation Qualifiers: Constipation type: drug induced constipation Qualified Code(s): K59.03 - Drug induced constipation Is this a current diagnosis for this admission?: Yes Plan: Improved (5) Respiratory distress Is this a current diagnosis for this admission?: Yes Plan: Comes w/ anxiety, at this point his true lung status seems improved (6) Anemia associated with chemotherapy Is this a current diagnosis for this admission?: Yes Plan: Hb stable, no transfusion need as of yet - Time Time Spent with patient: 35 or more minutes
[2018-12-12] MEDS: IPRATROPIUM BROMIDE 0.02% NEB 0.5 MG/2.5 ML AMPUL NEB SCH ×3 (08:42→23:46)
[2018-12-12] MEDS: LEVALBUTEROL HCL NEB 1.25 MG/3 ML AMPUL NEB SCH ×3 (08:42→23:46)
[2018-12-12] MEDS: BUDESONIDE NEB 0.5 MG/2 ML AMPUL NEB SCH ×2 (08:42→20:36)
[2018-12-12] MEDS: FAMOTIDINE 20 MG TABLET PO SCH ×2 (09:21→22:43)
[2018-12-12] MEDS: CITALOPRAM HYDROBROMIDE 20 MG TABLET PO SCH (09:21)
[2018-12-12] MEDS: TAMSULOSIN HCL 0.4 MG CAP.SR.24H PO SCH (09:21)
[2018-12-12] MEDS: POTASSIUM CHLORIDE 10 MEQ CAPSULE.ER PO SCH ×2 (09:21→22:43)
[2018-12-12] MEDS: ROPINIROLE HCL 1 MG TABLET PO SCH (09:21)
[2018-12-12] MEDS: LORAZEPAM INJ 2 MG/1 ML VIAL IV PRN ×3 (09:21→20:23)
[2018-12-12] MEDS: DILTIAZEM HCL 120 MG CAP.SR.24H PO SCH ×2 (09:21→17:47)
[2018-12-12] MEDS: ENOXAPARIN SODIUM INJ 40 MG/0.4 ML DISP.SYRIN SUBCUT SCH (09:22)
[2018-12-12] MEDS: TIOTROPIUM BROMIDE DPI 5 CAP/KIT (18 MCG/CAP) IH SCH (09:22)
[2018-12-12] MEDS: VANCOMYCIN HCL 1,500 MG in DEXTROSE 5%-WATER 250 ML IV SCH (09:22)
[2018-12-12] MEDS: FLUTICASONE/VILANTEROL 200-25 MCG/DOSE IH SCH (09:23)
--- NOTE | 2018-12-12 16:55 | PDOC PROGRESS REPORT ---
Subjective Progress Note for:: 12/12/18 Subjective:: 12/09: Assumed care today. ICU course and chart reviewed. This is a 63-year-old male with history of lung cancer and chemotherapy and prior right upper lobe lobectomy, BPH, hypertension, COPD on 2 L oxygen at night who was admitted for severe sepsis. So far, septic work-up has been remarkable for gram-positive cocci from the blood, 2/2 bottles. This morning, he continues to have fever of 101.9. He says he feels slightly better today. Denies chest pain. He does say that his legs have been more swollen. He denies joint pains or prior history of gout or pse udogout. Will decrease IV fluids. Noted ID recommendations. Also discussed with oncology. Await final blood culture results. 12/10: His fevers have improved and he is now low-grade. He says he feels much better today and he does appear to be more comfortable today. Awaiting final culture report of initial blood culture is growing gram-positive cocci in chains. We will rediscuss with ID and oncology about final plan on antibiotics and port salvage vs ALT after species identification. 12/11: No acute event overnight. He continues to feel better and continues to have defervescence. Temperatures been running at 99-100.0 Tmax so far. Denies acute complaints today. Will rediscuss with ID and oncology about final plan on antibiotics and port salvage vs ALT after species identification. Downgrade to IMCU. 12/12: Patient had an episode of tachycardia in the 220s, possible SVT last night when he went tried to ambulate towards the bathroom. He did get 6 mg of Adenosine to which he responded well. CTA chest was negative for PE. No other acute event overnight. He denies chest pain or SOB. He continues to do well and has not had fever so far. Discussed recommendations from ID and oncology in length with patient and on bedside including options, risks, benefits of possible HARVEY or jail antibiotics. Patient says he wants to go home as soon as he can but will rediscuss with and a very close family friend on bedside who is a nurse about their final decision. Reason For Visit: SEPSIS Physical Exam Vital Signs: Temp Pulse Resp BP Pulse Ox 98.4 F 104 H 20 100/58 L 97 12/12/18 11:20 12/12/18 11:20 12/12/18 11:20 12/12/18 11:20 12/12/18 11:20 Intake & Output 12/11/18 12/12/18 12/13/18 06:59 06:59 06:59 Intake Total 2205 2300 355 Output Total 3350 5350 1150 Balance -1145 -3050 -795 Weight 243 lb 13.3 oz 239 lb 13.807 oz General appearance: PRESENT: no acute distress, well-developed, well-nourished Head exam: PRESENT: atraumatic, normocephalic Eye exam: PRESENT: conjunctiva pink, EOMI, PERRLA. ABSENT: scleral icterus Ear exam: PRESENT: normal external ear exam Mouth exam: PRESENT: moist, tongue midline Neck exam: ABSENT: carotid bruit, JVD, lymphadenopathy, thyromegaly Respiratory exam: PRESENT: rhonchi. ABSENT: rales, wheezes Cardiovascular exam: PRESENT: RRR. ABSENT: diastolic murmur, rubs, systolic murmur Pulses: PRESENT: normal dorsalis pedis pul GI/Abdominal exam: PRESENT: normal bowel sounds, soft. ABSENT: distended, guarding, mass, organolmegaly, rebound, tenderness Rectal exam: PRESENT: deferred Extremities exam: PRESENT: full ROM. ABSENT: calf tenderness, clubbing, pedal edema Neurological exam: PRESENT: alert, awake, oriented to person, oriented to place, CN II-XII grossly intact. ABSENT: motor sensory deficit Results Laboratory Results: 12/12/18 06:15 12/11/18 05:20 12/11/18 12/12/18 12/12/18 16:00 06:15 06:15 WBC 4.5 RBC 3.10 L Hgb 9.2 L Hct 27.1 L MCV 88 MCH 29.7 MCHC 34.0 RDW 14.8 H Plt Count 138 L Urine Color YELLOW Urine Appearance CLEAR Urine pH 5.0 Ur Specific [place] 1.012 Urine Protein NEGATIVE Urine Glucose (UA) NEGATIVE Urine Ketones NEGATIVE Urine Blood MODERATE H Urine Nitrite NEGATIVE Ur Leukocyte Esterase NEGATIVE Urine WBC (Auto) 2 Urine RBC (Auto) 24 Stool Occult Blood NEGATIVE 12/06/18 15:00 Blood Blood Culture - Final NO GROWTH IN 5 DAYS 12/06/18 14:13 Blood Blood Culture - Final NO GROWTH IN 5 DAYS 12/04/18 12/04/18 12/04/18 05:05 10:38 20:16 Creatine Kinase 51 L 123 CK-MB (CK-2) Troponin I < 0.012 NT-Pro-B Natriuret Pep 12/04/18 12/05/18 12/05/18 20:16 02:07 02:07 Creatine Kinase 201 H CK-MB (CK-2) 0.53 0.58 Troponin I < 0.012 < 0.012 NT-Pro-B Natriuret Pep 12/05/18 12/05/18 06:03 06:03 Creatine Kinase 190 H CK-MB (CK-2) 0.71 Troponin I < 0.012 NT-Pro-B Natriuret Pep 883 Impressions: Acute Abdomen Series 12/04/18 12:25 IMPRESSION: Nonspecific abdomen. Possible subpulmonic effusion. Abdomen/Pelvis CT 12/05/18 00:00 IMPRESSION: 1. Fairchild catheter balloon is inflated in the prostatic urethra. The catheter does not extend into the bladder. 2. Bladder is markedly distended, with bilateral hydronephrosis. Chest X-Ray 12/07/18 05:13 IMPRESSION: 1. No significant change. Chest/Abdomen CTA 12/11/18 18:54 IMPRESSION: No evidence of pulmonary embolism. Postsurgical changes of right upper lobectomy as well as surgical resection of a well-circumscribed left upper lobe nodule, as above described. Interval increase in size of necrotic pretracheal lymph node with additional subcarinal lymphadenopathy, suspicious for worsening metastatic disease. Diffuse irregular consolidative and groundglass opacity throughout the paramediastinal right lung, increased from the previous PET/CT dated 09/28/2018. Evolving post radiation fibrosis is a definite possibility although a superimposed infectious process could technically have a similar appearance. Small right pleural effusion. TECHNICAL DOCUMENTATION: Quality ID # 436: Final reports with documentation of one or more dose reduction techniques (e.g., Automated exposure control, adjustment of the mA and/or kV according to patient size, use of iterative reconstruction technique) copyright 2010 [employer]- All Rights Reserved Assessment and Plan - Diagnosis (1) Sepsis Qualifiers: Sepsis type: sepsis due to unspecified organism Qualified Code(s): A41.9 - Sepsis, unspecified organism Is this a current diagnosis for this admission?: Yes Plan: Severe sepsis. As mentioned, so far septic work-up is remarkable for gram- positive cocci in chains 2/2 bottles. Noted ID recommendations about reports elevation possible ALT. Also discussed these recommendations with oncology. Will await final blood culture report which will be possibly resulted later today or tomorrow morning. 12/10: His fevers have improved and he is now low-grade. He says he feels much better today and he does appear to be more comfortable today. Awaiting final culture report of initial blood culture is growing gram-positive cocci in chains . We will rediscuss with ID and oncology about final plan on antibiotics and port salvage vs ALT after species identification. 12/11: Blood culture came back positive for S. mutans. 12/12: Discussed recommendations from ID and oncology in length with patient and on bedside including options, risks, benefits of possible HARVEY or jail antibiotics. Patient says he wants to go home as soon as he can but will rediscuss with and a very close family friend on bedside who is a nurse about their final decision. (2) SUNIL (acute kidney injury) Is this a current diagnosis for this admission?: Yes Plan: Resolved. Possibly multifactorial from initial obstructive cause from urinary retention causing bilateral hydronephrosis and possible septic ATN. Reduce IV fluids to 50 cc/hr. (3) Lung cancer Qualifiers: Laterality: right Lung location: upper lobe of lung Qualified Code(s): C34.11 - Malignant neoplasm of upper lobe, right bronchus or lung Is this a current diagnosis for this admission?: Yes Plan: Oncology following. He will resume chemotherapy later with Dr. Clement once discharged and deemed ready to be restarted on cancer treatments. (4) Hypokalemia Is this a current diagnosis for this admission?: Yes Plan: 12/10: Start scheduled oral potassium. 12/11: Resolved. DC scheduled potassium replacement tomorrow if potassium continues to be normal. - Time Time Spent with patient: 25-34 minutes
[2018-12-12] MEDS: HALOPERIDOL LACTATE INJ 5 MG/1 ML VIAL IV PRN (18:37)
[2018-12-12] MEDS: LEVALBUTEROL HCL NEB 1.25 MG/3 ML AMPUL NEB PRN (20:35)
[2018-12-13] MEDS: ALPRAZOLAM 0.5 MG TABLET PO SCH ×2 (05:20→14:56)
[2018-12-13] MEDS: NORMAL SALINE 1000 ML 1,000 ML IV PRN (05:20)
[2018-12-13 06:12] LABS: ANION GAP 8 (5-19); BLOOD UREA NITROGEN 12 mg/dL (7-20); CARBON DIOXIDE 33 mmol/L (22-30); CHLORIDE 98 mmol/L (98-107); GLUCOSE 121 mg/dL (75-110); SODIUM 139.1 mmol/L (137-145)
[2018-12-13] MEDS: BUDESONIDE NEB 0.5 MG/2 ML AMPUL NEB SCH (07:49)
[2018-12-13] MEDS: LEVALBUTEROL HCL NEB 1.25 MG/3 ML AMPUL NEB SCH (07:49)
[2018-12-13] MEDS: IPRATROPIUM BROMIDE 0.02% NEB 0.5 MG/2.5 ML AMPUL NEB SCH (07:49)
[2018-12-13] MEDS ORDERED: CEFTRIAXONE 2 GM/D5W RTU 2 GM/50 ML RTUPB IV SCH (10:00)
[2018-12-13] MEDS ORDERED: LACTOBACILLUS ACIDOPHILUS 250 MG TAB PO SCH (10:00)
[2018-12-13] MEDS: LORAZEPAM INJ 2 MG/1 ML VIAL IV PRN (10:15)
[2018-12-13] MEDS: ROPINIROLE HCL 1 MG TABLET PO SCH (10:15)
[2018-12-13] MEDS: POTASSIUM CHLORIDE 10 MEQ CAPSULE.ER PO SCH (10:15)
[2018-12-13] MEDS: FAMOTIDINE 20 MG TABLET PO SCH (10:16)
[2018-12-13] MEDS: CITALOPRAM HYDROBROMIDE 20 MG TABLET PO SCH (10:16)
[2018-12-13] MEDS: TAMSULOSIN HCL 0.4 MG CAP.SR.24H PO SCH (10:16)
[2018-12-13] MEDS: DILTIAZEM HCL 120 MG CAP.SR.24H PO SCH (10:16)
[2018-12-13] MEDS: ENOXAPARIN SODIUM INJ 40 MG/0.4 ML DISP.SYRIN SUBCUT SCH (10:17)
[2018-12-13] MEDS: FLUTICASONE/VILANTEROL 200-25 MCG/DOSE IH SCH (10:27)
--- NOTE | 2018-12-13 14:49 | PDOC PROGRESS REPORT ---
Subjective Progress Note for:: 12/13/18 Subjective:: Patient states that he is doing very well and he is ready to go home. He states that everyting is set up at home and he will follow-up with Dr. Clement in a few weeks in the office. Reason For Visit: SEPSIS Physical Exam Vital Signs: Temp Pulse Resp BP Pulse Ox 97.2 F 124 H 28 H 119/95 H 100 12/13/18 12:16 12/13/18 12:16 12/13/18 12:16 12/13/18 12:16 12/13/18 12:16 Intake & Output 12/12/18 12/13/18 12/14/18 06:59 06:59 06:59 Intake Total 2300 2865 240 Output Total 5350 5300 725 Balance -2705 -2284 -918 Weight 108.8 kg 107.6 kg General appearance: PRESENT: no acute distress, well-developed, well-nourished Exam: is at bedside. Head exam: PRESENT: normocephalic Respiratory exam: PRESENT: unlabored Neurological exam: PRESENT: alert, awake Psychiatric exam: PRESENT: appropriate affect Skin exam: PRESENT: normal color Results Laboratory Results: 12/12/18 06:15 12/13/18 05:30 12/13/18 05:30 Sodium 139.1 Potassium 4.0 Chloride 98 Carbon Dioxide 33 H Anion Gap 8 BUN 12 Creatinine 0.97 Est GFR ( Amer) > 60 Est GFR (Non-Af Amer) > 60 Glucose 121 H Calcium 9.0 12/08/18 11:32 Blood Blood Culture - Final NO GROWTH IN 5 DAYS 12/08/18 11:15 Blood Blood Culture - Final NO GROWTH IN 5 DAYS 12/04/18 12/04/18 12/04/18 05:05 10:38 20:16 Creatine Kinase 51 L 123 CK-MB (CK-2) Troponin I < 0.012 NT-Pro-B Natriuret Pep 12/04/18 12/05/18 12/05/18 20:16 02:07 02:07 Creatine Kinase 201 H CK-MB (CK-2) 0.53 0.58 Troponin I < 0.012 < 0.012 NT-Pro-B Natriuret Pep 12/05/18 12/05/18 06:03 06:03 Creatine Kinase 190 H CK-MB (CK-2) 0.71 Troponin I < 0.012 NT-Pro-B Natriuret Pep 883 Impressions: Acute Abdomen Series 12/04/18 12:25 IMPRESSION: Nonspecific abdomen. Possible subpulmonic effusion. Abdomen/Pelvis CT 12/05/18 00:00 IMPRESSION: 1. Fairchild catheter balloon is inflated in the prostatic urethra. The catheter does not extend into the bladder. 2. Bladder is markedly distended, with bilateral hydronephrosis. Chest X-Ray 12/07/18 05:13 IMPRESSION: 1. No significant change. Chest/Abdomen CTA 12/11/18 18:54 IMPRESSION: No evidence of pulmonary embolism. Postsurgical changes of right upper lobectomy as well as surgical resection of a well-circumscribed left upper lobe nodule, as above described. Interval increase in size of necrotic pretracheal lymph node with additional subcarinal lymphadenopathy, suspicious for worsening metastatic disease. Diffuse irregular consolidative and groundglass opacity throughout the paramediastinal right lung, increased from the previous PET/CT dated 09/28/2018. Evolving post radiation fibrosis is a definite possibility although a superimposed infectious process could technically have a similar appearance. Small right pleural effusion. TECHNICAL DOCUMENTATION: Quality ID # 436: Final reports with documentation of one or more dose reduction techniques (e.g., Automated exposure control, adjustment of the mA and/or kV according to patient size, use of iterative reconstruction technique) copyright 2010 [employer]- All Rights Reserved Assessment & Plan - Diagnosis (1) Lung cancer Qualifiers: Laterality: right Lung location: upper lobe of lung Qualified Code(s): C34.11 - Malignant neoplasm of upper lobe, right bronchus or lung Is this a current diagnosis for this admission?: Yes Plan: Further treatment as outpatient. Agree with current plans for discharge. Please call me if needed. (2) Respiratory distress Is this a current diagnosis for this admission?: Yes Plan: Resolved. Patient requesting discharge. He has oxygen for transportation home.
[2018-12-13] MEDS: TIOTROPIUM BROMIDE DPI 5 CAP/KIT (18 MCG/CAP) IH SCH (14:56)
[2018-12-13 15:19] VITALS: BP 116/85
--- NOTE | 2018-12-13 17:04 | PDOC DISCHARGE SUMMARY ---
General - Admit/Disc Date/PCP Admission Date/Primary Care Provider: 12/04/18 18:51 FACUNDO MORALES NP Discharge Date: 12/13/18 - Discharge Diagnosis (1) Sepsis Is this a current diagnosis for this admission?: Yes (2) SUNIL (acute kidney injury) Is this a current diagnosis for this admission?: Yes (3) Lung cancer Is this a current diagnosis for this admission?: Yes (4) Hypokalemia Is this a current diagnosis for this admission?: Yes - Additional Information Resuscitation Status: Full Code Discharge Diet: As Tolerated Discharge Activity: Activity As Tolerated, Balance Activity w/Rest Prescriptions: Ceftriaxone 2 gm/D5w RTU [Rocephin RTU 2 gm/D5w 50 ml Premix Bag] 2 gm IV DAILY 19 Days #19 rtupb Diltiazem HCl [Cardizem Cd 120 mg Capsule] 120 mg PO BID #60 cap.sr.24h Lactobacillus Acidophilus [Bacid 250 mg Tablet] 500 mg PO BID #40 tab Home Medications: Albuterol Sulfate [Proair HFA Inhalation Aerosol 8.5 gm MDI] 2 puff IH Q6HP PRN 12/04/18 Budesonide/Formoterol Fumarate [Symbicort HFA 160-4.5 mcg Inhaler 6 gm] 2 puff IH Q12 12/04/18 Citalopram Hydrobromide [Celexa 40 mg Tablet] 40 mg PO DAILY 12/04/18 Clonazepam [Klonopin 1 mg Tablet] 1 mg PO QHS 12/04/18 Hydrocodone/Acetaminophen [Hodge 5-325 mg Tablet] 1 tab PO Q8 12/04/18 Levalbuterol HCl [Xopenex Neb 0.63 mg/3 ml Ampul] 0.63 mg NEB RTQ8HP PRN 12/04/18 Ropinirole HCl [Requip] 0.5 mg PO DAILY 12/04/18 Tamsulosin HCl [Flomax 0.4 mg Cap.sr] 0.4 mg PO DAILY 12/04/18 Tiotropium [place] [Spiriva Respimat] 2 puff IH DAILY 12/04/18 Ceftriaxone 2 gm/D5w RTU [Rocephin RTU 2 gm/D5w 50 ml Premix Bag] 2 gm IV DAILY 19 Days #19 rtupb 06/22/19 Diltiazem HCl [Cardizem Cd 120 mg Capsule] 120 mg PO BID #60 cap.sr.24h 12/13/18 Lactobacillus Acidophilus [Bacid 250 mg Tablet] 500 mg PO BID #40 tab 12/13/18 History of Present Illness History of Present Illness: Admitting hospitalist's H&P: [place] RETANA is a 63 year old male with history of lung cancer on chemotherapy status post right upper lobe lobectomy, BPH, hypertension, COPD on 2 L oxygen at night received chemotherapy yesterday from this morning is having the fevers and chills increasing shortness of breath he went to Dr. Clement's office he was sent over here for further management. The work-up was done in the ER and CT of the chest negative for acute abnormality CT abdomen pelvis was negative for abnormalities no source of infection was found patient denies any neck pains denies any headaches denies any visual problems on my examination no neck stiff ness noticed but the patient has difficulty getting into the bed unable to lay flat unable to do further examination to look for meningeal signs and symptoms. Patient is already telling me he does not want any needle in the back. Wants to be a full code. Per the family patient was [facility] at the end of last month on 3 different antibiotics and antibiotics are continued by Dr. Rick chin as an outpatient last dose was taken 2 days ago. Family is unable to tell the antibiotics patient is on. Hospital Course Hospital Course: This is a 63-year-old male with history of lung cancer and chemotherapy and prior right upper lobe lobectomy, BPH, hypertension, COPD on 2 L oxygen at night who was admitted for severe sepsis. Mediport infection was initially suspected. He was initially started on broad- spectrum IV antibiotics. He improved with IV antibiotics and eventually therapies. Septic work-up was remarkable for gram-positive bacteremia which turned out to be S. mutans. Infectious disease consult was also sought. Due to identified species, endocarditis could not be definitely ruled out. Noted ID recommendations. 12/12: Discussed recommendations from ID and oncology in length with patient and on bedside including options, risks, benefits of possible HARVEY or termite helper antibiotics. Patient says he wants to go home as soon as he can but will rediscuss with and a very close family friend on bedside who is a nurse about their final decision. 6/22: Patient expressed he wants to go home today. He verbalized he does not want to stay in the hospital for another day or 2. After re-discussing in length onc and ID recommendations, he says he does not want to pursue a HARVEY and whether I agree or not, he will definitely leave today. Discussed option about longer IV antibiotic therapy (including risks of C diff) to cover for endocarditis, patient says he would prefer this route. He is very well oriented and has good mental capacity. He express says he is just tired of being in the hospital for several days now and just wants to go home And will leave AMA now. Fortunately, we are able to set up home health and home IV antibiotics and patient will be discharged appropriately with medications. He will also be given a follow-up with urology to follow-up with his urinary retention and possible removal of his Fairchild cath. Physical Exam Vital Signs: Temp Pulse Resp BP Pulse Ox 97.2 F 132 H 28 H 116/85 100 12/13/18 15:16 12/13/18 15:16 12/13/18 15:16 12/13/18 15:16 12/13/18 15:16 Intake & Output 12/12/18 12/13/18 12/14/18 06:59 06:59 06:59 Intake Total 2300 2865 290 Output Total 5350 5300 725 Balance -3050 -6535 -143 Weight 239 lb 13.807 oz 237 lb 3.478 oz General appearance: PRESENT: no acute distress, well-developed, well-nourished Head exam: PRESENT: atraumatic, normocephalic Eye exam: PRESENT: conjunctiva pink, EOMI, PERRLA. ABSENT: scleral icterus Ear exam: PRESENT: normal external ear exam Mouth exam: PRESENT: moist, tongue midline Neck exam: ABSENT: carotid bruit, JVD, lymphadenopathy, thyromegaly Respiratory exam: PRESENT: clear to auscultation khushboo. ABSENT: rales, rhonchi, wheezes Cardiovascular exam: PRESENT: RRR. ABSENT: diastolic murmur, rubs, systolic murmur Pulses: PRESENT: normal dorsalis pedis pul GI/Abdominal exam: PRESENT: normal bowel sounds, soft. ABSENT: distended, guarding, mass, organolmegaly, rebound, tenderness Rectal exam: PRESENT: deferred Neurological exam: PRESENT: alert, awake, oriented to person, oriented to place, oriented to time, oriented to situation, CN II-XII grossly intact. ABSENT: motor sensory deficit Results Laboratory Results: 12/12/18 06:15 12/13/18 05:30 12/13/18 05:30 Sodium 139.1 Potassium 4.0 Chloride 98 Carbon Dioxide 33 H Anion Gap 8 BUN 12 Creatinine 0.97 Est GFR ( Amer) > 60 Est GFR (Non-Af Amer) > 60 Glucose 121 H Calcium 9.0 12/08/18 11:32 Blood Blood Culture - Final NO GROWTH IN 5 DAYS 12/08/18 11:15 Blood Blood Culture - Final NO GROWTH IN 5 DAYS 12/04/18 12/04/18 12/04/18 05:05 10:38 20:16 Creatine Kinase 51 L 123 CK-MB (CK-2) Troponin I < 0.012 NT-Pro-B Natriuret Pep 12/04/18 12/05/18 12/05/18 20:16 02:07 02:07 Creatine Kinase 201 H CK-MB (CK-2) 0.53 0.58 Troponin I < 0.012 < 0.012 NT-Pro-B Natriuret Pep 12/05/18 12/05/18 06:03 06:03 Creatine Kinase 190 H CK-MB (CK-2) 0.71 Troponin I < 0.012 NT-Pro-B Natriuret Pep 883 Impressions: Acute Abdomen Series 12/04/18 12:25 IMPRESSION: Nonspecific abdomen. Possible subpulmonic effusion. Abdomen/Pelvis CT 12/05/18 00:00 IMPRESSION: 1. Fairchild catheter balloon is inflated in the prostatic urethra. The catheter does not extend into the bladder. 2. Bladder is markedly distended, with bilateral hydronephrosis. Chest X-Ray 12/07/18 05:13 IMPRESSION: 1. No significant change. Chest/Abdomen CTA 12/11/18 18:54 IMPRESSION: No evidence of pulmonary embolism. Postsurgical changes of right upper lobectomy as well as surgical resection of a well-circumscribed left upper lobe nodule, as above described. Interval increase in size of necrotic pretracheal lymph node with additional subcarinal lymphadenopathy, suspicious for worsening metastatic disease. Diffuse irregular consolidative and groundglass opacity throughout the paramediastinal right lung, increased from the previous PET/CT dated 09/28/2018. Evolving post radiation fibrosis is a definite possibility although a superimposed infectious process could technically have a similar appearance. Small right pleural effusion. TECHNICAL DOCUMENTATION: Quality ID # 436: Final reports with documentation of one or more dose reduction techniques (e.g., Automated exposure control, adjustment of the mA and/or kV according to patient size, use of iterative reconstruction technique) copyright 2011 [employer]- All Rights Reserved Qualifiers - * PATIENT BEING DISCHARGED WITH ANY OF THE FOLLOWING DIAGNOSIS: No Acute Heart Failure - Is this a Heart Failure Patient?: No LVEF < 40%?: No- if no continue to question #3 3. Anticoagulant therapy for permanect/persistent/paraoxysmal Afib or Aflutter: N/A
== END 2018-12-13 15:41 | disposition home health service (06) | DRG 871 ==
LOC: ER 10:00 → UNDOADMIN 18:11 → EH 18:11 → 3N 21:31 → ICU 12-06 01:19 → 3W 12-11 16:45
PROVIDERS: ADMIT Internal Medicine; ATTEND Internal Medicine
PROC: 5A09557 Assistance with Respiratory Ventilation, Greater than 96 Consecutive Hours, Continuous Positive Airway Pressure (ICD-10-PCS; principal; 2018-12-04)
DX: A41.9 Sepsis, unspecified organism (principal); R65.21 Severe sepsis with septic shock; N17.9 Acute kidney failure, unspecified; C34.11 Malignant neoplasm of upper lobe, right bronchus or lung; E87.6 Hypokalemia; I10 Essential (primary) hypertension; E78.5 Hyperlipidemia, unspecified; K21.9 Gastro-esophageal reflux disease without esophagitis; F32.9 Major depressive disorder, single episode, unspecified; N40.1 Benign prostatic hyperplasia with lower urinary tract symptoms; E66.01 Morbid (severe) obesity due to excess calories; R33.8 Other retention of urine; K59.03 Drug induced constipation; F41.9 Anxiety disorder, unspecified; Z53.29 Procedure and treatment not carried out because of patient's decision for other reasons; K52.9 Noninfective gastroenteritis and colitis, unspecified; D64.81 Anemia due to antineoplastic chemotherapy; Z92.21 Personal history of antineoplastic chemotherapy; Z99.81 Dependence on supplemental oxygen; Z79.899 Other long term (current) drug therapy; Z90.2 Acquired absence of lung [part of]; Z87.891 Personal history of nicotine dependence; Z88.8 Allergy status to other drugs, medicaments and biological substances
CPT/HCPCS: 36415; 36591; 36600; 51702; 71045; 71275; 74022; 74176; 74177; 80048; 80053; 80061; 80202; 81001; 82272; 82550; 82553; 82565; 82803; 83036; 83605; 83735; 83880; 84132; 84443; 84484; 85025; 85027; 85379; 87040; 87070; 87077; 87086; 87186; 87205; 87493; 93005; 93010; 93306; 94640; 94660; 96361; 96365; 96366; 96375; 96376; 99285; J0131; J0153; J0692; J0696; J1450; J1630; J1650; J1956; J2060; J2185; J2270; J2543; J3370; J3490; J7030; J7050; J7060; J7614

== ENCOUNTER 2018-12-21 16:11 | Emergency (ER) | payer BC ==
--- NOTE | 2018-12-21 16:30 | ER Document Report ---
ED Medical Screen (RME) - General Chief Complaint: Problem with Urinary Catheter Stated Complaint: UNABLE TO URINATE Time Seen by Provider: 12/21/18 16:23 Primary Care Provider: PAULA DOMINGO MD [Primary Care Provider] - Follow up as needed Mode of Arrival: Wheelchair Information source: Patient Notes: Patient presents to the emergency department with reports that he cannot void. Patient does have a Fairchild catheter in place. Patient reports he has a history of lung cancer is receiving chemo and just recently started having trouble voiding. He reports they have he has been hospitalized for this and last night he was at [facility] for same issue. He reports home health nurse was at his house today irrigated the Fairchild and it started draining. But then it did not drain afterwards. Patient reports he is very uncomfortable. Heart rate is 120. He reports as because he is uncomfortable. Patient is on home O2. Patient has an appointment with Dr. Vickers the urologist on Saturday. Patient is also a patient of Dr. Dempsey. I have greeted and performed a rapid initial assessment of this patient. A comprehensive ED assessment and evaluation of the patient, analysis of test results and completion of the medical decision making process will be conducted by additional ED providers. Dictation of this chart was performed using voice recognition software; therefore, there may be some unintended grammatical errors. TRAVEL OUTSIDE OF THE [place] IN LAST 30 DAYS: No - Related Data Allergies/Adverse Reactions: prednisone [Prednisone] Adverse Reaction (Intermediate, Verified 12/04/18 10:02) jitters Past Medical History - Past Medical History Cardiac Medical History: Reports: Hx Hypercholesterolemia - meds x 1 year, Hx Hypertension - meds x 6 years Denies: Hx Atrial Fibrillation, Hx Congestive Heart Failure, Hx Coronary Artery Disease, Hx Heart Attack, Hx Peripheral Vascular Disease, Hx Pulmonary Embolism, Hx Heart Murmur Pulmonary Medical History: Reports: Hx Bronchitis - multiple episodes (usually in the fall), Hx COPD, Hx Pneumonia - x 1 episode, denies hospitalization Denies: Hx Asthma, Hx Respiratory Failure, Hx Sleep Apnea, Hx Tuberculosis Neurological Medical History: Denies: Hx Cerebrovascular Accident, Hx Seizures Renal/ Medical History: Denies: Hx Peritoneal Dialysis Malignancy Medical History: Reports Hx Lung Cancer - Rt lung mass GI Medical History: Reports: Hx Gastroesophageal Reflux Disease - Tolentino's esophagitis, Dx'ed approx 3 years. Denies: Hx Crohn's Disease, Hx Hepatitis, Hx Hiatal Hernia, Hx Irritable Bowel, Hx Liver Failure, Hx Pancreatitis, Hx Ulcer Musculoskeltal Medical History: Reports Hx Arthritis, Denies Hx Fibromyalgia, Denies Hx Muscular Dystrophy Psychiatric Medical History: Reports: Hx Depression - meds x 15 years Denies: Hx Bipolar Disorder, Hx Post Traumatic Stress Disorder, Hx Schizophrenia Traumatic Medical History: Denies: Hx Fractures Infectious Medical History: Denies: Hx Hepatitis Past Surgical History: Reports: Hx Appendectomy, Hx Cholecystectomy, Hx Orthopedic Surgery - RIGHT KNEE, Other - Bronchoscopy. Denies: Hx Bowel Surgery, Hx Colostomy, Hx Coronary Artery Bypass Graft, Hx Gastric Bypass Surgery, Hx Herniorrhaphy, Hx Open Heart Surgery, Hx Pacemaker, Hx Tonsillectomy - Immunizations Hx Diphtheria, Pertussis, Tetanus Vaccination: No History of Influenza Vaccine for 03/2017 - 08/2017 Season: Refused Physical Exam - Vital signs Vitals: Temp Pulse Resp BP Pulse Ox 97.7 F 120 H 22 H 125/84 95 12/21/18 16:19 12/21/18 16:19 12/21/18 16:19 12/21/18 16:19 12/21/18 16:19 Course - Vital Signs Vital signs: Temp Pulse Resp BP Pulse Ox 97.7 F 120 H 22 H 125/84 95 12/21/18 16:19 12/21/18 16:19 12/21/18 16:19 12/21/18 16:19 12/21/18 16:19 Doctor's Discharge - Discharge Referrals: PAULA DOMINGO MD [Primary Care Provider] - Follow up as needed
[2018-12-21 16:46] LABS: ABSOLUTE BASOPHILS # (AUTO) 0.1 10^3/uL (0.0-0.2); ABSOLUTE EOSINOPHILS # (AUTO) 0.1 10^3/uL (0.0-0.6); ABSOLUTE LYMPHOCYTES (AUTO) 0.8 10^3/uL (0.5-4.7); ABSOLUTE MONOCYTES (AUTO) 0.5 10^3/uL (0.1-1.4); ABSOLUTE NEUT (AUTO) 4.8 10^3/uL (1.7-8.2); BASOPHILS % (AUTO) 0.8 % (0-2); EOSINOPHILS % (AUTO) 0.8 % (0-6); HEMATOCRIT 32.3 % (37.9-51.0); HEMOGLOBIN 11.2 g/dL (13.5-17.0); LYMPHOCYTES % (AUTO) 13.6 % (13-45); MEAN CORPUSCULAR HEMOGLOBIN 30.3 pg (27.0-33.4); MEAN CORPUSCULAR HGB CONC 34.6 g/dL (32.0-36.0); MEAN CORPUSCULAR VOLUME 88 fl (80-97); MONOCYTES % (AUTO) 8.4 % (3-13); PLATELET COUNT 290 10^3/uL (150-450); RED BLOOD COUNT 3.69 10^6/uL (4.35-5.55); RED CELL DISTRIBUTION WIDTH 16.5 % (11.5-14.0); SEGMENTED NEUTROPHILS % (AUTO) 76.4 % (42-78); TOTAL CELLS COUNTED % (AUTO) 100 %; WHITE BLOOD COUNT 6.2 10^3/uL (4.0-10.5)
--- NOTE | 2018-12-21 17:03 | ER Document Report ---
ED GI/ - General Chief Complaint: Problem with Urinary Catheter Stated Complaint: UNABLE TO URINATE Time Seen by Provider: 12/21/18 16:23 Primary Care Provider: PAULA DOMINGO MD [ACTIVE STAFF] - Follow up as needed Mode of Arrival: Wheelchair Information source: Patient, Relative TRAVEL OUTSIDE OF THE [place] IN LAST 30 DAYS: No - HPI Patient complains to provider of: Merritt catheter problem, Urinary retention - pt states he has had a merritt in place for the past 2 weeks and it stopped draining earlier this am. He has been unable to make urine since that time. - Related Data Allergies/Adverse Reactions: prednisone [Prednisone] Adverse Reaction (Intermediate, Verified 12/04/18 10:02) jitters Past Medical History - General Information source: Patient - Social History Smoking Status: Former Smoker Family History: Malignancy Patient has suicidal ideation: No Patient has homicidal ideation: No - Past Medical History Cardiac Medical History: Reports: Hx Hypercholesterolemia - meds x 1 year, Hx Hypertension - meds x 6 years Denies: Hx Atrial Fibrillation, Hx Congestive Heart Failure, Hx Coronary Artery Disease, Hx Heart Attack, Hx Peripheral Vascular Disease, Hx Pulmonary Embolism, Hx Heart Murmur Pulmonary Medical History: Reports: Hx Bronchitis - multiple episodes (usually in the fall), Hx COPD, Hx Pneumonia - x 1 episode, denies hospitalization Denies: Hx Asthma, Hx Respiratory Failure, Hx Sleep Apnea, Hx Tuberculosis Neurological Medical History: Denies: Hx Cerebrovascular Accident, Hx Seizures Renal/ Medical History: Denies: Hx Peritoneal Dialysis Malignancy Medical History: Reports Hx Lung Cancer - Rt lung mass GI Medical History: Reports: Hx Gastroesophageal Reflux Disease - Tolentino's esophagitis, Dx'ed approx 3 years. Denies: Hx Crohn's Disease, Hx Hepatitis, Hx Hiatal Hernia, Hx Irritable Bowel, Hx Liver Failure, Hx Pancreatitis, Hx Ulcer Musculoskeletal Medical History: Reports Hx Arthritis, Denies Hx Fibromyalgia, Denies Hx Muscular Dystrophy Psychiatric Medical History: Reports: Hx Depression - meds x 15 years Denies: Hx Bipolar Disorder, Hx Post Traumatic Stress Disorder, Hx Schizophrenia Traumatic Medical History: Denies: Hx Fractures Infectious Medical History: Denies: Hx Hepatitis Past Surgical History: Reports: Hx Appendectomy, Hx Cholecystectomy, Hx Orthop edic Surgery - RIGHT KNEE, Other - Bronchoscopy. Denies: Hx Bowel Surgery, Hx Colostomy, Hx Coronary Artery Bypass Graft, Hx Gastric Bypass Surgery, Hx Herniorrhaphy, Hx Open Heart Surgery, Hx Pacemaker, Hx Tonsillectomy - Immunizations Hx Diphtheria, Pertussis, Tetanus Vaccination: No Hx Pneumococcal Vaccination: 10/22/17 Review of Systems - Review of Systems Constitutional: No symptoms reported EENT: No symptoms reported Cardiovascular: No symptoms reported Respiratory: No symptoms reported Gastrointestinal: No symptoms reported Genitourinary: See HPI, Retention Neurological/Psychological: No symptoms reported -: Yes All other systems reviewed and negative Physical Exam - Vital signs Vitals: Temp Pulse Resp BP Pulse Ox 97.7 F 120 H 22 H 125/84 95 12/21/18 16:19 12/21/18 16:19 12/21/18 16:19 12/21/18 16:19 12/21/18 16:19 - General General appearance: Anxious In distress: Mild - Respiratory Respiratory status: No respiratory distress Breath sounds: Normal - Cardiovascular Rhythm: Regular Heart sounds: Normal auscultation Murmur: No - Genitourinary Inspection: Other - there is a merritt catheter in place that is currently not draining urine. Course - Re-evaluation Re-evalutation: 12/21/18 17:20 we have attempted to irrigate merritt without success. I will instruct the nurses to d/c current merritt and replace it with larger (14 F) one. 12/21/18 17:26 Larger merritt replaced without difficulty. Approx 1200 ml of clear urine obtained. Pt. felt much better. I told family that we will watch him for a while to make sure the merritt continues to drain and then d/c him.He has drained approx. 1700 ml of clear urine at time of d/c. He has an appt. with the urologist (Dr. Vickers) in 2 days. 12/21/18 17:41 - Vital Signs Vital signs: Temp Pulse Resp BP Pulse Ox 97.7 F 120 H 22 H 125/84 95 12/21/18 16:19 12/21/18 16:19 12/21/18 16:19 12/21/18 16:19 12/21/18 16:19 - Laboratory Result Diagrams: 12/21/18 16:35 12/21/18 16:35 Laboratory results interpreted by me: 12/21/18 12/21/18 16:35 16:35 RBC 3.69 L Hgb 11.2 L Hct 32.3 L RDW 16.5 H Sodium 135.3 L Chloride 96 L Est GFR (Non-Af Amer) 58 L Glucose 156 H Alkaline Phosphatase 128 H Discharge - Discharge Clinical Impression: Urinary retention Condition: Stable Disposition: HOME, SELF-CARE Additional Instructions: rest, continue merritt care, return if worse Referrals: PAULA DOMINGO MD [ACTIVE STAFF] - Follow up as needed
[2018-12-21 17:06] LABS: ALANINE AMINOTRANSFERASE 25 U/L (21-72); ALBUMIN 4.3 g/dL (3.5-5.0); ALKALINE PHOSPHATASE 128 U/L (38-126); ANION GAP 12 (5-19); ASPARTATE AMINO TRANSFERASE 21 U/L (17-59); BILIRUBIN,DIRECT 0.3 mg/dL (0.0-0.4); BILIRUBIN,TOTAL 0.3 mg/dL (0.2-1.3); BLOOD UREA NITROGEN 13 mg/dL (7-20); CALCIUM 9.8 mg/dL (8.4-10.2); CARBON DIOXIDE 27 mmol/L (22-30); CHLORIDE 96 mmol/L (98-107); GLUCOSE 156 mg/dL (75-110); POTASSIUM 3.9 mmol/L (3.6-5.0); SODIUM 135.3 mmol/L (137-145); TOTAL PROTEIN 7.6 g/dL (6.3-8.2)
[2018-12-21 18:20] VITALS: BP 118/91
== END 2018-12-21 18:30 | disposition home or self-care (01) ==
LOC: ER 16:11
DX: R33.9 Retention of urine, unspecified (principal); Z46.6 Encounter for fitting and adjustment of urinary device; I10 Essential (primary) hypertension; J44.9 Chronic obstructive pulmonary disease, unspecified; Z87.891 Personal history of nicotine dependence; Z85.118 Personal history of other malignant neoplasm of bronchus and lung
CPT/HCPCS: 36415; 51702; 80053; 85025; 99283; C1758

== ENCOUNTER → 2018-12-26 | Outpatient (CLI) | payer BC ==
[2018-12-26 09:05] LABS: HEMATOCRIT 31.5 % (37.9-51.0); HEMOGLOBIN 10.6 g/dL (13.5-17.0); MEAN CORPUSCULAR HEMOGLOBIN 29.7 pg (27.0-33.4); MEAN CORPUSCULAR HGB CONC 33.8 g/dL (32.0-36.0); MEAN CORPUSCULAR VOLUME 88 fl (80-97); PLATELET COUNT 330 10^3/uL (150-450); RED BLOOD COUNT 3.58 10^6/uL (4.35-5.55); RED CELL DISTRIBUTION WIDTH 17.4 % (11.5-14.0); WHITE BLOOD COUNT 6.1 10^3/uL (4.0-10.5)
[2018-12-26 09:40] LABS: ANION GAP 11 (5-19); BLOOD UREA NITROGEN 15 mg/dL (7-20); CALCIUM 9.5 mg/dL (8.4-10.2); CARBON DIOXIDE 30 mmol/L (22-30); CHLORIDE 98 mmol/L (98-107); GLUCOSE 117 mg/dL (75-110); POTASSIUM 4.2 mmol/L (3.6-5.0); SODIUM 139.1 mmol/L (137-145)
== END ==
LOC: OD 08:24
PROVIDERS: ATTEND Internal Medicine Nephrology
DX: N17.9 Acute kidney failure, unspecified (principal); N18.9 Chronic kidney disease, unspecified
CPT/HCPCS: 36415; 80048; 85027

== ENCOUNTER → 2019-02-13 | Outpatient (CLI) | payer BC ==
--- NOTE | 2019-02-13 10:15 | RADIOLOGY REPORT (SQ) ---
EXAM DESCRIPTION: CT CHEST WITH COMPLETED DATE/TIME: 02/13/2019 9:36 am REASON FOR STUDY: MALIGNANT NEOPLASM OF UPPER LOBE, RIGHT BRONCHUS OR LUNG C34.11 MALIGNANT NEOPLAS M OF UPPER LOBE, RIGHT BRONCHUS OR L COMPARISON: 12/11/2018, 12/04/2018 TECHNIQUE: CT scan of the chest performed using helical scanning technique with dynamic intravenous contrast injection. Images reviewed with lung, soft tissue and bone windows. Reconstructed coronal and sagittal MPR and MIP images reviewed. All images stored on PACS. All CT scanners at this facility use dose modulation, iterative reconstruction, and/or weight based d osing when appropriate to reduce radiation dose to as low as reasonably achievable (ALARA). [facility]: Dose Right [facility]: CareDose [facility]: Dose Right [facility]: Teradose 4D [facility]: Kiwilogic CONTRAST TYPE AND DOSE: 100 mL Omnipaque 350 RENAL FUNCTION: Creatinine 1.3 RADIATION DOSE: . LIMITATIONS: None. FINDINGS: LUNGS AND PLEURA: Postsurgical changes on the right are again noted with extensive right p erihilar and upper lobe airspace disease. There has been progression from November. This could represen t post radiation change although increasing metastatic disease is also a possibility. Focal opacity in the left upper lobe is unchanged. The left lung base remains clear. HILAR AND MEDIASTINAL STRUCTURES: Pretracheal adenopathy appears improved. Sub- carinal adenopathy h as decreased as well. HEART AND VASCULAR STRUCTURES: Pericardial thickening and/or small effusion remains. HARDWARE: [id number]-Wuob is in place. UPPER ABDOMEN: Small hepatic cyst is unchanged. THYROID AND OTHER SOFT TISSUES: No masses. No adenopathy. BONES: No significant finding. OTHER: No other significant finding. IMPRESSION: Increasing right perihilar airspace disease as described. This may be postradiation fib rosis. Interstitial spread of carcinoma cannot be excluded. Pretracheal and subcarinal adenopathy i s improved. TECHNICAL DOCUMENTATION: JOB ID: [id number] Quality ID # 436: Final reports with documentation of one or more dose reduction techniques (e.g., Au tomated exposure control, adjustment of the mA and/or kV according to patient size, use of iterative reconstruction technique) 2010 [employer]- All Rights Reserved Reading location - IP/workstation name: [email or web address]
--- NOTE | 2019-02-13 10:19 | RADIOLOGY REPORT (SQ) ---
EXAM DESCRIPTION: CT ABD/PELVIS WITH IV ONLY COMPLETED DATE/TIME: 02/13/2019 9:36 am REASON FOR STUDY: MALIGNANT NEOPLASM OF UPPER LOBE, RIGHT BRONCHUS OR LUNG C34.11 MALIGNANT NEOPLAS M OF UPPER LOBE, RIGHT BRONCHUS OR L COMPARISON: 12/06/2018 TECHNIQUE: CT scan of the abdomen and pelvis performed using helical scanning technique with dynamic intravenous contrast injection. No oral contrast. Images reviewed with lung, soft tissue, and bone windows. Reconstructed coronal and sagittal MPR images reviewed. Delayed images for evaluation of the urinary system also acquired. All images stored on PACS. All CT scanners at this facility use dose modulation, iterative reconstruction, and/or weight based d osing when appropriate to reduce radiation dose to as low as reasonably achievable (ALARA). [facility]: Dose Right [facility]: CareDose [facility]: Dose Right [facility]: Teradose 4D [facility]: KODA CONTRAST TYPE AND DOSE: contrast/concentration: Isovue 350.00 mg/ml; Total Contrast Delivered: 100.0 ml; Total Saline Delivered: 72.0 ml RENAL FUNCTION: Creatinine 1.3 RADIATION DOSE: CT Rad equipment meets quality standard of care and radiation dose reduction techniq ues were employed. CTDIvol: 12.5 - 14.1 mGy. DLP: 2232 mGy-cm.. LIMITATIONS: None. FINDINGS: LOWER CHEST: Please see chest CT for complete discussion of chest findings. LIVER: Small hepatic cysts are again noted. No suspicious findings. SPLEEN: Normal size. No focal lesions. PANCREAS: No masses. No significant calcifications. No adjacent inflammation or peripancreatic fluid collections. Pancreatic duct not dilated. GALLBLADDER: Surgically absent. ADRENAL GLANDS: No significant masses or asymmetry. RIGHT KIDNEY AND URETER: No solid masses. No significant calcifications. No hydronephrosis or hyd roureter. LEFT KIDNEY AND URETER: No solid masses. No significant calcifications. No hydronephrosis or hydr oureter. AORTA AND VESSELS: No aneurysm. No dissection. Renal arteries, SMA, celiac without stenosis. RETROPERITONEUM: No retroperitoneal adenopathy, hemorrhage or masses. BOWEL AND PERITONEAL CAVITY: No masses or inflammatory changes. No free fluid or peritoneal masses. APPENDIX: Surgically absent. PELVIS: No mass. No free fluid. Normal bladder. ABDOMINAL WALL: Small umbilical hernia containing omental fat only. BONES: No evidence of metastatic disease. There are bilateral pars defects at L4-L5. Slight retroli sthesis of L4 on L5. OTHER: No other significant finding. IMPRESSION: No evidence of metastatic disease in the abdomen or pelvis. TECHNICAL DOCUMENTATION: JOB ID: [id number] Quality ID # 436: Final reports with documentation of one or more dose reduction techniques (e.g., Au tomated exposure control, adjustment of the mA and/or kV according to patient size, use of iterative reconstruction technique) 2010 [employer]- All Rights Reserved Reading location - IP/workstation name: [email or web address]
== END ==
LOC: RAD 08:56
PROVIDERS: ATTEND Physician Assistant Medical
DX: C34.11 Malignant neoplasm of upper lobe, right bronchus or lung (principal)
CPT/HCPCS: 71260; 74177; 82565

== ENCOUNTER → 2019-05-08 | Outpatient (CLI) | payer BC ==
--- NOTE | 2019-05-08 10:13 | RADIOLOGY REPORT (SQ) ---
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 Images reviewed with lung, soft tissue and bone windows. Reconstructed coronal and sagittal MPR images reviewed. All images stored on PACS. All CT scanners at this facility use dose modulation, iterative reconstruction, and/or weight based d osing when appropriate to reduce radiation dose to as low as reasonably achievable (ALARA). [facility]: Dose Right [facility]: CareDose [facility]: Dose Right [facility]: Teradose 4D [facility]: Smart CommScope RADIATION DOSE: CT Rad equipment meets quality standard of care and radiation dose reduction techniq ues were employed. CTDIvol: 11.4 - 14.5 mGy. DLP: 1985 mGy-cm. mGy. LIMITATIONS: None. FINDINGS: AXILLAE: No adenopathy. CHEST WALL: No masses. No subcutaneous air. LUNGS: Left upper lobe pulmonary nodule has significantly increased in size when compared to previous study. The spiculated nodule measures 1.9 x 2.2 cm on the current study compared to 1.6 cm x 6.3 mm on prior study pleural and parenchymal changes in the right lung field are grossly unchanged and aga in may reflect post radiation change although underlying residual malignancy cannot be excluded. PLEURA: No effusions. No calcifications. THYROID: No masses or significant asymmetry. HILAR AND MEDIASTINAL STRUCTURES: Pretracheal soft tissue mass has significantly increased in size fr om prior study most likely adenopathy. Sub- carinal changes are stable. AORTA AND GREAT VESSELS: No aneurysm. HEART: Small pericardial effusion and/or pericardial thickening which is unchanged. HARDWARE AND LIFELINES: [id number] remains in place. BONES: No significant finding. OTHER: No other significant finding. IMPRESSION: 1. Most significant finding is increasing size of the left upper lobe nodule. The nodu le is spiculated and measures 1.9 x 2.2 cm. This is best demonstrated on series 6, image 27. 2. Increasing pretracheal adenopathy. 3. Pleural and parenchymal changes on the right are grossly stable. COMPARISON: None. TECHNIQUE: CT scan of the abdomen and pelvis performed without intravenous contrast and withoutoral contrast using helical scanning technique with dynamic intravenous contrast injection. Images review ed with lung, soft tissue and bone windows. Reconstructed coronal and sagittal MPR images reviewed. All images stored on PACS. All CT scanners at this facility use dose modulation, iterative reconstruction, and/or weight based d osing when appropriate to reduce radiation dose to as low as reasonably achievable (ALARA). [facility]: Dose Right [facility]: SureCare [facility]: Dose Right [facility]: Teradose 4D [facility]: StreetOwl RADIATION DOSE: CT Rad equipment meets quality standard of care and radiation dose reduction techniq ues were employed. CTDIvol: 11.4 - 14.5 mGy. DLP: 1985 mGy-cm.mGy. LIMITATIONS: None. FINDINGS: LIVER: Focal hepatic cyst is again noted and unchanged. SPLEEN: Normal size. No focal lesions. PANCREAS: No masses. No significant calcifications. No adjacent inflammation or peripancreatic flui d collections. Pancreatic duct not dilated. GALLBLADDER: No identified stones by CT criteria. No inflammatory changes to suggest cholecystitis. ADRENAL GLANDS: No significant masses or asymmetry. RIGHT KIDNEY AND URETER: No solid masses. Assessment limited by lack of IV contrast. No significant c alcification. No hydronephrosis or hydroureter. LEFT KIDNEY AND URETER: No solid masses. Assessment limited by lack of IV contrast. No significant ca lcification. No hydronephrosis or hydroureter. AORTA AND VESSELS: No aneurysm. RETROPERITONEUM: No adenopathy. APPENDIX: Surgically absent. LARGE AND SMALL BOWEL: No dilatation. No masses. No wall thickening. Numerous diverticuli. No acu te diverticulitis. ABDOMINAL WALL: No hernia or masses. PERITONEAL CAVITY: No free air. No free fluid. No peritoneal implants or masses. PELVIS: No mass or free fluid. Normal bladder. BONES: No significant or acute findings. OTHER: No other significant finding. IMPRESSION: No evidence of metastatic disease in the abdomen or pelvis. TECHNICAL DOCUMENTATION: JOB ID: [id number] Quality ID # [id number]: Final reports with documentation of one or more dose reduction techniques (e.g., Au tomated exposure control, adjustment of the mA and/or kV according to patient size, use of iterative reconstruction technique) 2010 [employer]- All Rights Reserved Reading location - IP/workstation name: [email or web address]
--- NOTE | 2019-05-08 10:13 | RADIOLOGY REPORT (SQ) ---
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 Images reviewed with lung, soft tissue and bone windows. Reconstructed coronal and sagittal MPR images reviewed. All images stored on PACS. All CT scanners at this facility use dose modulation, iterative reconstruction, and/or weight based d osing when appropriate to reduce radiation dose to as low as reasonably achievable (ALARA). [facility]: Dose Right [facility]: CareDose [facility]: Dose Right [facility]: Teradose 4D [facility]: Smart eIQnetworks RADIATION DOSE: CT Rad equipment meets quality standard of care and radiation dose reduction techniq ues were employed. CTDIvol: 11.4 - 14.5 mGy. DLP: 1985 mGy-cm. mGy. LIMITATIONS: None. FINDINGS: AXILLAE: No adenopathy. CHEST WALL: No masses. No subcutaneous air. LUNGS: Left upper lobe pulmonary nodule has significantly increased in size when compared to previous study. The spiculated nodule measures 1.9 x 2.2 cm on the current study compared to 1.6 cm x 6.3 mm on prior study pleural and parenchymal changes in the right lung field are grossly unchanged and aga in may reflect post radiation change although underlying residual malignancy cannot be excluded. PLEURA: No effusions. No calcifications. THYROID: No masses or significant asymmetry. HILAR AND MEDIASTINAL STRUCTURES: Pretracheal soft tissue mass has significantly increased in size fr om prior study most likely adenopathy. Sub- carinal changes are stable. AORTA AND GREAT VESSELS: No aneurysm. HEART: Small pericardial effusion and/or pericardial thickening which is unchanged. HARDWARE AND LIFELINES: [id number] remains in place. BONES: No significant finding. OTHER: No other significant finding. IMPRESSION: 1. Most significant finding is increasing size of the left upper lobe nodule. The nodu le is spiculated and measures 1.9 x 2.2 cm. This is best demonstrated on series 6, image 27. 2. Increasing pretracheal adenopathy. 3. Pleural and parenchymal changes on the right are grossly stable. COMPARISON: None. TECHNIQUE: CT scan of the abdomen and pelvis performed without intravenous contrast and withoutoral contrast using helical scanning technique with dynamic intravenous contrast injection. Images review ed with lung, soft tissue and bone windows. Reconstructed coronal and sagittal MPR images reviewed. All images stored on PACS. All CT scanners at this facility use dose modulation, iterative reconstruction, and/or weight based d osing when appropriate to reduce radiation dose to as low as reasonably achievable (ALARA). [facility]: Dose Right [facility]: SureCare [facility]: Dose Right [facility]: Teradose 4D [facility]: OrangeScape RADIATION DOSE: CT Rad equipment meets quality standard of care and radiation dose reduction techniq ues were employed. CTDIvol: 11.4 - 14.5 mGy. DLP: 1985 mGy-cm.mGy. LIMITATIONS: None. FINDINGS: LIVER: Focal hepatic cyst is again noted and unchanged. SPLEEN: Normal size. No focal lesions. PANCREAS: No masses. No significant calcifications. No adjacent inflammation or peripancreatic flui d collections. Pancreatic duct not dilated. GALLBLADDER: No identified stones by CT criteria. No inflammatory changes to suggest cholecystitis. ADRENAL GLANDS: No significant masses or asymmetry. RIGHT KIDNEY AND URETER: No solid masses. Assessment limited by lack of IV contrast. No significant c alcification. No hydronephrosis or hydroureter. LEFT KIDNEY AND URETER: No solid masses. Assessment limited by lack of IV contrast. No significant ca lcification. No hydronephrosis or hydroureter. AORTA AND VESSELS: No aneurysm. RETROPERITONEUM: No adenopathy. APPENDIX: Surgically absent. LARGE AND SMALL BOWEL: No dilatation. No masses. No wall thickening. Numerous diverticuli. No acu te diverticulitis. ABDOMINAL WALL: No hernia or masses. PERITONEAL CAVITY: No free air. No free fluid. No peritoneal implants or masses. PELVIS: No mass or free fluid. Normal bladder. BONES: No significant or acute findings. OTHER: No other significant finding. IMPRESSION: No evidence of metastatic disease in the abdomen or pelvis. TECHNICAL DOCUMENTATION: JOB ID: [id number] Quality ID # 436: Final reports with documentation of one or more dose reduction techniques (e.g., Au tomated exposure control, adjustment of the mA and/or kV according to patient size, use of iterative reconstruction technique) 2010 [employer]- All Rights Reserved Reading location - IP/workstation name: [email or web address]
--- NOTE | 2019-05-08 11:37 | RADIOLOGY REPORT (SQ) ---
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 TECHNIQUE: Multiplanar imaging includes noncontrasted T1, T2, FLAIR, diffusion with ADC map and post gadolinium contrast T1 sequences. Images stored on PACS. CONTRAST TYPE AND DOSE: 20 mL Dotarem. RENAL FUNCTION: Not indicated. ACR Type II contrast agent associated with few, if any, unconfounded cases of NSF LIMITATIONS: None. FINDINGS: ANATOMY: No anomalies. Normal vascular flow voids. Pituitary fossa normal. CSF SPACES: Normal in size and contour. No hemorrhage. CEREBRUM: Sulci and gyri normal in size and contour. Scattered areas of increased white matter signa l on FLAIR imaging. No evidence of hemorrhage, mass, or extraaxial fluid collection. No abnormal enha ncement post contrast. POSTERIOR FOSSA: No signal alteration. No hemorrhage. No edema, masses, or mass effect. Internal bee tory canals, cerebellopontine angles, mastoids normal. No enhancing lesions. No abnormal enhancement post contrast. DIFFUSION IMAGING: Negative for acute or subacute infarction. ORBITS: No masses. Globes normal. PARANASAL SINUSES: Mucous retention cysts in both maxillary sinuses. OTHER: No other significant finding. IMPRESSION: Mild chronic microvascular ischemia with no evidence of metastases in the brain. EVIDENCE OF ACUTE STROKE: NO. TECHNICAL DOCUMENTATION: JOB ID: [id number] [employer]- All Rights Reserved Reading location - IP/workstation name: [email or web address]
== END ==
LOC: RAD 08:32
PROVIDERS: ATTEND Internal Medicine
DX: C34.11 Malignant neoplasm of upper lobe, right bronchus or lung (principal); I67.82 Cerebral ischemia
CPT/HCPCS: 70553; 71260; 74177; A9576

== ENCOUNTER → 2019-05-19 | Outpatient (CLI) | payer BC ==
--- NOTE | 2019-05-19 17:00 | RADIOLOGY REPORT (SQ) ---
EXAM DESCRIPTION: PET CT SKULL/THIGH COMPLETED DATE/TIME: 05/19/2019 4:05 pm REASON FOR STUDY: MALIGNANT NEOPLASM OF UPPER LOBE, RIGHT BRONCHUS OR LUNG (C34.11) C34.11 MALIGNAN T NEOPLASM OF UPPER LOBE, RIGHT BRONCHUS OR L COMPARISON: 09/28/2018 RADIONUCLIDE AND DOSE: 10.81 mCi F18 FDG The route of agent administration: Intravenous FASTING BLOOD SUGAR: 122 mg/dl CONTRAST TYPE AND DOSE: No CT contrast given. TECHNIQUE: Blood glucose level was verified. Above dose of FDG was injected intravenously. 2-D seg mented attenuation correction images were obtained from the base of the skull to the midthighs. Nonc ontrast CT images were obtained for attenuation correction and fusion with emission images. CT image s were performed without oral or intravenous contrast and are not sensitive for parenchymal lesions. A series of overlapping emission PET images were obtained. Images reviewed and manipulated at [facility] work station by the radiologist. Images stored on PACS. LIMITATIONS: None. FINDINGS: HEAD AND NECK: No areas of abnormal metabolic activity in the soft tissues of the head and neck. CHEST: Previously described left upper lobe nodule on recent CT demonstrates increased FDG uptake (ma x SUV 5.7). The lesion measures slightly smaller on today's exam and significantly decreased in size from prior PET. Fiducial markers within the lesion. There is abnormal pretracheal soft tissue demo nstrating avid FDG uptake and measuring approximately 41 x 27 mm (series 3, image 80) (max SUV 14.4). Finding significantly increased from prior PET. No other areas of focal abnormal FDG uptake within the thorax. Again seen is extensive consolidation and post treatment change in the right hemithorax without significant increased FDG uptake. Small pericardial effusion. Right-sided chest port with catheter tip at cavoatrial junction. ABDOMEN AND PELVIS: Background liver activity max SUV 4.0. No areas of abnormal metabolic activity i n the abdomen or pelvis. Expected physiologic activity is present in the genitourinary system and john wel. PROXIMAL LOWER EXTREMITIES: No areas of abnormal metabolic activity in the soft tissues of the lower extremities. BONES: No abnormal metabolic activity in the visualized skeleton. Unchanged sclerotic focus within t he proximal left femur. ADDITIONAL CT FINDINGS: As above IMPRESSION: 1. Increased FDG uptake within the previously described left upper lobe pulmonary nodul e (max SUV 5.7) suspicious for residual disease. 2. Abnormal pretracheal soft tissue/adenopathy with avid FDG uptake (max SUV 14.4) compatible metast atic disease and increased from prior PET. 3. Stable extensive chronic consolidation within the right hemithorax without focal increased uptake . 4. No extra thoracic areas of abnormal discrete FDG uptake. TECHNICAL DOCUMENTATION: JOB ID: [id number] [employer]- All Rights Reserved Reading location - IP/workstation name: [email or web address]
== END ==
LOC: RAD 09:36
PROVIDERS: ATTEND Internal Medicine
DX: C34.11 Malignant neoplasm of upper lobe, right bronchus or lung (principal)
CPT/HCPCS: 78815; A9552

== ENCOUNTER 2019-06-26 03:49 | Inpatient (IN) | payer BC, MEDICARE ==
[2019-06-26 04:42] LABS: ABSOLUTE LYMPHOCYTES (AUTO) 0.2 10^3/uL (0.5-4.7); ABSOLUTE MONOCYTES (AUTO) 0.2 10^3/uL (0.1-1.4); ABSOLUTE NEUT (AUTO) 0.2 10^3/uL (1.7-8.2); BASOPHILS % (AUTO) 3.3 % (0-2); EOSINOPHILS % (AUTO) 1.1 % (0-6); HEMATOCRIT 44.5 % (37.9-51.0); HEMOGLOBIN 15.2 g/dL (13.5-17.0); LYMPHOCYTES % (AUTO) 33.3 % (13-45); MEAN CORPUSCULAR HEMOGLOBIN 29.7 pg (27.0-33.4); MEAN CORPUSCULAR HGB CONC 34.1 g/dL (32.0-36.0); MEAN CORPUSCULAR VOLUME 87 fl (80-97); MONOCYTES % (AUTO) 26.3 % (3-13); PLATELET COUNT 281 10^3/uL (150-450); RED BLOOD COUNT 5.11 10^6/uL (4.35-5.55); RED CELL DISTRIBUTION WIDTH 14.9 % (11.5-14.0); TOTAL CELLS COUNTED % (AUTO) 100 %
[2019-06-26 05:01] LABS: ANISOCYTOSIS SLIGHT; PLATELET COMMENT ADEQUATE; WHITE BLOOD COUNT 0.7 10^3/uL (4.0-10.5)
[2019-06-26 05:05] LABS: ALBUMIN 4.5 g/dL (3.5-5.0); ALKALINE PHOSPHATASE 183 U/L (38-126); ANION GAP 15 (5-19); ASPARTATE AMINO TRANSFERASE 34 U/L (17-59); BILIRUBIN,DIRECT 0.8 mg/dL (0.0-0.4); BILIRUBIN,TOTAL 1.2 mg/dL (0.2-1.3); BLOOD UREA NITROGEN 20 mg/dL (7-20); CALCIUM 9.6 mg/dL (8.4-10.2); CARBON DIOXIDE 29 mmol/L (22-30); CHLORIDE 93 mmol/L (98-107); GLUCOSE 219 mg/dL (75-110); POTASSIUM 3.9 mmol/L (3.6-5.0); TOTAL PROTEIN 8.5 g/dL (6.3-8.2)
[2019-06-26 05:37] LABS: APPEARANCE,URINE SLIGHTLY-CLOUDY; BILIRUBIN,URINE NEGATIVE (NEGATIVE); COLOR,URINE AMBER; GLUCOSE, URINE NEGATIVE (NEGATIVE); KETONES,URINE NEGATIVE (NEGATIVE); LEUKOCYTE ESTERASE,URINE NEGATIVE (NEGATIVE); NITRITE,URINE NEGATIVE (NEGATIVE); PROTEIN,URINE NEGATIVE (NEGATIVE); URINE SPECIFIC GRAVITY 1.016
--- NOTE | 2019-06-26 07:02 | RADIOLOGY REPORT (SQ) ---
Abdomen single view on 06/26/2019 at 5:03 AM CLINICAL INDICATION: Constipation COMPARISON: CT from 05/08/2019 FINDINGS: Degenerative changes are noted in the lower lumbar spine. Bowel gas pattern is unremarkable. No increased stool to suggest constipation is noted. No abnormal calcification or mass effect is noted. IMPRESSION: Nonspecific abdomen.
--- NOTE | 2019-06-26 07:51 | ER Document Report ---
ED General - General Chief Complaint: Constipation Stated Complaint: VOMITING,DIFFICULTY BREATHING Time Seen by Provider: 06/26/19 07:50 Primary Care Provider: PAULA DOMINGO MD [ACTIVE STAFF] - Follow up as needed Mode of Arrival: Ambulatory Information source: Patient TRAVEL OUTSIDE OF THE [place] IN LAST 30 DAYS: No - HPI Onset: Last week Onset/Duration: Gradual Quality of pain: Cramping Associated symptoms: Other - Constipation Exacerbated by: Movement Relieved by: Other - No relief from enemas and taking laxatives Similar symptoms previously: Yes Recently seen / treated by doctor: No Notes: Patient reports he has not had a bowel movement in 6 days. States he had a small elimination today this morning prior to coming in. Patient reports he has been taking laxatives as well as his gave him an enema yesterday with no relief. Patient states his abdomen is distended and tender to palpation. - Related Data Allergies/Adverse Reactions: No Known Allergies Allergy (Verified 06/26/19 08:55) Past Medical History - Social History Smoking Status: Former Smoker Frequency of alcohol use: None Drug Abuse: None Lives with: Family Family History: Reviewed & Not Pertinent, Malignancy Patient has suicidal ideation: No Patient has homicidal ideation: No - Past Medical History Cardiac Medical History: Reports: Hx Hypercholesterolemia - meds x 1 year, Hx Hypertension - meds x 6 years Denies: Hx Atrial Fibrillation, Hx Congestive Heart Failure, Hx Coronary Artery Disease, Hx Heart Attack, Hx Peripheral Vascular Disease, Hx Pulmonary Embolism, Hx Heart Murmur Pulmonary Medical History: Reports: Hx Bronchitis - multiple episodes (usually in the fall), Hx COPD, Hx Pneumonia - x 1 episode, denies hospitalization Denies: Hx Asthma, Hx Respiratory Failure, Hx Sleep Apnea, Hx Tuberculosis Neurological Medical History: Denies: Hx Cerebrovascular Accident, Hx Seizures Renal/ Medical History: Denies: Hx Peritoneal Dialysis Malignancy Medical History: Reports Hx Lung Cancer - Rt lung mass GI Medical History: Reports: Hx Gastroesophageal Reflux Disease - Tolentino's esophagitis, Dx'ed approx 3 years. Denies: Hx Crohn's Disease, Hx Hepatitis, Hx Hiatal Hernia, Hx Irritable Bowel, Hx Liver Failure, Hx Pancreatitis, Hx Ulcer Musculoskeletal Medical History: Reports Hx Arthritis, Denies Hx Fibromyalgia, Denies Hx Muscular Dystrophy Psychiatric Medical History: Reports: Hx Depression - meds x 15 years Denies: Hx Bipolar Disorder, Hx Post Traumatic Stress Disorder, Hx Schizophrenia Traumatic Medical History: Denies: Hx Fractures Infectious Medical History: Denies: Hx Hepatitis Past Surgical History: Reports: Hx Appendectomy, Hx Cholecystectomy, Hx Ortho pedic Surgery - RIGHT KNEE, Other - Right lower lobe lobectomy,, patient has history of small cell lung cancer.. Denies: Hx Bowel Surgery, Hx Colostomy, Hx Coronary Artery Bypass Graft, Hx Gastric Bypass Surgery, Hx Herniorrhaphy, Hx Open Heart Surgery, Hx Pacemaker, Hx Tonsillectomy - Immunizations Hx Diphtheria, Pertussis, Tetanus Vaccination: No Hx Pneumococcal Vaccination: 10/22/17 Review of Systems - Review of Systems Constitutional: See HPI, Weakness Respiratory: See HPI, Short of breath Gastrointestinal: See HPI Genitourinary: See HPI, Retention Physical Exam - Vital signs Vitals: Temp Pulse Resp BP Pulse Ox 98.2 F 114 H 26 H 125/86 H 93 06/26/19 04:01 06/26/19 04:01 06/26/19 04:01 06/26/19 04:01 06/26/19 04:01 Interpretation: Normal - General General appearance: Appears well, Alert, Anxious In distress: Moderate - Respiratory Respiratory status: Depressed respirations, Tachypnea Chest status: Nontender Breath sounds: Normal, Decreased air movement, Other - Increased adventitial breath sounds in the left base. Diminished breath sounds in the right base Chest palpation: Normal - Cardiovascular Rhythm: Regular, Tachycardia Heart sounds: Normal auscultation Murmur: No - Abdominal Inspection: Normal, Other - Distended abdomen Distension: No distension, Distended Bowel sounds: Hypoactive Tenderness: Nontender, Other - Distended abdomen tender to touch tense abdomen. Organomegaly: No organomegaly - Rectal Stool: Other - Brown-colored stool Hemorrhoids: None Prostate: Enlarged - Genitourinary Tenderness: Nontender Course - Re-evaluation Re-evalutation: 06/26/19 15:17 Patient has a waxing and waning labile blood pressure as low as 65 systolic now it is 112 systolic just with positional change. Patient still tachypneic and tachycardic with a heart rate of around 1 10-1 15. Sats have remained above 90. Patient's abdomen is soft nontender at this time. Urine continues to be dark brown in color despite multiple liters of IV fluids. Patient is immunocompromised with a total white count of 1.0 due to chemotherapy for his small cell lung cancer. Discussed case with the hospitalist regarding admission and Dr. Bradley will admit patient - Vital Signs Vital signs: Temp Pulse Resp BP Pulse Ox 98.2 F 126 H 28 H 105/82 95 06/26/19 14:21 06/26/19 06:57 06/26/19 11:01 06/26/19 11:00 06/26/19 11:01 - Laboratory Result Diagrams: 06/26/19 08:00 06/26/19 08:00 Laboratory results interpreted by me: 06/26/19 06/26/19 06/26/19 04:22 04:22 05:18 WBC 0.7 L* RDW 14.9 H [place] % (Auto) 26.3 H Baso % (Auto) 3.3 H Absolute Neuts (auto) 0.2 L Absolute Lymphs (auto) 0.2 L Seg Neutrophils % 36.0 L Sodium Chloride 93 L BUN Creatinine Est GFR ( Amer) Est GFR (MDRD) Non-Af Glucose 219 H Lactic Acid Total Bilirubin Direct Bilirubin 0.8 H Alkaline Phosphatase 183 H NT-Pro-B Natriuret Pep Total Protein 8.5 H Lipase < 10.0 L Urine Blood SMALL H Urine Urobilinogen 4.0 H Urine Ascorbic Acid 40 H 06/26/19 06/26/19 06/26/19 08:00 08:00 08:00 WBC 1.0 L* RDW 15.2 H [place] % (Auto) 34.9 H Baso % (Auto) Absolute Neuts (auto) 0.4 L Absolute Lymphs (auto) 0.2 L Seg Neutrophils % 39.4 L Sodium 136.5 L Chloride 93 L BUN 23 H Creatinine 1.52 H Est GFR ( Amer) 56 L Est GFR (MDRD) Non-Af 46 L Glucose 189 H Lactic Acid 6.8 H Total Bilirubin 1.6 H Direct Bilirubin 1.0 H Alkaline Phosphatase 254 H NT-Pro-B Natriuret Pep Total Protein Lipase Urine Blood Urine Urobilinogen Urine Ascorbic Acid 06/26/19 06/26/19 08:00 10:08 WBC RDW [place] % (Auto) Baso % (Auto) Absolute Neuts (auto) Absolute Lymphs (auto) Seg Neutrophils % Sodium Chloride BUN Creatinine Est GFR ( Amer) Est GFR (MDRD) Non-Af Glucose Lactic Acid Total Bilirubin Direct Bilirubin Alkaline Phosphatase NT-Pro-B Natriuret Pep 477 H Total Protein Lipase Urine Blood Urine Urobilinogen 4.0 H Urine Ascorbic Acid 40 H - Diagnostic Test Radiology reviewed: Image reviewed, Reports reviewed Critical Care Note - Critical Care Note Total time excluding time spent on procedures (mins): 60 Discharge - Discharge Clinical Impression: Acute urinary obstruction, Prostate enlargement, Sepsis associated hypotension Lung cancer Qualifiers: Laterality: right Lung location: lower lobe of lung Qualified Code(s): C34.31 - Malignant neoplasm of lower lobe, right bronchus or lung Diarrhea Qualifiers: Diarrhea type: unspecified type Qualified Code(s): R19.7 - Diarrhea, unspecified Pneumonia Qualifiers: Laterality: right Lung location: lower lobe of lung Condition: Critical Disposition: ADMITTED INPATIENT Admitting Provider: onwe Unit Admitted: IMCU Referrals: PAULA DOMINGO MD [ACTIVE STAFF] - Follow up as needed
[2019-06-26] MEDS ORDERED: NORMAL SALINE 1000 ML 1,000 ML IV ONE (08:06)
[2019-06-26] MEDS ORDERED: NORMAL SALINE 250 ML IV ONE (08:06)
[2019-06-26] MEDS ORDERED: MORPHINE SULFATE 10 MG/ML INJ IV ONE (08:10)
[2019-06-26] MEDS ORDERED: ONDANSETRON HCL INJ/PF 4 MG/2 ML SDV IV ONE (08:11)
[2019-06-26 08:27] LABS: INTERNATIONAL RATION (INR) 1.17
[2019-06-26 08:28] LABS: PARTIAL THROMBOPLASTIN TIME 35.2 SEC (23.5-35.8); VENOUS BLOOD BASE EXCESS -2.9 mmol/L; VENOUS BLOOD HCO3 23.5 mmol/L (20-32); VENOUS BLOOD PCO2 46.4 mmHg (35-63); VENOUS BLOOD PH 7.32 (7.30-7.42)
[2019-06-26 08:30] LABS: PROTHROMBIN TIME 14.9 SEC (11.4-15.4)
[2019-06-26 08:31] LABS: ABSOLUTE LYMPHOCYTES (AUTO) 0.2 10^3/uL (0.5-4.7); ABSOLUTE MONOCYTES (AUTO) 0.3 10^3/uL (0.1-1.4); ABSOLUTE NEUT (AUTO) 0.4 10^3/uL (1.7-8.2); BASOPHILS % (AUTO) 1.4 % (0-2); EOSINOPHILS % (AUTO) 0.3 % (0-6); HEMATOCRIT 46.7 % (37.9-51.0); HEMOGLOBIN 15.9 g/dL (13.5-17.0); MEAN CORPUSCULAR HEMOGLOBIN 30.1 pg (27.0-33.4); MEAN CORPUSCULAR HGB CONC 34.2 g/dL (32.0-36.0); MEAN CORPUSCULAR VOLUME 88 fl (80-97); MONOCYTES % (AUTO) 34.9 % (3-13); PLATELET COUNT 378 10^3/uL (150-450); RED CELL DISTRIBUTION WIDTH 15.2 % (11.5-14.0); SEGMENTED NEUTROPHILS % (AUTO) 39.4 % (42-78); TOTAL CELLS COUNTED % (AUTO) 100 %
--- NOTE | 2019-06-26 08:31 | EKG REPORT ---
SEVERITY:- BORDERLINE ECG - SINUS TACHYCARDIA RIGHT AXIS DEVIATION BORDERLINE T ABNORMALITIES, INFERIOR LEADS : Confirmed by: Stoney Obando MD 26-Jun-2019 08:31:33
[2019-06-26 08:47] LABS: ALBUMIN 4.3 g/dL (3.5-5.0); ALKALINE PHOSPHATASE 254 U/L (38-126); ANION GAP 19 (5-19); ASPARTATE AMINO TRANSFERASE 35 U/L (17-59); BILIRUBIN,TOTAL 1.6 mg/dL (0.2-1.3); BLOOD UREA NITROGEN 23 mg/dL (7-20); CALCIUM 9.9 mg/dL (8.4-10.2); CARBON DIOXIDE 25 mmol/L (22-30); CHLORIDE 93 mmol/L (98-107); GLUCOSE 189 mg/dL (75-110); POTASSIUM 3.9 mmol/L (3.6-5.0); TOTAL PROTEIN 7.8 g/dL (6.3-8.2)
--- NOTE | 2019-06-26 08:59 | RADIOLOGY REPORT (SQ) ---
EXAM DESCRIPTION: CHEST SINGLE VIEW COMPLETED DATE/TIME: 06/26/2019 8:33 am REASON FOR STUDY: lung cancer/sobr COMPARISON: 07/23/2018 EXAM PARAMETERS: NUMBER OF VIEWS: One view. TECHNIQUE: Single frontal radiographic view of the chest acquired. RADIATION DOSE: NA LIMITATIONS: None. FINDINGS: LUNGS AND PLEURA: Again seen is elevation of the right hemidiaphragm. There is increased right basilar opacification. Increased conspicuity of right hilar opacity. Possible small right eff usion. Unremarkable left hemithorax part from surgical clips. MEDIASTINUM AND HILAR STRUCTURES: Stable HEART AND VASCULAR STRUCTURES: Stable pre BONES: No acute findings. HARDWARE: Right internal jugular based chest port with catheter tip at cavoatrial junction. OTHER: No other significant finding. IMPRESSION: Unchanged elevation of the right hemidiaphragm with increased basilar opacification, pos sibly atelectasis or infection. Persistent right perihilar masslike opacity. TECHNICAL DOCUMENTATION: JOB ID: [id number] [employer]- All Rights Reserved Reading location - IP/workstation name: [email or web address]
[2019-06-26 09:00] LABS: NT PRO BNP 477 pg/mL (<125)
[2019-06-26 09:03] LABS: TROPONIN I < 0.012 ng/mL
--- NOTE | 2019-06-26 09:10 | RADIOLOGY REPORT (SQ) ---
EXAM DESCRIPTION: CT CHEST WITHOUT COMPLETED DATE/TIME: 06/26/2019 8:50 am REASON FOR STUDY: lung cancer COMPARISON: 05/08/2019 TECHNIQUE: CT scan performed of the chest without intravenous contrast. Images reviewed with lung, soft tissue and bone windows. Reconstructed coronal and sagittal MPR images reviewed. All images st ored on PACS. All CT scanners at this facility use dose modulation, iterative reconstruction, and/or weight based d osing when appropriate to reduce radiation dose to as low as reasonably achievable (ALARA). [facility]: Dose Right [facility]: CareDose [facility]: Dose Right [facility]: Teradose 4D [facility]: Smart [employer] RADIATION DOSE: CT Rad equipment meets quality standard of care and radiation dose reduction techniq ues were employed. CTDIvol: 17.7 mGy. DLP: 1378 mGy-cm. mGy. LIMITATIONS: No technical limitations. FINDINGS: LUNGS AND PLEURA: Left upper lobe pulmonary nodule has decreased in size compared to prior chest CT dated 05/08/2019. Nodule measures approximately 17 by 16 mm, previously 22 x 20 mm (series 4, image 19). There are metallic fiducial markers at this location. Again seen are postsurgical an d pleuroparenchymal change within the right hemithorax. Irregular consolidation along the mediastinu m, similar to prior. Additional right lower lobe consolidation and ground-glass attenuation with tra ce right pleural effusion. No pneumothorax. HILAR AND MEDIASTINAL STRUCTURES: Post treatment change within the right hilum without new discrete l esion identified. Mildly decreased size of the pretracheal abnormal soft tissue measuring 32 x 31 mm (series 3, image 21, previously 39 x 33 mm. HEART AND VASCULAR STRUCTURES: Normal heart size. Trace pericardial effusion. No significant pereira ry atherosclerosis. UPPER ABDOMEN: See separate report of the CT of the abdomen. THYROID AND OTHER SOFT TISSUES: No masses. No adenopathy. BONES: No acute bony abnormality. No discrete lytic or blastic osseous lesions. 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 HARDWARE: Surgical clips within the right hilum. Right IJ based chest port with catheter tip at cavo atrial junction. OTHER: No other significant findings. IMPRESSION: 1. Decreased size of the previously described left upper lobe nodule measuring 17 x 16 mm, previously 22 x 20 mm. 2. Decreased size of the abnormal pretracheal soft tissue measuring 32 x 31 mm, previously 39 x 33 m m. 3. Grossly similar posttreatment change within the right hemithorax with irregular pleuroparenchymal consolidation. Finding may represent post treatment change although residual underlying malignancy is not excluded. TECHNICAL DOCUMENTATION: JOB ID: [id number] Quality ID # [id number]: Final reports with documentation of one or more dose reduction techniques (e.g., Au tomated exposure control, adjustment of the mA and/or kV according to patient size, use of iterative reconstruction technique) 2010 [employer]- All Rights Reserved Reading location - IP/workstation name: [email or web address]
--- NOTE | 2019-06-26 09:22 | RADIOLOGY REPORT (SQ) ---
EXAM DESCRIPTION: CT ABD/PELVIS NO ORAL OR IV COMPLETED DATE/TIME: 06/26/2019 8:50 am REASON FOR STUDY: abdominal distension/constipatoion/lung cancer COMPARISON: 12/06/2018 TECHNIQUE: CT scan of the abdomen and pelvis performed without intravenous or oral contrast. Images reviewed with lung, soft tissue, and bone windows. Reconstructed coronal and sagittal MPR images revi ewed. All images stored on PACS. All CT scanners at this facility use dose modulation, iterative reconstruction, and/or weight based d osing when appropriate to reduce radiation dose to as low as reasonably achievable (ALARA). [facility]: Dose Right [facility]: CareDose [facility]: Dose Right [facility]: Teradose 4D [facility]: [employer] RADIATION DOSE: mGy. LIMITATIONS: None. FINDINGS: LOWER CHEST: No significant findings. No nodules or infiltrates. NON-CONTRASTED LIVER, SPLEEN, ADRENALS: Evaluation limited by lack of IV contrast. Areas of geograph ic hepatic steatosis. Unchanged hypodense right hepatic lobe cyst. No new identified significant ma sses. PANCREAS: No masses. No peripancreatic inflammatory changes. GALLBLADDER: Absent. RIGHT KIDNEY AND URETER: No suspicious masses. Assessment limited by lack of IV contrast. No signif icant calcifications. No hydronephrosis or hydroureter. LEFT KIDNEY AND URETER: No suspicious masses. Assessment limited by lack of IV contrast. No signifi cant calcifications. No hydronephrosis or hydroureter. AORTA AND RETROPERITONEUM: Aortoiliac atherosclerosis without aneurysm. There are stable shotty retr operitoneal nodes. Stable left para-aortic soft tissue nodule measuring 13 mm in short axis (series 3, image 75). No new mass or hemorrhage. BOWEL AND PERITONEAL CAVITY: No evidence of high-grade proximal bowel obstruction. The colon is diff usely fluid filled with associated scattered gas fluid levels. The proximal colon measures up to 5.9 cm. Scattered colonic diverticula. APPENDIX: Not visualized. PELVIS, BLADDER, AND ABDOMINAL WALL:Moderately distended urinary bladder. Prostatomegaly with extens ion into the urinary bladder base. The prostate measures 6.5 cm transversely. No free fluid or lymp hadenopathy. BONES: No acute bony abnormality. No discrete lytic lesions. Unchanged sclerotic focus within the l eft proximal femur. OTHER: No other significant finding. IMPRESSION: 1. Diffusely fluid filled colon with scattered gas fluid levels which can be seen with diarrheal illness or cathartic use. No evidence of high-grade obstruction. 2. Moderately distended urinary bladder. No hydronephrosis. 3. Hepatic steatosis. Stable additional chronic findings as above. COMMENT: Quality ID # [id number]: Final reports with documentation of one or more dose reduction techniques (e.g., Automated exposure control, adjustment of the mA and/or kV according to patient size, use of iterative reconstruction technique) TECHNICAL DOCUMENTATION: JOB ID: [id number] 9743 [employer]- All Rights Reserved Reading location - IP/workstation name: [email or web address] [employer] [facility]-
[2019-06-26 09:24] LABS: ANISOCYTOSIS SLIGHT; PLATELET CLUMPS PRESENT; PLATELET COMMENT ADEQUATE
--- NOTE | 2019-06-26 10:31 | EKG REPORT ---
SEVERITY:- ABNORMAL ECG - SINUS TACHYCARDIA RIGHT AXIS DEVIATION NONSPECIFIC T ABNORMALITIES, ANT-LAT LEADS : Confirmed by: Stoney Obando MD 26-Jun-2019 10:25:01
[2019-06-26 10:46] LABS: APPEARANCE,URINE CLEAR; BILIRUBIN,URINE NEGATIVE (NEGATIVE); COLOR,URINE YELLOW; GLUCOSE, URINE NEGATIVE (NEGATIVE); KETONES,URINE NEGATIVE (NEGATIVE); LEUKOCYTE ESTERASE,URINE NEGATIVE (NEGATIVE); NITRITE,URINE NEGATIVE (NEGATIVE); PROTEIN,URINE NEGATIVE (NEGATIVE); URINE SPECIFIC GRAVITY 1.016
[2019-06-26] MEDS ORDERED: NORMAL SALINE 500 ML IV ONE (11:10)
[2019-06-26] MEDS ORDERED: CIPROFLOXACIN 400 MG/D5W RTU 400 MG/200 ML RTUPB IV ONE (11:25)
[2019-06-26 12:26] LABS: PATH REVIEW PATHOLOGIST REVIEWED
[2019-06-26] MEDS ORDERED: PIPERACILLIN/TAZOBACTAM 4.5 GM VIAL IV ONE (14:51)
[2019-06-26] MEDS ORDERED: VANCOMYCIN HCL INJ 1000 MG VIAL IV ONE ×2 (14:54→17:30)
[2019-06-26] MEDS: NORMAL SALINE 1000 ML 1,000 ML IV PRN ×3 (15:07→22:16)
[2019-06-26] MEDS ORDERED: METRONIDAZOLE 500 MG/NS RTU 500 MG/100 ML RTUPB IV ONE (16:36)
[2019-06-26] MEDS ORDERED: DEXTROSE 40% GEL 15 GM TUBE PO PRN ×2 (16:53)
[2019-06-26] MEDS ORDERED: DEXTROSE 50%-WATER 25 GM/50 ML DISP.SYRIN IV PRN ×2 (16:53)
[2019-06-26] MEDS ORDERED: LEVALBUTEROL HCL NEB 0.63 MG/3 ML AMPUL NEB PRN (16:53)
[2019-06-26] MEDS ORDERED: GLUCAGON,HUMAN RECOMB 1 MG INJ SUBCUT PRN (16:53)
--- NOTE | 2019-06-26 17:11 | PDOC H&P ---
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 Patient presents with complaints of abdominal pain diffusely and abdominal distention which have been worsening for the past week. Abdominal pain was d escribed as pressure-like and aching. Patient's had not had a bowel movement in several days despite being on stool softeners. He took a dose of Dulcolax and had an enema yesterday. In the ER patient had a large voluminous bowel movement. He also became hypotensive later still receiving fluids. Refer to hospitalist service for admission. Patient also endorses some shortness of breath. States that he breathes better when laying on his side but if he lays flat he usually gets short of breath. Patient noted be belly breathing and his says that is been persistent for many weeks now but feels it has gotten a little bit worse lately. Patient also been having sore throats limiting his food intake and was started on antifungal medication recently. For patient's lung cancer patient received chemotherapy his second cycle a few days ago. Past Medical History Cardiac Medical History: Reports: Hyperlipidema - meds x 1 year, Hypertension - meds x 6 years Denies: Atrial Fibrillation, Congestive Heart Failure, Coronary Artery Disease, Myocardial Infarction, Peripheral Vascular Disease, Pulmonary Embolism, Heart Murmur Pulmonary Medical History: Reports: Bronchitis - multiple episodes (usually in the fall), Chronic Obstructive Pulmonary Disease (COPD), Pneumonia - x 1 episode, denies hospitalization Denies: Asthma, Respiratory Failure, Sleep Apnea, Tuberculosis Neurological Medical History: Denies: Seizures Malignancy Medical History: Reports: Lung Cancer - Squamous cell cancer RLung and Paratracheal, 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 GI Medical History: Reports: Gastroesophageal Reflux Disease - Tolentino's esophagitis, Dx'ed approx 3 years Denies: Crohn's Disease, Hepatitis, Hiatal Hernia Musculoskeltal Medical History: Reports: Arthritis Denies: Fibromyalgia Psychiatric Medical History: Reports: Depression - meds x 15 years Denies: Bipolar Disorder, Post Traumatic Stress Disorder Hematology: Denies: Anemia, Sickle Cell Disease Past Surgical History Past Surgical History: Reports: Appendectomy, Cholecystectomy, Orthopedic Surgery - RIGHT KNEE, Other - Right lower lobe lobectomy,, patient has history of small cell lung cancer. Denies: Colostomy, Coronary Artery Bypass Graft, Gastric Bypass Surgery, Herniorrhaphy, Pacemaker, Tonsillectomy Social History Lives with: Family Smoking Status: Former Smoker Frequency of Alcohol Use: None Hx Recreational Drug Use: No Drugs: None Hx Prescription Drug Abuse: No - Advance Directive Resuscitation Status: Do Not Resuscitate Family History Family History: Malignancy Parental Family History Reviewed: Yes Children Family History Reviewed: NA Sibling(s) Family History Reviewed.: NA Medication/Allergy Home Medications: Albuterol Sulfate [Proair HFA Inhalation Aerosol 8.5 gm MDI] 1 puff IH Q4HP PRN 06/26/19 Albuterol Sulfate [Ventolin 0.083% Neb 2.5 mg/3 mL Ampul] 2.5 mg NEB RTQ4HP PRN 06/26/19 Budesonide/Formoterol Fumarate [Symbicort HFA 160-4.5 mcg Inhaler 6 gm] 2 puff IH Q12 06/26/19 Citalopram Hydrobromide [Celexa 40 mg Tablet] 40 mg PO DAILY 06/26/19 Clonazepam [Klonopin 1 mg Tablet] 1 mg PO BIDP PRN 06/26/19 Diltiazem HCl [Cardizem] 120 mg PO DAILY 06/26/19 Fluconazole [Diflucan 100 mg Tablet] 100 mg PO DAILY 06/26/19 Magnesium Oxide [Magnesium] 400 mg PO Q12 06/26/19 Ondansetron HCl [Zofran 8 mg Tablet] 8 mg PO Q8HP PRN 06/26/19 Prednisone [Deltasone 20 mg Tablet] 10 mg PO DAILY 06/26/19 Promethazine HCl [Phenergan 25 mg Tablet] 25 mg PO Q4HP PRN 06/26/19 Ropinirole HCl [Requip] 0.5 mg PO QHS 06/26/19 Tamsulosin HCl [Flomax 0.4 mg Cap.sr] 0.4 mg PO QPM 06/26/19 Tiotropium [place] [Spiriva Respimat] 2 puff IH QAM 06/26/19 Trazodone HCl 50 mg PO HSP PRN 06/26/19 Allergies/Adverse Reactions: No Known Allergies Allergy (Verified 06/26/19 08:55) Review of Systems Constitutional: PRESENT: fatigue, weakness. ABSENT: chills, fever(s) Eyes: ABSENT: visual disturbances Nose, Mouth, and Throat: PRESENT: sore throat Cardiovascular: ABSENT: chest pain, orthropnea Respiratory: PRESENT: cough. ABSENT: hemoptysis Gastrointestinal: PRESENT: abdominal pain, bloating, diarrhea. ABSENT: nausea, vomiting Genitourinary: PRESENT: difficulty urinating Musculoskeletal: ABSENT: back pain Neurological: ABSENT: confusion Psychiatric: ABSENT: anxiety Hematologic/Lymphatic: ABSENT: easy bleeding Physical Exam Vital Signs: Temp Pulse Resp BP Pulse Ox 98.2 F 126 H 21 H 89/54 L 97 06/26/19 14:21 06/26/19 06:57 06/26/19 15:26 06/26/19 15:26 06/26/19 15:26 Intake & Output 06/25/19 06/26/19 06/27/19 06:59 06:59 06:59 Intake Total 2450 Balance 2450 Weight 111.6 kg General appearance: PRESENT: cooperative, mild distress, morbidly obese Head exam: PRESENT: normocephalic Neck exam: ABSENT: JVD Respiratory exam: PRESENT: stridor - Expiratory, wheezes - Expiratory wheeze, other - Belly breathing Cardiovascular exam: PRESENT: +S1, +S2, tachycardia. ABSENT: irregular rhythm GI/Abdominal exam: PRESENT: distended, soft, tenderness. ABSENT: ascites, firm, guarding, mass, rebound, rigid Neurological exam: PRESENT: alert, awake, oriented to person, oriented to place, oriented to time, oriented to situation Results Laboratory Results: 06/26/19 08:00 06/26/19 08:00 06/26/19 06/26/19 06/26/19 04:22 04:22 05:18 WBC 0.7 L* RBC 5.11 Hgb 15.2 Hct 44.5 MCV 87 MCH 29.7 MCHC 34.1 RDW 14.9 H Plt Count 281 Seg Neutrophils % 36.0 L VBG pH VBG pCO2 VBG HCO3 VBG Base Excess Sodium 137.0 Potassium 3.9 Chloride 93 L Carbon Dioxide 29 Anion Gap 15 BUN 20 Creatinine 1.08 Est GFR ( Amer) > 60 Glucose 219 H Lactic Acid Calcium 9.6 Total Bilirubin 1.2 AST 34 Alkaline Phosphatase 183 H Total Protein 8.5 H Albumin 4.5 Lipase < 10.0 L Urine Color DIANE Urine Appearance SLIGHTLY-CLOUDY Urine pH 6.0 Ur Specific [place] 1.016 Urine Protein NEGATIVE Urine Glucose (UA) NEGATIVE Urine Ketones NEGATIVE Urine Blood SMALL H Urine Nitrite NEGATIVE Ur Leukocyte Esterase NEGATIVE Urine WBC (Auto) 3 Urine RBC (Auto) 6 06/26/19 06/26/19 06/26/19 08:00 08:00 08:00 WBC 1.0 L* RBC 5.30 Hgb 15.9 Hct 46.7 MCV 88 MCH 30.1 MCHC 34.2 RDW 15.2 H Plt Count 378 Seg Neutrophils % 39.4 L VBG pH VBG pCO2 VBG HCO3 VBG Base Excess Sodium 136.5 L Potassium 3.9 Chloride 93 L Carbon Dioxide 25 Anion Gap 19 BUN 23 H Creatinine 1.52 H Est GFR ( Amer) 56 L Glucose 189 H Lactic Acid 6.8 H Calcium 9.9 Total Bilirubin 1.6 H AST 35 Alkaline Phosphatase 254 H Total Protein 7.8 Albumin 4.3 Lipase 28.8 Urine Color Urine Appearance Urine pH Ur Specific [place] Urine Protein Urine Glucose (UA) Urine Ketones Urine Blood Urine Nitrite Ur Leukocyte Esterase Urine WBC (Auto) Urine RBC (Auto) 06/26/19 06/26/19 08:00 10:08 WBC RBC Hgb Hct MCV MCH MCHC RDW Plt Count Seg Neutrophils % VBG pH 7.32 VBG pCO2 46.4 VBG HCO3 23.5 VBG Base Excess -2.9 Sodium Potassium Chloride Carbon Dioxide Anion Gap BUN Creatinine Est GFR ( Amer) Glucose Lactic Acid Calcium Total Bilirubin AST Alkaline Phosphatase Total Protein Albumin Lipase Urine Color YELLOW Urine Appearance CLEAR Urine pH 6.0 Ur Specific [place] 1.016 Urine Protein NEGATIVE Urine Glucose (UA) NEGATIVE Urine Ketones NEGATIVE Urine Blood NEGATIVE Urine Nitrite NEGATIVE Ur Leukocyte Esterase NEGATIVE Urine WBC (Auto) 0 Urine RBC (Auto) 0 06/26/19 08:00 Troponin I < 0.012 NT-Pro-B Natriuret Pep 477 H Impressions: KUB X-Ray 06/26/19 00:00 IMPRESSION: Nonspecific abdomen. Abdomen/Pelvis CT 06/26/19 08:08 IMPRESSION: 1. Diffusely fluid filled colon with scattered gas fluid levels which can be seen with diarrheal illness or cathartic use. No evidence of high- grade obstruction. 2. Moderately distended urinary bladder. No hydronephrosis. 3. Hepatic steatosis. Stable additional chronic findings as above. Chest X-Ray 06/26/19 08:15 IMPRESSION: Unchanged elevation of the right hemidiaphragm with increased basilar opacification, possibly atelectasis or infection. Persistent right perihilar masslike opacity. Chest CT 06/26/19 08:31 IMPRESSION: 1. Decreased size of the previously described left upper lobe nodule measuring 17 x 16 mm, previously 22 x 20 mm. 2. Decreased size of the abnormal pretracheal soft tissue measuring 32 x 31 mm, previously 39 x 33 mm. 3. Grossly similar posttreatment change within the right hemithorax with irregular pleuroparenchymal consolidation. Finding may represent post treatment change although residual underlying malignancy is not excluded. Assessment and Plan - Diagnosis (1) Abdominal pain, acute Is this a current diagnosis for this admission?: Yes Plan: Patient notes improved symptoms after having voluminous bowel movements in the ER. However patient also did receive a dose of morphine in the ER. CT of the abdomen showed diffusely fluid-filled colon without high-grade obstruction Abdominal pain and diarrhea may be secondary to laxative use versus colitis Given lactic acidosis of 6.8 and the light of patient's immunocompromise state and recent antibiotic use, I will empirically treat for C. difficile colitis while awaiting stool sample for C. difficile testing. Empiric vancomycin p.o. and Flagyl IV (2) Lactic acidosis Is this a current diagnosis for this admission?: Yes Plan: 6.8 Has received IV fluids and will repeat level (3) Hypotension Qualifiers: Hypotension type: unspecified hypotension type Qualified Code(s): I95.9 - Hypotension, unspecified Is this a current diagnosis for this admission?: Yes Plan: Uncertain at this time this was secondary to sepsis or to volume loss from excessive GI losses Patient has received a dose of broad-spectrum antibiotics and blood cultures have been taken maintain on IV fluids while monitoring vital signs closely (4) Expiratory stridor Is this a current diagnosis for this admission?: Yes Plan: Consulted ENT who performed nasolaryngoscope showing patent upper airways without obstruction (5) Neutropenia associated with mucositis due to antineoplastic therapy Is this a current diagnosis for this admission?: Yes Plan: Dr. Clement has been consulted I have discussed with Dr. Clement and will start patient on Neupogen until ANC is above 1500 (6) Acute sore throat Is this a current diagnosis for this admission?: Yes Plan: Possible mucositis versus esophagitis I will continue his outpatient regimen of antifungal but change to IV Diflucan Hopefully ENT evaluation may shed some light Magic mouthwash 4 times daily and viscous lidocaine as needed (7) Lung cancer Qualifiers: Laterality: unspecified laterality Lung location: overlapping sites Qualified Code(s): C34.80 - Malignant neoplasm of overlapping sites of unspecified bronchus and lung Is this a current diagnosis for this admission?: Yes Plan: Left lung SCLC undergoing chemotherapy at the moment. S/P 2nd cycle recently. Gets chemo [id number]. Right lung Squamous cell cancer with paratracheal node involvement s/p right upper lobectomy& radiation with subsequent radiation pneumonitis Oncology consulted (8) SUNIL (acute kidney injury) Is this a current diagnosis for this admission?: Yes Plan: 2/2 acute volume loss and hypotension IVF Trend creatinine (9) Acute urinary retention Is this a current diagnosis for this admission?: Yes Plan: 2/2 Known BPH Maintain merritt Outpatient f/u with patient's urologist Tamsulosin (10) Chronic respiratory failure with hypoxia Is this a current diagnosis for this admission?: Yes Plan: Apparently became O2 dependent since having radiation pneumonitis Continue O2 supplementation (11) COPD (chronic obstructive pulmonary disease) Qualifiers: COPD type: unspecified COPD Qualified Code(s): J44.9 - Chronic obstructive pulmonary disease, unspecified Is this a current diagnosis for this admission?: Yes Plan: Nebs Check blood gas given belly breathing - Time Time Spent with patient: 35 or more minutes
[2019-06-26] MEDS ORDERED: LIDOCAINE 4% TOPICAL SOLN 50 ML TOP ONE (17:18)
[2019-06-26] MEDS ORDERED: OXYMETAZOLINE HCL 0.05% NASAL SPRAY 15 ML BOTTLE NASL ONE (17:18)
[2019-06-26] MEDS ORDERED: MORPHINE SULFATE 10 MG/ML INJ IV PRN (17:23)
[2019-06-26] MEDS: VANCOMYCIN HCL INJ 500 MG VIAL PO SCH (17:23)
--- NOTE | 2019-06-26 17:53 | PDOC CONSULTATION ---
Consultation Consult Date: 06/26/19 Provider Consulted: KIRSTEN CRUM Consult reason:: stridor History of Present Illness Admission Date/PCP: 06/26/19 15:35 FACUNDO MORALES NP History of Present Illness: CHAD RETANA is a 63 year old male who has a h/o pulmonary carcinoma and COPD. Asked by hospitalist to evaluate pt's upper airway because of a concern for stridor. Pt is currently in the ER. Past Medical History Cardiac Medical History: Reports: Hyperlipidema - meds x 1 year, Hypertension - meds x 6 years Denies: Atrial Fibrillation, Congestive Heart Failure, Coronary Artery Disease, Myocardial Infarction, Peripheral Vascular Disease, Pulmonary Embolism, Heart Murmur Pulmonary Medical History: Reports: Bronchitis - multiple episodes (usually in the fall), Chronic Obstructive Pulmonary Disease (COPD), Pneumonia - x 1 episode, denies hospitalization Denies: Asthma, Respiratory Failure, Sleep Apnea, Tuberculosis Neurological Medical History: Denies: Seizures Malignancy Medical History: Reports: Lung Cancer - Squamous cell cancer RLung and Paratracheal, 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 GI Medical History: Reports: Gastroesophageal Reflux Disease - Tolentino's esophagitis, Dx'ed approx 3 years Denies: Crohn's Disease, Hepatitis, Hiatal Hernia Musculoskeltal Medical History: Reports: Arthritis Denies: Fibromyalgia Psychiatric Medical History: Reports: Depression - meds x 15 years Denies: Bipolar Disorder, Post Traumatic Stress Disorder Hematology: Denies: Anemia, Sickle Cell Disease Past Surgical History Past Surgical History: Reports: Appendectomy, Cholecystectomy, Orthopedic Surgery - RIGHT KNEE, Other - Right lower lobe lobectomy,, patient has history of small cell lung cancer. Denies: Colostomy, Coronary Artery Bypass Graft, Gastric Bypass Surgery, Herniorrhaphy, Pacemaker, Tonsillectomy Social History Lives with: Family Smoking Status: Former Smoker Frequency of Alcohol Use: None Hx Recreational Drug Use: No Drugs: None Hx Prescription Drug Abuse: No - Advance Directive Resuscitation Status: Do Not Resuscitate Family History Family History: Malignancy Parental Family History Reviewed: Yes Children Family History Reviewed: Yes Sibling(s) Family History Reviewed.: Yes Medication/Allergy Allergies/Adverse Reactions: No Known Allergies Allergy (Verified 06/26/19 08:55) Review of Systems Ears: ABSENT: hearing changes Nose, Mouth, and Throat: ABSENT: as per HPI, headache(s), mouth pain, sore throat, vertigo, other Cardiovascular: PRESENT: dyspnea on exertion Respiratory: PRESENT: dyspnea Physical Exam Vital Signs: Temp Pulse Resp BP Pulse Ox 98.2 F 126 H 21 H 89/54 L 97 06/26/19 14:21 06/26/19 06:57 06/26/19 15:26 06/26/19 15:26 06/26/19 15:26 Intake & Output 06/25/19 06/26/19 06/27/19 06:59 06:59 06:59 Intake Total 2450 Balance 2450 Weight 111.6 kg General appearance: PRESENT: other - pt is laying in bed on O2 via nasal cannula. Pt is dyspnic, but not stridorous. Eye exam: PRESENT: conjunctiva pink, EOMI, PERRLA. ABSENT: scleral icterus Ear exam: PRESENT: normal external ear exam Mouth exam: PRESENT: moist, tongue midline Throat exam: ABSENT: post pharyngeal erythema, tonsillar erythema, tonsillar exudate, tonsillogmegaly, other Additional comments: Flexible fiberotpic nasopharyngolaryngoscopy: After explaining the procedure to the pt, he consented to the fiberoptic exam. Both nasal cavities were sprayed with a 50/50 mixture of Afrin and 4% lidocaine. The fiberoptic scope was inserted through the right nare. Nasopharynx: normal Hypopharynx: Lateral narrowing of airway during inspiration. Larynx: The TVCs are mobile bilaterally. No evidence of mass or lesions. Epiglottis is normal. Results Laboratory Results: 06/26/19 08:00 06/26/19 08:00 06/26/19 06/26/19 06/26/19 04:22 04:22 05:18 WBC 0.7 L* RBC 5.11 Hgb 15.2 Hct 44.5 MCV 87 MCH 29.7 MCHC 34.1 RDW 14.9 H Plt Count 281 Seg Neutrophils % 36.0 L VBG pH VBG pCO2 VBG HCO3 VBG Base Excess Sodium 137.0 Potassium 3.9 Chloride 93 L Carbon Dioxide 29 Anion Gap 15 BUN 20 Creatinine 1.08 Est GFR ( Amer) > 60 Glucose 219 H Lactic Acid Calcium 9.6 Total Bilirubin 1.2 AST 34 Alkaline Phosphatase 183 H Total Protein 8.5 H Albumin 4.5 Lipase < 10.0 L Urine Color DIANE Urine Appearance SLIGHTLY-CLOUDY Urine pH 6.0 Ur Specific Muse 1.016 Urine Protein NEGATIVE Urine Glucose (UA) NEGATIVE Urine Ketones NEGATIVE Urine Blood SMALL H Urine Nitrite NEGATIVE Ur Leukocyte Esterase NEGATIVE Urine WBC (Auto) 3 Urine RBC (Auto) 6 06/26/19 06/26/19 06/26/19 08:00 08:00 08:00 WBC 1.0 L* RBC 5.30 Hgb 15.9 Hct 46.7 MCV 88 MCH 30.1 MCHC 34.2 RDW 15.2 H Plt Count 378 Seg Neutrophils % 39.4 L VBG pH VBG pCO2 VBG HCO3 VBG Base Excess Sodium 136.5 L Potassium 3.9 Chloride 93 L Carbon Dioxide 25 Anion Gap 19 BUN 23 H Creatinine 1.52 H Est GFR ( Amer) 56 L Glucose 189 H Lactic Acid 6.8 H Calcium 9.9 Total Bilirubin 1.6 H AST 35 Alkaline Phosphatase 254 H Total Protein 7.8 Albumin 4.3 Lipase 28.8 Urine Color Urine Appearance Urine pH Ur Specific Muse Urine Protein Urine Glucose (UA) Urine Ketones Urine Blood Urine Nitrite Ur Leukocyte Esterase Urine WBC (Auto) Urine RBC (Auto) 06/26/19 06/26/19 08:00 10:08 WBC RBC Hgb Hct MCV MCH MCHC RDW Plt Count Seg Neutrophils % VBG pH 7.32 VBG pCO2 46.4 VBG HCO3 23.5 VBG Base Excess -2.9 Sodium Potassium Chloride Carbon Dioxide Anion Gap BUN Creatinine Est GFR ( Amer) Glucose Lactic Acid Calcium Total Bilirubin AST Alkaline Phosphatase Total Protein Albumin Lipase Urine Color YELLOW Urine Appearance CLEAR Urine pH 6.0 Ur Specific Muse 1.016 Urine Protein NEGATIVE Urine Glucose (UA) NEGATIVE Urine Ketones NEGATIVE Urine Blood NEGATIVE Urine Nitrite NEGATIVE Ur Leukocyte Esterase NEGATIVE Urine WBC (Auto) 0 Urine RBC (Auto) 0 06/26/19 06/26/19 08:00 08:00 Creatine Kinase 32 L Troponin I < 0.012 NT-Pro-B Natriuret Pep 477 H Impressions: KUB X-Ray 06/26/19 00:00 IMPRESSION: Nonspecific abdomen. Abdomen/Pelvis CT 06/26/19 08:08 IMPRESSION: 1. Diffusely fluid filled colon with scattered gas fluid levels which can be seen with diarrheal illness or cathartic use. No evidence of high- grade obstruction. 2. Moderately distended urinary bladder. No hydronephrosis. 3. Hepatic steatosis. Stable additional chronic findings as above. Chest X-Ray 06/26/19 08:15 IMPRESSION: Unchanged elevation of the right hemidiaphragm with increased basilar opacification, possibly atelectasis or infection. Persistent right perihilar masslike opacity. Chest CT 06/26/19 08:31 IMPRESSION: 1. Decreased size of the previously described left upper lobe nodule measuring 17 x 16 mm, previously 22 x 20 mm. 2. Decreased size of the abnormal pretracheal soft tissue measuring 32 x 31 mm, previously 39 x 33 mm. 3. Grossly similar posttreatment change within the right hemithorax with irregu lar pleuroparenchymal consolidation. Finding may represent post treatment change although residual underlying malignancy is not excluded. Assessment & Plan - Plan Summary Plan Summary: Diagnosis: Pulmonary Carcinoma COPD Plan: No evidence of upper airway obstruction. Refer to hospitalist for further treatment.
[2019-06-26] MEDS ORDERED: FILGRASTIM INJ 480 MCG/1.6 ML VIAL SUBCUT ONE (18:00)
[2019-06-26 19:08] LABS: ARTERIAL BLOOD H2CO3 1.31 mmol/L (1.05-1.35); ARTERIAL BLOOD HCO3 23.6 mmol/L (20-24); ARTERIAL BLOOD O2 SATURATION 96.1 % (94-98); ARTERIAL BLOOD PCO2 43.5 mmHg (35-45); ARTERIAL BLOOD PH 7.35 (7.35-7.45); ARTERIAL BLOOD PO2 85.7 mmHg (80-100); ARTERIAL BLOOD TOTAL CO2 24.9 mmol/L (23-27)
[2019-06-26 19:09] LABS: ARTERIAL BLOOD FIO2 2L
[2019-06-26] MEDS: LEVALBUTEROL HCL NEB 1.25 MG/3 ML AMPUL NEB SCH (20:57)
[2019-06-26] MEDS: FLUCONAZOLE 200 MG/NS RTU 200 MG/100 ML RTUPB IV SCH (21:00)
[2019-06-26] MEDS: METRONIDAZOLE 500 MG/NS RTU 500 MG/100 ML RTUPB IV SCH (21:45)
[2019-06-26] MEDS: HEPARIN SOD (PORCINE) 5,000 UNIT/ML 1 ML VIAL SUBCUT SCH (22:00)
[2019-06-26] MEDS: NYSTATIN/DEXAMETH/DIPHEN SUSP 120 ML PO SCH (22:16)
[2019-06-26] MEDS: LIDOCAINE 2% VISCOUS SOLN 15 ML UDCUP PO PRN (22:16)
[2019-06-27] MEDS: VANCOMYCIN HCL INJ 500 MG VIAL PO SCH ×2 (00:16→05:52)
[2019-06-27 02:02] LABS: A TYPE INFLUENZA AG NEGATIVE (NEGATIVE); B INFLUENZA AG NEGATIVE (NEGATIVE)
[2019-06-27] MEDS: METRONIDAZOLE 500 MG/NS RTU 500 MG/100 ML RTUPB IV SCH ×4 (02:35→22:22)
[2019-06-27] MEDS: LEVALBUTEROL HCL NEB 1.25 MG/3 ML AMPUL NEB SCH ×4 (02:43→20:20)
[2019-06-27] MEDS: LIDOCAINE 2% VISCOUS SOLN 15 ML UDCUP PO PRN ×3 (03:43→20:16)
[2019-06-27] MEDS: HEPARIN SOD (PORCINE) 5,000 UNIT/ML 1 ML VIAL SUBCUT SCH ×3 (05:52→22:22)
[2019-06-27 06:27] LABS: ABSOLUTE LYMPHOCYTES (AUTO) 0.2 10^3/uL (0.5-4.7); ABSOLUTE MONOCYTES (AUTO) 0.5 10^3/uL (0.1-1.4); ABSOLUTE NEUT (AUTO) 0.3 10^3/uL (1.7-8.2); BASOPHILS % (AUTO) 0.9 % (0-2); HEMATOCRIT 36.7 % (37.9-51.0); LYMPHOCYTES % (AUTO) 16.2 % (13-45); MEAN CORPUSCULAR HGB CONC 34.8 g/dL (32.0-36.0); MEAN CORPUSCULAR VOLUME 86 fl (80-97); MONOCYTES % (AUTO) 52.5 % (3-13); PLATELET COUNT 205 10^3/uL (150-450); RED BLOOD COUNT 4.24 10^6/uL (4.35-5.55); RED CELL DISTRIBUTION WIDTH 15.4 % (11.5-14.0); SEGMENTED NEUTROPHILS % (AUTO) 29.4 % (42-78); TOTAL CELLS COUNTED % (AUTO) 100 %
[2019-06-27 06:38] LABS: ALBUMIN 3.5 g/dL (3.5-5.0); ALKALINE PHOSPHATASE 121 U/L (38-126); ANION GAP 8 (5-19); ASPARTATE AMINO TRANSFERASE 27 U/L (17-59); BILIRUBIN,DIRECT 0.5 mg/dL (0.0-0.4); BLOOD UREA NITROGEN 23 mg/dL (7-20); CARBON DIOXIDE 28 mmol/L (22-30); CHLORIDE 99 mmol/L (98-107); GLUCOSE 137 mg/dL (75-110); PHOSPHORUS 4.3 mg/dL (2.5-4.5); POTASSIUM 4.3 mmol/L (3.6-5.0); TOTAL PROTEIN 6.8 g/dL (6.3-8.2)
[2019-06-27 07:05] LABS: TOXIC GRANULATION 1+
[2019-06-27 07:06] LABS: ANISOCYTOSIS SLIGHT; OVALOCYTES 1+; PLATELET COMMENT ADEQUATE; POIKILOCYTOSIS SLIGHT; TEAR DROP CELLS SLIGHT
[2019-06-27 07:12] LABS: HEMOGLOBIN 12.7 g/dL (13.5-17.0)
[2019-06-27 07:13] LABS: WHITE BLOOD COUNT 0.9 10^3/uL (4.0-10.5)
[2019-06-27] MEDS ORDERED: PROMETHAZINE HCL 25 MG TABLET PO PRN (08:14)
[2019-06-27] MEDS: NORMAL SALINE 1000 ML 1,000 ML IV PRN ×2 (08:20→17:37)
[2019-06-27 09:50] LABS: C DIFFICILE GDH NEGATIVE (NEGATIVE)
[2019-06-27] MEDS ORDERED: FILGRASTIM INJ 300 MCG/1 ML VIAL SUBCUT SCH (10:00)
[2019-06-27] MEDS ORDERED: PREDNISONE 20 MG TABLET PO SCH (10:00)
[2019-06-27] MEDS ORDERED: PREDNISONE 10 MG TABLET PO SCH (10:00)
[2019-06-27] MEDS: CITALOPRAM HYDROBROMIDE 20 MG TABLET PO SCH (11:05)
[2019-06-27] MEDS: DILTIAZEM HCL 120 MG CAP.SR.24H PO SCH (11:06)
[2019-06-27] MEDS: NYSTATIN/DEXAMETH/DIPHEN SUSP 120 ML PO SCH ×4 (11:12→22:00)
[2019-06-27] MEDS: FLUTICASONE/UMECLIDIN/VILANTER 100-62.5-25 MCG/DOSE IH SCH (11:13)
--- NOTE | 2019-06-27 12:22 | PDOC CONSULTATION ---
Consultation Consult Date: 06/27/19 Attending physician:: NELSON CONNELL Provider Consulted: PAULA DOMINGO Consult reason:: Patient with stage IV lung cancer here for constipation, weakness, neutropenia, possible C. difficile History of Present Illness Admission Date/PCP: 06/26/19 15:35 FACUNDO MORALES NP Patient complains of: Weakness, previous constipation and now diarrhea, abdominal discomfort, stage IV lung cancer History of Present Illness: CHAD RETANA is a 63 year old male with known history of stage IV lung cancer, he originally was diagnosed in fall of last year, with a right upper lobe mass, ultimately underwent surgery which noted a stage II lung cancer, squamous cell carcinoma, was treated thereafter with IV chemotherapy for 4 cycles with chevak and Gemzar followed by radiation. Unfortunately after radiation he did have radiation pneumonitis and worsening of lung function requiring O2 therapy. His functional status improved with cardiopulmonary rehab but about 3 months after radiation completion his first CT noted growth of a new right paratracheal node as well as a new left upper lobe nodule. Ultimately PET/CT showed positivity in both of those areas, endobronchial ultrasound with biopsy of the paratracheal node indicated recurrent/residual squamous cell carcinoma, but interestingly the left upper lobe nodule was actually small cell lung cancer. We gave him 4 cycles of carboplatin/etoposide/tecentriq, he obtained a good response with nearly a 70% decrease in disease, and then was placed on albina ntenance tecentriq, was on that up for about 3 months, and then restaging imaging unfortunately indicated growth of both the right paratracheal area as well as the left upper lobe lesion. Unfortunately there was no other local therapy that could be done in terms of radiation or surgery, therefore systemic chemotherapy was recommended. I started him on Taxotere and Cyramza, first cycle was given just about 7 days ago. Interestingly, CT of the chest done here, indicates post shrinkage in the paratracheal adenopathy as well as the left upper lobe lesion. However after getting chemotherapy about 3 to 4 days after he became very bloated, poor p.o. intake, weak, ultimately became very constipated and did not have a bowel movement for several days. Upon presentation to the ED he felt like constipation was his major issue and he was given cathartics, and now is had persistent diarrhea. Hospitalist team was concerned that maybe he now has C. difficile. He has been neutropenic recently as well, and his ANC is less than at thousand, yesterday I was called on this patient, and recommended initiation of Neupogen because of the C. difficile. Past Medical History Cardiac Medical History: Reports: Hyperlipidema - meds x 1 year, Hypertension - meds x 6 years Denies: Atrial Fibrillation, Congestive Heart Failure, Coronary Artery Disease, Myocardial Infarction, Peripheral Vascular Disease, Pulmonary Embolism, Heart Murmur Pulmonary Medical History: Reports: Bronchitis - multiple episodes (usually in the fall), Chronic Obstructive Pulmonary Disease (COPD), Pneumonia - x 1 episode, denies hospitalization Denies: Asthma, Respiratory Failure, Sleep Apnea, Tuberculosis Neurological Medical History: Denies: Seizures Malignancy Medical History: Reports: Lung Cancer - Squamous cell cancer RLung and Paratracheal, 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 GI Medical History: Reports: Gastroesophageal Reflux Disease - Tolentino's esophagitis, Dx'ed approx 3 years Denies: Crohn's Disease, Hepatitis, Hiatal Hernia Musculoskeltal Medical History: Reports: Arthritis Denies: Fibromyalgia Psychiatric Medical History: Reports: Depression - meds x 15 years Denies: Bipolar Disorder, Post Traumatic Stress Disorder Hematology: Denies: Anemia, Sickle Cell Disease Past Surgical History Past Surgical History: Reports: Appendectomy, Cholecystectomy, Orthopedic Surgery - RIGHT KNEE, Other - Right lower lobe lobectomy,, patient has history of small cell lung cancer. Denies: Colostomy, Coronary Artery Bypass Graft, Gastric Bypass Surgery, Herniorrhaphy, Pacemaker, Tonsillectomy Social History Information Source: Patient Lives with: Family Smoking Status: Former Smoker Frequency of Alcohol Use: None Hx Recreational Drug Use: No Drugs: None Hx Prescription Drug Abuse: No - Advance Directive Resuscitation Status: Do Not Resuscitate Family History Family History: Malignancy Parental Family History Reviewed: Yes Children Family History Reviewed: Yes Sibling(s) Family History Reviewed.: Yes Medication/Allergy Home Medications: Albuterol Sulfate [Proair HFA Inhalation Aerosol 8.5 gm MDI] 1 puff IH Q4HP PRN 06/26/19 Albuterol Sulfate [Ventolin 0.083% Neb 2.5 mg/3 mL Ampul] 2.5 mg NEB RTQ4HP PRN 06/26/19 Budesonide/Formoterol Fumarate [Symbicort HFA 160-4.5 mcg Inhaler 6 gm] 2 puff IH Q12 06/26/19 Citalopram Hydrobromide [Celexa 40 mg Tablet] 40 mg PO DAILY 06/26/19 Clonazepam [Klonopin 1 mg Tablet] 1 mg PO BIDP PRN 06/26/19 Diltiazem HCl [Cardizem] 120 mg PO DAILY 06/26/19 Fluconazole [Diflucan 100 mg Tablet] 100 mg PO DAILY 06/26/19 Magnesium Oxide [Magnesium] 400 mg PO Q12 06/26/19 Pretty Magic Mouthwash 10 ml PO QIDP PRN 06/26/19 Ondansetron HCl [Zofran 8 mg Tablet] 8 mg PO Q8HP PRN 06/26/19 Prednisone [Deltasone 20 mg Tablet] 10 mg PO DAILY 06/26/19 Promethazine HCl [Phenergan 25 mg Tablet] 25 mg PO Q4HP PRN 06/26/19 Ropinirole HCl [Requip] 0.5 mg PO QHS 06/26/19 Tamsulosin HCl [Flomax 0.4 mg Cap.sr] 0.4 mg PO QPM 06/26/19 Tiotropium [place] [Spiriva Respimat] 2 puff IH QAM 06/26/19 Trazodone HCl 50 mg PO HSP PRN 06/26/19 Allergies/Adverse Reactions: No Known Allergies Allergy (Verified 06/26/19 08:55) Review of Systems Constitutional: ABSENT: chills, fever(s), headache(s), weight gain, weight loss Eyes: ABSENT: visual disturbances Ears: ABSENT: hearing changes Cardiovascular: ABSENT: chest pain, dyspnea on exertion, edema, orthropnea, palpitations Respiratory: ABSENT: cough, hemoptysis Gastrointestinal: ABSENT: abdominal pain, constipation, diarrhea, hematemesis, hematochezia, nausea, vomiting Genitourinary: ABSENT: dysuria, hematuria Musculoskeletal: ABSENT: joint swelling Integumentary: ABSENT: rash, wounds Neurological: ABSENT: abnormal gait, abnormal speech, confusion, dizziness, focal weakness, syncope Psychiatric: ABSENT: anxiety, depression, homidical ideation, suicidal ideation Endocrine: ABSENT: cold intolerance, heat intolerance, polydipsia, polyuria Hematologic/Lymphatic: ABSENT: easy bleeding, easy bruising Physical Exam Vital Signs: Temp Pulse Resp BP Pulse Ox 97.6 F 107 H 20 142/86 H 98 06/27/19 08:36 06/27/19 08:36 06/27/19 08:36 06/27/19 08:36 06/27/19 08:36 Intake & Output 06/26/19 06/27/19 06/28/19 06:59 06:59 06:59 Intake Total 4850 Output Total 625 Balance 4225 Weight 111.6 kg General appearance: PRESENT: no acute distress, well-developed, well-nourished Head exam: PRESENT: atraumatic, normocephalic Eye exam: PRESENT: conjunctiva pink, EOMI, PERRLA. ABSENT: scleral icterus Ear exam: PRESENT: normal external ear exam Mouth exam: PRESENT: moist, tongue midline Neck exam: ABSENT: carotid bruit, JVD, lymphadenopathy, thyromegaly Respiratory exam: PRESENT: clear to auscultation khushboo. ABSENT: rales, rhonchi, wheezes Cardiovascular exam: PRESENT: RRR. ABSENT: diastolic murmur, rubs, systolic murmur Pulses: PRESENT: normal dorsalis pedis pul Vascular exam: PRESENT: normal capillary refill GI/Abdominal exam: PRESENT: normal bowel sounds, soft. ABSENT: distended, guarding, mass, organolmegaly, rebound, tenderness Rectal exam: PRESENT: deferred Extremities exam: PRESENT: full ROM. ABSENT: calf tenderness, clubbing, pedal edema Neurological exam: PRESENT: alert, awake, oriented to person, oriented to place, oriented to time, oriented to situation, CN II-XII grossly intact. ABSENT: motor sensory deficit Psychiatric exam: PRESENT: appropriate affect, normal mood. ABSENT: homicidal ideation, suicidal ideation Skin exam: PRESENT: dry, intact, warm. ABSENT: cyanosis, rash Results Laboratory Results: 06/27/19 05:53 06/27/19 05:53 06/26/19 06/26/19 06/26/19 17:23 18:07 21:11 WBC RBC Hgb Hct MCV MCH MCHC RDW Plt Count Seg Neutrophils % Carbonic Acid 1.31 HCO3/H2CO3 Ratio 18:1 ABG pH 7.35 ABG pCO2 43.5 ABG pO2 85.7 ABG HCO3 23.6 ABG O2 Saturation 96.1 ABG Base Excess -2.0 FiO2 2L Sodium Potassium Chloride Carbon Dioxide Anion Gap BUN Creatinine Est GFR ( Amer) Glucose Lactic Acid 5.4 H 3.4 H Calcium Phosphorus Magnesium Total Bilirubin AST Alkaline Phosphatase Total Protein Albumin 06/27/19 06/27/19 06/27/19 05:53 05:53 05:53 WBC 0.9 L* RBC 4.24 L Hgb 12.7 L D Hct 36.7 L MCV 86 MCH 30.0 MCHC 34.8 RDW 15.4 H Plt Count 205 Seg Neutrophils % 29.4 L Carbonic Acid HCO3/H2CO3 Ratio ABG pH ABG pCO2 ABG pO2 ABG HCO3 ABG O2 Saturation ABG Base Excess FiO2 Sodium 135.3 L Potassium 4.3 Chloride 99 Carbon Dioxide 28 Anion Gap 8 BUN 23 H Creatinine 1.22 Est GFR ( Amer) > 60 Glucose 137 H Lactic Acid 1.5 Calcium 8.0 L Phosphorus 4.3 Magnesium 3.7 H Total Bilirubin 1.0 AST 27 Alkaline Phosphatase 121 Total Protein 6.8 Albumin 3.5 06/26/19 06/26/19 08:00 08:00 Creatine Kinase 32 L Troponin I < 0.012 NT-Pro-B Natriuret Pep 477 H Impressions: KUB X-Ray 06/26/19 00:00 IMPRESSION: Nonspecific abdomen. Abdomen/Pelvis CT 06/26/19 08:08 IMPRESSION: 1. Diffusely fluid filled colon with scattered gas fluid levels which can be seen with diarrheal illness or cathartic use. No evidence of high- grade obstruction. 2. Moderately distended urinary bladder. No hydronephrosis. 3. Hepatic steatosis. Stable additional chronic findings as above. Chest X-Ray 06/26/19 08:15 IMPRESSION: Unchanged elevation of the right hemidiaphragm with increased basilar opacification, possibly atelectasis or infection. Persistent right perihilar masslike opacity. Chest CT 06/26/19 08:31 IMPRESSION: 1. Decreased size of the previously described left upper lobe nodule measuring 17 x 16 mm, previously 22 x 20 mm. 2. Decreased size of the abnormal pretracheal soft tissue measuring 32 x 31 mm, previously 39 x 33 mm. 3. Grossly similar posttreatment change within the right hemithorax with irregular pleuroparenchymal consolidation. Finding may represent post treatment change although residual underlying malignancy is not excluded. Status: Image reviewed by me Assessment & Plan - Diagnosis (1) Lung cancer Qualifiers: Laterality: left Lung location: overlapping sites Qualified Code(s): C34.82 - Malignant neoplasm of overlapping sites of left bronchus and lung Is this a current diagnosis for this admission?: Yes Plan: Stage IV lung cancer, actually chemotherapy after just first cycle seems to have shown some shrinkage in the 2 disease sites. There is no new disease. We would like to continue therapy but we may need to dose reduce for the next cycle. (2) Chronic respiratory failure with hypoxia Is this a current diagnosis for this admission?: Yes Plan: Continue current therapy, this is always been a major issue for him. His lung status is poor. (3) Diarrhea Qualifiers: Diarrhea type: presumed infectious Qualified Code(s): R19.7 - Diarrhea, unspecified Is this a current diagnosis for this admission?: Yes Plan: Possibly infectious, continue per hospitalist team (4) Neutropenia associated with mucositis due to antineoplastic therapy Is this a current diagnosis for this admission?: Yes Plan: Started on Neupogen, continue until ANC is greater than 1000. - Time Time Spent: Greater than 70 Minutes - Inpatient Certification Based on my medical assessment, after consideration of the patient's comorbidities, presenting symptoms, or acuity I expect that the services needed warrant INPATIENT care.: Yes I certify that my determination is in accordance with my understanding of Medicare's requirements for reasonable and necessary INPATIENT services [42 CFR 412.3e].: Yes
--- NOTE | 2019-06-27 12:56 | PDOC PROGRESS REPORT ---
Subjective Subjective:: Abdominal pain is better today. Patient still having sore throat. Reason For Visit: POSSIBLE SEPSIS, LACTIC ACIDOSIS, ABDOMINAL PAIN Physical Exam Vital Signs: Temp Pulse Resp BP Pulse Ox 97.6 F 107 H 20 142/86 H 98 06/27/19 08:36 06/27/19 08:36 06/27/19 08:36 06/27/19 08:36 06/27/19 08:36 Intake & Output 06/26/19 06/27/19 06/28/19 06:59 06:59 06:59 Intake Total 4850 Output Total 625 Balance 4225 Weight 111.6 kg General appearance: PRESENT: no acute distress, cooperative Neck exam: ABSENT: JVD Respiratory exam: PRESENT: symmetrical, wheezes, other - Still belly breathing but at this point I think this may just be patient's normal pattern of breathing especially when he lays on his back. ABSENT: tachypnea Cardiovascular exam: PRESENT: RRR, +S1, +S2, tachycardia GI/Abdominal exam: PRESENT: normal bowel sounds, soft, tenderness. ABSENT: firm , guarding, rebound, rigid Neurological exam: PRESENT: awake, oriented to person, oriented to place, oriented to time, oriented to situation Results Laboratory Results: 06/27/19 05:53 06/27/19 05:53 06/26/19 06/26/19 06/26/19 17:23 18:07 21:11 WBC RBC Hgb Hct MCV MCH MCHC RDW Plt Count Seg Neutrophils % Carbonic Acid 1.31 HCO3/H2CO3 Ratio 18:1 ABG pH 7.35 ABG pCO2 43.5 ABG pO2 85.7 ABG HCO3 23.6 ABG O2 Saturation 96.1 ABG Base Excess -2.0 FiO2 2L Sodium Potassium Chloride Carbon Dioxide Anion Gap BUN Creatinine Est GFR ( Amer) Glucose Lactic Acid 5.4 H 3.4 H Calcium Phosphorus Magnesium Total Bilirubin AST Alkaline Phosphatase Total Protein Albumin 06/27/19 06/27/19 06/27/19 05:53 05:53 05:53 WBC 0.9 L* RBC 4.24 L Hgb 12.7 L D Hct 36.7 L MCV 86 MCH 30.0 MCHC 34.8 RDW 15.4 H Plt Count 205 Seg Neutrophils % 29.4 L Carbonic Acid HCO3/H2CO3 Ratio ABG pH ABG pCO2 ABG pO2 ABG HCO3 ABG O2 Saturation ABG Base Excess FiO2 Sodium 135.3 L Potassium 4.3 Chloride 99 Carbon Dioxide 28 Anion Gap 8 BUN 23 H Creatinine 1.22 Est GFR ( Amer) > 60 Glucose 137 H Lactic Acid 1.5 Calcium 8.0 L Phosphorus 4.3 Magnesium 3.7 H Total Bilirubin 1.0 AST 27 Alkaline Phosphatase 121 Total Protein 6.8 Albumin 3.5 06/26/19 06/26/19 08:00 08:00 Creatine Kinase 32 L Troponin I < 0.012 NT-Pro-B Natriuret Pep 477 H Impressions: KUB X-Ray 06/26/19 00:00 IMPRESSION: Nonspecific abdomen. Abdomen/Pelvis CT 06/26/19 08:08 IMPRESSION: 1. Diffusely fluid filled colon with scattered gas fluid levels which can be seen with diarrheal illness or cathartic use. No evidence of high- grade obstruction. 2. Moderately distended urinary bladder. No hydronephrosis. 3. Hepatic steatosis. Stable additional chronic findings as above. Chest X-Ray 06/26/19 08:15 IMPRESSION: Unchanged elevation of the right hemidiaphragm with increased basilar opacification, possibly atelectasis or infection. Persistent right perihilar masslike opacity. Chest CT 06/26/19 08:31 IMPRESSION: 1. Decreased size of the previously described left upper lobe nodule measuring 17 x 16 mm, previously 22 x 20 mm. 2. Decreased size of the abnormal pretracheal soft tissue measuring 32 x 31 mm, previously 39 x 33 mm. 3. Grossly similar posttreatment change within the right hemithorax with irregular pleuroparenchymal consolidation. Finding may represent post treatment change although residual underlying malignancy is not excluded. Assessment and Plan - Diagnosis (1) Abdominal pain, acute Is this a current diagnosis for this admission?: Yes Plan: Patient notes improved symptoms after having voluminous liquid bowel movements yesterday CT of the abdomen showed diffusely fluid-filled colon without high-grade obstruction C. difficile negative Questionable if diarrhea is actually infectious versus chemo induced versus secondary to laxatives but given neutropenia, will treat empirically for colitis with Flagyl for a few days (2) Neutropenia associated with mucositis due to antineoplastic therapy Is this a current diagnosis for this admission?: Yes Plan: Dr. Clement has been consulted [facility] until ANC is above 1000 (3) COPD (chronic obstructive pulmonary disease) Qualifiers: COPD type: COPD with acute exacerbation Qualified Code(s): J44.1 - Chronic obstructive pulmonary disease with (acute) exacerbation Is this a current diagnosis for this admission?: Yes Plan: Nebs blood gas is normal mild wheezing--nebs, contine prednisone which patient takes at home for malignancy but increase to 15mg bid for 2-3 days. (4) Acute urinary retention Is this a current diagnosis for this admission?: Yes Plan: 2/2 Known BPH Maintain merritt Outpatient f/u with patient's urologist Tamsulosin (5) Lactic acidosis Is this a current diagnosis for this admission?: Yes Plan: Resolved (6) Hypotension Qualifiers: Hypotension type: unspecified hypotension type Qualified Code(s): I95.9 - Hypotension, unspecified Is this a current diagnosis for this admission?: Yes Plan: Resolved (7) Expiratory stridor Is this a current diagnosis for this admission?: Yes Plan: Consulted ENT who performed nasolaryngoscope showing patent upper airways without obstruction (8) Acute sore throat Is this a current diagnosis for this admission?: Yes Plan: Possible mucositis versus esophagitis I will continue his outpatient regimen of antifungal but change to IV Diflucan Magic mouthwash 4 times daily and viscous lidocaine as needed (9) Lung cancer Qualifiers: Laterality: left Lung location: overlapping sites Qualified Code(s): C34.82 - Malignant neoplasm of overlapping sites of left bronchus and lung Is this a current diagnosis for this admission?: Yes Plan: Left lung SCLC undergoing chemotherapy at the moment. S/P 1st cycle recently. Gets chemo [id number]. 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
[2019-06-27] MEDS: GUAIFENESIN SYRP 200 MG/10 ML UDC PO PRN ×2 (13:31→20:16)
[2019-06-27] MEDS: FLUCONAZOLE 200 MG/NS RTU 200 MG/100 ML RTUPB IV SCH (17:32)
[2019-06-27] MEDS: PREDNISONE 10 MG TABLET PO SCH (17:33)
[2019-06-27] MEDS: TAMSULOSIN HCL 0.4 MG CAP.SR.24H PO SCH (17:33)
[2019-06-27] MEDS: TRAZODONE HCL 50 MG TABLET PO PRN (22:23)
[2019-06-27] MEDS: CLONAZEPAM 1 MG TABLET PO PRN (22:23)
[2019-06-27] MEDS: ROPINIROLE HCL 1 MG TABLET PO SCH (22:23)
[2019-06-28] MEDS: LEVALBUTEROL HCL NEB 1.25 MG/3 ML AMPUL NEB SCH ×4 (01:50→20:07)
[2019-06-28] MEDS: METRONIDAZOLE 500 MG/NS RTU 500 MG/100 ML RTUPB IV SCH ×4 (03:21→21:45)
[2019-06-28] MEDS: LIDOCAINE 2% VISCOUS SOLN 15 ML UDCUP PO PRN (05:49)
[2019-06-28] MEDS: HEPARIN SOD (PORCINE) 5,000 UNIT/ML 1 ML VIAL SUBCUT SCH ×3 (05:49→22:22)
[2019-06-28] MEDS: GUAIFENESIN SYRP 200 MG/10 ML UDC PO PRN (05:49)
[2019-06-28 05:59] LABS: HEMATOCRIT 36.4 % (37.9-51.0); HEMOGLOBIN 12.4 g/dL (13.5-17.0); MEAN CORPUSCULAR HGB CONC 34.1 g/dL (32.0-36.0); MEAN CORPUSCULAR VOLUME 88 fl (80-97); PLATELET COUNT 200 10^3/uL (150-450); RED BLOOD COUNT 4.14 10^6/uL (4.35-5.55); RED CELL DISTRIBUTION WIDTH 15.6 % (11.5-14.0)
[2019-06-28 06:14] LABS: ALBUMIN 3.1 g/dL (3.5-5.0); ALKALINE PHOSPHATASE 96 U/L (38-126); ANION GAP 10 (5-19); ASPARTATE AMINO TRANSFERASE 30 U/L (17-59); BILIRUBIN,DIRECT 0.4 mg/dL (0.0-0.4); BILIRUBIN,TOTAL 0.7 mg/dL (0.2-1.3); BLOOD UREA NITROGEN 18 mg/dL (7-20); CALCIUM 8.6 mg/dL (8.4-10.2); CARBON DIOXIDE 31 mmol/L (22-30); CHLORIDE 97 mmol/L (98-107); GLUCOSE 138 mg/dL (75-110); POTASSIUM 4.3 mmol/L (3.6-5.0)
[2019-06-28 06:38] LABS: WHITE BLOOD COUNT 2.5 10^3/uL (4.0-10.5)
[2019-06-28 06:52] LABS: ABSOLUTE LYMPHOCYTES# (MANUAL) 0.7 10^3/uL (0.5-4.7); ABSOLUTE MONOCYTES # (MANUAL) 0.1 10^3/uL (0.1-1.4); BAND NEUTROPHILS % (MANUAL) 4 % (3-5); BASOPHILS % (MANUAL) 0 % (0-2); EOSINOPHILS % (MANUAL) 0 % (0-6); LYMPHOCYTES % (MANUAL) 23 % (13-45); MONOCYTES % (MANUAL) 5 % (3-13); SEGMENTED NEUTROPHILS % (MAN) 65 % (42-78); TOTAL CELLS COUNTED 100
[2019-06-28 06:54] LABS: ANISOCYTOSIS 1+; OVALOCYTES 1+; POIKILOCYTOSIS 1+; TEAR DROP CELLS SLIGHT; TOXIC GRANULATION 2+
[2019-06-28 06:55] LABS: PLATELET COMMENT ADEQUATE
[2019-06-28] MEDS: CITALOPRAM HYDROBROMIDE 20 MG TABLET PO SCH (09:58)
[2019-06-28] MEDS: PREDNISONE 10 MG TABLET PO SCH ×2 (09:58→17:32)
[2019-06-28] MEDS: DILTIAZEM HCL 120 MG CAP.SR.24H PO SCH (09:59)
[2019-06-28] MEDS: NYSTATIN/DEXAMETH/DIPHEN SUSP 120 ML PO SCH ×4 (09:59→22:25)
[2019-06-28] MEDS: FLUTICASONE/UMECLIDIN/VILANTER 100-62.5-25 MCG/DOSE IH SCH (10:00)
[2019-06-28] MEDS: LIDOCAINE 2% VISCOUS SOLN 15 ML UDCUP PO SCH ×4 (11:17→22:26)
[2019-06-28] MEDS: ACETAMINOPHEN 325 MG TABLET PO PRN ×2 (11:17→21:51)
[2019-06-28] MEDS: NORMAL SALINE 1000 ML 1,000 ML IV PRN ×2 (11:18→21:52)
[2019-06-28] MEDS: CLONAZEPAM 1 MG TABLET PO PRN ×2 (11:19→21:45)
--- NOTE | 2019-06-28 11:27 | PDOC PROGRESS REPORT ---
Subjective Progress Note for:: 06/28/19 Subjective:: Labs are improved this morning but patient still very deconditioned, still having pain and trouble swallowing. He is on fluconazole. He also is on Lashawn's Magic mouthwash for thrush. But I suspect he also has fairly severe mucositis ongoing as well. Physical therapy is going to work with him today. Reason For Visit: POSSIBLE SEPSIS, LACTIC ACIDOSIS, ABDOMINAL PAIN Physical Exam Vital Signs: Temp Pulse Resp BP Pulse Ox 97.4 F 77 18 136/86 H 96 06/28/19 07:12 06/28/19 08:04 06/28/19 08:04 06/28/19 07:12 06/28/19 08:04 Intake & Output 06/27/19 06/28/19 06/29/19 06:59 06:59 06:59 Intake Total 4850 2450 200 Output Total 625 2600 Balance 4225 -150 200 General appearance: PRESENT: no acute distress, well-developed, well-nourished Head exam: PRESENT: atraumatic, normocephalic Eye exam: PRESENT: conjunctiva pink, EOMI, PERRLA. ABSENT: scleral icterus Ear exam: PRESENT: normal external ear exam Mouth exam: PRESENT: moist, tongue midline Neck exam: ABSENT: carotid bruit, JVD, lymphadenopathy, thyromegaly Respiratory exam: PRESENT: clear to auscultation khushboo. ABSENT: rales, rhonchi, wheezes Cardiovascular exam: PRESENT: RRR. ABSENT: diastolic murmur, rubs, systolic murmur Pulses: PRESENT: normal dorsalis pedis pul Vascular exam: PRESENT: normal capillary refill GI/Abdominal exam: PRESENT: normal bowel sounds, soft. ABSENT: distended, guarding, mass, organolmegaly, rebound, tenderness Rectal exam: PRESENT: deferred Extremities exam: PRESENT: full ROM. ABSENT: calf tenderness, clubbing, pedal edema Neurological exam: PRESENT: alert, awake, oriented to person, oriented to place, oriented to time, oriented to situation, CN II-XII grossly intact. ABSENT: motor sensory deficit Psychiatric exam: PRESENT: appropriate affect, normal mood. ABSENT: homicidal ideation, suicidal ideation Skin exam: PRESENT: dry, intact, warm. ABSENT: cyanosis, rash Results Laboratory Results: 06/28/19 05:15 06/28/19 05:15 06/28/19 06/28/19 05:15 05:15 WBC 2.5 L D RBC 4.14 L Hgb 12.4 L Hct 36.4 L MCV 88 MCH 30.0 MCHC 34.1 RDW 15.6 H Plt Count 200 Seg Neutrophils % Not Reportable Sodium 138.1 Potassium 4.3 Chloride 97 L Carbon Dioxide 31 H Anion Gap 10 BUN 18 Creatinine 1.06 Est GFR ( Amer) > 60 Glucose 138 H Calcium 8.6 Magnesium 2.8 H Total Bilirubin 0.7 AST 30 Alkaline Phosphatase 96 Total Protein 6.0 L Albumin 3.1 L 06/26/19 06/26/19 08:00 08:00 Creatine Kinase 32 L Troponin I < 0.012 NT-Pro-B Natriuret Pep 477 H Impressions: KUB X-Ray 06/26/19 00:00 IMPRESSION: Nonspecific abdomen. Abdomen/Pelvis CT 06/26/19 08:08 IMPRESSION: 1. Diffusely fluid filled colon with scattered gas fluid levels which can be seen with diarrheal illness or cathartic use. No evidence of high- grade obstruction. 2. Moderately distended urinary bladder. No hydronephrosis. 3. Hepatic steatosis. Stable additional chronic findings as above. Chest X-Ray 06/26/19 08:15 IMPRESSION: Unchanged elevation of the right hemidiaphragm with increased basilar opacification, possibly atelectasis or infection. Persistent right perihilar masslike opacity. Chest CT 06/26/19 08:31 IMPRESSION: 1. Decreased size of the previously described left upper lobe nodule measuring 17 x 16 mm, previously 22 x 20 mm. 2. Decreased size of the abnormal pretracheal soft tissue measuring 32 x 31 mm, previously 39 x 33 mm. 3. Grossly similar posttreatment change within the right hemithorax with irregular pleuroparenchymal consolidation. Finding may represent post treatment change although residual underlying malignancy is not excluded. Assessment & Plan - Diagnosis (1) Lung cancer Qualifiers: Laterality: left Lung location: overlapping sites Qualified Code(s): C34.82 - Malignant neoplasm of overlapping sites of left bronchus and lung Is this a current diagnosis for this admission?: Yes Plan: Improvement after most recent line of therapy, would like to continue as an outpatient. Will need dose reductions for the next cycle. Neulasta support as well. (2) Chronic respiratory failure with hypoxia Is this a current diagnosis for this admission?: Yes Plan: Continue with current therapy per hospitalist team (3) Diarrhea Qualifiers: Diarrhea type: presumed infectious Qualified Code(s): R19.7 - Diarrhea, unspecified Is this a current diagnosis for this admission?: Yes Plan: Resolved now, continue to monitor. (4) Neutropenia associated with mucositis due to antineoplastic therapy Is this a current diagnosis for this admission?: Yes Plan: White count improved, discontinue Neupogen (5) Mucositis (ulcerative) due to antineoplastic therapy Is this a current diagnosis for this admission?: Yes Plan: Fairly severe, continue with current supportive measures along with IV fluids. He will need several more days to be able to start taking some nutrition p.o. - Time Time Spent with patient: 35 or more minutes
--- NOTE | 2019-06-28 14:19 | PDOC PROGRESS REPORT ---
Subjective Progress Note for:: 06/28/19 Subjective:: Patient feels better but still having a tough time eating given the soreness in his throat. Has not been able to eat anything yesterday. Otherwise states that his abdominal pain is better his breathing feels a lot better. Reason For Visit: POSSIBLE SEPSIS, LACTIC ACIDOSIS, ABDOMINAL PAIN Physical Exam Vital Signs: Temp Pulse Resp BP Pulse Ox 97.7 F 111 H 17 141/93 H 95 06/28/19 11:23 06/28/19 11:23 06/28/19 11:23 06/28/19 11:23 06/28/19 11:23 Intake & Output 06/27/19 06/28/19 06/29/19 06:59 06:59 06:59 Intake Total 4850 2450 300 Output Total 625 2600 800 Balance 4225 -150 -500 General appearance: PRESENT: no acute distress, cooperative Neck exam: ABSENT: JVD Respiratory exam: PRESENT: clear to auscultation khushboo, tachypnea, wheezes. ABSENT: unlabored Cardiovascular exam: PRESENT: RRR, +S1, +S2. ABSENT: tachycardia GI/Abdominal exam: PRESENT: normal bowel sounds, soft, tenderness - Only mild soreness. ABSENT: rebound, rigid Neurological exam: PRESENT: alert, awake, oriented to person, oriented to place, oriented to time, oriented to situation Results Laboratory Results: 06/28/19 05:15 06/28/19 05:15 06/28/19 06/28/19 05:15 05:15 WBC 2.5 L D RBC 4.14 L Hgb 12.4 L Hct 36.4 L MCV 88 MCH 30.0 MCHC 34.1 RDW 15.6 H Plt Count 200 Seg Neutrophils % Not Reportable Sodium 138.1 Potassium 4.3 Chloride 97 L Carbon Dioxide 31 H Anion Gap 10 BUN 18 Creatinine 1.06 Est GFR ( Amer) > 60 Glucose 138 H Calcium 8.6 Magnesium 2.8 H Total Bilirubin 0.7 AST 30 Alkaline Phosphatase 96 Total Protein 6.0 L Albumin 3.1 L 06/26/19 06/26/19 08:00 08:00 Creatine Kinase 32 L Troponin I < 0.012 NT-Pro-B Natriuret Pep 477 H Impressions: KUB X-Ray 06/26/19 00:00 IMPRESSION: Nonspecific abdomen. Abdomen/Pelvis CT 06/26/19 08:08 IMPRESSION: 1. Diffusely fluid filled colon with scattered gas fluid levels which can be seen with diarrheal illness or cathartic use. No evidence of high- grade obstruction. 2. Moderately distended urinary bladder. No hydronephrosis. 3. Hepatic steatosis. Stable additional chronic findings as above. Chest X-Ray 06/26/19 08:15 IMPRESSION: Unchanged elevation of the right hemidiaphragm with increased basilar opacification, possibly atelectasis or infection. Persistent right perihilar masslike opacity. Chest CT 06/26/19 08:31 IMPRESSION: 1. Decreased size of the previously described left upper lobe nodule measuring 17 x 16 mm, previously 22 x 20 mm. 2. Decreased size of the abnormal pretracheal soft tissue measuring 32 x 31 mm, previously 39 x 33 mm. 3. Grossly similar posttreatment change within the right hemithorax with irregular pleuroparenchymal consolidation. Finding may represent post treatment change although residual underlying malignancy is not excluded. Assessment and Plan - Diagnosis (1) Inadequate oral intake Is this a current diagnosis for this admission?: Yes Plan: Secondary to sore throat from mucositis I will continue his outpatient regimen of antifungal but change to IV Diflucan Magic mouthwash 4 times daily and viscous lidocaine IV fluids and encourage PO intake (2) Abdominal pain, acute Is this a current diagnosis for this admission?: Yes Plan: Patient notes improved symptoms after having voluminous liquid bowel movements yesterday CT of the abdomen showed diffusely fluid-filled colon without high-grade obstruction C. difficile negative Questionable if diarrhea is actually infectious versus chemo induced versus secondary to laxatives but given neutropenia, will treat empirically for colitis with Flagyl for 4 more days (3) Neutropenia associated with mucositis due to antineoplastic therapy Is this a current diagnosis for this admission?: Yes Plan: Resolved after receiving Neupogen for 2 days.Neupogen discontinued at this time as ANC is 1700. (4) COPD (chronic obstructive pulmonary disease) Qualifiers: COPD type: COPD with acute exacerbation Qualified Code(s): J44.1 - Chronic obstructive pulmonary disease with (acute) exacerbation Is this a current diagnosis for this admission?: Yes Plan: Nebs blood gas is normal mild wheezing--nebs, contine prednisone which patient takes at home for malignancy but increase to 15mg bid for 2 more days. (5) Acute urinary retention Is this a current diagnosis for this admission?: Yes Plan: 2/2 Known BPH Continue tamsulosin Discontinue Fairchild catheter and perform voiding trial subsequently Outpatient f/u with patient's urologist (6) Lung cancer Qualifiers: Laterality: left Lung location: overlapping sites Qualified Code(s): C34.82 - Malignant neoplasm of overlapping sites of left bronchus and lung Is this a current diagnosis for this admission?: Yes Plan: Left lung SCLC undergoing chemotherapy at the moment. S/P 1st cycle recently. Gets chemo [id number]. 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
[2019-06-28] MEDS: FLUCONAZOLE 200 MG/NS RTU 200 MG/100 ML RTUPB IV SCH (17:32)
[2019-06-28] MEDS: TAMSULOSIN HCL 0.4 MG CAP.SR.24H PO SCH (17:32)
[2019-06-28] MEDS: ROPINIROLE HCL 1 MG TABLET PO SCH (21:46)
[2019-06-28] MEDS: ONDANSETRON HCL INJ/PF 4 MG/2 ML SDV IV PRN (22:23)
[2019-06-29] MEDS: TRAZODONE HCL 50 MG TABLET PO PRN (00:31)
[2019-06-29] MEDS: LEVALBUTEROL HCL NEB 1.25 MG/3 ML AMPUL NEB SCH ×4 (02:10→19:53)
[2019-06-29] MEDS ORDERED: LORAZEPAM INJ 2 MG/1 ML VIAL ONE (02:20)
[2019-06-29] MEDS ORDERED: LORAZEPAM INJ 2 MG/1 ML VIAL IV ONE (02:45)
[2019-06-29] MEDS ORDERED: PANTOPRAZOLE SODIUM 40 MG VIAL IV ONE (02:59)
[2019-06-29] MEDS ORDERED: PANTOPRAZOLE SODIUM 40 MG VIAL IV PRN ×2 (02:59→03:46)
--- NOTE | 2019-06-29 03:09 | PDOC CONSULTATION ---
Consultation Consult Date: 06/29/19 Attending physician:: JEFFREY GARIBAY Provider Consulted: RICK BUNDY Consult reason:: Abdominal distention History of Present Illness Admission Date/PCP: 06/26/19 15:35 FACUNDO MORALES NP History of Present Illness: CHAD RETANA is a 63 year old male Who presents to the emergency department complaining of progressive abdominal pain, shortness of breath and weakness. He was evaluated and felt to be constipated. He received cathartics and had a massive bowel movement 2 days ago. Subsequently patient became hypotensive and was felt to be dehydrated. He was resuscitated, and admitted to the hospital service for further support. 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 Patient lives at home with his , on supplemental nasal cannula oxygen. He has a long smoking history, and COPD. He is a full code. He is on the medical stepdown unit where he became agitated, with a nausea. An abdominal film was taken yesterday but not interpreted by the radiologist. Dr. Jeffrey Garibay evaluated the patient this morning and felt he was distended, in distress, and reviewed the abdominal film was suggested colonic ileus. Surgery was consulted. Past Medical History Cardiac Medical History: Reports: Hyperlipidema - meds x 1 year, Hypertension - meds x 6 years Denies: Atrial Fibrillation, Congestive Heart Failure, Coronary Artery Disease, Myocardial Infarction, Peripheral Vascular Disease, Pulmonary Embolism, Heart Murmur Pulmonary Medical History: Reports: Bronchitis - multiple episodes (usually in the fall), Chronic Obstructive Pulmonary Disease (COPD), Pneumonia - x 1 episode, denies hospitalization Denies: Asthma, Respiratory Failure, Sleep Apnea, Tuberculosis Neurological Medical History: Denies: Seizures Malignancy Medical History: Reports: Lung Cancer - Squamous cell cancer RLung and Paratracheal, 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 GI Medical History: Reports: Gastroesophageal Reflux Disease - Tolentino's esophagitis, Dx'ed approx 3 years Denies: Crohn's Disease, Hepatitis, Hiatal Hernia Musculoskeltal Medical History: Reports: Arthritis Denies: Fibromyalgia Psychiatric Medical History: Reports: Depression - meds x 15 years Denies: Bipolar Disorder, Post Traumatic Stress Disorder Hematology: Denies: Anemia, Sickle Cell Disease Past Surgical History Past Surgical History: Reports: Appendectomy, Cholecystectomy, Orthopedic Surgery - RIGHT KNEE, Other - Right lower lobe lobectomy,, patient has history o f small celr lung cancer. Denies: Colostomy, Coronary Artery Bypass Graft, Gastric Bypass Surgery, Herniorrhaphy, Pacemaker, Tonsillectomy Social History Lives with: Family Smoking Status: Former Smoker Frequency of Alcohol Use: None Hx Recreational Drug Use: No Drugs: None Hx Prescription Drug Abuse: No - Advance Directive Resuscitation Status: Do Not Resuscitate Family History Family History: None, Malignancy Parental Family History Reviewed: No Children Family History Reviewed: No Sibling(s) Family History Reviewed.: No Medication/Allergy Home Medications: Albuterol Sulfate [Proair HFA Inhalation Aerosol 8.5 gm MDI] 1 puff IH Q4HP PRN 06/26/19 Albuterol Sulfate [Ventolin 0.083% Neb 2.5 mg/3 mL Ampul] 2.5 mg NEB RTQ4HP PRN 06/26/19 Budesonide/Formoterol Fumarate [Symbicort HFA 160-4.5 mcg Inhaler 6 gm] 2 puff IH Q12 06/26/19 Citalopram Hydrobromide [Celexa 40 mg Tablet] 40 mg PO DAILY 06/26/19 Clonazepam [Klonopin 1 mg Tablet] 1 mg PO BIDP PRN 06/26/19 Diltiazem HCl [Cardizem] 120 mg PO DAILY 06/26/19 Fluconazole [Diflucan 100 mg Tablet] 100 mg PO DAILY 06/26/19 Magnesium Oxide [Magnesium] 400 mg PO Q12 06/26/19 Pretty Magic Mouthwash 10 ml PO QIDP PRN 06/26/19 Ondansetron HCl [Zofran 8 mg Tablet] 8 mg PO Q8HP PRN 06/26/19 Prednisone [Deltasone 20 mg Tablet] 10 mg PO DAILY 06/26/19 Promethazine HCl [Phenergan 25 mg Tablet] 25 mg PO Q4HP PRN 06/26/19 Ropinirole HCl [Requip] 0.5 mg PO QHS 06/26/19 Tamsulosin HCl [Flomax 0.4 mg Cap.sr] 0.4 mg PO QPM 06/26/19 Tiotropium [place] [Spiriva Respimat] 2 puff IH QAM 06/26/19 Trazodone HCl 50 mg PO HSP PRN 06/26/19 Allergies/Adverse Reactions: No Known Allergies Allergy (Verified 06/26/19 08:55) Review of Systems Constitutional: PRESENT: as per HPI Eyes: ABSENT: visual disturbances Ears: ABSENT: hearing changes Cardiovascular: PRESENT: as per HPI Gastrointestinal: PRESENT: other - Patient's last colonoscopy was several years ago, reportedly unremarkable findings. Chronic constipation Musculoskeletal: PRESENT: as per HPI Integumentary: PRESENT: other Neurological: PRESENT: abnormal gait Psychiatric: ABSENT: anxiety, depression, homidical ideation, suicidal ideation Endocrine: ABSENT: cold intolerance, heat intolerance, polydipsia, polyuria Physical Exam Vital Signs: Temp Pulse Resp BP Pulse Ox 97.3 F 110 H 21 H 133/93 H 98 06/28/19 23:33 06/28/19 23:33 06/28/19 23:33 06/28/19 23:33 06/28/19 23:33 Intake & Output 06/27/19 06/28/19 06/29/19 06:59 06:59 06:59 Intake Total 4850 2450 1940 Output Total 625 2600 2000 Balance 4225 -150 -60 General appearance: PRESENT: other - Distress; nasal cannula in place Head exam: PRESENT: atraumatic Eye exam: PRESENT: EOMI Mouth exam: PRESENT: dry mucosa Neck exam: PRESENT: other - No visible adenopathy Respiratory exam: PRESENT: wheezes - Bilaterally, audible Pulses: PRESENT: normal carotid pulses, normal radial pulses, normal femoral pulses GI/Abdominal exam: PRESENT: other - Massive distention, tympany, normal tenderness Rectal exam: PRESENT: deferred Extremities exam: PRESENT: other - Unable to assess while patient in bed, limited exam however no gross deformities; evidence of previous total knee replacement Neurological exam: PRESENT: oriented to person, oriented to place, oriented to time, oriented to situation Results Laboratory Results: 06/28/19 05:15 06/28/19 05:15 06/28/19 06/28/19 05:15 05:15 WBC 2.5 L D RBC 4.14 L Hgb 12.4 L Hct 36.4 L MCV 88 MCH 30.0 MCHC 34.1 RDW 15.6 H Plt Count 200 Seg Neutrophils % Not Reportable Sodium 138.1 Potassium 4.3 Chloride 97 L Carbon Dioxide 31 H Anion Gap 10 BUN 18 Creatinine 1.06 Est GFR ( Amer) > 60 Glucose 138 H Calcium 8.6 Magnesium 2.8 H Total Bilirubin 0.7 AST 30 Alkaline Phosphatase 96 Total Protein 6.0 L Albumin 3.1 L 06/26/19 06/26/19 08:00 08:00 Creatine Kinase 32 L Troponin I < 0.012 NT-Pro-B Natriuret Pep 477 H Impressions: Abdomen/Pelvis CT 06/26/19 08:08 IMPRESSION: 1. Diffusely fluid filled colon with scattered gas fluid levels which can be seen with diarrheal illness or cathartic use. No evidence of high- grade obstruction. 2. Moderately distended urinary bladder. No hydronephrosis. 3. Hepatic steatosis. Stable additional chronic findings as above. Chest X-Ray 06/26/19 08:15 IMPRESSION: Unchanged elevation of the right hemidiaphragm with increased basilar opacification, possibly atelectasis or infection. Persistent right perihilar masslike opacity. Chest CT 06/26/19 08:31 IMPRESSION: 1. Decreased size of the previously described left upper lobe nodule measuring 17 x 16 mm, previously 22 x 20 mm. 2. Decreased size of the abnormal pretracheal soft tissue measuring 32 x 31 mm, previously 39 x 33 mm. 3. Grossly similar posttreatment change within the right hemithorax with irregular pleuroparenchymal consolidation. Finding may represent post treatment change although residual underlying malignancy is not excluded. Assessment & Plan - Diagnosis (1) Colonic inertia Is this a current diagnosis for this admission?: Yes Plan: Impression: Sudden development of nausea, abdominal distention and 63-year-old male with stage IV lung cancer, full code. Abdominal exam consistent with ileus, abdominal film demonstrating gas primarily in colon. Etiologies are multiple including electrolyte abnormality, immobility, multiple medications, including narcotics Recommendations: 1. To relieve nausea, we inserted a 18 [place] nasogastric tube with drainage of approximately 800 cc of coffee-ground gastric drainage. Patient feeling some better. Abdominal distention persists however. 2. Correct electrolyte abnormalities including magnesium; repeat potassium 3. Add H2 carissa or proton pump inhibitor to medical regimen; hold heparin, and narcotics if patient can tolerate this 4. We will reassess patient in a short interval; if colonic gas persist, coloscopic decompression may be required. 5. Discussed the above with Dr. Jeffrey Garibay, hospitalist. (2) Lung cancer Qualifiers: Laterality: left Lung location: overlapping sites Qualified Code(s): C34.82 - Malignant neoplasm of overlapping sites of left bronchus and lung Is this a current diagnosis for this admission?: Yes (3) Neutropenia associated with mucositis due to antineoplastic therapy Is this a current diagnosis for this admission?: Yes - Time Time Spent: 50 to 70 Minutes Smoking Cessation Education: over 10 minutes Medications reviewed and adjusted accordingly: Yes Anticipated discharge: Home - Inpatient Certification Based on my medical assessment, after consideration of the patient's comorbidities, presenting symptoms, or acuity I expect that the services needed warrant INPATIENT care.: Yes I certify that my determination is in accordance with my understanding of Medicare's requirements for reasonable and necessary INPATIENT services [42 CFR 412.3e].: Yes Medical Necessity: Need for Pain Control - Additional support including NG decompression, possible colonic decompression
[2019-06-29 03:30] LABS: INTERNATIONAL RATION (INR) 1.21; PROTHROMBIN TIME 15.4 SEC (11.4-15.4)
[2019-06-29 03:34] LABS: HEMATOCRIT 41.2 % (37.9-51.0); MEAN CORPUSCULAR HEMOGLOBIN 30.1 pg (27.0-33.4); MEAN CORPUSCULAR HGB CONC 34.1 g/dL (32.0-36.0); MEAN CORPUSCULAR VOLUME 88 fl (80-97); PLATELET COUNT 235 10^3/uL (150-450); RED BLOOD COUNT 4.67 10^6/uL (4.35-5.55); RED CELL DISTRIBUTION WIDTH 15.8 % (11.5-14.0)
[2019-06-29] MEDS ORDERED: NORMAL SALINE 100 ML with PANTOPRAZOLE SODIUM 80 MG IV PRN ×2 (03:45)
[2019-06-29] MEDS ORDERED: PANTOPRAZOLE SODIUM 80 MG in NORMAL SALINE 100 ML IV ONE (03:45)
[2019-06-29 03:53] LABS: WHITE BLOOD COUNT 10.8 10^3/uL (4.0-10.5)
[2019-06-29 03:56] LABS: ANION GAP 11 (5-19); BLOOD UREA NITROGEN 23 mg/dL (7-20); CALCIUM 9.3 mg/dL (8.4-10.2); CARBON DIOXIDE 34 mmol/L (22-30); CHLORIDE 95 mmol/L (98-107); GLUCOSE 169 mg/dL (75-110); POTASSIUM 3.9 mmol/L (3.6-5.0)
[2019-06-29 03:58] LABS: ABSOLUTE LYMPHOCYTES# (MANUAL) 1.4 10^3/uL (0.5-4.7); ABSOLUTE MONOCYTES # (MANUAL) 0.9 10^3/uL (0.1-1.4); BAND NEUTROPHILS % (MANUAL) 2 % (3-5); BASOPHILS % (MANUAL) 0 % (0-2); EOSINOPHILS % (MANUAL) 0 % (0-6); LYMPHOCYTES % (MANUAL) 7 % (13-45); MONOCYTES % (MANUAL) 8 % (3-13); SEGMENTED NEUTROPHILS % (MAN) 77 % (42-78); TOTAL CELLS COUNTED 100
[2019-06-29 03:59] LABS: ANISOCYTOSIS SLIGHT; OVALOCYTES 1+; PLATELET COMMENT ADEQUATE; POIKILOCYTOSIS SLIGHT; TEAR DROP CELLS SLIGHT; TOXIC GRANULATION 1+
[2019-06-29] MEDS: METRONIDAZOLE 500 MG/NS RTU 500 MG/100 ML RTUPB IV SCH ×2 (04:22→09:10)
[2019-06-29] MEDS: HEPARIN SOD (PORCINE) 5,000 UNIT/ML 1 ML VIAL SUBCUT SCH (05:39)
--- NOTE | 2019-06-29 06:10 | RADIOLOGY REPORT (SQ) ---
Abdomen single view on 06/28/2019 9:06 PM CLINICAL INDICATION: Abdominal distention, generalized abdominal pain COMPARISON: CT from 06/26/2019 FINDINGS: Gaseous distention of the stomach is noted. There are now noted mildly dilated loops of small bowel in the midabdomen may be related to developing ileus or developing obstruction. Consider CT follow-up. No abnormal calcification or mass effect is noted. Degenerative changes are noted in the spine. IMPRESSION: Developing dilated loops of small bowel may be related to developing ileus or obstruction. Consider CT follow-up.
--- NOTE | 2019-06-29 08:44 | PDOC PROGRESS REPORT ---
Subjective Progress Note for:: 06/29/19 Subjective:: Yesterday patient with KUB indicating concern of ileus, because patient was getting more distended, had NG tube placed and had 400 cc of coffee-ground like liquid out, about 20 to 30 cc in the canister currently. He feels better. But still has not passed gas for several days. Reason For Visit: POSSIBLE SEPSIS, LACTIC ACIDOSIS, ABDOMINAL PAIN Physical Exam Vital Signs: Temp Pulse Resp BP Pulse Ox 97.3 F 109 H 21 H 150/93 H 96 06/29/19 07:44 06/29/19 07:44 06/29/19 07:44 06/29/19 07:44 06/29/19 07:44 Intake & Output 06/28/19 06/29/19 06/30/19 06:59 06:59 06:59 Intake Total 2450 2140 Output Total 2600 2325 Balance -150 -185 Weight 112.8 kg General appearance: PRESENT: no acute distress, well-developed, well-nourished Head exam: PRESENT: atraumatic, normocephalic Eye exam: PRESENT: conjunctiva pink, EOMI, PERRLA. ABSENT: scleral icterus Ear exam: PRESENT: normal external ear exam Mouth exam: PRESENT: moist, tongue midline Neck exam: ABSENT: carotid bruit, JVD, lymphadenopathy, thyromegaly Respiratory exam: PRESENT: clear to auscultation khushboo. ABSENT: rales, rhonchi, wheezes Cardiovascular exam: PRESENT: RRR. ABSENT: diastolic murmur, rubs, systolic murmur Pulses: PRESENT: normal dorsalis pedis pul Vascular exam: PRESENT: normal capillary refill GI/Abdominal exam: PRESENT: normal bowel sounds, soft. ABSENT: distended, guarding, mass, organolmegaly, rebound, tenderness Rectal exam: PRESENT: deferred Extremities exam: PRESENT: full ROM. ABSENT: calf tenderness, clubbing, pedal edema Neurological exam: PRESENT: alert, awake, oriented to person, oriented to place, oriented to time, oriented to situation, CN II-XII grossly intact. ABSENT: motor sensory deficit Psychiatric exam: PRESENT: appropriate affect, normal mood. ABSENT: homicidal ideation, suicidal ideation Skin exam: PRESENT: dry, intact, warm. ABSENT: cyanosis, rash Results Laboratory Results: 06/29/19 03:10 06/29/19 03:10 06/29/19 06/29/19 03:10 03:10 WBC 10.8 H D RBC 4.67 Hgb 14.0 Hct 41.2 MCV 88 MCH 30.1 MCHC 34.1 RDW 15.8 H Plt Count 235 Seg Neutrophils % Not Reportable Sodium 139.8 Potassium 3.9 Chloride 95 L Carbon Dioxide 34 H Anion Gap 11 BUN 23 H Creatinine 1.04 Est GFR ( Amer) > 60 Glucose 169 H Calcium 9.3 Magnesium 2.2 06/26/19 06/26/19 08:00 08:00 Creatine Kinase 32 L Troponin I < 0.012 NT-Pro-B Natriuret Pep 477 H Impressions: Abdomen/Pelvis CT 06/26/19 08:08 IMPRESSION: 1. Diffusely fluid filled colon with scattered gas fluid levels which can be seen with diarrheal illness or cathartic use. No evidence of high- grade obstruction. 2. Moderately distended urinary bladder. No hydronephrosis. 3. Hepatic steatosis. Stable additional chronic findings as above. Chest X-Ray 06/26/19 08:15 IMPRESSION: Unchanged elevation of the right hemidiaphragm with increased b asilar opacification, possibly atelectasis or infection. Persistent right perihilar masslike opacity. Chest CT 06/26/19 08:31 IMPRESSION: 1. Decreased size of the previously described left upper lobe nodule measuring 17 x 16 mm, previously 22 x 20 mm. 2. Decreased size of the abnormal pretracheal soft tissue measuring 32 x 31 mm, previously 39 x 33 mm. 3. Grossly similar posttreatment change within the right hemithorax with irregular pleuroparenchymal consolidation. Finding may represent post treatment change although residual underlying malignancy is not excluded. KUB X-Ray 06/28/19 00:00 IMPRESSION: Developing dilated loops of small bowel may be related to developing ileus or obstruction. Consider CT follow-up. Assessment & Plan - Diagnosis (1) Lung cancer Qualifiers: Laterality: left Lung location: overlapping sites Qualified Code(s): C34.82 - Malignant neoplasm of overlapping sites of left bronchus and lung Is this a current diagnosis for this admission?: Yes Plan: Improved, would like to continue treatment as an outpatient (2) Chronic respiratory failure with hypoxia Is this a current diagnosis for this admission?: Yes Plan: Continue with supportive care (3) Neutropenia associated with mucositis due to antineoplastic therapy Is this a current diagnosis for this admission?: Yes Plan: Resolved DCd Neupogen (4) Mucositis (ulcerative) due to antineoplastic therapy Is this a current diagnosis for this admission?: Yes Plan: Continue with supportive care (5) Ileus Is this a current diagnosis for this admission?: Yes Plan: Probably secondary to multiple medical issues, continue with NG tube per surgical's team - Time Time Spent with patient: 35 or more minutes
[2019-06-29] MEDS: NYSTATIN/DEXAMETH/DIPHEN SUSP 120 ML PO SCH ×4 (10:41→21:48)
[2019-06-29] MEDS: FLUTICASONE/UMECLIDIN/VILANTER 100-62.5-25 MCG/DOSE IH SCH (10:41)
[2019-06-29] MEDS: LIDOCAINE 2% VISCOUS SOLN 15 ML UDCUP PO SCH ×4 (10:41→21:49)
--- NOTE | 2019-06-29 11:21 | PDOC PROGRESS REPORT ---
Subjective Progress Note for:: 06/29/19 Subjective:: Patient's abdomen became distended yesterday. KUB was done and patient required NG tube placement. Today patient feels a little bit better in terms of his abdominal pain still has some nausea though. Denies any lightheadedness. Has not been able to ambulate much since being here. Reason For Visit: POSSIBLE SEPSIS, LACTIC ACIDOSIS, ABDOMINAL PAIN Physical Exam Vital Signs: Temp Pulse Resp BP Pulse Ox 97.3 F 112 H 18 150/93 H 95 06/29/19 07:44 06/29/19 08:40 06/29/19 08:40 06/29/19 07:44 06/29/19 08:40 Intake & Output 06/28/19 06/29/19 06/30/19 06:59 06:59 06:59 Intake Total 2450 2140 100 Output Total 2600 2325 Balance -150 -185 100 Weight 112.8 kg General appearance: PRESENT: no acute distress, cooperative Respiratory exam: PRESENT: prolonged expiratory phas, unlabored, other - Still doing typical belly breathing. ABSENT: tachypnea, wheezes Cardiovascular exam: PRESENT: RRR, +S1, +S2. ABSENT: tachycardia GI/Abdominal exam: PRESENT: distended, hypoactive bowel sounds, soft, tenderness. ABSENT: guarding, rebound, rigid Neurological exam: PRESENT: alert, awake, oriented to person, oriented to place, oriented to time, oriented to situation Results Laboratory Results: 06/29/19 03:10 06/29/19 03:10 06/29/19 06/29/19 03:10 03:10 WBC 10.8 H D RBC 4.67 Hgb 14.0 Hct 41.2 MCV 88 MCH 30.1 MCHC 34.1 RDW 15.8 H Plt Count 235 Seg Neutrophils % Not Reportable Sodium 139.8 Potassium 3.9 Chloride 95 L Carbon Dioxide 34 H Anion Gap 11 BUN 23 H Creatinine 1.04 Est GFR ( Amer) > 60 Glucose 169 H Calcium 9.3 Magnesium 2.2 06/26/19 06/26/19 08:00 08:00 Creatine Kinase 32 L Troponin I < 0.012 NT-Pro-B Natriuret Pep 477 H Impressions: Abdomen/Pelvis CT 06/26/19 08:08 IMPRESSION: 1. Diffusely fluid filled colon with scattered gas fluid levels which can be seen with diarrheal illness or cathartic use. No evidence of high- grade obstruction. 2. Moderately distended urinary bladder. No hydronephrosis. 3. Hepatic steatosis. Stable additional chronic findings as above. Chest X-Ray 06/26/19 08:15 IMPRESSION: Unchanged elevation of the right hemidiaphragm with increased basilar opacification, possibly atelectasis or infection. Persistent right perihilar masslike opacity. Chest CT 06/26/19 08:31 IMPRESSION: 1. Decreased size of the previously described left upper lobe nodule measuring 17 x 16 mm, previously 22 x 20 mm. 2. Decreased size of the abnormal pretracheal soft tissue measuring 32 x 31 mm, previously 39 x 33 mm. 3. Grossly similar posttreatment change within the right hemithorax with irregular pleuroparenchymal consolidation. Finding may represent post treatment change although residual underlying malignancy is not excluded. KUB X-Ray 06/28/19 00:00 IMPRESSION: Developing dilated loops of small bowel may be related to developing ileus or obstruction. Consider CT follow-up. Assessment and Plan - Diagnosis (1) Colonic inertia Is this a current diagnosis for this admission?: Yes Plan: KUB showing developing ileus versus obstruction NG tube in place with coffee-ground aspirate. However H&H is very much stable at this time. Surgery following and may take patient for colonoscopic decompression tomorrow. Protonix. Prophylactic Lovenox held. IV fluids and monitor electrolytes (2) Abdominal pain, acute Is this a current diagnosis for this admission?: Yes Plan: Likely secondary to ileus/colonic inertia. At this point I will discontinue Flagyl. (3) Neutropenia associated with mucositis due to antineoplastic therapy Is this a current diagnosis for this admission?: Yes Plan: Resolved after receiving Neupogen for 2 days. Continue Viscous Lidocaine, Magic mouthwash for mucositis. I will continue his outpatient regimen of fluconazole but change to IV Diflucan day / (4) COPD (chronic obstructive pulmonary disease) Qualifiers: COPD type: COPD with acute exacerbation Qualified Code(s): J44.1 - Chronic obstructive pulmonary disease with (acute) exacerbation Is this a current diagnosis for this admission?: Yes Plan: Nebs blood gas is normal mild wheezing--nebs, contine prednisone which patient takes at home for malignancy but increase to 15mg bid for 1 more days. (5) Acute urinary retention Is this a current diagnosis for this admission?: Yes Plan: 2/2 Known BPH. Continue tamsulosin Informed by mat sewer that patient required Fairchild to be replaced given elevated post void residuals after Fairchild removal yesterday. We will maintain Fairchild at this point and have patient follow-up with his urologi st (6) Lung cancer Qualifiers: Laterality: left Lung location: overlapping sites Qualified Code(s): C 34.82 - Malignant neoplasm of overlapping sites of left bronchus and lung Is this a current diagnosis for this admission?: Yes Plan: Left lung SCLC undergoing chemotherapy at the moment. S/P 1st cycle recently. Gets chemo [id number]. 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 (7) Chronic respiratory failure with hypoxia Is this a current diagnosis for this admission?: Yes Plan: Apparently became O2 dependent since having radiation pneumonitis Continue O2 supplementation
[2019-06-29] MEDS: CITALOPRAM HYDROBROMIDE 20 MG TABLET PO SCH (11:25)
[2019-06-29] MEDS: PREDNISONE 10 MG TABLET PO SCH ×2 (11:26→17:55)
[2019-06-29] MEDS: DILTIAZEM HCL 120 MG CAP.SR.24H PO SCH (11:50)
[2019-06-29] MEDS: METOPROLOL TARTRATE PF/INJ 5 MG/5 ML SDV IV SCH ×2 (11:59→21:45)
[2019-06-29] MEDS: ONDANSETRON HCL INJ/PF 4 MG/2 ML SDV IV PRN (12:00)
[2019-06-29] MEDS: LORAZEPAM INJ 2 MG/1 ML VIAL IV PRN ×2 (13:55→21:48)
[2019-06-29] MEDS: NORMAL SALINE 1000 ML 1,000 ML IV PRN ×2 (13:55→23:50)
[2019-06-29] MEDS: TAMSULOSIN HCL 0.4 MG CAP.SR.24H PO SCH (17:55)
[2019-06-29] MEDS: FLUCONAZOLE 200 MG/NS RTU 200 MG/100 ML RTUPB IV SCH (18:05)
[2019-06-29] MEDS: PANTOPRAZOLE SODIUM 40 MG VIAL IV SCH (18:05)
[2019-06-29] MEDS: ROPINIROLE HCL 1 MG TABLET PO SCH (21:46)
[2019-06-30] MEDS: LEVALBUTEROL HCL NEB 1.25 MG/3 ML AMPUL NEB SCH ×4 (02:48→20:44)
[2019-06-30 06:25] LABS: HEMATOCRIT 39.4 % (37.9-51.0); HEMOGLOBIN 12.9 g/dL (13.5-17.0); MEAN CORPUSCULAR HEMOGLOBIN 29.2 pg (27.0-33.4); MEAN CORPUSCULAR HGB CONC 32.7 g/dL (32.0-36.0); MEAN CORPUSCULAR VOLUME 89 fl (80-97); PLATELET COUNT 214 10^3/uL (150-450); RED BLOOD COUNT 4.41 10^6/uL (4.35-5.55); RED CELL DISTRIBUTION WIDTH 16.2 % (11.5-14.0); WHITE BLOOD COUNT 17.5 10^3/uL (4.0-10.5)
[2019-06-30 06:41] LABS: ALBUMIN 2.9 g/dL (3.5-5.0); ALKALINE PHOSPHATASE 89 U/L (38-126); ANION GAP 9 (5-19); ASPARTATE AMINO TRANSFERASE 36 U/L (17-59); BILIRUBIN,DIRECT 0.3 mg/dL (0.0-0.4); BILIRUBIN,TOTAL 0.5 mg/dL (0.2-1.3); BLOOD UREA NITROGEN 24 mg/dL (7-20); CALCIUM 8.7 mg/dL (8.4-10.2); CARBON DIOXIDE 32 mmol/L (22-30); CHLORIDE 100 mmol/L (98-107); GLUCOSE 137 mg/dL (75-110); POTASSIUM 3.4 mmol/L (3.6-5.0); TOTAL PROTEIN 5.8 g/dL (6.3-8.2)
[2019-06-30 06:47] LABS: ABSOLUTE LYMPHOCYTES# (MANUAL) 3.2 10^3/uL (0.5-4.7); ABSOLUTE MONOCYTES # (MANUAL) 1.4 10^3/uL (0.1-1.4); BASOPHILS % (MANUAL) 0 % (0-2); EOSINOPHILS % (MANUAL) 0 % (0-6); LYMPHOCYTES % (MANUAL) 13 % (13-45); MONOCYTES % (MANUAL) 8 % (3-13); NUCLEATED RED BLOOD CELLS 2 /100 WBC (0); SEGMENTED NEUTROPHILS % (MAN) 70 % (42-78); TOTAL CELLS COUNTED 100
[2019-06-30 06:50] LABS: ANISOCYTOSIS 1+; OVALOCYTES SLIGHT; POIKILOCYTOSIS 1+; STOMATOCYTES 2+; TOXIC GRANULATION 1+
[2019-06-30 06:51] LABS: PLATELET COMMENT ADEQUATE; PROMYELOCYTES % (MANUAL) 4 % (0)
[2019-06-30] MEDS ORDERED: NORMAL SALINE 1000 ML 1,000 ML IV PRN (08:14)
[2019-06-30] MEDS: POTASSI CL 20 MEQ/50 ML RIDER 20 MEQ/50 ML RTUPB IV SCH ×4 (09:19→16:32)
[2019-06-30] MEDS: METOPROLOL TARTRATE PF/INJ 5 MG/5 ML SDV IV SCH ×2 (09:19→22:18)
--- NOTE | 2019-06-30 10:37 | RADIOLOGY REPORT (SQ) ---
EXAM DESCRIPTION: KUB/ABDOMEN (SINGLE VIEW) COMPLETED DATE/TIME: 06/30/2019 10:10 am REASON FOR STUDY: repeat for bowel obstruction COMPARISON: CT abdomen pelvis 06/26/2019, 05/08/2019 Abdominal films 06/28/2019, 06/26/2019, 12/04/2018 NUMBER OF VIEWS: One view. TECHNIQUE: Supine radiographic image of the abdomen acquired. LIMITATIONS: None. FINDINGS: BOWEL GAS PATTERN: Markedly abnormal, with diffuse gaseous distension of small bowel and c olon. Findings are worrisome for either ileus or distal colon obstruction. This result was called t yelena Heller. CALCIFICATIONS: No suspicious calcifications. SOFT TISSUES: No gross mass or suggestion of organomegaly. HARDWARE: Clips right lower quadrant post appendectomy, Fairchild catheter in the bladder BONES: No acute fracture. No worrisome bone lesions. OTHER: No other significant finding. IMPRESSION: Progressive gaseous distention throughout the small bowel and colon since 06/28/2019 and TECHNICAL DOCUMENTATION: JOB ID: [id number] [employer]- All Rights Reserved Reading location - IP/workstation name: [facility]
--- NOTE | 2019-06-30 10:39 | RADIOLOGY REPORT (SQ) ---
EXAM DESCRIPTION: CHEST SINGLE VIEW COMPLETED DATE/TIME: 06/30/2019 10:10 am REASON FOR STUDY: Shortness of breath COMPARISON: AP chest 06/26/2019 CT chest 06/26/2019 EXAM PARAMETERS: NUMBER OF VIEWS: One view. TECHNIQUE: Single frontal radiographic view of the chest acquired. RADIATION DOSE: NA LIMITATIONS: None. FINDINGS: LUNGS AND PLEURA: Chronic elevation right hemidiaphragm with scarring in the right perihil ar region unchanged. Left lung well inflated, no focal acute infiltrates. Old previously treated left upper lobe nodule w ith fiducials. No pleural effusion. No pneumothorax. MEDIASTINUM AND HILAR STRUCTURES: No masses. Contour normal. HEART AND VASCULAR STRUCTURES: Heart normal in size. Normal vasculature. BONES: No acute findings. HARDWARE: There is a nasogastric tube with the side port in the mid 3rd of the esophagus and the tip in the distal esophagus. This finding was called to Dr. Heller. Permanent right central line tip s uperior vena cava OTHER: No other significant finding. IMPRESSION: Nasogastric tube tip in the esophagus, needs to be advanced No acute pulmonary infiltrates TECHNICAL DOCUMENTATION: JOB ID: [id number] [employer]- All Rights Reserved Reading location - IP/workstation name: [facility]
[2019-06-30] MEDS: ONDANSETRON HCL INJ/PF 4 MG/2 ML SDV IV PRN (11:08)
[2019-06-30] MEDS: PANTOPRAZOLE SODIUM 40 MG VIAL IV SCH ×2 (11:08→17:46)
--- NOTE | 2019-06-30 11:40 | PDOC PROGRESS REPORT ---
Subjective Progress Note for:: 06/30/19 Subjective:: Having liquid stool with some flatus. Very mild abdominal pains Reason For Visit: POSSIBLE SEPSIS, LACTIC ACIDOSIS, ABDOMINAL PAIN Physical Exam Vital Signs: Temp Pulse Resp BP Pulse Ox 97.7 F 108 H 16 130/80 H 91 L 06/30/19 11:07 06/30/19 11:07 06/30/19 11:07 06/30/19 11:07 06/30/19 11:07 Intake & Output 06/29/19 06/30/19 07/01/19 06:59 06:59 06:59 Intake Total 3140 1330 0 Output Total 2325 1175 225 Balance 815 155 -225 Weight 112.8 kg 113.2 kg Exam: Abdomen remains distended but soft. Results Laboratory Results: 06/30/19 05:59 06/30/19 05:59 06/30/19 06/30/19 05:59 05:59 WBC 17.5 H RBC 4.41 Hgb 12.9 L Hct 39.4 MCV 89 MCH 29.2 MCHC 32.7 RDW 16.2 H Plt Count 214 Seg Neutrophils % Not Reportable Sodium 141.4 Potassium 3.4 L Chloride 100 Carbon Dioxide 32 H Anion Gap 9 BUN 24 H Creatinine 1.25 Est GFR ( Amer) > 60 Glucose 137 H Calcium 8.7 Magnesium 1.8 Total Bilirubin 0.5 AST 36 Alkaline Phosphatase 89 Total Protein 5.8 L Albumin 2.9 L 06/26/19 06/26/19 08:00 08:00 Creatine Kinase 32 L Troponin I < 0.012 NT-Pro-B Natriuret Pep 477 H Impressions: Abdomen/Pelvis CT 06/26/19 08:08 IMPRESSION: 1. Diffusely fluid filled colon with scattered gas fluid levels which can be seen with diarrheal illness or cathartic use. No evidence of high- grade obstruction. 2. Moderately distended urinary bladder. No hydronephrosis. 3. Hepatic steatosis. Stable additional chronic findings as above. Chest CT 06/26/19 08:31 IMPRESSION: 1. Decreased size of the previously described left upper lobe nodule measuring 17 x 16 mm, previously 22 x 20 mm. 2. Decreased size of the abnormal pretracheal soft tissue measuring 32 x 31 mm, previously 39 x 33 mm. 3. Grossly similar posttreatment change within the right hemithorax with irregular pleuroparenchymal consolidation. Finding may represent post treatment change although residual underlying malignancy is not excluded. Chest X-Ray 06/30/19 00:00 IMPRESSION: Nasogastric tube tip in the esophagus, needs to be advanced No acute pulmonary infiltrates KUB X-Ray 06/30/19 00:00 IMPRESSION: Progressive gaseous distention throughout the small bowel and colon since 06/28/2019 and 06/26/2019 Assessment & Plan - Diagnosis (1) Chronic respiratory failure with hypoxia Is this a current diagnosis for this admission?: Yes (2) Ileus Is this a current diagnosis for this admission?: Yes (3) Lung cancer Qualifiers: Laterality: left Lung location: overlapping sites Qualified Code(s): C34.82 - Malignant neoplasm of overlapping sites of left bronchus and lung Is this a current diagnosis for this admission?: Yes - Time Time Spent with patient: 15-24 minutes - Inpatient Certification Medical Necessity: Need Close Monitoring Due to Risk of Patient Decompensation, Need For IV Fluids - Plan Summary Plan Summary: KUB this morning showed progressive ileus. NG tube into the esophagus and nurse was able to push it back into about 68cm with started suctioning of greenish fluid. His potassium was 3.4 and I just ordered KCl rider. Impression is ileus with a combination of medications, carcinoma with chemotherapy and the slightly low potassium. Plans: NG tube was pushed back to a distance of 68cm and starting to function now. KCl rider ordered Patient has been having liquid stool with passage of some flatus and does not look like this mechanically obstructed at this time. Continue with medical management in the next 24 hours and still with no improvem ent may need repeat CT scan with contrast. May eventually need a decompression procedure.
[2019-06-30 11:44] LABS: PATH REVIEW PATHOLOGIST REVIEWED
[2019-06-30] MEDS: DILTIAZEM HCL 120 MG CAP.SR.24H PO SCH (12:26)
[2019-06-30] MEDS: CITALOPRAM HYDROBROMIDE 20 MG TABLET PO SCH (12:26)
[2019-06-30] MEDS: NYSTATIN/DEXAMETH/DIPHEN SUSP 120 ML PO SCH ×4 (12:26→22:16)
[2019-06-30] MEDS: LIDOCAINE 2% VISCOUS SOLN 15 ML UDCUP PO SCH ×4 (12:26→22:17)
--- NOTE | 2019-06-30 13:01 | PDOC PROGRESS REPORT ---
Subjective Progress Note for:: 06/30/19 Subjective:: Patient states that he is feeling well today. However, nurses report that he was a bit confused last night. Pulled out NG and Fairchild. These have now been replaced. He did have a good BM early this morning. Awaiting further decisions from surgery re: colonoscopy. Reason For Visit: POSSIBLE SEPSIS, LACTIC ACIDOSIS, ABDOMINAL PAIN Physical Exam Vital Signs: Temp Pulse Resp BP Pulse Ox 97.7 F 108 H 16 130/80 H 91 L 06/30/19 11:07 06/30/19 11:07 06/30/19 11:07 06/30/19 11:07 06/30/19 11:07 Intake & Output 06/29/19 06/30/19 07/01/19 06:59 06:59 06:59 Intake Total 3140 1330 50 Output Total 2325 1175 225 Balance 815 155 -175 Weight 112.8 kg 113.2 kg General appearance: PRESENT: no acute distress, obese Head exam: PRESENT: normocephalic Respiratory exam: PRESENT: decreased breath sounds Cardiovascular exam: PRESENT: RRR Musculoskeletal exam: PRESENT: normal inspection Neurological exam: PRESENT: altered Psychiatric exam: PRESENT: agitated Focused psych exam: PRESENT: restlessness Skin exam: PRESENT: normal color Results Laboratory Results: 06/30/19 05:59 06/30/19 05:59 06/30/19 06/30/19 05:59 05:59 WBC 17.5 H RBC 4.41 Hgb 12.9 L Hct 39.4 MCV 89 MCH 29.2 MCHC 32.7 RDW 16.2 H Plt Count 214 Seg Neutrophils % Not Reportable Sodium 141.4 Potassium 3.4 L Chloride 100 Carbon Dioxide 32 H Anion Gap 9 BUN 24 H Creatinine 1.25 Est GFR ( Amer) > 60 Glucose 137 H Calcium 8.7 Magnesium 1.8 Total Bilirubin 0.5 AST 36 Alkaline Phosphatase 89 Total Protein 5.8 L Albumin 2.9 L 06/26/19 06/26/19 08:00 08:00 Creatine Kinase 32 L Troponin I < 0.012 NT-Pro-B Natriuret Pep 477 H Impressions: Abdomen/Pelvis CT 06/26/19 08:08 IMPRESSION: 1. Diffusely fluid filled colon with scattered gas fluid levels which can be seen with diarrheal illness or cathartic use. No evidence of high- grade obstruction. 2. Moderately distended urinary bladder. No hydronephrosis. 3. Hepatic steatosis. Stable additional chronic findings as above. Chest CT 06/26/19 08:31 IMPRESSION: 1. Decreased size of the previously described left upper lobe nodule measuring 17 x 16 mm, previously 22 x 20 mm. 2. Decreased size of the abnormal pretracheal soft tissue measuring 32 x 31 mm, previously 39 x 33 mm. 3. Grossly similar posttreatment change within the right hemithorax with irregular pleuroparenchymal consolidation. Finding may represent post treatment change although residual underlying malignancy is not excluded. Chest X-Ray 06/30/19 00:00 IMPRESSION: Nasogastric tube tip in the esophagus, needs to be advanced No acute pulmonary infiltrates KUB X-Ray 06/30/19 00:00 IMPRESSION: Progressive gaseous distention throughout the small bowel and colon since 06/28/2019 and 06/26/2019 Assessment & Plan - Diagnosis (1) Ileus Is this a current diagnosis for this admission?: Yes Plan: Await further decisions by surgery as to colonoscopy (2) Lung cancer Qualifiers: Laterality: left Lung location: overlapping sites Qualified Code(s): C34.82 - Malignant neoplasm of overlapping sites of left bronchus and lung Is this a current diagnosis for this admission?: Yes Plan: All treatment on hold until discharge from hospital. - Time Time Spent with patient: 15-24 minutes
[2019-06-30] MEDS: FLUTICASONE/UMECLIDIN/VILANTER 100-62.5-25 MCG/DOSE IH SCH (13:12)
[2019-06-30 13:37] LABS: VENOUS BLOOD BASE EXCESS 3.8 mmol/L; VENOUS BLOOD HCO3 29.9 mmol/L (20-32); VENOUS BLOOD PCO2 50.8 mmHg (35-63); VENOUS BLOOD PH 7.39 (7.30-7.42)
--- NOTE | 2019-06-30 13:52 | PDOC PROGRESS REPORT ---
Subjective Progress Note for:: 06/30/19 Subjective:: Patient still having some abdominal pain today. [place] nauseous a little bit this morning. Endorses some shortness of breath as well. Reason For Visit: POSSIBLE SEPSIS, LACTIC ACIDOSIS, ABDOMINAL PAIN Physical Exam Vital Signs: Temp Pulse Resp BP Pulse Ox 97.7 F 108 H 16 130/80 H 91 L 06/30/19 11:07 06/30/19 11:07 06/30/19 11:07 06/30/19 11:07 06/30/19 11:07 Intake & Output 06/29/19 06/30/19 07/01/19 06:59 06:59 06:59 Intake Total 3140 1330 50 Output Total 2325 1175 225 Balance 815 155 -175 Weight 112.8 kg 113.2 kg General appearance: PRESENT: no acute distress, cooperative Respiratory exam: PRESENT: rhonchi, symmetrical, unlabored, wheezes, other - Continues with belly breathing which is kind of his baseline. ABSENT: tachypnea Cardiovascular exam: PRESENT: RRR, +S1, +S2. ABSENT: tachycardia GI/Abdominal exam: PRESENT: distended, hypoactive bowel sounds, soft, tenderness. ABSENT: guarding, rebound, rigid Neurological exam: PRESENT: alert, awake, oriented to person, oriented to place, oriented to time, oriented to situation Results Laboratory Results: 06/30/19 05:59 06/30/19 05:59 06/30/19 06/30/19 06/30/19 05:59 05:59 13:20 WBC 17.5 H RBC 4.41 Hgb 12.9 L Hct 39.4 MCV 89 MCH 29.2 MCHC 32.7 RDW 16.2 H Plt Count 214 Seg Neutrophils % Not Reportable VBG pH 7.39 VBG pCO2 50.8 VBG HCO3 29.9 VBG Base Excess 3.8 Sodium 141.4 Potassium 3.4 L Chloride 100 Carbon Dioxide 32 H Anion Gap 9 BUN 24 H Creatinine 1.25 Est GFR ( Amer) > 60 Glucose 137 H Calcium 8.7 Magnesium 1.8 Total Bilirubin 0.5 AST 36 Alkaline Phosphatase 89 Total Protein 5.8 L Albumin 2.9 L 06/26/19 06/26/19 08:00 08:00 Creatine Kinase 32 L Troponin I < 0.012 NT-Pro-B Natriuret Pep 477 H Impressions: Abdomen/Pelvis CT 06/26/19 08:08 IMPRESSION: 1. Diffusely fluid filled colon with scattered gas fluid levels which can be seen with diarrheal illness or cathartic use. No evidence of high- grade obstruction. 2. Moderately distended urinary bladder. No hydronephrosis. 3. Hepatic steatosis. Stable additional chronic findings as above. Chest CT 06/26/19 08:31 IMPRESSION: 1. Decreased size of the previously described left upper lobe nodule measuring 17 x 16 mm, previously 22 x 20 mm. 2. Decreased size of the abnormal pretracheal soft tissue measuring 32 x 31 mm, previously 39 x 33 mm. 3. Grossly similar posttreatment change within the right hemithorax with irregular pleuroparenchymal consolidation. Finding may represent post treatment change although residual underlying malignancy is not excluded. Chest X-Ray 06/30/19 00:00 IMPRESSION: Nasogastric tube tip in the esophagus, needs to be advanced No acute pulmonary infiltrates KUB X-Ray 06/30/19 00:00 IMPRESSION: Progressive gaseous distention throughout the small bowel and colon since 06/28/2019 and 06/26/2019 Assessment and Plan - Diagnosis (1) Ileus Is this a current diagnosis for this admission?: Yes Plan: Involving the small bowel and the colon KUB today showing progressive ileus NG tube repositioned by Dr. Heller for more effective draining. Surgery following and opting to monitor today seeing that NG tube was draining better after repositioning. Might take a while for patient's condition to improve given his comorbidities. IV fluids and monitor electrolytes (2) Abdominal pain, acute Is this a current diagnosis for this admission?: Yes Plan: Likely secondary to ileus/colonic inertia. Also gastric aspirate from NG tube was occult positive. Will monitor H&H for now. Surgery following Heparin prophylaxis and prednisone on hold. Protonix IV twice daily (3) Neutropenia associated with mucositis due to antineoplastic therapy Is this a current diagnosis for this admission?: Yes Plan: Resolved after receiving Neupogen for 2 days. Continue Viscous Lidocaine, Magic mouthwash for mucositis. I continued his outpatient regimen of fluconazole but changed to IV Diflucan day 5/7 (4) COPD (chronic obstructive pulmonary disease) Qualifiers: COPD type: COPD with acute exacerbation Qualified Code(s): J44.1 - Chronic obstructive pulmonary disease with (acute) exacerbation Is this a current diagnosis for this admission?: Yes Plan: Nebs blood gas is normal mild wheezing--nebs, prednisone held briefly given questionable occult positive gastric aspirate. Note patient is on chronic prednisone at home (5) Acute urinary retention Is this a current diagnosis for this admission?: Yes Plan: 2/2 Known BPH. Continue tamsulosin Informed by junior software engineer that patient required Fairchild to be replaced given elevated post void residuals after Fairchild removal 2 days ago. We will maintain Fairchlid at this point and have patient follow-up with his urologist (6) Lung cancer Qualifiers: Laterality: left Lung location: overlapping sites Qualified Code(s): C34.82 - Malignant neoplasm of overlapping sites of left bronchus and lung Is this a current diagnosis for this admission?: Yes Plan: Left lung SCLC undergoing chemotherapy at the moment. S/P 1st cycle recently. Gets chemo [id number]. 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 (7) Chronic respiratory failure with hypoxia Is this a current diagnosis for this admission?: Yes Plan: Secondary to radiation pneumonitis and underlying COPD Continue O2 supplementation - Time Time Spent with patient: 15-24 minutes
[2019-06-30] MEDS: NORMAL SALINE 1000 ML 1,000 ML IV PRN (15:22)
--- NOTE | 2019-06-30 16:15 | RADIOLOGY REPORT (SQ) ---
EXAM DESCRIPTION: KUB/ABDOMEN (SINGLE VIEW) COMPLETED DATE/TIME: 06/30/2019 3:56 pm REASON FOR STUDY: Check Placement of NG Tube COMPARISON: 06/30/2019. NUMBER OF VIEWS: One view. TECHNIQUE: Supine radiographic image of the abdomen acquired. LIMITATIONS: None. FINDINGS: BOWEL GAS PATTERN: Dilated small bowel loops. CALCIFICATIONS: No suspicious calcifications. SOFT TISSUES: No gross mass or suggestion of organomegaly. HARDWARE: Nasogastric tube. Tip in the stomach. Surgical clips. BONES: No acute fracture. No worrisome bone lesions. OTHER: No other significant finding. IMPRESSION: INTERVAL PLACEMENT OF NASOGASTRIC TUBE IN SATISFACTORY POSITION. OTHERWISE NO CHANGE. TECHNICAL DOCUMENTATION: JOB ID: [id number] [email or web address]- All Rights Reserved Reading location - IP/workstation name: [email or web address]
[2019-06-30] MEDS: FLUCONAZOLE 200 MG/NS RTU 200 MG/100 ML RTUPB IV SCH (17:45)
[2019-06-30] MEDS: TAMSULOSIN HCL 0.4 MG CAP.SR.24H PO SCH (17:46)
[2019-06-30] MEDS: ROPINIROLE HCL 1 MG TABLET PO SCH (22:09)
[2019-07-01] MEDS: NORMAL SALINE 1000 ML 1,000 ML IV PRN ×3 (00:03→18:42)
[2019-07-01] MEDS: LEVALBUTEROL HCL NEB 1.25 MG/3 ML AMPUL NEB SCH ×4 (02:24→20:29)
--- NOTE | 2019-07-01 08:08 | PDOC PROGRESS REPORT ---
Subjective Progress Note for:: 07/01/19 Subjective:: Feels a lot better today. Having bowel movement with flatus. Minimal abdominal pains. Reason For Visit: POSSIBLE SEPSIS, LACTIC ACIDOSIS, ABDOMINAL PAIN Physical Exam Vital Signs: Temp Pulse Resp BP Pulse Ox 97.9 F 102 H 20 139/78 H 97 06/30/19 20:34 07/01/19 02:25 07/01/19 02:25 06/30/19 20:34 07/01/19 02:25 Intake & Output 06/30/19 07/01/19 07/02/19 06:59 06:59 06:59 Intake Total 1330 1100 Output Total 1175 2575 Balance 155 -1475 Weight 113.2 kg 112.4 kg Exam: NG drainage was minimal since last night. The abdomen is soft with minimal tenderness and with minimal distention which is much less than yesterday. Results Laboratory Results: 06/30/19 05:59 06/30/19 05:59 06/30/19 13:20 VBG pH 7.39 VBG pCO2 50.8 VBG HCO3 29.9 VBG Base Excess 3.8 06/26/19 06/26/19 08:00 08:00 Creatine Kinase 32 L Troponin I < 0.012 NT-Pro-B Natriuret Pep 477 H Impressions: Abdomen/Pelvis CT 06/26/19 08:08 IMPRESSION: 1. Diffusely fluid filled colon with scattered gas fluid levels which can be seen with diarrheal illness or cathartic use. No evidence of high- grade obstruction. 2. Moderately distended urinary bladder. No hydronephrosis. 3. Hepatic steatosis. Stable additional chronic findings as above. Chest CT 06/26/19 08:31 IMPRESSION: 1. Decreased size of the previously described left upper lobe nodule measuring 17 x 16 mm, previously 22 x 20 mm. 2. Decreased size of the abnormal pretracheal soft tissue measuring 32 x 31 mm, previously 39 x 33 mm. 3. Grossly similar posttreatment change within the right hemithorax with i rregular pleuroparenchymal consolidation. Finding may represent post treatment change although residual underlying malignancy is not excluded. Chest X-Ray 06/30/19 00:00 IMPRESSION: Nasogastric tube tip in the esophagus, needs to be advanced No acute pulmonary infiltrates KUB X-Ray 06/30/19 14:31 IMPRESSION: INTERVAL PLACEMENT OF NASOGASTRIC TUBE IN SATISFACTORY POSITION. OTHERWISE NO CHANGE. Assessment & Plan - Diagnosis (1) Chronic respiratory failure with hypoxia Is this a current diagnosis for this admission?: Yes (2) Ileus Is this a current diagnosis for this admission?: Yes (3) Lung cancer Qualifiers: Laterality: left Lung location: overlapping sites Qualified Code(s): C34.82 - Malignant neoplasm of overlapping sites of left bronchus and lung Is this a current diagnosis for this admission?: Yes - Time Time Spent with patient: 15-24 minutes - Inpatient Certification Medical Necessity: Need For IV Fluids - Plan Summary Plan Summary: Ileus appears to have been resolved. Plans: DC NG tube and start clear liquid diet.
--- NOTE | 2019-07-01 09:25 | PDOC PROGRESS REPORT ---
Subjective Progress Note for:: 07/01/19 Subjective:: No acute events overnight, patient has been passing gas and liquid stool. NG tube has not put much of output over last 12 hours. Per surgery is can to be removed. Asked nursing to remove Fairchild catheter and do bladder scan after that to make sure that he is able to pee. Reason For Visit: POSSIBLE SEPSIS, LACTIC ACIDOSIS, ABDOMINAL PAIN Physical Exam Vital Signs: Temp Pulse Resp BP Pulse Ox 97.8 F 105 H 18 156/93 H 96 07/01/19 07:50 07/01/19 08:15 07/01/19 08:15 07/01/19 07:50 07/01/19 08:15 Intake & Output 06/30/19 07/01/19 07/02/19 06:59 06:59 06:59 Intake Total 1330 1100 Output Total 1175 2575 Balance 155 -1475 Weight 113.2 kg 112.4 kg General appearance: PRESENT: no acute distress, well-developed, well-nourished Head exam: PRESENT: atraumatic, normocephalic Eye exam: PRESENT: conjunctiva pink, EOMI, PERRLA. ABSENT: scleral icterus Ear exam: PRESENT: normal external ear exam Mouth exam: PRESENT: moist, tongue midline Neck exam: ABSENT: carotid bruit, JVD, lymphadenopathy, thyromegaly Respiratory exam: PRESENT: clear to auscultation khushboo. ABSENT: rales, rhonchi, wheezes Cardiovascular exam: PRESENT: RRR. ABSENT: diastolic murmur, rubs, systolic murmur Pulses: PRESENT: normal dorsalis pedis pul Vascular exam: PRESENT: normal capillary refill GI/Abdominal exam: PRESENT: normal bowel sounds, soft. ABSENT: distended, guarding, mass, organolmegaly, rebound, tenderness Rectal exam: PRESENT: deferred Extremities exam: PRESENT: full ROM. ABSENT: calf tenderness, clubbing, pedal e ibrahima Neurological exam: PRESENT: alert, awake, oriented to person, oriented to place, oriented to time, oriented to situation, CN II-XII grossly intact. ABSENT: motor sensory deficit Psychiatric exam: PRESENT: appropriate affect, normal mood. ABSENT: homicidal ideation, suicidal ideation Skin exam: PRESENT: dry, intact, warm. ABSENT: cyanosis, rash Results Laboratory Results: 06/30/19 05:59 06/30/19 05:59 06/30/19 13:20 VBG pH 7.39 VBG pCO2 50.8 VBG HCO3 29.9 VBG Base Excess 3.8 06/26/19 08:00 Blood Blood Culture - Final NO GROWTH IN 5 DAYS 06/26/19 06/26/19 08:00 08:00 Creatine Kinase 32 L Troponin I < 0.012 NT-Pro-B Natriuret Pep 477 H Impressions: Abdomen/Pelvis CT 06/26/19 08:08 IMPRESSION: 1. Diffusely fluid filled colon with scattered gas fluid levels which can be seen with diarrheal illness or cathartic use. No evidence of high-grade obstruction. 2. Moderately distended urinary bladder. No hydronephrosis. 3. Hepatic steatosis. Stable additional chronic findings as above. Chest CT 06/26/19 08:31 IMPRESSION: 1. Decreased size of the previously described left upper lobe nodule measuring 17 x 16 mm, previously 22 x 20 mm. 2. Decreased size of the abnormal pretracheal soft tissue measuring 32 x 31 mm, previously 39 x 33 mm. 3. Grossly similar posttreatment change within the right hemithorax with irregular pleuroparenchymal consolidation. Finding may represent post treatment change although residual underlying malignancy is not excluded. Chest X-Ray 06/30/19 00:00 IMPRESSION: Nasogastric tube tip in the esophagus, needs to be advanced No acute pulmonary infiltrates KUB X-Ray 06/30/19 14:31 IMPRESSION: INTERVAL PLACEMENT OF NASOGASTRIC TUBE IN SATISFACTORY POSITION. OTHERWISE NO CHANGE. Assessment & Plan - Diagnosis (1) Lung cancer Qualifiers: Laterality: left Lung location: overlapping sites Qualified Code(s): C34.82 - Malignant neoplasm of overlapping sites of left bronchus and lung Is this a current diagnosis for this admission?: Yes Plan: Improved with chemotherapy would like to continue further therapy as an outpatient (2) Chronic respiratory failure with hypoxia Is this a current diagnosis for this admission?: Yes Plan: Improved and stabilized (3) Neutropenia associated with mucositis due to antineoplastic therapy Is this a current diagnosis for this admission?: Yes Plan: Improved and stabilized (4) Mucositis (ulcerative) due to antineoplastic therapy Is this a current diagnosis for this admission?: Yes Plan: Improved (5) Ileus Is this a current diagnosis for this admission?: Yes Plan: Seems now finally to be resolved, NG tube to be removed, hopefully will be able to tolerate clears. - Time Time Spent with patient: 35 or more minutes
[2019-07-01] MEDS: PANTOPRAZOLE SODIUM 40 MG VIAL IV SCH ×2 (09:49→17:39)
[2019-07-01] MEDS: CITALOPRAM HYDROBROMIDE 20 MG TABLET PO SCH (09:49)
[2019-07-01] MEDS: FLUTICASONE/UMECLIDIN/VILANTER 100-62.5-25 MCG/DOSE IH SCH (09:50)
[2019-07-01] MEDS: DILTIAZEM HCL 120 MG CAP.SR.24H PO SCH (09:50)
[2019-07-01] MEDS: NYSTATIN/DEXAMETH/DIPHEN SUSP 120 ML PO SCH ×4 (09:51→21:12)
[2019-07-01] MEDS: LIDOCAINE 2% VISCOUS SOLN 15 ML UDCUP PO SCH ×4 (09:51→21:10)
[2019-07-01] MEDS: METOPROLOL TARTRATE PF/INJ 5 MG/5 ML SDV IV SCH ×2 (10:02→21:12)
[2019-07-01] MEDS: CLONAZEPAM 1 MG TABLET PO PRN ×2 (11:50→21:26)
[2019-07-01 14:03] LABS: HEMATOCRIT 36.4 % (37.9-51.0); HEMOGLOBIN 11.9 g/dL (13.5-17.0); MEAN CORPUSCULAR HEMOGLOBIN 29.2 pg (27.0-33.4); MEAN CORPUSCULAR HGB CONC 32.7 g/dL (32.0-36.0); MEAN CORPUSCULAR VOLUME 89 fl (80-97); PLATELET COUNT 162 10^3/uL (150-450); RED BLOOD COUNT 4.07 10^6/uL (4.35-5.55); WHITE BLOOD COUNT 15.1 10^3/uL (4.0-10.5)
[2019-07-01 14:27] LABS: ALBUMIN 2.7 g/dL (3.5-5.0); ALKALINE PHOSPHATASE 78 U/L (38-126); ANION GAP 7 (5-19); ASPARTATE AMINO TRANSFERASE 38 U/L (17-59); BILIRUBIN,DIRECT 0.3 mg/dL (0.0-0.4); BILIRUBIN,TOTAL 0.4 mg/dL (0.2-1.3); BLOOD UREA NITROGEN 19 mg/dL (7-20); CALCIUM 8.3 mg/dL (8.4-10.2); CARBON DIOXIDE 32 mmol/L (22-30); CHLORIDE 102 mmol/L (98-107); GLUCOSE 142 mg/dL (75-110); POTASSIUM 3.4 mmol/L (3.6-5.0); TOTAL PROTEIN 5.5 g/dL (6.3-8.2)
[2019-07-01 14:31] LABS: ABSOLUTE LYMPHOCYTES# (MANUAL) 1.2 10^3/uL (0.5-4.7); ABSOLUTE MONOCYTES # (MANUAL) 0.6 10^3/uL (0.1-1.4); BAND NEUTROPHILS % (MANUAL) 7 % (3-5); BASOPHILS % (MANUAL) 0 % (0-2); EOSINOPHILS % (MANUAL) 0 % (0-6); LYMPHOCYTES % (MANUAL) 8 % (13-45); METAMYELOCYTES % (MANUAL) 3 % (0-1); MONOCYTES % (MANUAL) 4 % (3-13); MYELOCYTES % (MANUAL) 1 % (0); NUCLEATED RED BLOOD CELLS 3 /100 WBC (0); PROMYELOCYTES % (MANUAL) 2 % (0); SEGMENTED NEUTROPHILS % (MAN) 75 % (42-78); TOTAL CELLS COUNTED 100
[2019-07-01 14:35] LABS: ANISOCYTOSIS 1+; PLATELET COMMENT ADEQUATE; TOXIC GRANULATION 2+
[2019-07-01] MEDS: HEPARIN SOD (PORCINE) 5,000 UNIT/ML 1 ML VIAL SUBCUT SCH ×2 (14:41→21:12)
--- NOTE | 2019-07-01 15:20 | PDOC PROGRESS REPORT ---
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 Patient presents with complaints of abdominal pain diffusely and abdominal distention which have been worsening for the past week. Abdominal pain was described as pressure-like and aching. Patient's had not had a bowel movement in several days despite being on stool softeners. He took a dose of Dulcolax and had an enema yesterday. In the ER patient had a large voluminous bowel movement. He also became hypotensive later still receiving fluids. Refer to hospitalist service for admission. Patient also endorses some shortness of breath. States that he breathes better when laying on his side but if he lays flat he usually gets short of breath. Patient noted be belly breathing and his says that is been persistent for many weeks now but feels it has gotten a little bit worse lately. Patient also been having sore throats limiting his food intake and was started on antifungal medication recently. For patient's lung cancer patient received chemotherapy his second cycle a few days ago. 07/01/2019. No acute events overnight. Patient sleeping easily arousable, alert and oriented, denies any abdominal pain, passing flatus, has had a bowel movement, NG tube and Fairchild catheter has been removed. Reason For Visit: POSSIBLE SEPSIS, LACTIC ACIDOSIS, ABDOMINAL PAIN Physical Exam Vital Signs: Temp Pulse Resp BP Pulse Ox 98.0 F 105 H 16 155/99 H 98 07/01/19 10:56 07/01/19 14:05 07/01/19 14:05 07/01/19 10:56 07/01/19 14:05 Intake & Output 06/30/19 07/01/19 07/02/19 06:59 06:59 06:59 Intake Total 1330 1100 1727 Output Total 1175 3875 225 Balance 155 -1475 1502 Weight 113.2 kg 112.4 kg General appearance: PRESENT: morbidly obese Head exam: PRESENT: atraumatic, normocephalic Respiratory exam: PRESENT: clear to auscultation khushboo. ABSENT: rales, rhonchi, wheezes Cardiovascular exam: PRESENT: RRR. ABSENT: diastolic murmur, rubs, systolic murmur GI/Abdominal exam: PRESENT: distended, hypoactive bowel sounds, soft. ABSENT: guarding, mass, organolmegaly, rebound, tenderness Neurological exam: PRESENT: alert, awake, oriented to person, oriented to place, oriented to time, CN II-XII grossly intact. ABSENT: motor sensory deficit Results Laboratory Results: 07/01/19 13:30 07/01/19 13:30 07/01/19 07/01/19 07/01/19 13:30 13:30 13:30 WBC 15.1 H RBC 4.07 L Hgb 11.9 L Hct 36.4 L MCV 89 MCH 29.2 MCHC 32.7 RDW 16.0 H Plt Count 162 Seg Neutrophils % Not Reportable Sodium 140.5 Potassium 3.4 L Chloride 102 Carbon Dioxide 32 H Anion Gap 7 BUN 19 Creatinine 1.03 Est GFR ( Amer) > 60 Glucose 142 H Lactic Acid Calcium 8.3 L Total Bilirubin 0.4 AST 38 Alkaline Phosphatase 78 Ammonia < 8.7 L Total Protein 5.5 L Albumin 2.7 L 07/01/19 13:30 WBC RBC Hgb Hct MCV MCH MCHC RDW Plt Count Seg Neutrophils % Sodium Potassium Chloride Carbon Dioxide Anion Gap BUN Creatinine Est GFR ( Amer) Glucose Lactic Acid 1.1 Calcium Total Bilirubin AST Alkaline Phosphatase Ammonia Total Protein Albumin 06/26/19 09:17 Blood Blood Culture - Final NO GROWTH IN 5 DAYS 06/26/19 08:00 Blood Blood Culture - Final NO GROWTH IN 5 DAYS 06/26/19 06/26/19 08:00 08:00 Creatine Kinase 32 L Troponin I < 0.012 NT-Pro-B Natriuret Pep 477 H Impressions: Abdomen/Pelvis CT 06/26/19 08:08 IMPRESSION: 1. Diffusely fluid filled colon with scattered gas fluid levels which can be seen with diarrheal illness or cathartic use. No evidence of high- grade obstruction. 2. Moderately distended urinary bladder. No hydronephrosis. 3. Hepatic steatosis. Stable additional chronic findings as above. Chest CT 06/26/19 08:31 IMPRESSION: 1. Decreased size of the previously described left upper lobe nodule measuring 17 x 16 mm, previously 22 x 20 mm. 2. Decreased size of the abnormal pretracheal soft tissue measuring 32 x 31 mm, previously 39 x 33 mm. 3. Grossly similar posttreatment change within the right hemithorax with irregular pleuroparenchymal consolidation. Finding may represent post treatment change although residual underlying malignancy is not excluded. Chest X-Ray 06/30/19 00:00 IMPRESSION: Nasogastric tube tip in the esophagus, needs to be advanced No acute pulmonary infiltrates KUB X-Ray 06/30/19 14:31 IMPRESSION: INTERVAL PLACEMENT OF NASOGASTRIC TUBE IN SATISFACTORY POSITION. OTHERWISE NO CHANGE. Assessment and Plan - Diagnosis (1) Ileus Is this a current diagnosis for this admission?: Yes Plan: Improving. NG tube has been removed. Patient having bowel movements and passing flatus however hypoactive bowel sounds on physical examination. CT abdomen on admission positive for diffusely fluid filled colon and scattered gas fluid levels. No high-grade obstruction. Continue clear liquid diet advance as tolerated. Monitor vitals. Surgery on board. Recommendations noted. (2) Abdominal pain, acute Is this a current diagnosis for this admission?: Yes Plan: Secondary to #1. Improving. Passing flatus and having bowel movements. Plan as per #1. (3) Acute urinary retention Is this a current diagnosis for this admission?: Yes Plan: 2/[address] abdomen admission showed Moderately distended urinary bladder. No hydronephrosis. Fairchild cath was placed on admission. Making adequate amount of urine. Negative fluid balance. Continue Flomax. DC Fairchild cath. Monitor strict in and out. Outpatient PCP and urology follow-up. No urology consult available at [facility] at this time. (4) Chronic respiratory failure with hypoxia Is this a current diagnosis for this admission?: Yes Plan: Secondary to radiation pneumonitis and underlying COPD Continue O2 supplementation (5) COPD (chronic obstructive pulmonary disease) Qualifiers: COPD type: COPD with acute exacerbation Qualified Code(s): J44.1 - Chronic obstructive pulmonary disease with (acute) exacerbation Is this a current diagnosis for this admission?: Yes Plan: Nebs blood gas is normal mild wheezing--nebs, prednisone held briefly given questionable occult positive gastric aspirate. Note patient is on chronic prednisone at home (6) Lung cancer Qualifiers: Laterality: left Lung location: overlapping sites Qualified Code(s): C34.82 - Malignant neoplasm of overlapping sites of left bronchus and lung Is this a current diagnosis for this admission?: Yes Plan: Left lung SCLC undergoing chemotherapy at the moment. S/P 1st cycle recently. Gets chemo [id number]. 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
[2019-07-01] MEDS: FLUCONAZOLE 200 MG/NS RTU 200 MG/100 ML RTUPB IV SCH (17:39)
[2019-07-01] MEDS: TAMSULOSIN HCL 0.4 MG CAP.SR.24H PO SCH (17:39)
[2019-07-01] MEDS: GUAIFENESIN SYRP 200 MG/10 ML UDC PO PRN (18:42)
[2019-07-01] MEDS: ROPINIROLE HCL 1 MG TABLET PO SCH (21:12)
[2019-07-01] MEDS: TRAZODONE HCL 50 MG TABLET PO PRN (21:26)
[2019-07-02] MEDS: NORMAL SALINE 1000 ML 1,000 ML IV PRN ×3 (01:59→21:31)
[2019-07-02] MEDS: LEVALBUTEROL HCL NEB 1.25 MG/3 ML AMPUL NEB SCH ×4 (02:10→21:07)
[2019-07-02] MEDS: HEPARIN SOD (PORCINE) 5,000 UNIT/ML 1 ML VIAL SUBCUT SCH ×3 (05:23→21:20)
[2019-07-02 06:04] LABS: HEMATOCRIT 34.5 % (37.9-51.0); HEMOGLOBIN 11.3 g/dL (13.5-17.0); MEAN CORPUSCULAR HEMOGLOBIN 29.1 pg (27.0-33.4); MEAN CORPUSCULAR HGB CONC 32.6 g/dL (32.0-36.0); MEAN CORPUSCULAR VOLUME 89 fl (80-97); PLATELET COUNT 157 10^3/uL (150-450); RED BLOOD COUNT 3.87 10^6/uL (4.35-5.55); RED CELL DISTRIBUTION WIDTH 16.2 % (11.5-14.0); WHITE BLOOD COUNT 13.5 10^3/uL (4.0-10.5)
[2019-07-02 06:24] LABS: ANION GAP 6 (5-19); BLOOD UREA NITROGEN 14 mg/dL (7-20); CARBON DIOXIDE 32 mmol/L (22-30); CHLORIDE 103 mmol/L (98-107); GLUCOSE 97 mg/dL (75-110); POTASSIUM 3.4 mmol/L (3.6-5.0)
[2019-07-02 06:38] LABS: ABSOLUTE LYMPHOCYTES# (MANUAL) 0.4 10^3/uL (0.5-4.7); ABSOLUTE MONOCYTES # (MANUAL) 0.9 10^3/uL (0.1-1.4); BAND NEUTROPHILS % (MANUAL) 2 % (3-5); BASOPHILS % (MANUAL) 0 % (0-2); EOSINOPHILS % (MANUAL) 0 % (0-6); LYMPHOCYTES % (MANUAL) 3 % (13-45); METAMYELOCYTES % (MANUAL) 2 % (0-1); MONOCYTES % (MANUAL) 7 % (3-13); MYELOCYTES % (MANUAL) 3 % (0); PROMYELOCYTES % (MANUAL) 6 % (0); SEGMENTED NEUTROPHILS % (MAN) 77 % (42-78); TOTAL CELLS COUNTED 100
[2019-07-02 06:41] LABS: ANISOCYTOSIS 1+; OVALOCYTES SLIGHT; PLATELET COMMENT ADEQUATE; POLYCHROMASIA SLIGHT; TEAR DROP CELLS SLIGHT; TOXIC GRANULATION 1+
[2019-07-02] MEDS ORDERED: POTASSIUM CHLORIDE 10 MEQ TABLET.ER PO ONE (08:00)
[2019-07-02] MEDS: GUAIFENESIN SYRP 200 MG/10 ML UDC PO PRN ×2 (08:56→21:32)
[2019-07-02] MEDS: DILTIAZEM HCL 120 MG CAP.SR.24H PO SCH (09:27)
[2019-07-02] MEDS: CITALOPRAM HYDROBROMIDE 20 MG TABLET PO SCH (09:27)
[2019-07-02] MEDS: PREDNISONE 10 MG TABLET PO SCH ×2 (09:27→18:15)
[2019-07-02] MEDS: PANTOPRAZOLE SODIUM 40 MG VIAL IV SCH (09:28)
[2019-07-02] MEDS: FLUTICASONE/UMECLIDIN/VILANTER 100-62.5-25 MCG/DOSE IH SCH (09:28)
[2019-07-02] MEDS: LIDOCAINE 2% VISCOUS SOLN 15 ML UDCUP PO SCH ×4 (09:28→21:19)
[2019-07-02] MEDS: NYSTATIN/DEXAMETH/DIPHEN SUSP 120 ML PO SCH ×4 (09:28→21:21)
[2019-07-02] MEDS: METOPROLOL TARTRATE PF/INJ 5 MG/5 ML SDV IV SCH ×2 (09:28→21:19)
--- NOTE | 2019-07-02 09:59 | PDOC PROGRESS REPORT ---
Subjective Progress Note for:: 07/02/19 Subjective:: Patient states that he is feeling much better. His Fairchild has been removed and he is able to void on his own. His bowel movements are now normal. He is eating and is trying to walk in [place]. ROS: No dyspnea, No abdominal pain. Reason For Visit: POSSIBLE SEPSIS, LACTIC ACIDOSIS, ABDOMINAL PAIN Physical Exam Vital Signs: Temp Pulse Resp BP Pulse Ox 97.5 F 73 18 145/87 H 97 07/02/19 07:05 07/02/19 07:53 07/02/19 07:53 07/02/19 07:05 07/02/19 07:53 Intake & Output 07/01/19 07/02/19 07/03/19 06:59 06:59 06:59 Intake Total 1100 4426 Output Total 2575 975 Balance -1475 3451 Weight 112.4 kg 113.9 kg General appearance: PRESENT: no acute distress, obese Head exam: PRESENT: normocephalic Respiratory exam: PRESENT: clear to auscultation khushboo, unlabored Cardiovascular exam: PRESENT: RRR GI/Abdominal exam: PRESENT: distended, soft. ABSENT: tenderness Neurological exam: PRESENT: alert, awake Psychiatric exam: PRESENT: appropriate affect Skin exam: PRESENT: normal color Results Laboratory Results: 07/02/19 05:30 07/02/19 05:30 07/01/19 07/01/19 07/01/19 13:30 13:30 13:30 WBC 15.1 H RBC 4.07 L Hgb 11.9 L Hct 36.4 L MCV 89 MCH 29.2 MCHC 32.7 RDW 16.0 H Plt Count 162 Seg Neutrophils % Not Reportable Sodium 140.5 Potassium 3.4 L Chloride 102 Carbon Dioxide 32 H Anion Gap 7 BUN 19 Creatinine 1.03 Est GFR ( Amer) > 60 Glucose 142 H Lactic Acid Calcium 8.3 L Total Bilirubin 0.4 AST 38 Alkaline Phosphatase 78 Ammonia < 8.7 L Total Protein 5.5 L Albumin 2.7 L 07/01/19 07/02/19 07/02/19 13:30 05:30 05:30 WBC 13.5 H RBC 3.87 L Hgb 11.3 L Hct 34.5 L MCV 89 MCH 29.1 MCHC 32.6 RDW 16.2 H Plt Count 157 Seg Neutrophils % Not Reportable Sodium 140.7 Potassium 3.4 L Chloride 103 Carbon Dioxide 32 H Anion Gap 6 BUN 14 Creatinine 1.01 Est GFR ( Amer) > 60 Glucose 97 Lactic Acid 1.1 Calcium 8.0 L Total Bilirubin AST Alkaline Phosphatase Ammonia Total Protein Albumin 06/26/19 09:17 Blood Blood Culture - Final NO GROWTH IN 5 DAYS 06/26/19 08:00 Blood Blood Culture - Final NO GROWTH IN 5 DAYS 06/26/19 06/26/19 08:00 08:00 Creatine Kinase 32 L Troponin I < 0.012 NT-Pro-B Natriuret Pep 477 H Impressions: Abdomen/Pelvis CT 06/26/19 08:08 IMPRESSION: 1. Diffusely fluid filled colon with scattered gas fluid levels which can be seen with diarrheal illness or cathartic use. No evidence of high- grade obstruction. 2. Moderately distended urinary bladder. No hydronephrosis. 3. Hepatic steatosis. Stable additional chronic findings as above. Chest CT 06/26/19 08:31 IMPRESSION: 1. Decreased size of the previously described left upper lobe nodule measuring 17 x 16 mm, previously 22 x 20 mm. 2. Decreased size of the abnormal pretracheal soft tissue measuring 32 x 31 mm, previously 39 x 33 mm. 3. Grossly similar posttreatment change within the right hemithorax with irregular pleuroparenchymal consolidation. Finding may represent post treatment change although residual underlying malignancy is not excluded. Chest X-Ray 06/30/19 00:00 IMPRESSION: Nasogastric tube tip in the esophagus, needs to be advanced No acute pulmonary infiltrates KUB X-Ray 06/30/19 14:31 IMPRESSION: INTERVAL PLACEMENT OF NASOGASTRIC TUBE IN SATISFACTORY POSITION. OTHERWISE NO CHANGE. Assessment & Plan - Diagnosis (1) Ileus Is this a current diagnosis for this admission?: Yes Plan: Now resolved. (2) Lung cancer Qualifiers: Laterality: left Lung location: overlapping sites Qualified Code(s): C34.82 - Malignant neoplasm of overlapping sites of left bronchus and lung Is this a current diagnosis for this admission?: Yes Plan: Further treatment to be discussed after discharge. - Time Time Spent with patient: 15-24 minutes - Plan Summary Plan Summary: OK for discharge from our standpoint. Please call if needed further.
[2019-07-02] MEDS: CLONAZEPAM 1 MG TABLET PO PRN ×2 (10:24→21:32)
--- NOTE | 2019-07-02 10:36 | PDOC PROGRESS REPORT ---
Subjective Progress Note for:: 07/02/19 Subjective:: No pains. Feels comfortable and having bowel movement. Reason For Visit: POSSIBLE SEPSIS, LACTIC ACIDOSIS, ABDOMINAL PAIN Physical Exam Vital Signs: Temp Pulse Resp BP Pulse Ox 97.5 F 73 18 145/87 H 97 07/02/19 07:05 07/02/19 07:53 07/02/19 07:53 07/02/19 07:05 07/02/19 07:53 Intake & Output 07/01/19 07/02/19 07/03/19 06:59 06:59 06:59 Intake Total 1100 4426 Output Total 2575 975 Balance -1475 3451 Weight 112.4 kg 113.9 kg Exam: Abdomen remains soft and not distended. Nontender Results Laboratory Results: 07/02/19 05:30 07/02/19 05:30 07/01/19 07/01/19 07/01/19 13:30 13:30 13:30 WBC 15.1 H RBC 4.07 L Hgb 11.9 L Hct 36.4 L MCV 89 MCH 29.2 MCHC 32.7 RDW 16.0 H Plt Count 162 Seg Neutrophils % Not Reportable Sodium 140.5 Potassium 3.4 L Chloride 102 Carbon Dioxide 32 H Anion Gap 7 BUN 19 Creatinine 1.03 Est GFR ( Amer) > 60 Glucose 142 H Lactic Acid Calcium 8.3 L Total Bilirubin 0.4 AST 38 Alkaline Phosphatase 78 Ammonia < 8.7 L Total Protein 5.5 L Albumin 2.7 L 07/01/19 07/02/19 07/02/19 13:30 05:30 05:30 WBC 13.5 H RBC 3.87 L Hgb 11.3 L Hct 34.5 L MCV 89 MCH 29.1 MCHC 32.6 RDW 16.2 H Plt Count 157 Seg Neutrophils % Not Reportable Sodium 140.7 Potassium 3.4 L Chloride 103 Carbon Dioxide 32 H Anion Gap 6 BUN 14 Creatinine 1.01 Est GFR ( Amer) > 60 Glucose 97 Lactic Acid 1.1 Calcium 8.0 L Total Bilirubin AST Alkaline Phosphatase Ammonia Total Protein Albumin 06/26/19 09:17 Blood Blood Culture - Final NO GROWTH IN 5 DAYS 06/26/19 08:00 Blood Blood Culture - Final NO GROWTH IN 5 DAYS 06/26/19 06/26/19 08:00 08:00 Creatine Kinase 32 L Troponin I < 0.012 NT-Pro-B Natriuret Pep 477 H Impressions: Abdomen/Pelvis CT 06/26/19 08:08 IMPRESSION: 1. Diffusely fluid filled colon with scattered gas fluid levels which can be seen with diarrheal illness or cathartic use. No evidence of high- grade obstruction. 2. Moderately distended urinary bladder. No hydronephrosis. 3. Hepatic steatosis. Stable additional chronic findings as above. Chest CT 06/26/19 08:31 IMPRESSION: 1. Decreased size of the previously described left upper lobe nodule measuring 17 x 16 mm, previously 22 x 20 mm. 2. Decreased size of the abnormal pretracheal soft tissue measuring 32 x 31 mm, previously 39 x 33 mm. 3. Grossly similar posttreatment change within the right hemithorax with irregular pleuroparenchymal consolidation. Finding may represent post treatment change although residual underlying malignancy is not excluded. Chest X-Ray 06/30/19 00:00 IMPRESSION: Nasogastric tube tip in the esophagus, needs to be advanced No acute pulmonary infiltrates KUB X-Ray 06/30/19 14:31 IMPRESSION: INTERVAL PLACEMENT OF NASOGASTRIC TUBE IN SATISFACTORY POSITION. OTHERWISE NO CHANGE. Assessment & Plan - Diagnosis (1) Chronic respiratory failure with hypoxia Is this a current diagnosis for this admission?: Yes (2) Ileus Is this a current diagnosis for this admission?: Yes (3) Lung cancer Qualifiers: Laterality: left Lung location: overlapping sites Qualified Code(s): C34.82 - Malignant neoplasm of overlapping sites of left bronchus and lung Is this a current diagnosis for this admission?: Yes - Time Time Spent with patient: 15-24 minutes - Plan Summary Plan Summary: Ileus is been resolved. Continue to gradually increase his diet. We will sign off and call us for any questions and thank you
--- NOTE | 2019-07-02 12:16 | PDOC PROGRESS REPORT ---
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 Patient presents with complaints of abdominal pain diffusely and abdominal distention which have been worsening for the past week. Abdominal pain was described as pressure-like and aching. Patient's had not had a bowel movement in several days despite being on stool softeners. He took a dose of Dulcolax and had an enema yesterday. In the ER patient had a large voluminous bowel movement. He also became hypotensive later still receiving fluids. Refer to hospitalist service for admission. Patient also endorses some shortness of breath. States that he breathes better when laying on his side but if he lays flat he usually gets short of breath. Patient noted be belly breathing and his says that is been persistent for many weeks now but feels it has gotten a little bit worse lately. Patient also been having sore throats limiting his food intake and was started on antifungal medication recently. For patient's lung cancer patient received chemotherapy his second cycle a few days ago. 07/01/2019. No acute events overnight. Patient sleeping easily arousable, alert and oriented, denies any abdominal pain, passing flatus, has had a bowel movement, NG tube and Fairchild catheter has been removed. 07/02/2018. No acute events overnight. Patient complaining of loose bowel movements, denies any abdominal pain, passing flatus, denies any fever, chills, nausea, vomiting, diarrhea, constipation or any urinary symptoms. Reason For Visit: POSSIBLE SEPSIS, LACTIC ACIDOSIS, ABDOMINAL PAIN Physical Exam Vital Signs: Temp Pulse Resp BP Pulse Ox 97.5 F 73 18 145/87 H 97 07/02/19 07:05 07/02/19 07:53 07/02/19 07:53 07/02/19 07:05 07/02/19 07:53 Intake & Output 07/01/19 07/02/19 07/03/19 06:59 06:59 06:59 Intake Total 1100 4426 1000 Output Total 2575 975 Balance -1475 6581 1000 Weight 112.4 kg 113.9 kg General appearance: PRESENT: no acute distress, well-developed, well-nourished Head exam: PRESENT: atraumatic, normocephalic Respiratory exam: PRESENT: clear to auscultation khushboo. ABSENT: rales, rhonchi, wheezes Cardiovascular exam: PRESENT: RRR. ABSENT: diastolic murmur, rubs, systolic murmur GI/Abdominal exam: PRESENT: diminished bowel sounds, soft. ABSENT: distended, guarding, mass, organolmegaly, rebound, tenderness Skin exam: PRESENT: dry, intact, warm. ABSENT: cyanosis, rash Results Laboratory Results: 07/02/19 05:30 07/02/19 05:30 07/01/19 07/01/19 07/01/19 13:30 13:30 13:30 WBC 15.1 H RBC 4.07 L Hgb 11.9 L Hct 36.4 L MCV 89 MCH 29.2 MCHC 32.7 RDW 16.0 H Plt Count 162 Seg Neutrophils % Not Reportable Sodium 140.5 Potassium 3.4 L Chloride 102 Carbon Dioxide 32 H Anion Gap 7 BUN 19 Creatinine 1.03 Est GFR ( Amer) > 60 Glucose 142 H Lactic Acid Calcium 8.3 L Total Bilirubin 0.4 AST 38 Alkaline Phosphatase 78 Ammonia < 8.7 L Total Protein 5.5 L Albumin 2.7 L 07/01/19 07/02/19 07/02/19 13:30 05:30 05:30 WBC 13.5 H RBC 3.87 L Hgb 11.3 L Hct 34.5 L MCV 89 MCH 29.1 MCHC 32.6 RDW 16.2 H Plt Count 157 Seg Neutrophils % Not Reportable Sodium 140.7 Potassium 3.4 L Chloride 103 Carbon Dioxide 32 H Anion Gap 6 BUN 14 Creatinine 1.01 Est GFR ( Amer) > 60 Glucose 97 Lactic Acid 1.1 Calcium 8.0 L Total Bilirubin AST Alkaline Phosphatase Ammonia Total Protein Albumin 06/26/19 09:17 Blood Blood Culture - Final NO GROWTH IN 5 DAYS 06/26/19 08:00 Blood Blood Culture - Final NO GROWTH IN 5 DAYS 06/26/19 06/26/19 08:00 08:00 Creatine Kinase 32 L Troponin I < 0.012 NT-Pro-B Natriuret Pep 477 H Impressions: Abdomen/Pelvis CT 06/26/19 08:08 IMPRESSION: 1. Diffusely fluid filled colon with scattered gas fluid levels which can be seen with diarrheal illness or cathartic use. No evidence of high- grade obstruction. 2. Moderately distended urinary bladder. No hydronephrosis. 3. Hepatic steatosis. Stable additional chronic findings as above. Chest CT 06/26/19 08:31 IMPRESSION: 1. Decreased size of the previously described left upper lobe nodule measuring 17 x 16 mm, previously 22 x 20 mm. 2. Decreased size of the abnormal pretracheal soft tissue measuring 32 x 31 mm, previously 39 x 33 mm. 3. Grossly similar posttreatment change within the right hemithorax with irreg ular pleuroparenchymal consolidation. Finding may represent post treatment change although residual underlying malignancy is not excluded. Chest X-Ray 06/30/19 00:00 IMPRESSION: Nasogastric tube tip in the esophagus, needs to be advanced No acute pulmonary infiltrates KUB X-Ray 06/30/19 14:31 IMPRESSION: INTERVAL PLACEMENT OF NASOGASTRIC TUBE IN SATISFACTORY POSITION. OTHERWISE NO CHANGE. Assessment and Plan - Diagnosis (1) Ileus Is this a current diagnosis for this admission?: Yes Plan: Seems to be resolving. Patient is denying any abdominal pain. Having bowel movements. CT abdomen on admission positive for diffusely fluid filled colon and scattered gas fluid levels. No high-grade obstruction. Advance diet as tolerated. Surgery was consulted. No intervention. Signed off at this point. (2) Abdominal pain, acute Is this a current diagnosis for this admission?: Yes Plan: Secondary to #1. Resolved. Passing flatus and having bowel movements. Plan as per #1. (3) Acute urinary retention Is this a current diagnosis for this admission?: Yes Plan: Resovled. 2/[address] abdomen admission showed Moderately distended urinary bladder. No hydronephrosis. Fairchild cath placed on admission been removed. Making adequate amount of urine. Negative fluid balance. Continue Flomax. Monitor strict in and out. Outpatient PCP and urology follow-up. No urology consult available at [facility] at this time. (4) Chronic respiratory failure with hypoxia Is this a current diagnosis for this admission?: Yes Plan: Secondary to radiation pneumonitis and underlying COPD Continue O2 supplementation (5) COPD (chronic obstructive pulmonary disease) Qualifiers: COPD type: COPD with acute exacerbation Qualified Code(s): J44.1 - Chronic obstructive pulmonary disease with (acute) exacerbation Is this a current diagnosis for this admission?: Yes Plan: Nebs blood gas is normal mild wheezing--nebs, prednisone held briefly given questionable occult positive gastric aspirate. Note patient is on chronic prednisone at home (6) Lung cancer Qualifiers: Laterality: left Lung location: overlapping sites Qualified Code(s): C34.82 - Malignant neoplasm of overlapping sites of left bronchus and lung Is this a current diagnosis for this admission?: Yes Plan: Left lung SCLC undergoing chemotherapy at the moment. S/P 1st cycle recently. Gets chemo [id number]. 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
[2019-07-02 15:00] LABS: C DIFFICILE GDH NEGATIVE (NEGATIVE)
[2019-07-02] MEDS: FLUCONAZOLE 200 MG/NS RTU 200 MG/100 ML RTUPB IV SCH (18:15)
[2019-07-02] MEDS: TAMSULOSIN HCL 0.4 MG CAP.SR.24H PO SCH (18:15)
[2019-07-02] MEDS: ROPINIROLE HCL 1 MG TABLET PO SCH (21:20)
[2019-07-02] MEDS: TRAZODONE HCL 50 MG TABLET PO PRN (21:32)
[2019-07-03] MEDS: NORMAL SALINE 1000 ML 1,000 ML IV PRN (02:40)
[2019-07-03] MEDS: LEVALBUTEROL HCL NEB 1.25 MG/3 ML AMPUL NEB SCH ×2 (02:43→08:15)
[2019-07-03] MEDS: HEPARIN SOD (PORCINE) 5,000 UNIT/ML 1 ML VIAL SUBCUT SCH ×3 (05:41→21:53)
--- NOTE | 2019-07-03 08:11 | PDOC PROGRESS REPORT ---
Subjective Progress Note for:: 07/03/19 Subjective:: Patient doing a little bit better, NG tube is out, Fairchild catheter is out, patient did walk a little bit with a full assist from PT. This morning feeling short of breath. I went ahead and restarted his home inhalers. He does look like he has some anasarca, so I wonder about the utility of Lasix, I have asked nursing to talk to hospitalist team about this. Reason For Visit: POSSIBLE SEPSIS, LACTIC ACIDOSIS, ABDOMINAL PAIN Physical Exam Vital Signs: Temp Pulse Resp BP Pulse Ox 97.3 F 85 22 H 113/75 98 07/03/19 03:15 07/03/19 07:00 07/03/19 03:15 07/03/19 03:15 07/03/19 03:15 Intake & Output 07/02/19 07/03/19 07/04/19 06:59 06:59 06:59 Intake Total 4426 3238 Output Total 975 2400 Balance 3451 838 Weight 113.9 kg 116 kg General appearance: PRESENT: no acute distress, well-developed, well-nourished Head exam: PRESENT: atraumatic, normocephalic Eye exam: PRESENT: conjunctiva pink, EOMI, PERRLA. ABSENT: scleral icterus Ear exam: PRESENT: normal external ear exam Mouth exam: PRESENT: moist, tongue midline Neck exam: ABSENT: carotid bruit, JVD, lymphadenopathy, thyromegaly Respiratory exam: PRESENT: clear to auscultation khushboo. ABSENT: rales, rhonchi, wheezes Cardiovascular exam: PRESENT: RRR. ABSENT: diastolic murmur, rubs, systolic murmur Pulses: PRESENT: normal dorsalis pedis pul Vascular exam: PRESENT: normal capillary refill GI/Abdominal exam: PRESENT: normal bowel sounds, soft. ABSENT: distended, guarding, mass, organolmegaly, rebound, tenderness Rectal exam: PRESENT: deferred Extremities exam: PRESENT: full ROM. ABSENT: calf tenderness, clubbing, pedal edema Neurological exam: PRESENT: alert, awake, oriented to person, oriented to place, oriented to time, oriented to situation, CN II-XII grossly intact. ABSENT: motor sensory deficit Psychiatric exam: PRESENT: appropriate affect, normal mood. ABSENT: homicidal ideation, suicidal ideation Skin exam: PRESENT: dry, intact, warm. ABSENT: cyanosis, rash Results Laboratory Results: 07/02/19 05:30 07/02/19 05:30 06/26/19 06/26/19 08:00 08:00 Creatine Kinase 32 L Troponin I < 0.012 NT-Pro-B Natriuret Pep 477 H Impressions: Abdomen/Pelvis CT 06/26/19 08:08 IMPRESSION: 1. Diffusely fluid filled colon with scattered gas fluid levels which can be seen with diarrheal illness or cathartic use. No evidence of high- grade obstruction. 2. Moderately distended urinary bladder. No hydronephrosis. 3. Hepatic steatosis. Stable additional chronic findings as above. Chest CT 06/26/19 08:31 IMPRESSION: 1. Decreased size of the previously described left upper lobe nodule measuring 17 x 16 mm, previously 22 x 20 mm. 2. Decreased size of the abnormal pretracheal soft tissue measuring 32 x 31 mm, previously 39 x 33 mm. 3. Grossly similar posttreatment change within the right hemithorax with irregular pleuroparenchymal consolidation. Finding may represent post treatment change although residual underlying malignancy is not excluded. Chest X-Ray 06/30/19 00:00 IMPRESSION: Nasogastric tube tip in the esophagus, needs to be advanced No acute pulmonary infiltrates KUB X-Ray 06/30/19 14:31 IMPRESSION: INTERVAL PLACEMENT OF NASOGASTRIC TUBE IN SATISFACTORY POSITION. OTHERWISE NO CHANGE. Assessment & Plan - Diagnosis (1) Lung cancer Qualifiers: Laterality: left Lung location: overlapping sites Qualified Code(s): C34 .82 - Malignant neoplasm of overlapping sites of left bronchus and lung Is this a current diagnosis for this admission?: Yes Plan: For continued therapy as an outpatient (2) Chronic respiratory failure with hypoxia Is this a current diagnosis for this admission?: Yes Plan: Improved, restart home inhalers, asked nursing to discuss with hospitalist team about the utility of Lasix. (3) Neutropenia associated with mucositis due to antineoplastic therapy Is this a current diagnosis for this admission?: Yes Plan: Resolved but mucositis still active (4) Mucositis (ulcerative) due to antineoplastic therapy Is this a current diagnosis for this admission?: Yes Plan: Continue with current therapy (5) Ileus Is this a current diagnosis for this admission?: Yes Plan: Finally resolved, advancing diet - Time Time Spent with patient: 35 or more minutes
[2019-07-03 09:58] LABS: HEMATOCRIT 33.4 % (37.9-51.0); HEMOGLOBIN 11.1 g/dL (13.5-17.0); MEAN CORPUSCULAR HEMOGLOBIN 29.8 pg (27.0-33.4); MEAN CORPUSCULAR HGB CONC 33.2 g/dL (32.0-36.0); MEAN CORPUSCULAR VOLUME 90 fl (80-97); PLATELET COUNT 157 10^3/uL (150-450); RED BLOOD COUNT 3.73 10^6/uL (4.35-5.55)
[2019-07-03 10:03] LABS: ANION GAP 8 (5-19); BLOOD UREA NITROGEN 10 mg/dL (7-20); CALCIUM 8.5 mg/dL (8.4-10.2); CARBON DIOXIDE 32 mmol/L (22-30); CHLORIDE 101 mmol/L (98-107); GLUCOSE 127 mg/dL (75-110); POTASSIUM 3.4 mmol/L (3.6-5.0)
[2019-07-03] MEDS: DILTIAZEM HCL 120 MG CAP.SR.24H PO SCH (10:23)
[2019-07-03] MEDS: PREDNISONE 10 MG TABLET PO SCH ×2 (10:23→17:14)
[2019-07-03] MEDS: CITALOPRAM HYDROBROMIDE 20 MG TABLET PO SCH (10:23)
[2019-07-03] MEDS: METOPROLOL TARTRATE PF/INJ 5 MG/5 ML SDV IV SCH ×3 (10:24→21:52)
[2019-07-03] MEDS: GUAIFENESIN SYRP 200 MG/10 ML UDC PO PRN (10:24)
[2019-07-03] MEDS: LIDOCAINE 2% VISCOUS SOLN 15 ML UDCUP PO SCH ×5 (10:24→21:53)
[2019-07-03] MEDS: NYSTATIN/DEXAMETH/DIPHEN SUSP 120 ML PO SCH ×4 (10:24→21:53)
[2019-07-03] MEDS ORDERED: FUROSEMIDE INJ/PF 40 MG/4 ML SDV ONE (10:33)
[2019-07-03 10:49] LABS: ABSOLUTE LYMPHOCYTES# (MANUAL) 0.8 10^3/uL (0.5-4.7); ABSOLUTE MONOCYTES # (MANUAL) 0.5 10^3/uL (0.1-1.4); BASOPHILS % (MANUAL) 0 % (0-2); EOSINOPHILS % (MANUAL) 0 % (0-6); LYMPHOCYTES % (MANUAL) 10 % (13-45); METAMYELOCYTES % (MANUAL) 1 % (0-1); MONOCYTES % (MANUAL) 6 % (3-13); MYELOCYTES % (MANUAL) 1 % (0); PROMYELOCYTES % (MANUAL) 2 % (0); SEGMENTED NEUTROPHILS % (MAN) 80 % (42-78); TOTAL CELLS COUNTED 100
[2019-07-03 10:52] LABS: ANISOCYTOSIS 1+
[2019-07-03 10:53] LABS: PLATELET COMMENT ADEQUATE; POLYCHROMASIA SLIGHT
[2019-07-03] MEDS ORDERED: FUROSEMIDE INJ/PF 40 MG/4 ML SDV IV ONE (11:00)
--- NOTE | 2019-07-03 12:10 | PDOC PROGRESS REPORT ---
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 Patient presents with complaints of abdominal pain diffusely and abdominal distention which have been worsening for the past week. Abdominal pain was described as pressure-like and aching. Patient's had not had a bowel movement in several days despite being on stool softeners. He took a dose of Dulcolax and had an enema yesterday. In the ER patient had a large voluminous bowel movement. He also became hypotensive later still receiving fluids. Refer to hospitalist service for admission. Patient also endorses some shortness of breath. States that he breathes better when laying on his side but if he lays flat he usually gets short of breath. Patient noted be belly breathing and his says that is been persistent for many weeks now but feels it has gotten a little bit worse lately. Patient also been having sore throats limiting his food intake and was started on antifungal medication recently. For patient's lung cancer patient received chemotherapy his second cycle a few days ago. 07/01/2019. No acute events overnight. Patient sleeping easily arousable, alert and oriented, denies any abdominal pain, passing flatus, has had a bowel movement, NG tube and Fairchild catheter has been removed. 07/02/2019. No acute events overnight. Patient complaining of loose bowel movements, denies any abdominal pain, passing flatus, denies any fever, chills, nausea, vomiting, diarrhea, constipation or any urinary symptoms. 07/03/2019. No acute events overnight. Abdominal pain has resolved. Patient is having bowel movements, was able to walk with assistance of PT. Complaining of mild shortness of breath.. Reason For Visit: POSSIBLE SEPSIS, LACTIC ACIDOSIS, ABDOMINAL PAIN Physical Exam Vital Signs: Temp Pulse Resp BP Pulse Ox 97.4 F 90 16 128/61 H 100 07/03/19 07:00 07/03/19 08:45 07/03/19 08:45 07/03/19 07:00 07/03/19 08:45 Intake & Output 0107/03/19 07/04/19 06:59 06:59 06:59 Intake Total 4442 3238 1000 Output Total 975 2400 Balance 3451 838 1000 Weight 113.9 kg 116 kg General appearance: PRESENT: no acute distress, obese, well-developed, well- nourished Head exam: PRESENT: atraumatic, normocephalic Respiratory exam: PRESENT: clear to auscultation khushboo. ABSENT: rales, rhonchi, wheezes Cardiovascular exam: PRESENT: RRR. ABSENT: diastolic murmur, rubs, systolic murmur GI/Abdominal exam: PRESENT: distended, normal bowel sounds Neurological exam: PRESENT: alert, awake, oriented to person, oriented to place, oriented to time, oriented to situation, CN II-XII grossly intact. ABSENT: motor sensory deficit Results Laboratory Results: 07/03/19 09:20 07/03/19 09:20 07/03/19 07/03/19 09:20 09:20 WBC 8.0 RBC 3.73 L Hgb 11.1 L Hct 33.4 L MCV 90 MCH 29.8 MCHC 33.2 RDW 16.0 H Plt Count 157 Seg Neutrophils % Not Reportable Sodium 140.7 Potassium 3.4 L Chloride 101 Carbon Dioxide 32 H Anion Gap 8 BUN 10 Creatinine 0.85 Est GFR ( Amer) > 60 Glucose 127 H Calcium 8.5 06/26/19 06/26/19 08:00 08:00 Creatine Kinase 32 L Troponin I < 0.012 NT-Pro-B Natriuret Pep 477 H Impressions: Abdomen/Pelvis CT 06/26/19 08:08 IMPRESSION: 1. Diffusely fluid filled colon with scattered gas fluid levels which can be seen with diarrheal illness or cathartic use. No evidence of high- grade obstruction. 2. Moderately distended urinary bladder. No hydronephrosis. 3. Hepatic steatosis. Stable additional chronic findings as above. Chest CT 06/26/19 08:31 IMPRESSION: 1. Decreased size of the previously described left upper lobe nodule measuring 17 x 16 mm, previously 22 x 20 mm. 2. Decreased size of the abnormal pretracheal soft tissue measuring 32 x 31 mm, previously 39 x 33 mm. 3. Grossly similar posttreatment change within the right hemithorax with irr egular pleuroparenchymal consolidation. Finding may represent post treatment change although residual underlying malignancy is not excluded. Chest X-Ray 06/30/19 00:00 IMPRESSION: Nasogastric tube tip in the esophagus, needs to be advanced No acute pulmonary infiltrates KUB X-Ray 06/30/19 14:31 IMPRESSION: INTERVAL PLACEMENT OF NASOGASTRIC TUBE IN SATISFACTORY POSITION. OTHERWISE NO CHANGE. Assessment and Plan - Diagnosis (1) Ileus Is this a current diagnosis for this admission?: Yes Plan: Resolved. Patient is denying any abdominal pain. Having bowel movements. CT abdomen on admission positive for diffusely fluid filled colon and scattered gas fluid levels. No high-grade obstruction. Advance diet as tolerated. Surgery was consulted. No intervention. Signed off at this point. (2) Abdominal pain, acute Is this a current diagnosis for this admission?: Yes Plan: Secondary to #1. Resolved. Passing flatus and having bowel movements. Plan as per #1. (3) Acute urinary retention Is this a current diagnosis for this admission?: Yes Plan: Resovled. 2/[address] abdomen admission showed Moderately distended urinary bladder. No hydronephrosis. Fairchild cath placed on admission been removed. Making adequate amount of urine. Negative fluid balance. Continue Flomax. Monitor strict in and out. Outpatient PCP and urology follow-up. No urology consult available at [facility] at this time. (4) Chronic respiratory failure with hypoxia Is this a current diagnosis for this admission?: Yes Plan: Secondary to radiation pneumonitis and underlying COPD Continue O2 supplementation, duo nebs, incentive spirometry, flutter valve. (5) COPD (chronic obstructive pulmonary disease) Qualifiers: COPD type: COPD with acute exacerbation Qualified Code(s): J44.1 - Chronic obstructive pulmonary disease with (acute) exacerbation Is this a current diagnosis for this admission?: Yes Plan: Patient developing more shortness of breath. Blood gas on admission WNL. Continue duo nebs, flutter valve, incentive spirometry. Prednisone held briefly given questionable occult positive gastric aspirate. Note patient is on chronic prednisone at home (6) Lung cancer Qualifiers: Laterality: left Lung location: overlapping sites Qualified Code(s): C34.82 - Malignant neoplasm of overlapping sites of left bronchus and lung Is this a current diagnosis for this admission?: Yes Plan: Left lung SCLC undergoing chemotherapy at the moment. S/P 1st cycle recently. Gets chemo [id number]. 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
[2019-07-03] MEDS ORDERED: ALBUTEROL SULFATE 0.083% NEB 2.5 MG/3 ML AMPUL NEB PRN (12:12)
[2019-07-03] MEDS ORDERED: ALBUTEROL SULFATE HFA (90 MCG/PUFF) 200 PUFF/8.5 GM MDI IH PRN (12:12)
[2019-07-03] MEDS ORDERED: (PENDING PHARMACY ID) (Tiotropium Bromide [Spiriva Respimat] 2 PUFF) IH SCH (12:15)
[2019-07-03] MEDS ORDERED: AZITHROMYCIN 250 MG TABLET PO ONE (16:30)
[2019-07-03] MEDS: TAMSULOSIN HCL 0.4 MG CAP.SR.24H PO SCH (17:15)
[2019-07-03] MEDS: COLCHICINE 0.6 MG TABLET PO SCH (17:15)
[2019-07-03] MEDS: TRAZODONE HCL 50 MG TABLET PO PRN (21:52)
[2019-07-03] MEDS: ROPINIROLE HCL 1 MG TABLET PO SCH (21:53)
[2019-07-04] MEDS: HEPARIN SOD (PORCINE) 5,000 UNIT/ML 1 ML VIAL SUBCUT SCH ×3 (05:50→21:40)
[2019-07-04] MEDS: PREDNISONE 10 MG TABLET PO SCH ×2 (09:45→17:37)
[2019-07-04] MEDS: CITALOPRAM HYDROBROMIDE 20 MG TABLET PO SCH (09:47)
[2019-07-04] MEDS: DILTIAZEM HCL 120 MG CAP.SR.24H PO SCH (09:47)
[2019-07-04] MEDS: COLCHICINE 0.6 MG TABLET PO SCH (09:47)
[2019-07-04] MEDS: AZITHROMYCIN 250 MG TABLET PO SCH (09:47)
[2019-07-04] MEDS: LIDOCAINE 2% VISCOUS SOLN 15 ML UDCUP PO SCH ×4 (09:50→21:41)
[2019-07-04] MEDS: NYSTATIN/DEXAMETH/DIPHEN SUSP 120 ML PO SCH ×4 (09:51→21:41)
[2019-07-04] MEDS: FLUTICASONE/VILANTEROL 200-25 MCG/DOSE IH SCH (09:53)
[2019-07-04] MEDS: UMECLIDINIUM BROMIDE 62.5 MCG/DOSE IH SCH (09:54)
[2019-07-04] MEDS: METOPROLOL TARTRATE PF/INJ 5 MG/5 ML SDV IV SCH (12:56)
[2019-07-04] MEDS ORDERED: FUROSEMIDE INJ/PF 40 MG/4 ML SDV IV ONE (13:00)
[2019-07-04] MEDS: TAMSULOSIN HCL 0.4 MG CAP.SR.24H PO SCH (17:37)
--- NOTE | 2019-07-04 17:48 | PDOC PROGRESS REPORT ---
Subjective Progress Note for:: 07/04/19 Subjective:: Patient is feeling much better. He ate all of his dinner. He is walking around the room on his own. ROS: No dyspnea, no diarrhea. Good appetite. Reason For Visit: POSSIBLE SEPSIS, LACTIC ACIDOSIS, ABDOMINAL PAIN Physical Exam Vital Signs: Temp Pulse Resp BP Pulse Ox 98.4 F 96 18 133/90 H 99 07/04/19 15:16 07/04/19 15:16 07/04/19 15:16 07/04/19 15:16 07/04/19 15:16 Intake & Output 07/03/19 07/04/19 07/05/19 06:59 06:59 06:59 Intake Total 3238 1625 750 Output Total 2400 2650 1425 Balance 838 -1025 -675 Weight 116 kg 109.7 kg General appearance: PRESENT: no acute distress, obese Head exam: PRESENT: normocephalic Respiratory exam: PRESENT: decreased breath sounds - Right base, unlabored Cardiovascular exam: PRESENT: RRR Musculoskeletal exam: PRESENT: ambulatory Neurological exam: PRESENT: alert, awake Psychiatric exam: PRESENT: appropriate affect Skin exam: PRESENT: normal color Results Laboratory Results: 07/03/19 09:20 07/03/19 09:20 06/26/19 06/26/19 08:00 08:00 Creatine Kinase 32 L Troponin I < 0.012 NT-Pro-B Natriuret Pep 477 H Impressions: Abdomen/Pelvis CT 06/26/19 08:08 IMPRESSION: 1. Diffusely fluid filled colon with scattered gas fluid levels which can be seen with diarrheal illness or cathartic use. No evidence of high- grade obstruction. 2. Moderately distended urinary bladder. No hydronephrosis. 3. Hepatic steatosis. Stable additional chronic findings as above. Chest CT 06/26/19 08:31 IMPRESSION: 1. Decreased size of the previously described left upper lobe nodule measuring 17 x 16 mm, previously 22 x 20 mm. 2. Decreased size of the abnormal pretracheal soft tissue measuring 32 x 31 mm, previously 39 x 33 mm. 3. Grossly similar posttreatment change within the right hemithorax with irregular pleuroparenchymal consolidation. Finding may represent post treatment change although residual underlying malignancy is not excluded. Chest X-Ray 06/30/19 00:00 IMPRESSION: Nasogastric tube tip in the esophagus, needs to be advanced No acute pulmonary infiltrates KUB X-Ray 06/30/19 14:31 IMPRESSION: INTERVAL PLACEMENT OF NASOGASTRIC TUBE IN SATISFACTORY POSITION. OTHERWISE NO CHANGE. Assessment & Plan - Diagnosis (1) Ileus Is this a current diagnosis for this admission?: Yes Plan: Now resolved. OK to discharge from our standpoint. (2) Lung cancer Qualifiers: Laterality: left Lung location: overlapping sites Qualified Code(s): C34.82 - Malignant neoplasm of overlapping sites of left bronchus and lung Is this a current diagnosis for this admission?: Yes Plan: Further treatment as outpatient. - Time Time Spent with patient: 15-24 minutes - Plan Summary Plan Summary: Will follow-up as outpatient. Please call if needed.
[2019-07-04] MEDS: ROPINIROLE HCL 1 MG TABLET PO SCH (21:40)
[2019-07-04] MEDS: TRAZODONE HCL 50 MG TABLET PO PRN (21:40)
[2019-07-04] MEDS: CLONAZEPAM 1 MG TABLET PO PRN (21:40)
[2019-07-05] MEDS: HEPARIN SOD (PORCINE) 5,000 UNIT/ML 1 ML VIAL SUBCUT SCH (05:29)
[2019-07-05] MEDS: DILTIAZEM HCL 120 MG CAP.SR.24H PO SCH (09:37)
[2019-07-05] MEDS: PREDNISONE 10 MG TABLET PO SCH (09:37)
[2019-07-05] MEDS: AZITHROMYCIN 250 MG TABLET PO SCH (09:38)
[2019-07-05] MEDS: NYSTATIN/DEXAMETH/DIPHEN SUSP 120 ML PO SCH (09:38)
[2019-07-05] MEDS: LIDOCAINE 2% VISCOUS SOLN 15 ML UDCUP PO SCH (09:38)
[2019-07-05] MEDS: COLCHICINE 0.6 MG TABLET PO SCH (09:38)
[2019-07-05] MEDS: CITALOPRAM HYDROBROMIDE 20 MG TABLET PO SCH (09:38)
[2019-07-05] MEDS: FLUTICASONE/VILANTEROL 200-25 MCG/DOSE IH SCH (09:56)
[2019-07-05] MEDS: UMECLIDINIUM BROMIDE 62.5 MCG/DOSE IH SCH (09:56)
[2019-07-05 11:13] VITALS: BP 109/93
--- NOTE | 2019-07-05 13:21 | PDOC PROGRESS REPORT ---
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 Patient presents with complaints of abdominal pain diffusely and abdominal distention which have been worsening for the past week. Abdominal pain was described as pressure-like and aching. Patient's had not had a bowel movement in several days despite being on stool softeners. He took a dose of Dulcolax and had an enema yesterday. In the ER patient had a large voluminous bowel movement. He also became hypotensive later still receiving fluids. Refer to hospitalist service for admission. Patient also endorses some shortness of breath. States that he breathes better when laying on his side but if he lays flat he usually gets short of breath. Patient noted be belly breathing and his says that is been persistent for many weeks now but feels it has gotten a little bit worse lately. Patient also been having sore throats limiting his food intake and was started on antifungal medication recently. For patient's lung cancer patient received chemotherapy his second cycle a few days ago. 07/01/2019. No acute events overnight. Patient sleeping easily arousable, alert and oriented, denies any abdominal pain, passing flatus, has had a bowel movement, NG tube and Fiarchild catheter has been removed. 07/02/2019. No acute events overnight. Patient complaining of loose bowel movements, denies any abdominal pain, passing flatus, denies any fever, chills, nausea, vomiting, diarrhea, constipation or any urinary symptoms. 07/03/2019. No acute events overnight. Abdominal pain has resolved. Patient is having bowel movements, was able to walk with assistance of PT. Complaining of mild shortness of breath.. 07/04/2019. No acute events overnight. Abdominal pain has resolved. Complaining of mild shortness of breath.. Reason For Visit: POSSIBLE SEPSIS, LACTIC ACIDOSIS, ABDOMINAL PAIN Physical Exam Vital Signs: Temp Pulse Resp BP Pulse Ox 98.2 F 94 18 109/93 H 99 07/05/19 11:02 07/05/19 11:02 07/05/19 11:02 07/05/19 11:02 07/05/19 11:02 Intake & Output 07/04/19 07/05/19 07/06/19 06:59 06:59 06:59 Intake Total 1625 1430 Output Total 2650 0255 Balance -1025 -945 Weight 109.7 kg 105.5 kg General appearance: PRESENT: obese Eye exam: PRESENT: conjunctiva pink, EOMI, PERRLA. ABSENT: scleral icterus Respiratory exam: PRESENT: clear to auscultation khushboo. ABSENT: rales, rhonchi, wheezes Cardiovascular exam: PRESENT: RRR. ABSENT: diastolic murmur, rubs, systolic murmur GI/Abdominal exam: PRESENT: normal bowel sounds, soft. ABSENT: distended, guarding, mass, organolmegaly, rebound, tenderness Neurological exam: PRESENT: alert, awake, oriented to person, oriented to place, oriented to time, oriented to situation, CN II-XII grossly intact. ABSENT: motor sensory deficit Results Laboratory Results: 07/03/19 09:20 07/03/19 09:20 06/26/19 06/26/19 08:00 08:00 Creatine Kinase 32 L Troponin I < 0.012 NT-Pro-B Natriuret Pep 477 H Impressions: Abdomen/Pelvis CT 06/26/19 08:08 IMPRESSION: 1. Diffusely fluid filled colon with scattered gas fluid levels which can be seen with diarrheal illness or cathartic use. No evidence of high- grade obstruction. 2. Moderately distended urinary bladder. No hydronephrosis. 3. Hepatic steatosis. Stable additional chronic findings as above. Chest CT 06/26/19 08:31 IMPRESSION: 1. Decreased size of the previously described left upper lobe n odule measuring 17 x 16 mm, previously 22 x 20 mm. 2. Decreased size of the abnormal pretracheal soft tissue measuring 32 x 31 mm, previously 39 x 33 mm. 3. Grossly similar posttreatment change within the right hemithorax with irregular pleuroparenchymal consolidation. Finding may represent post treatment change although residual underlying malignancy is not excluded. Chest X-Ray 06/30/19 00:00 IMPRESSION: Nasogastric tube tip in the esophagus, needs to be advanced No acute pulmonary infiltrates KUB X-Ray 06/30/19 14:31 IMPRESSION: INTERVAL PLACEMENT OF NASOGASTRIC TUBE IN SATISFACTORY POSITION. OTHERWISE NO CHANGE. Assessment and Plan - Diagnosis (1) Ileus Is this a current diagnosis for this admission?: Yes Plan: Resolved. Patient is denying any abdominal pain. Having bowel movements. CT abdomen on admission positive for diffusely fluid filled colon and scattered gas fluid levels. No high-grade obstruction. Advance diet as tolerated. Surgery was consulted. No intervention. Signed off at this point. (2) Abdominal pain, acute Is this a current diagnosis for this admission?: Yes Plan: Secondary to #1. Resolved. Passing flatus and having bowel movements. Plan as per #1. (3) Acute urinary retention Is this a current diagnosis for this admission?: Yes Plan: Resovled. 2/[address] abdomen admission showed Moderately distended urinary bladder. No hydronephrosis. Fairchild cath placed on admission been removed. Making adequate amount of urine. Negative fluid balance. Continue Flomax. Monitor strict in and out. Outpatient PCP and urology follow-up. No u[facility] consult available [facility] at this time. (4) Chronic respiratory failure with hypoxia Is this a current diagnosis for this admission?: Yes Plan: Secondary to radiation pneumonitis and underlying COPD Continue O2 supplementation, duo nebs, incentive spirometry, flutter valve. (5) COPD (chronic obstructive pulmonary disease) Qualifiers: COPD type: COPD with acute exacerbation Qualified Code(s): J44.1 - Chronic obstructive pulmonary disease with (acute) exacerbation Is this a current diagnosis for this admission?: Yes Plan: Patient developing more shortness of breath. Blood gas on admission WNL. Continue duo nebs, flutter valve, incentive spirometry. Prednisone held briefly given questionable occult positive gastric aspirate. Note patient is on chronic prednisone at home (6) Lung cancer Qualifiers: Laterality: left Lung location: overlapping sites Qualified Code(s): C34.82 - Malignant neoplasm of overlapping sites of left bronchus and lung Is this a current diagnosis for this admission?: Yes Plan: Left lung SCLC undergoing chemotherapy at the moment. S/P 1st cycle recently. Gets chemo [id number]. 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
--- NOTE | 2019-07-05 13:22 | PDOC DISCHARGE SUMMARY ---
Impression - Admit/DC Date/PCP Admission Date/Primary Care Provider: 06/26/19 15:35 FACUNDO MORALES NP Discharge Date: 07/05/19 - Discharge Diagnosis (1) Ileus Is this a current diagnosis for this admission?: Yes (2) Abdominal pain, acute Is this a current diagnosis for this admission?: Yes (3) Acute urinary retention Is this a current diagnosis for this admission?: Yes (4) Chronic respiratory failure with hypoxia Is this a current diagnosis for this admission?: Yes (5) COPD (chronic obstructive pulmonary disease) Is this a current diagnosis for this admission?: Yes (6) Lung cancer Is this a current diagnosis for this admission?: Yes - Additional Information Resuscitation Status: Do Not Resuscitate Discharge Diet: Regular, Cardiac Discharge Activity: Activity As Tolerated Referrals: PAULA DOMINGO MD [ACTIVE STAFF] - Follow up as needed FACUNDO MORALES NP [Primary Care Provider] - Home Medications: Albuterol Sulfate [Proair HFA Inhalation Aerosol 8.5 gm MDI] 1 puff IH Q4HP PRN 06/26/19 Albuterol Sulfate [Ventolin 0.083% Neb 2.5 mg/3 mL Ampul] 2.5 mg NEB RTQ4HP PRN 06/26/19 Budesonide/Formoterol Fumarate [Symbicort HFA 160-4.5 mcg Inhaler 6 gm] 2 puff IH Q12 06/26/19 Citalopram Hydrobromide [Celexa 40 mg Tablet] 40 mg PO DAILY 06/26/19 Clonazepam [Klonopin 1 mg Tablet] 1 mg PO BIDP PRN 06/26/19 Diltiazem HCl [Cardizem] 120 mg PO DAILY 06/26/19 Fluconazole [Diflucan 100 mg Tablet] 100 mg PO DAILY 06/26/19 Magnesium Oxide [Magnesium] 400 mg PO Q12 06/26/19 Pretty Magic Mouthwash 10 ml PO QIDP PRN 06/26/19 Ondansetron HCl [Zofran 8 mg Tablet] 8 mg PO Q8HP PRN 06/26/19 Prednisone [Deltasone 20 mg Tablet] 10 mg PO DAILY 06/26/19 Promethazine HCl [Phenergan 25 mg Tablet] 25 mg PO Q4HP PRN 06/26/19 Ropinirole HCl [Requip] 0.5 mg PO QHS 06/26/19 Tamsulosin HCl [Flomax 0.4 mg Cap.sr] 0.4 mg PO QPM 06/26/19 Tiotropium [place] [Spiriva Respimat] 2 puff IH QAM 06/26/19 Trazodone HCl 50 mg PO HSP PRN 06/26/19 History of Present Illiness History of Present Illness: CHAD RETANA is a 63 year old male with 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 Patient presents with complaints of abdominal pain diffusely and abdominal distention which have been worsening for the past week. Abdominal pain was described as pressure-like and aching. Patient's had not had a bowel movement in several days despite being on stool softeners. He took a dose of Dulcolax and had an enema yesterday. In the ER patient had a large voluminous bowel movement. He also became hypotensive later still receiving fluids. Refer to hospitalist service for admission. Patient also endorses some shortness of breath. States that he breathes better when laying on his side but if he lays flat he usually gets short of breath. Patient noted be belly breathing and his says that is been persistent for many weeks now but feels it has gotten a little bit worse lately. Patient also been having sore throats limiting his food intake and was started on antifungal medication recently. For patient's lung cancer patient received chemotherapy his second cycle a few days ago. Hospital Course Hospital Course: (1) Ileus Resolved. Patient is denying any abdominal pain. Having bowel movements. CT abdomen on admission positive for diffusely fluid filled colon and scattered gas fluid levels. No high-grade obstruction. Tolerating regular diet. Surgery was consulted. No intervention. (2) Abdominal pain, acute Secondary to #1. Resolved. Passing flatus and having bowel movements. Plan as per #1. (3) Acute urinary retention Resovled. 2/[address] abdomen admission showed Moderately distended urinary bladder. No hydronephrosis. [place] cath placed on admission. Making adequate amount of urine. Negative fluid balance. Continued Flomax. Outpatient PCP and urology follow-up. No urology consult available at [facility] at this time. (4) Chronic respiratory failure with hypoxia Secondary to radiation pneumonitis and underlying COPD Continue O2 supplementation, duo nebs, incentive spirometry, flutter valve. (5) COPD (chronic obstructive pulmonary disease) Hx of Oxygen dependent COPD. Blood gas on admission WNL. Was started on duo nebs, flutter valve, incentive spirometry. Prednisone held briefly given questionable occult positive gastric aspirate. Note patient is on chronic prednisone at home (6) Lung cancer Left lung SCLC undergoing chemotherapy at the moment. S/P 1st cycle recently. Gets chemo [id number]. Right lung Squamous cell cancer with paratracheal node involvement s/p right upper lobectomy& radiation with subsequent radiation pneumonitis Outpatient chemotherapy planned at reduced dose. Physical Exam Vital Signs: Temp Pulse Resp BP Pulse Ox 98.2 F 94 18 109/93 H 99 07/05/19 11:02 07/05/19 11:02 07/05/19 11:02 07/05/19 11:02 07/05/19 11:02 Intake & Output 07/04/19 07/05/19 07/06/19 06:59 06:59 06:59 Intake Total 1625 1430 Output Total 2650 2375 Balance -1025 -945 Weight 109.7 kg 105.5 kg General appearance: PRESENT: obese Head exam: PRESENT: atraumatic, normocephalic Respiratory exam: PRESENT: clear to auscultation khushboo. ABSENT: rales, rhonchi, wheezes Cardiovascular exam: PRESENT: RRR. ABSENT: diastolic murmur, rubs, systolic murmur GI/Abdominal exam: PRESENT: normal bowel sounds, soft. ABSENT: distended, guarding, mass, organolmegaly, rebound, tenderness Neurological exam: PRESENT: alert, awake, oriented to person, oriented to place, oriented to time, oriented to situation, CN II-XII grossly intact. ABSENT: motor sensory deficit Results Laboratory Results: WBC 8.0 10^3/uL (4.0-10.5) 07/03/19 09:20 RBC 3.73 10^6/uL (4.35-5.55) L 07/03/19 09:20 Hgb 11.1 g/dL (13.5-17.0) L 07/03/19 09:20 Hct 33.4 % (37.9-51.0) L 07/03/19 09:20 MCV 90 fl (80-97) 07/03/19 09:20 MCH 29.8 pg (27.0-33.4) 07/03/19 09:20 MCHC 33.2 g/dL (32.0-36.0) 07/03/19 09:20 RDW 16.0 % (11.5-14.0) H 07/03/19 09:20 Plt Count 157 10^3/uL (150-450) 07/03/19 09:20 Lymph % (Auto) Not Reportable 07/03/19 09:20 [place] % (Auto) Not Reportable 07/03/19 09:20 Eos % (Auto) Not Reportable 07/03/19 09:20 Baso % (Auto) Not Reportable 07/03/19 09:20 Absolute Neuts (auto) Not Reportable 07/03/19 09:20 Absolute Lymphs (auto) Not Reportable 07/03/19 09:20 Absolute Monos (auto) Not Reportable 07/03/19 09:20 Absolute Eos (auto) Not Reportable 07/03/19 09:20 Absolute Basos (auto) Not Reportable 07/03/19 09:20 Total Counted 100 07/03/19 09:20 Seg Neutrophils % Not Reportable 07/03/19 09:20 Seg Neuts % (Manual) 80 % (42-78) H 07/03/19 09:20 Band Neutrophils % 2 % (3-5) L 07/02/19 05:30 Lymphocytes % (Manual) 10 % (13-45) L 07/03/19 09:20 Atypical Lymphs % 5 % (0) 06/30/19 05:59 Monocytes % (Manual) 6 % (3-13) 07/03/19 09:20 Eosinophils % (Manual) 0 % (0-6) 07/03/19 09:20 Basophils % (Manual) 0 % (0-2) 07/03/19 09:20 Metamyelocytes % 1 % (0-1) 07/03/19 09:20 Myelocytes % 1 % (0) H 07/03/19 09:20 Promyelocytes % 2 % (0) H 07/03/19 09:20 Abs Neuts (Manual) 6.7 10^3/uL (1.7-8.2) 07/03/19 09:20 Abs Lymphs (Manual) 0.8 10^3/uL (0.5-4.7) 07/03/19 09:20 Abs Monocytes (Manual) 0.5 10^3/uL (0.1-1.4) 07/03/19 09:20 Absolute Eos (Manual) 0.0 10^3/uL (0.0-0.6) 07/03/19 09:20 Abs Basophils (Manual) 0.0 10^3/uL (0.0-0.2) 07/03/19 09:20 Nucleated RBCs 3 /100 WBC (0) 07/01/19 13:30 Toxic Granulation 1+ 07/02/19 05:30 WBC Morphology Comment Not Reportable 06/30/19 05:59 Clumped Platelets PRESENT 06/26/19 08:00 Platelet Comment ADEQUATE 07/03/19 09:20 Polychromasia SLIGHT 07/03/19 09:20 Poikilocytosis 1+ 06/30/19 05:59 Basophilic Stippling PRESENT 07/03/19 09:20 Anisocytosis 1+ 07/03/19 09:20 Tear Drop Cells SLIGHT 07/02/19 05:30 Ovalocytes SLIGHT 07/02/19 05:30 Stomatocytes 2+ 06/30/19 05:59 PT 15.4 SEC (11.4-15.4) 06/29/19 03:10 INR 1.21 06/29/19 03:10 APTT 35.2 SEC (23.5-35.8) 06/26/19 08:00 Carbonic Acid 1.31 mmol/L (1.05-1.35) 06/26/19 18:07 HCO3/H2CO3 Ratio 18:1 06/26/19 18:07 ABG pH 7.35 (7.35-7.45) 06/26/19 18:07 ABG pCO2 43.5 mmHg (35-45) 06/26/19 18:07 ABG pO2 85.7 mmHg (80-100) 06/26/19 18:07 ABG HCO3 23.6 mmol/L (20-24) 06/26/19 18:07 ABG Total CO2 24.9 mmol/L (23-27) 06/26/19 18:07 ABG O2 Saturation 96.1 % (94-98) 06/26/19 18:07 ABG Base Excess -2.0 mmol/L 06/26/19 18:07 VBG pH 7.39 (7.30-7.42) 06/30/19 13:20 VBG pCO2 50.8 mmHg (35-63) 06/30/19 13:20 VBG HCO3 29.9 mmol/L (20-32) 06/30/19 13:20 VBG Base Excess 3.8 mmol/L 06/30/19 13:20 FiO2 2L 06/26/19 18:07 Sodium 140.7 mmol/L (137-145) 07/03/19 09:20 Potassium 3.4 mmol/L (3.6-5.0) L 07/03/19 09:20 Chloride 101 mmol/L (98-107) 07/03/19 09:20 Carbon Dioxide 32 mmol/L (22-30) H 07/03/19 09:20 Anion Gap 8 (5-19) 07/03/19 09:20 BUN 10 mg/dL (7-20) 07/03/19 09:20 Creatinine 0.85 mg/dL (0.52-1.25) 07/03/19 09:20 Est GFR ( Amer) > 60 (>60) 07/03/19 09:20 Est GFR (MDRD) Non-Af > 60 (>60) 07/03/19 09:20 Glucose 127 mg/dL (75-110) H 07/03/19 09:20 POC Glucose 141 mg/dL (70-110) H 07/01/19 16:24 Lactic Acid 1.1 mmol/L (0.7-2.1) 07/01/19 13:30 Calcium 8.5 mg/dL (8.4-10.2) 07/03/19 09:20 Phosphorus 4.3 mg/dL (2.5-4.5) 06/27/19 05:53 Magnesium 1.8 mg/dL (1.6-2.3) 06/30/19 05:59 Total Bilirubin 0.4 mg/dL (0.2-1.3) 07/01/19 13:30 Direct Bilirubin 0.3 mg/dL (0.0-0.4) 07/01/19 13:30 Neonat Total Bilirubin Not Reportable 07/01/19 13:30 Neonat Direct Bilirubin Not Reportable 07/01/19 13:30 Neonat Indirect Bili Not Reportable 07/01/19 13:30 AST 38 U/L (17-59) 07/01/19 13:30 ALT 24 U/L (<50) 07/01/19 13:30 Alkaline Phosphatase 78 U/L (38-126) 07/01/19 13:30 Ammonia < 8.7 umol/L (9-33) L 07/01/19 13:30 Creatine Kinase 32 U/L (55-170) L 06/26/19 08:00 Troponin I < 0.012 ng/mL 06/26/19 08:00 NT-Pro-B Natriuret Pep 477 pg/mL (<125) H 06/26/19 08:00 Total Protein 5.5 g/dL (6.3-8.2) L 07/01/19 13:30 Albumin 2.7 g/dL (3.5-5.0) L 07/01/19 13:30 Lipase 28.8 U/L (23-300) 06/26/19 08:00 Urine Color YELLOW 06/26/19 10:08 Urine Appearance CLEAR 06/26/19 10:08 Urine pH 6.0 (5.0-9.0) 06/26/19 10:08 Ur Specific [place] 1.016 06/26/19 10:08 Urine Protein NEGATIVE mg/dL (NEGATIVE) 06/26/19 10:08 Urine Glucose (UA) NEGATIVE mg/dL (NEGATIVE) 06/26/19 10:08 Urine Ketones NEGATIVE mg/dL (NEGATIVE) 06/26/19 10:08 Urine Blood NEGATIVE (NEGATIVE) 06/26/19 10:08 Urine Nitrite NEGATIVE (NEGATIVE) 06/26/19 10:08 Urine Bilirubin NEGATIVE (NEGATIVE) 06/26/19 10:08 Urine Urobilinogen 4.0 mg/dL (<2.0) H 06/26/19 10:08 Ur Leukocyte Esterase NEGATIVE (NEGATIVE) 06/26/19 10:08 Urine WBC (Auto) 0 /HPF 06/26/19 10:08 Urine RBC (Auto) 0 /HPF 06/26/19 10:08 U Hyaline Cast (Auto) 4 /LPF 06/26/19 10:08 Squamous Epi Cells Auto 1 /HPF 06/26/19 05:18 Urine Mucus (Auto) RARE /LPF 06/26/19 10:08 Urine Ascorbic Acid 40 (NEGATIVE) H 06/26/19 10:08 Gastric Occult Blood POSITIVE (NEGATIVE) 06/29/19 12:10 Stl C. Difficile GDH Ag NEGATIVE (NEGATIVE) 07/02/19 10:02 Stl C.difficile Tox A&B NEGATIVE (NEGATIVE) 07/02/19 10:02 Influenza A (Rapid) NEGATIVE (NEGATIVE) 06/27/19 00:30 Influenza B (Rapid) NEGATIVE (NEGATIVE) 06/27/19 00:30 Slides for Path Review PATHOLOGIST REVIEWED 06/30/19 05:59 06/26/19 08:00 Troponin I < 0.012 NT-Pro-B Natriuret Pep 477 H Impressions: KUB X-Ray 06/26/19 00:00 IMPRESSION: Nonspecific abdomen. Abdomen/Pelvis CT 06/26/19 08:08 IMPRESSION: 1. Diffusely fluid filled colon with scattered gas fluid levels which can be seen with diarrheal illness or cathartic use. No evidence of high- grade obstruction. 2. Moderately distended urinary bladder. No hydronephrosis. 3. Hepatic steatosis. Stable additional chronic findings as above. Chest X-Ray 06/26/19 08:15 IMPRESSION: Unchanged elevation of the right hemidiaphragm with increased basilar opacification, possibly atelectasis or infection. Persistent right perihilar masslike opacity. Chest CT 06/26/19 08:31 IMPRESSION: 1. Decreased size of the previously described left upper lobe nodule measuring 17 x 16 mm, previously 22 x 20 mm. 2. Decreased size of the abnormal pretracheal soft tissue measuring 32 x 31 mm, previously 39 x 33 mm. 3. Grossly similar posttreatment change within the right hemithorax with irregular pleuroparenchymal consolidation. Finding may represent post treatment change although residual underlying malignancy is not excluded. KUB X-Ray 06/28/19 00:00 IMPRESSION: Developing dilated loops of small bowel may be related to developing ileus or obstruction. Consider CT follow-up. Chest X-Ray 06/30/19 00:00 IMPRESSION: Nasogastric tube tip in the esophagus, needs to be advanced No acute pulmonary infiltrates KUB X-Ray 06/30/19 00:00 IMPRESSION: Progressive gaseous distention throughout the small bowel and colon since 06/28/2019 and 06/26/2019 KUB X-Ray 06/30/19 14:31 IMPRESSION: INTERVAL PLACEMENT OF NASOGASTRIC TUBE IN SATISFACTORY POSITION. OTHERWISE NO CHANGE. Stroke Is this a Stroke Patient?: No Acute Heart Failure - Is this a Heart Failure Patient?: No
== END 2019-07-05 12:03 | disposition home health service (06) | DRG 389 ==
LOC: ER 03:49 → EH 15:35 → 3W 18:47 → UNDODISIN 07-04 12:03
PROVIDERS: ADMIT Internal Medicine; ATTEND Internal Medicine
DX: K56.7 Ileus, unspecified (principal); J44.1 Chronic obstructive pulmonary disease with (acute) exacerbation; J96.11 Chronic respiratory failure with hypoxia; C34.11 Malignant neoplasm of upper lobe, right bronchus or lung; C78.39 Secondary malignant neoplasm of other respiratory organs; C34.82 Malignant neoplasm of overlapping sites of left bronchus and lung; A09 Infectious gastroenteritis and colitis, unspecified; E87.2 Acidosis; J70.0 Acute pulmonary manifestations due to radiation; B37.0 Candidal stomatitis; N40.1 Benign prostatic hyperplasia with lower urinary tract symptoms; Z66 Do not resuscitate; R33.8 Other retention of urine; E86.0 Dehydration; E78.5 Hyperlipidemia, unspecified; I10 Essential (primary) hypertension; K22.70 Barrett's esophagus without dysplasia; K21.9 Gastro-esophageal reflux disease without esophagitis; F32.9 Major depressive disorder, single episode, unspecified; D70.8 Other neutropenia; E66.01 Morbid (severe) obesity due to excess calories; K12.31 Oral mucositis (ulcerative) due to antineoplastic therapy; T45.1X5A Adverse effect of antineoplastic and immunosuppressive drugs, initial encounter; Y92.9 Unspecified place or not applicable; I95.9 Hypotension, unspecified; Z87.891 Personal history of nicotine dependence; Z79.899 Other long term (current) drug therapy; Z90.2 Acquired absence of lung [part of]; Z92.3 Personal history of irradiation; Z92.21 Personal history of antineoplastic chemotherapy; Z99.81 Dependence on supplemental oxygen; Z80.9 Family history of malignant neoplasm, unspecified
CPT/HCPCS: 36415; 71045; 71250; 74018; 74176; 80048; 80053; 81001; 82140; 82271; 82550; 82803; 82962; 83605; 83690; 83735; 83880; 84100; 84484; 85025; 85610; 85730; 87040; 87070; 87324; 87449; 87804; 93005; 93010; 94640; 96361; 96365; 96375; 99291; C9113; J0744; J1442; J1450; J1642; J1644; J1940; J2060; J2270; J2405; J2543; J3370; J3480; J3490; J7030; J7050; J7512

== ENCOUNTER → 2019-08-27 | Outpatient (CLI) | payer BC, MEDICARE ==
--- NOTE | 2019-08-27 11:13 | RADIOLOGY REPORT (SQ) ---
EXAM DESCRIPTION: CT ABD/PELVIS WITH IV ONLY; CT CHEST WITH COMPLETED DATE/TIME: 08/27/2019 9:56 am REASON FOR STUDY: LUNG CANCER (C34.11) C34.11 MALIGNANT NEOPLASM OF UPPER LOBE, RIGHT BRONCHUS OR L COMPARISON: PET-CT 05/19/2019 CT chest abdomen pelvis 06/26/2019 CONTRAST TYPE AND DOSE: contrast/concentration: Isovue 350.00 mg/ml; Total Contrast Delivered: 100.0 ml; Total Saline Delivered: 72.0 ml RENAL FUNCTION: Creatinine 1.3 TECHNIQUE: CT scan of the chest performed using helical scanning technique with dynamic intravenous contrast injection. Images reviewed with lung, soft tissue and bone windows. Reconstructed coronal a nd sagittal MPR images reviewed. All images stored on PACS. CT scan of the abdomen and pelvis performed with intravenous and without oral contrastusing helical s lenny technique with dynamic intravenous contrast injection. Images reviewed with lung, soft tissu e and bone windows. Reconstructed coronal and sagittal MPR images reviewed. Delayed images for eval uation of the urinary system also acquired and evaluated. All images stored on PACS. All CT scanners at this facility use dose modulation, iterative reconstruction, and/or weight based d osing when appropriate to reduce radiation dose to as low as reasonably achievable (ALARA). [facility]: Dose Right [facility]: CareDose [facility]: Dose Right [facility]: Teradose 4D [facility]: [employer] RADIATION DOSE: CT Rad equipment meets quality standard of care and radiation dose reduction techniq ues were employed. CTDIvol: 17.4 - 20.6 mGy. DLP: 3201 mGy-cm. . LIMITATIONS: None. FINDINGS: CHEST: LUNGS AND PLEURA: Left upper lobe spiculated nodule with radiotherapy treatment markers is now 1.3 x 1.3 cm in size on axial image 30 (was 1.7 x 1.6 cm on 06/26/2019). No other worrisome lung nodules. No acute infiltrate. No significant pleural effusion. No pneumoth orax. Old post therapeutic changes right chest from upper lobectomy and bandlike scarring in the right daniella hilar region with bronchiectasis from radiation therapy. These findings are stable over the series o f exams. HILAR AND MEDIASTINAL STRUCTURES: Persistent soft tissue mass between the superior vena cava and trac hea, stable to slightly decreased compared 06/26/2019 CT exam, currently 3.6 x 2.5 cm in size (was abou t 3.2 x 3.1 cm on 06/26/2019). HEART AND VASCULAR STRUCTURES: No aneurysm or dissection. No central pulmonary emboli. Stable trace pericardial effusion. Aberrant right subclavian artery, an anatomic variant, axial image 11 HARDWARE: Right-sided permanent central line tip superior vena cava. Stable narrowing of the superio r vena cava on coronal reconstruction images 49 through 55. THYROID AND OTHER SOFT TISSUES: Stable thyromegaly BONES: No significant finding. OTHER: No other significant finding. ABDOMEN AND PELVIS: LIVER: Normal size. No masses. No dilated ducts. Benign 2.3 cm cyst posterior right lobe liver SPLEEN: Normal size. No focal lesions. PANCREAS: No masses. No significant calcifications. No adjacent inflammation or peripancreatic fluid collections. Pancreatic duct not dilated. GALLBLADDER: Surgically absent ADRENAL GLANDS: No significant masses or asymmetry. RIGHT KIDNEY AND URETER: No solid masses. No significant calcification. No hydronephrosis or hydroure ter. LEFT KIDNEY AND URETER: No solid masses. No significant calcification. No hydronephrosis or hydrouret er. AORTA AND VESSELS: No aneurysm. No dissection. Renal arteries, SMA, celiac without stenosis. RETROPERITONEUM: No retroperitoneal adenopathy, hemorrhage or masses. BOWEL AND PERITONEAL CAVITY: No masses or inflammatory changes. No free fluid or peritoneal masses. APPENDIX: Surgically absent ABDOMINAL WALL: No masses. No hernias. PELVIS: No mass or free fluid. Normal bladder. No adenopathy BONES: Benign bone island left femoral head OTHER: No other significant finding. IMPRESSION: Treatment response with further decrease in size of left upper lobe mass Old post therapeutic changes right hemithorax. Stable to slight decrease in size of right paratracheal lymph node compared to previous studies No widespread metastatic disease to the abdomen or pelvis TECHNICAL DOCUMENTATION: JOB ID: [id number] Quality ID # [id number]: Final reports with documentation of one or more dose reduction techniques (e.g., Au tomated exposure control, adjustment of the mA and/or kV according to patient size, use of iterative reconstruction technique) 2010 [employer]- All Rights Reserved Reading location - IP/workstation name: [facility]
== END ==
LOC: RAD 09:21
PROVIDERS: ATTEND Internal Medicine
DX: C34.11 Malignant neoplasm of upper lobe, right bronchus or lung (principal)
CPT/HCPCS: 71260; 74177; J1642

== ENCOUNTER → 2019-10-26 | Outpatient (CLI) | payer MEDICARE ==
--- NOTE | 2019-10-26 11:52 | RADIOLOGY REPORT (SQ) ---
EXAM DESCRIPTION: CT CHEST WITH IMAGES COMPLETED DATE/TIME: 10/26/2019 10:03 am REASON FOR STUDY: LUNG CANCER (C34.11) C34.11 MALIGNANT NEOPLASM OF UPPER LOBE, RIGHT BRONCHUS OR L COMPARISON: None. TECHNIQUE: CT scan of the chest performed using helical scanning technique with dynamic intravenous contrast injection. Images reviewed with lung, soft tissue and bone windows. Reconstructed coronal and sagittal MPR and MIP images reviewed. All images stored on PACS. All CT scanners at this facility use dose modulation, iterative reconstruction, and/or weight based d osing when appropriate to reduce radiation dose to as low as reasonably achievable (ALARA). [facility]: Dose Right [facility]: CareDose [facility]: Dose Right [facility]: Teradose 4D [facility]: [employer] CONTRAST TYPE AND DOSE: 100 mL Omnipaque 350- low osmolar. RENAL FUNCTION: Creatinine 1.3 milligrams/deciliter RADIATION DOSE: CT Rad equipment meets quality standard of care and radiation dose reduction techniq ues were employed. CTDIvol: 12.9 - 14.5 mGy. DLP: 2243 mGy-cm. LIMITATIONS: None. FINDINGS: LUNGS AND PLEURA: Status post right upper lobectomy. The spiculated nodule with fiducial markers in the left upper lobe (image 31 of series 6) has increased in size and it measures 16 x 14 m m compared to 13 x 12 mm on the prior CT. The peribronchial/perihilar opacities in the right lower a nd right middle lobe associated with volume loss and bronchiectasis and the amount of loculated fluid in the right pleural space have also increased. There are also increased interstitial opacities in the superior segment of the right lower lobe. HILAR AND MEDIASTINAL STRUCTURES: The amorphous hypodense mass posterior to the SVC, lateral to the a rch and anterior to the trachea (image 19 of series 2) has increased in size and it measures approxim ately 4.4 cm in transverse diameter, 3 cm in AP diameter and 5.8 cm in craniocaudal diameter compared to 4.1 x 2.5 x 5.4 cm. The sub- carinal lymph node on image 25 of series 2 has also increased in si ze and it measures 2.4 x 1.9 cm compared to 1.8 x 1.6 cm on the prior CT. There is no left hilar brenda nopathy. HEART AND VASCULAR STRUCTURES: No thoracic aortic dissection or aneurysm. No cardiomegaly or pericar dial effusion. No pulmonary emboli. HARDWARE: The tip of the right subclavian vein approach single-lumen port terminates within the SVC. The surgical clips as fiducial along the medial/suprahilar aspect of the right hemithorax are unchan ged. UPPER ABDOMEN: Refer to the separate report of the CT of the abdomen. THYROID AND OTHER SOFT TISSUES: The subcentimeter hypodensity within the right lobe of the thyroid gl and (image 6 of series 2) unchanged and nonspecific. There is no adenopathy or mass. BONES: Chronic nonunited fracture of the posterior right 5th rib. OTHER: No other finding. IMPRESSION: 1. Status post right upper lobectomy. The spiculated nodule with fiducial markers in t he left upper lobe has increased in size and it measures 16 x 14 mm compared to 13 x 12 mm on the ricardo or CT. The amorphous hypodense mediastinal mass posterior to the SVC, lateral to the arch and anteri or to the trachea and the enlarged sub- carinal lymph node (image 25 of series 2) have also increased in size. 2. The peribronchial/perihilar opacities in the right lower lobe and right middle lobe associated wi th volume loss and bronchiectasis have increased as has the amount of loculated fluid within the righ t pleural space. The aforementioned opacities are favored to represent postradiation pneumonitis. O ther differential considerations include lymphangitic carcinomatosis and infection. 3. Other findings as detailed above. TECHNICAL DOCUMENTATION: JOB ID: [id number] Quality ID # [id number]: Final reports with documentation of one or more dose reduction techniques (e.g., Au tomated exposure control, adjustment of the mA and/or kV according to patient size, use of iterative reconstruction technique) 2010 [employer]- All Rights Reserved Reading location - IP/workstation name: [email or web address]
--- NOTE | 2019-10-26 12:18 | RADIOLOGY REPORT (SQ) ---
EXAM DESCRIPTION: CT ABD/PELVIS WITH IV ONLY IMAGES COMPLETED DATE/TIME: 10/26/2019 10:03 am REASON FOR STUDY: LUNG CANCER (C34.11) C34.11 MALIGNANT NEOPLASM OF UPPER LOBE, RIGHT BRONCHUS OR L COMPARISON: None. TECHNIQUE: CT scan of the abdomen and pelvis performed using helical scanning technique with dynamic intravenous contrast injection. No oral contrast. Images reviewed with lung, soft tissue, and bone windows. Reconstructed coronal and sagittal MPR images reviewed. Delayed images for evaluation of the urinary system also acquired. All images stored on PACS. All CT scanners at this facility use dose modulation, iterative reconstruction, and/or weight based d osing when appropriate to reduce radiation dose to as low as reasonably achievable (ALARA). [facility]: Dose Right [facility]: CareDose [facility]: Dose Right [facility]: Teradose 4D [facility]: [place] CONTRAST TYPE AND DOSE: Contrast/ concentration: Isovue 350.00 mg/ml; Total Contrast Delivered: 100. 0 ml; Total Saline Delivered: 72.0 ml RENAL FUNCTION: Creatinine 1.3 milligrams/deciliter. LIMITATIONS: None. FINDINGS: LOWER CHEST: Refer to the separate report of the CT of the chest. LIVER: The 1.9 x 1.4 cm hypodense lesion within segment 7 of the liver (image 2 of series 8) is stabl e). The portal and hepatic veins are patent. There is no hepatic mass. SPLEEN: The spleen is borderline enlarged and it measures 13.3 cm and craniocaudal diameter. There i s no splenic mass. PANCREAS: No acute abnormality of the pancreas. GALLBLADDER: The gallbladder surgically absent. ADRENAL GLANDS: No mass or asymmetry. RIGHT KIDNEY AND URETER: No solid masses. No calcifications. No hydronephrosis or hydroureter. LEFT KIDNEY AND URETER: No solid masses. No calcifications. No hydronephrosis or hydroureter. AORTA AND VESSELS: No aneurysm or dissection of the abdominal aorta. RETROPERITONEUM: No retroperitoneal adenopathy, hemorrhage or mass. BOWEL AND PERITONEAL CAVITY: Unchanged surgical clips in the right lower quadrant. There is colonic diverticulosis without diverticulitis. There is no bowel obstruction, bowel wall thickening or peric olonic/ perienteric inflammation. There is no mesenteric adenopathy, free intraperitoneal fluid or m esenteric/ omental inflammation. APPENDIX: Unable to identify the appendix. PELVIS: The prostate gland is enlarged and it measures 6.4 x 5.9 cm. The urinary bladder is distende d. ABDOMINAL WALL: No mass or hernia. 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 The sclerotic lesion within the proximal left femur is unchanged. There is no acute fracture. OTHER: No other finding. IMPRESSION: No acute intra-abdominal abnormality and no evidence of metastases. TECHNICAL DOCUMENTATION: JOB ID: [id number] Quality ID # [id number]: Final reports with documentation of one or more dose reduction techniques (e.g., Au tomated exposure control, adjustment of the mA and/or kV according to patient size, use of iterative reconstruction technique) 2010 [employer]- All Rights Reserved Reading location - IP/workstation name: [email or web address]
== END ==
LOC: RAD 08:59
PROVIDERS: ATTEND Internal Medicine
DX: C34.11 Malignant neoplasm of upper lobe, right bronchus or lung (principal); J47.9 Bronchiectasis, uncomplicated
CPT/HCPCS: 71260; 74177; 82565

== ENCOUNTER 2019-10-31 15:25 | Emergency (ER) | payer MEDICARE ==
--- NOTE | 2019-10-31 15:55 | ER Document Report ---
ED Medical Screen (RME) - General Chief Complaint: Urinary Problem Stated Complaint: URINARY PROBLEM Time Seen by Provider: 10/31/19 15:47 Primary Care Provider: PAULA DOMINGO MD [Primary Care Provider] - Follow up as needed Mode of Arrival: Wheelchair Information source: Patient Notes: 64-year-old male with history of lung cancer who is hard of hearing presents today with reports of low abdominal pain and urinary retention. Reports he has not been able to void since night. Denies fever vomiting diarrhea. Denies testicular pain. Reports this happened to him once before. I have greeted and performed a rapid initial assessment of this patient. A comprehensive ED assessment and evaluation of the patient, analysis of test results and completion of the medical decision making process will be conducted by additional ED providers. TRAVEL OUTSIDE OF THE [place] IN LAST 30 DAYS: No - Related Data Allergies/Adverse Reactions: No Known Allergies Allergy (Verified 06/26/19 08:55) Past Medical History - Past Medical History Cardiac Medical History: Reports: Hx Hypercholesterolemia - meds x 1 year, Hx Hypertension - meds x 6 years Denies: Hx Atrial Fibrillation, Hx Congestive Heart Failure, Hx Coronary Artery Disease, Hx Heart Attack, Hx Peripheral Vascular Disease, Hx Pulmonary Embolism, Hx Heart Murmur Pulmonary Medical History: Reports: Hx Bronchitis - multiple episodes (usually in the fall), Hx COPD, Hx Pneumonia - x 1 episode, denies hospitalization Denies: Hx Asthma, Hx Respiratory Failure, Hx Sleep Apnea, Hx Tuberculosis Neurological Medical History: Denies: Hx Cerebrovascular Accident, Hx Seizures Renal/ Medical History: Denies: Hx Peritoneal Dialysis Malignancy Medical History: Reports Hx Lung Cancer - Squamous cell cancer RLung and Paratracheal, 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 Denies: Hx Crohn's Disease, Hx Hepatitis, Hx Hiatal Hernia, Hx Irritable Bowel, Hx Liver Failure, Hx Pancreatitis, Hx Ulcer Musculoskeltal Medical History: Reports Hx Arthritis, Denies Hx Fibromyalgia, Denies Hx Muscular Dystrophy Psychiatric Medical History: Reports: Hx Depression - meds x 15 years Denies: Hx Bipolar Disorder, Hx Post Traumatic Stress Disorder, Hx Schizophrenia Traumatic Medical History: Denies: Hx Fractures Infectious Medical History: Denies: Hx Hepatitis Past Surgical History: Reports: Hx Appendectomy, Hx Cholecystectomy, Hx Orthopedic Surgery - RIGHT KNEE, Other - Right lower lobe lobectomy,, patient has history of small celr lung cancer.. Denies: Hx Bowel Surgery, Hx Colostomy, Hx Coronary Artery Bypass Graft, Hx Gastric Bypass Surgery, Hx Herniorrhaphy, Hx Open Heart Surgery, Hx Pacemaker, Hx Tonsillectomy - Immunizations Hx Diphtheria, Pertussis, Tetanus Vaccination: No Physical Exam - Vital signs Vitals: Temp Pulse Resp BP Pulse Ox 97.8 F 98 18 133/85 H 96 10/31/19 15:32 10/31/19 15:32 10/31/19 15:32 10/31/19 15:32 10/31/19 15:32 Course - Vital Signs Vital signs: Temp Pulse Resp BP Pulse Ox 97.8 F 98 18 133/85 H 96 10/31/19 15:32 10/31/19 15:32 10/31/19 15:32 10/31/19 15:32 10/31/19 15:32 Doctor's Discharge - Discharge Referrals: PAULA DOMINGO MD [Primary Care Provider] - Follow up as needed
[2019-10-31] MEDS ORDERED: NORMAL SALINE 500 ML IV ONE (17:05)
[2019-10-31 17:15] LABS: ABSOLUTE BASOPHILS # (AUTO) 0.1 10^3/uL (0.0-0.2); ABSOLUTE LYMPHOCYTES (AUTO) 0.7 10^3/uL (0.5-4.7); ABSOLUTE NEUT (AUTO) 6.6 10^3/uL (1.7-8.2); BASOPHILS % (AUTO) 0.7 % (0-2); EOSINOPHILS % (AUTO) 0.1 % (0-6); HEMATOCRIT 39.9 % (37.9-51.0); HEMOGLOBIN 13.7 g/dL (13.5-17.0); LYMPHOCYTES % (AUTO) 7.9 % (13-45); MEAN CORPUSCULAR HEMOGLOBIN 29.8 pg (27.0-33.4); MEAN CORPUSCULAR HGB CONC 34.4 g/dL (32.0-36.0); MEAN CORPUSCULAR VOLUME 87 fl (80-97); MONOCYTES % (AUTO) 11.5 % (3-13); PLATELET COUNT 300 10^3/uL (150-450); RED CELL DISTRIBUTION WIDTH 18.1 % (11.5-14.0); SEGMENTED NEUTROPHILS % (AUTO) 79.8 % (42-78); TOTAL CELLS COUNTED % (AUTO) 100 %; WHITE BLOOD COUNT 8.3 10^3/uL (4.0-10.5)
[2019-10-31 17:24] LABS: APPEARANCE,URINE SLIGHTLY-CLOUDY; BILIRUBIN,URINE NEGATIVE (NEGATIVE); COLOR,URINE YELLOW; GLUCOSE, URINE NEGATIVE (NEGATIVE); KETONES,URINE NEGATIVE (NEGATIVE); LEUKOCYTE ESTERASE,URINE NEGATIVE (NEGATIVE); NITRITE,URINE NEGATIVE (NEGATIVE); PROTEIN,URINE NEGATIVE (NEGATIVE); URINE SPECIFIC GRAVITY 1.011; UROBILINOGEN,URINE NEGATIVE mg/dL (<2.0)
[2019-10-31 17:27] LABS: ALBUMIN 3.9 g/dL (3.5-5.0); ALKALINE PHOSPHATASE 93 U/L (38-126); ANION GAP 8 (5-19); ASPARTATE AMINO TRANSFERASE 24 U/L (17-59); BILIRUBIN,TOTAL 0.4 mg/dL (0.2-1.3); BLOOD UREA NITROGEN 15 mg/dL (7-20); CALCIUM 9.6 mg/dL (8.4-10.2); CARBON DIOXIDE 30 mmol/L (22-30); CHLORIDE 96 mmol/L (98-107); GLUCOSE 122 mg/dL (75-110); POTASSIUM 4.3 mmol/L (3.6-5.0); TOTAL PROTEIN 6.6 g/dL (6.3-8.2)
[2019-10-31 19:51] VITALS: BP 125/81
--- NOTE | 2019-10-31 20:04 | ER Document Report ---
Entered by DAVID HILTON SCRIBE 10/31/19 4050 Acting as scribe for:WILBER GARDUNO DO ED GI/ - General Chief Complaint: Trouble Voiding Stated Complaint: URINARY PROBLEM Time Seen by Provider: 10/31/19 15:47 Primary Care Provider: PAULA DOMINGO MD [Primary Care Provider] - 11/02/19 Mode of Arrival: Wheelchair Information source: Patient Notes: This 64-year-old male patient presents to the emergency department today with c omplaints of urinary retention. Patient has a history of BPH with occasional urinary retention. Patient states he feels much better now after having the catheter placed. Patient has no complaints currently. Patient states his last bowel movement was yesterday he does not feel constipated. TRAVEL OUTSIDE OF THE [place] IN LAST 30 DAYS: No - Related Data Allergies/Adverse Reactions: No Known Allergies Allergy (Verified 06/26/19 08:55) Past Medical History - General Information source: Patient - Social History Smoking Status: Former Smoker Cigarette use (# per day): No Frequency of alcohol use: None Drug Abuse: None Family History: None, Malignancy Patient has homicidal ideation: No - Past Medical History Cardiac Medical History: Reports: Hx Hypercholesterolemia - meds x 1 year, Hx Hypertension - meds x 6 years Pulmonary Medical History: Reports: Hx Bronchitis - multiple episodes (usually in the fall), Hx COPD, Hx Pneumonia - x 1 episode, denies hospitalization Malignancy Medical History: Reports Hx Lung Cancer - Squamous cell cancer RLung and Paratracheal, 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 Denies: Hx Bowel Surgery, Hx Colostomy, Hx Coronary Artery Bypass Graft, Hx Gastric Bypass Surgery, Hx Herniorrhaphy, Hx Open Heart Surgery, Hx Pacemaker, Hx Tonsillectomy - Immunizations Hx Diphtheria, Pertussis, Tetanus Vaccination: No Hx Pneumococcal Vaccination: 10/22/17 Review of Systems - Review of Systems Constitutional: No symptoms reported EENT: No symptoms reported Cardiovascular: No symptoms reported Respiratory: No symptoms reported Gastrointestinal: No symptoms reported Genitourinary: See HPI, Pain, Retention Male Genitourinary: No symptoms reported Musculoskeletal: No symptoms reported Skin: No symptoms reported Hematologic/Lymphatic: No symptoms reported Neurological/Psychological: No symptoms reported -: Yes All other systems reviewed and negative Physical Exam - Vital signs Vitals: Temp 97.8 F 10/31/19 15:26 - Notes Notes: Physical Exam: General: Alert, appears uncomfortable. HEENT: Normocephalic. Atraumatic. PERRL. Extraocular movements intact. Oropharynx clear. Dry mucous membranes. Neck: Supple. Non-tender. Respiratory: No respiratory distress. Clear and equal breath sounds bilaterally. Cardiovascular: Regular rate and rhythm. Abdominal: Mild abdominal distension. Non-tender. Normal Bowel Sounds. Back: No gross abnormalities. Extremities: Moves all four extremities. Upper extremities: Normal inspection. Normal ROM. Lower extremities: Normal inspection. No edema. Normal ROM. Neurological: Normal cognition. AAOx4. Normal speech. Psychological: Normal affect. Normal Mood. Skin: Warm. Dry. Normal color. Course - Re-evaluation Re-evalutation: 10/31/19 18:17 Patient with no further symptoms of the catheter has been placed. States that he has had a problem with urinary retention in the past but he is not quite sure why denies any other complaints or symptoms at this time. We will give fluids as patient does have a little bit of dehydration and call his oncologist who he is going to be seeing on Saturday. 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 Fajardo who agrees with dispo, will follow up w ith him in clinic on saturday. 10/31/19 19:42 Patient's port has been de-accessed. Leg bag placed. He is comfortable going home. Return if any worsening or concerning symptoms. Urine culture sent. Stable for discharge. - Vital Signs Vital signs: Temp Pulse Resp BP Pulse Ox 98.6 F 90 16 125/81 98 10/31/19 19:49 10/31/19 19:49 10/31/19 19:49 10/31/19 19:49 10/31/19 19:49 - Laboratory Result Diagrams: 10/31/19 16:50 10/31/19 16:50 Laboratory results interpreted by me: 10/31/19 10/31/19 16:50 16:50 RDW 18.1 H Lymph % (Auto) 7.9 L Seg Neutrophils % 79.8 H Sodium 133.9 L Chloride 96 L Est GFR (MDRD) Non-Af 59 L Glucose 122 H Discharge - Discharge Clinical Impression: Urinary retention, Hyponatremia Condition: Stable Disposition: HOME, SELF-CARE Instructions: [place] [facility] ([facility]), Urinary Retention ([facility]) Referrals: PAULA DOMINGO MD [Primary Care Provider] - 11/02/19 I personally performed the services described in the documentation, reviewed and edited the documentation which was dictated to the scribe in my presence, and it accurately records my words and actions.
== END 2019-10-31 20:20 | disposition home or self-care (01) ==
LOC: ER 15:25
DX: R33.9 Retention of urine, unspecified (principal); E87.1 Hypo-osmolality and hyponatremia; I10 Essential (primary) hypertension; Z87.891 Personal history of nicotine dependence
CPT/HCPCS: 36591; 99283; 96360; 51702; 36415; 87086; 85025; 80053; 81001; J7040; J1642